=== PATIENT | female | born 1955 | race Caucasian/White ===

== ENCOUNTER → 2017-10-30 10:21 | Outpatient (CLI) | payer BC, OTHER, SELFPAY ==
--- NOTE | 2017-10-30 10:27 | MM_ITS ---
MM Dig screening mamm BI w/CAD CAD Screening ORDERING PHYSICIAN : Maverick Brewster MD PATIENT AGE: 61 years GENDER: Female INDICATION: Routine screening mammogram. No hormones. No new complaints. Family history history. Paternal grandmother with breast cancer COMPARISON: Previous mammograms: 09/30/2016: September 2015: September 2014. 2012 TECHNIQUE: Standard CC and MLO images were obtained. R2 CAD reviewed. FINDINGS: Minimal fibroglandular elements in both breasts most evident towards upper-outer quadrant. Lower density breast with generalized fatty replacement except for the minimal fibroglandular elements scattered throughout. There are some stable axillary & intramammary lymph nodes bilateral. RIGHT BREAST No new areas of significant concern. Minimal focal density at far lateral right breast less evident the today's initial cc view... No significant change since 2016. A small cyst here 9:00 was identified on the October 2016 ultrasound and likely corresponds. But given its stability follow-up would be adequate. Identified here on ultrasound IMPRESSION: ===== No significant interval change. Stable bilateral mammogram. Bilateral follow-up in one year recommended and encouraged BI-RADS Category: 2 Benign Finding(s) RECOMMENDED FOLLOW-UP: 1YR - 1 YEAR FOLLOW-UP (A letter has been sent to the patient regarding results of the study.) In
== END ==
PROVIDERS: Family Provider Family Medicine; PCP Family Medicine; Visit Provider Family Medicine
DX: Z12.31 Encounter for screening mammogram for malignant neoplasm of breast (principal)
CPT/HCPCS: 77067

== ENCOUNTER → 2017-12-21 06:55 | Outpatient (CLI) | payer BC, OTHER, SELFPAY ==
--- NOTE | 2017-12-21 06:59 | NM_ITS ---
CARDIOLITE SPECT MYOCARDIAL PERFUSION SCAN, REST AND STRESS: EXERCISE STRESS [facility] REVIEW QGS EF AND WALL MOTION EVALUATION: QPS - PERFUSION EVALUATION HISTORY: C.P., TACHYCARDIA DOSE: 10.48 mCi technetium 99m mibi intravenously at rest followed by 31.9 mCi technetium 99m mibi following the intravenous ministration of 0.4 mg of Lexiscan. Resting blood pressure is 154/84. Stress blood pressure 167/93. FINDINGS: Ejection fraction is calculated to be 83. Uniform myocardial activity at both stress and rest gated images calculated ejection fraction of 83% with normal wall motion IMPRESSION: No scintigraphic evidence of Lexiscan-induced myocardial ischemia. Normal ejection fraction normal wall motion
--- NOTE | 2017-12-21 06:59 | CT_ITS ---
CT heart w calcium score INDICATION: ITS.REASON: CP/SOA/ABNORMAL ECG ORDERING PHYSICIAN: Tacho Estevez MD PATIENT AGE: 62 years TECHNIQUE: Axial images are obtained without contrast. Sagittal and coronal reformatted images are reviewed as well. All CT scans at the facility use one or more dose reduction, viz: automated exposure control; ma/kV adjustment per patient size (including targeted exams where dose is matched to indication; i.e. head); or iterative reconstruction technique. FINDINGS: Coronary artery calcium score is 6 indicate minimal plaque burden with low cardiovascular disease risk. Incidental note is made of 6 mm nodule in the left midlung zone along the intrahepatic the major fissure IMPRESSION: 1. Minimal plaque burden with low cardiovascular disease risk. 2. 6 mm left midlung nodule. Recommend [address] follow-up
--- NOTE | 2017-12-21 08:48 | HMH.ITSHM ---
FENOFIBRATE EXFORAGE MAXIDE GRALICE CRESTOR CARVEDILOL CELEBREX SAVELLA TRAMADOL ASPIRIN
== END ==
PROVIDERS: Family Provider Family Medicine; PCP Family Medicine; Visit Provider Internal Medicine Cardiovascular Disease
DX: R07.89 Other chest pain (principal); R06.00 Dyspnea, unspecified; R94.31 Abnormal electrocardiogram [ECG] [EKG]
CPT/HCPCS: 75571; 78452; 93017; A9502; J2785

== ENCOUNTER → 2018-02-08 13:27 | Outpatient (CLI) | payer BC, OTHER, SELFPAY ==
--- NOTE | 2018-02-08 13:41 | MR_ITS ---
MR lumbar spine wo con, MR 3-d myelogram/MRCP HISTORY: PT states low back pain X Years. New onset of pain X 2-3 months. RT buttock, leg pain and tingling. ITS.REASON: RADICULAR LOW BACK PAIN ORDERING PHYSICIAN: Maverick Brewster MD PATIENT AGE: 62 years Comparison: MRI 02/12/12, X-RAY 03/25/12one TECHNIQUE: Standard multiplanar multiecho sequences are performed without contrast. 3-D MIP and myelographic images are also rendered and reviewed FINDINGS: There is normal alignment. The spinal cord ends at the T12 level. T10-T11: Degenerative disc disease with bulging disc with facet and ligamentum flavum hypertrophy with narrowing of the canal at 7 mm with bilateral lateral recess narrowing right greater than left. There is severe bilateral foraminal narrowing. T11-T12: Degenerative disc disease T12-L1: Unremarkable. Mild facet hypertrophic change. L1-L2: Severe degenerative disc disease with bulging disc and facet and ligamentum flavum hypertrophy with severe bilateral lateral recess and moderate bilateral foraminal narrowing is transverse canal stenosis of 8 mm. L2-L3: Severe degenerative disc disease with bulging disc and endplate hypertrophic change with facet and ligamentum flavum hypertrophy with severe canal stenosis and severe bilateral lateral recess and moderate bilateral foraminal narrowing. L3-L4: Severe degenerative disc disease. There is 5 mm anterolisthesis of L3 with region of the posterior superior aspect of L4. There is moderate to severe bilateral foraminal narrowing and severe right-sided lateral recess narrowing from facet and ligamentum hypertrophy. A prior left laminotomy at this level. L4-L5: Severe degenerative disc disease with bulging disc with severe right-sided foraminal narrowing. The bulging disc is eccentric toward the right. There is moderate to severe left-sided foraminal narrowing. L5-S1: Mild bulging disc. IMPRESSION: 1. Abnormal MRI of the lumbar spine. There is multilevel degenerative disc disease with facet and ligamentum flavum hypertrophy and bulging disc with resultant canal stenosis along with lateral recess and foraminal narrowing at multiple levels. Please see above for detailed description at each level. 2. Prior left laminotomy at L4-L5
== END ==
PROVIDERS: Family Provider Family Medicine; PCP Family Medicine; Visit Provider Family Medicine
DX: M54.10 Radiculopathy, site unspecified (principal)
CPT/HCPCS: 72148; 76376

== ENCOUNTER → 2018-02-22 14:07 | Outpatient (POV) | payer BC, OTHER, SELFPAY ==
[2018-02-22 14:22] VITALS: BP 191/99; PULSE 95; RESP 18; O2SAT 98
--- NOTE | 2018-02-23 10:04 | HMH.PMCON ---
Assessment and Plan (1) Spondylosis Status: Chronic Category: Medical Code(s): M47.9 - Spondylosis, unspecified (2) Sacroiliitis Status: Chronic Category: Medical Code(s): M46.1 - Sacroiliitis, not elsewhere classified - Assessment and plan all Dx Assessment and Plan for all problems:: We will schedule right SI joint injection for the patient. I believe this would be beneficial given her symptomology. If patient does not get relief from this we will reassess and potentially work on her facet joints given her that if it from her rfa in the past. This note was dictated using voice recognition software and may contain errors or omissions HPI - Data of Consult Consult date: 02/22/18 Requesting Physician: Elvira Vaca APRN Primary Care Provider: Maverick Brewster MD Family Provider: Maverick Brewster MD - Consult Narrative Reason for consult: Back pain right leg pain History of present illness: Ms. Hilton is a 62 year old female resents for consultation in regards to her back pain. Patient had a discectomy by Dr. Almodovar several years ago. After this she did need to have low back pain. She was seen by Dr. Reeves and had an off day of her left side. Patient state this is done well for several years. Patient is now having right-sided pain. Patient has extreme point tenderness over her right SI joint. She is tried and failed chiropractic therapy, physical therapy, massage therapy. She rates her pain a 5 out of 10 today. She states is constant. States standing and walking long periods of time increases her pain while resting a reclining decreases her pain. CC: Elvira Vaca APRN [facility] History I have reviewed the patient's past medical history: Yes Medical History: Reports:: Gastroesophageal Reflux Disease(GERD), Heart Murmur, Hyperlipidemia, Hypertension Other Medical History: Reports: Arthritis Laterality Cases: Bilateral: Total Knee Replacement Other Surgeries: Yes: Appendectomy, Other - *Social History Smoking Status: Never smoker Alcohol Intake: never Alcohol Intake Frequency:: other Occupational Status: retired Housing: house - Psychiatric History Expresses thoughts of harming self/others: None Suicide Plan Description: No Plan *Family Hx:: Unable to obtain Review of Systems - Review of Systems ROS General: no recent weight change, no fever, no sleep disturbances Respiratory: no cough, no shortness of air, no recurring pulmonary infections Cardiovascular/Peripheral Vascular: No chest pain, No palpitations, no edema, no shortness of breath. Gastrointestinal: no new onset incontinence, normal bowel movements reported Genitourinary: no new onset incontinence Musculoskeletal: Back pain, right SI joint pain Psychiatric: normal mood/ affect Neurological: [denies weakness in extremities], [denies balance issues] Meds Home Medications Medication Instructions Recorded Confirmed Type amlodipine 5 mg-valsartan 320 mg 1 tab PO DAILY tab 11/04/17 History tablet calcium carbonate-vitamin D3 600 cap PO 11/04/17 History mg calcium-200 unit capsule celecoxib 200 mg capsule 200 mg PO DAILY cap 11/04/17 History cholecalciferol (vitamin D3) 5,000 5,000 unit PO DAILY cap 11/04/17 History unit capsule coenzyme Q10 100 mg capsule 100 mg PO DAILY cap 11/04/17 History fenofibrate nanocrystallized 145 145 mg PO DAILY tab 11/04/17 History mg tablet gabapentin ER 600 mg 1,200 mg PO QPM 11/04/17 History tablet,extended release 24 hr lidocaine 5 % topical patch 1 patch TOPICAL ONCE PRN 11/04/17 History milnacipran 50 mg tablet 50 mg PO DAILY tab 11/04/17 History multivitamin tablet 1 tab PO QAM 11/04/17 History tramadol ER 300 mg tablet,extended 300 mg PO DAILY tab 11/04/17 History release 24 hr triamterene 37.5 1 tab PO QAM 11/04/17 History mg-hydrochlorothiazide 25 mg tablet rosuvastatin 5 mg tablet 5 mg PO .every other day tab
--- NOTE | 2018-02-23 10:09 | P.CONS_ITS ---
Assessment and Plan (1) Spondylosis Status: Chronic Category: Medical Code(s): M47.9 - Spondylosis, unspecified (2) Sacroiliitis Status: Chronic Category: Medical Code(s): M46.1 - Sacroiliitis, not elsewhere classified - Assessment and plan all Dx Assessment and Plan for all problems:: We will schedule right SI joint injection for the patient. I believe this would be beneficial given her symptomology. If patient does not get relief from this we will reassess and potentially work on her facet joints given her that if it from her rfa in the past. This note was dictated using voice recognition software and may contain errors or omissions HPI - Data of Consult Consult date: 02/22/18 Requesting Physician: Elvira Vaca APRN Primary Care Provider: Maverick Brewster MD Family Provider: Maverick Brewster MD - Consult Narrative Reason for consult: Back pain right leg pain History of present illness: Ms. Hilton is a 62 year old female resents for consultation in regards to her back pain. Patient had a discectomy by Dr. Almodovar several years ago. After this she did need to have low back pain. She was seen by Dr. Reeves and had an off day of her left side. Patient state this is done well for several years. Patient is now having right-sided pain. Patient has extreme point tenderness over her right SI joint. She is tried and failed chiropractic therapy, physical therapy, massage therapy. She rates her pain a 5 out of 10 today. She states is constant. States standing and walking long periods of time increases her pain while resting a reclining decreases her pain. CC: Elvira Vaca APRN [facility] History I have reviewed the patient's past medical history: Yes Medical History: Reports:: Gastroesophageal Reflux Disease(GERD), Heart Murmur, Hyperlipidemia, Hypertension Other Medical History: Reports: Arthritis Laterality Cases: Bilateral: Total Knee Replacement Other Surgeries: Yes: Appendectomy, Other - *Social History Smoking Status: Never smoker Alcohol Intake: never Alcohol Intake Frequency:: other Occupational Status: retired Housing: house - Psychiatric History Expresses thoughts of harming self/others: None Suicide Plan Description: No Plan *Family Hx:: Unable to obtain Review of Systems - Review of Systems ROS General: no recent weight change, no fever, no sleep disturbances Respiratory: no cough, no shortness of air, no recurring pulmonary infections Cardiovascular/Peripheral Vascular: No chest pain, No palpitations, no edema, no shortness of breath. Gastrointestinal: no new onset incontinence, normal bowel movements reported Genitourinary: no new onset incontinence Musculoskeletal: Back pain, right SI joint pain Psychiatric: normal mood/ affect Neurological: [denies weakness in extremities], [denies balance issues] Meds Home Medications Medication Instructions Recorded Confirmed Type amlodipine 5 mg-valsartan 320 mg 1 tab PO DAILY tab 11/04/17 History tablet calcium carbonate-vitamin D3 600 cap PO 11/04/17 History mg calcium-200 unit capsule celecoxib 200 mg capsule 200 mg PO DAILY cap 11/04/17 History cholecalciferol (vitamin D3) 5,000 5,000 unit PO DAILY cap 11/04/17 History unit capsule coenzyme Q10 100 mg capsule 100 mg PO DAILY cap 11/04/17 History fenofibrate nanocrystallized 145 145 mg PO DAILY tab 11/04/17 History mg tablet gabap
== END ==
PROVIDERS: Family Provider Family Medicine; PCP Family Medicine; Visit Provider Clinical Nurse Specialist Family Health
DX: M54.5 Low back pain (principal); M47.9 Spondylosis, unspecified; M46.1 Sacroiliitis, not elsewhere classified
CPT/HCPCS: 99212

== ENCOUNTER → 2018-03-23 09:46 | Outpatient (POV) | payer BC, OTHER, SELFPAY ==
[2018-03-23 10:22] VITALS: BP 137/78; PULSE 75; RESP 18; O2SAT 98; BMI 35.9
--- NOTE | 2018-03-23 12:00 | HMH.PAINSOAP ---
[facility] Pain Management SOAP Note Subjective:: Patient is a pleasant 62-year-old white female who presents today for follow-up after right SI joint injection. Patient had some relief however it was not long lasting. Patient has had rhizotomies in the past with good relief. Patient was seen by Dr. Almodovar since her last visit and he did recommend a lumbar laminectomy at her higher lumbar levels. Patient does not know if she wants to move forward with this. Patient and I did discuss about repeating a medial branch block or facet joint injection. We also briefly talked about neuro stimulation. She rates her pain a 6 out of 10 today. Mostly in her low back ROS General: no recent weight change, no fever, no sleep disturbances Respiratory: no cough, no shortness of air, no recurring pulmonary infections Cardiovascular/Peripheral Vascular: No chest pain, No palpitations, no edema, no shortness of breath. Gastrointestinal: no incontinence, normal bowel movements reported Genitourinary: no incontinence Musculoskeletal: Low back pain Psychiatric: normal mood/ affect Neurological: [denies weakness in extremities], [denies balance issues] Objective:: Physical Exam General: Alert and oriented x3, no acute distress, pleasant and cooperative, [on room air] Lungs: Resps E/U, Symmetrical chest expansion, Eyes: PERRL Musculoskeletal: Flexion and extension of lumbar spine somewhat guarded secondary to pain, deep tendon reflexes normal, strength in upper and lower extremities [5/5], [abnormal gait noted] Neurological: speech clear, strip cutter equal, no gross sensory deficits Assessment:: Sacroiliitis, degenerative disc disease lumbar spine with lumbar radiculopathy and lumbar spondylosis, postlaminectomy syndrome Plan:: I gave the patient information in regards to facet joint injections along with information on neuro stimulation. Patient has been a reviewed this and decide which direction she would like to move forward with. Patient is not on any anticoagulation therapy. Patient has been a call us to schedule an appointment. This note was dictated using voice recognition software and may contain errors or omissions
--- NOTE | 2018-03-23 12:03 | P.CONS_ITS ---
[facility] Pain Management SOAP Note Subjective:: Patient is a pleasant 62-year-old white female who presents today for follow-up after right SI joint injection. Patient had some relief however it was not long lasting. Patient has had rhizotomies in the past with good relief. Patient was seen by Dr. Almodovar since her last visit and he did recommend a lumbar laminectomy at her higher lumbar levels. Patient does not know if she wants to move forward with this. Patient and I did discuss about repeating a medial branch block or facet joint injection. We also briefly talked about neuro stimulation. She rates her pain a 6 out of 10 today. Mostly in her low back ROS General: no recent weight change, no fever, no sleep disturbances Respiratory: no cough, no shortness of air, no recurring pulmonary infections Cardiovascular/Peripheral Vascular: No chest pain, No palpitations, no edema, no shortness of breath. Gastrointestinal: no incontinence, normal bowel movements reported Genitourinary: no incontinence Musculoskeletal: Low back pain Psychiatric: normal mood/ affect Neurological: [denies weakness in extremities], [denies balance issues] Objective:: Physical Exam General: Alert and oriented x3, no acute distress, pleasant and cooperative, [ on room air] Lungs: Resps E/U, Symmetrical chest expansion, Eyes: PERRL Musculoskeletal: Flexion and extension of lumbar spine somewhat guarded secondary to pain, deep tendon reflexes normal, strength in upper and lower extremities [5/5], [abnormal gait noted] Neurological: speech clear, stain wiper equal, no gross sensory deficits Assessment:: Sacroiliitis, degenerative disc disease lumbar spine with lumbar radiculopathy and lumbar spondylosis, postlaminectomy syndrome Plan:: I gave the patient information in regards to facet joint injections along with information on neuro stimulation. Patient has been a reviewed this and decide which direction she would like to move forward with. Patient is not on any anticoagulation therapy. Patient has been a call us to schedule an appointment. This note was dictated using voice recognition software and may contain errors or omissions
== END ==
PROVIDERS: Family Provider Family Medicine; PCP Family Medicine; Visit Provider Clinical Nurse Specialist Family Health
DX: M51.16 Intervertebral disc disorders with radiculopathy, lumbar region (principal); M46.1 Sacroiliitis, not elsewhere classified; M47.896 Other spondylosis, lumbar region; M96.1 Postlaminectomy syndrome, not elsewhere classified
CPT/HCPCS: 99213

== ENCOUNTER → 2018-07-12 14:49 | Outpatient (POV) | payer BC, OTHER, SELFPAY ==
[2018-07-12 14:59] VITALS: BP 152/75; PULSE 89; RESP 18; O2SAT 98; BMI 38.0
--- NOTE | 2018-07-13 13:51 | P.CONS_ITS ---
[facility] Pain Management SOAP Note Subjective:: Is a pleasant 62 old white female who presents today for follow-up. Patient is still having some SI joint pain. She would like to redo her right SI joint injection. Patient would also like to discuss potentially a mild procedure. Patient does have pain when she is standing for long periods of time. Stick patient states that leaning forward does alleviate the symptoms. I do believe she would be a good candidate for a mild procedure. ROS General: no recent weight change, no fever, no sleep disturbances Respiratory: no cough, no shortness of air, no recurring pulmonary infections Cardiovascular/Peripheral Vascular: No chest pain, No palpitations, no edema, no shortness of breath. Gastrointestinal: no incontinence, normal bowel movements reported Genitourinary: no incontinence Musculoskeletal: Back pain, leg pain, SI joint pain Psychiatric: normal mood/ affect Neurological: [denies weakness in extremities], [denies balance issues] Objective:: Physical Exam General: Alert and oriented x3, no acute distress, pleasant and cooperative, [on room air] Lungs: Resps E/U, Symmetrical chest expansion, Eyes: PERRL Musculoskeletal: Flexion and extension of lumbar spine somewhat guarded secondary to pain, deep tendon reflexes normal, strength in upper and lower extremities [5/5], [abnormal gait noted], positive Luis's test on the right side Neurological: speech clear, field marketing representative equal, no gross sensory deficits Assessment:: Degenerative disc disease lumbar spine with spinal stenosis, ligamentum flavum hypertrophy, right SI joint pain, sacroiliitis Plan:: We will schedule her for a right SI joint injection as soon as possible we will also set her up for potential mild case. This note was dictated using voice recognition software and may contain errors or omissions
== END ==
PROVIDERS: PCP Family Medicine; Visit Provider Clinical Nurse Specialist Family Health
DX: M51.36 Other intervertebral disc degeneration, lumbar region (principal); M48.061 Spinal stenosis, lumbar region without neurogenic claudication; M46.1 Sacroiliitis, not elsewhere classified; M46.06 Spinal enthesopathy, lumbar region
CPT/HCPCS: 99213

== ENCOUNTER → 2018-08-23 10:40 | Outpatient (POV) | payer BC, OTHER, SELFPAY ==
[2018-08-23 10:52] VITALS: BP 150/77; PULSE 81; RESP 18; O2SAT 98; BMI 38.0
--- NOTE | 2018-08-23 11:36 | XR_ITS ---
EXAM: XR lumbar spine bending only HISTORY: ITS.REASON: LUMBAR PAIN,MILD PROCEDURE ORDERING PHYSICIAN: Elvira Vaca PATIENT AGE: 62 years COMPARISON: None FINDINGS: Flexion and extension views are obtained of the lumbar spine. There is no abnormal subluxation in flexion or extension. There is multilevel degenerative disc disease T12-L5. Endplate hypertrophic changes are present most prominent at L2-L3. There is 5 mm fixed anterolisthesis of L2. IMPRESSION: Multilevel degenerative disc disease with no abnormal subluxation flexion or extension
--- NOTE | 2018-08-23 12:39 | HMH.PAINSOAP ---
[facility] Pain Management SOAP Note Subjective:: Is a pleasant 62-year-old white female who presents today for discussion in regards to her mild procedure. Patient has difficulty standing for long periods of time. Patient pain symptoms are alleviated with leaning forward. Patient does have noted spinal stenosis throughout her lumbar spine. Patient has been deemed a candidate for surgery however she would like to try a mild procedure prior. Patient has tried and failed epidural injections along with other injections. Patient and I had a long discussion about realistic goals. Patient understands that our goal is to make her more functional. Patient understands that there is no guarantee with any procedure that we can ensure success. Patient and I discussed the risks along with potential benefits. Patient's MRI was reviewed by me and the M ILD rep along with her flexion and extension x-rays. Patient and I discussed how pain is multilayered and that if we can alleviate her stenosis pain that we potentially may uncover additional pains. Patient is aware. She is not on any anticoagulation therapy. Patient is doing home stretching however after she gets her mild procedure she would like to do more formal physical therapy. She is on anti-inflammatories. She is tried multiple medications with no success. She rates her pain today a 7 out of 10. ROS General: no recent weight change, no fever, no sleep disturbances Respiratory: no cough, no shortness of air, no recurring pulmonary infections Cardiovascular/Peripheral Vascular: No chest pain, No palpitations, no edema, no shortness of breath. Gastrointestinal: no incontinence, normal bowel movements reported Genitourinary: no incontinence Musculoskeletal: Back pain, leg pain Psychiatric: normal mood/ affect Neurological: Weakness in bilateral lower extremities with standing for long periods of time, [denies balance issues] Objective:: Physical Exam General: Alert and oriented x3, no acute distress, pleasant and cooperative, [on room air] Lungs: Resps E/U, Symmetrical chest expansion, Eyes: PERRL Musculoskeletal: Flexion and extension of lumbar spine somewhat guarded secondary to pain, deep tendon reflexes normal, strength in upper and lower extremities [5/5], [abnormal gait noted] Neurological: speech clear, rivet thrower equal, no gross sensory deficits Assessment:: Degenerative disc disease lumbar spine, ligamentum flavum hypertrophy, right SI joint pain, sacroiliitis, spinal stenosis with neurogenic claudication Plan:: Patient is worse stenosis is at L1-L2 along with L3-L4 L4-L5. We will set her up for a mild procedure for her lower lumbar spine. I will follow-up with the patient 2 weeks after her procedure. Patient is instructed to call the office if she has any issues prior to her next appointment. She is not on any anticoagulation therapy. This note was dictated using voice recognition software and may contain errors or omissions
--- NOTE | 2018-08-23 12:43 | P.CONS_ITS ---
[facility] Pain Management SOAP Note Subjective:: Is a pleasant 62-year-old white female who presents today for discussion in regards to her mild procedure. Patient has difficulty standing for long periods of time. Patient pain symptoms are alleviated with leaning forward. Patient does have noted spinal stenosis throughout her lumbar spine. Patient has been deemed a candidate for surgery however she would like to try a mild procedure prior. Patient has tried and failed epidural injections along with other injections. Patient and I had a long discussion about realistic goals. Patient understands that our goal is to make her more functional. Patient understands that there is no guarantee with any procedure that we can ensure success. P atient and I discussed the risks along with potential benefits. Patient's MRI was reviewed by me and the M ILD rep along with her flexion and extension x- rays. Patient and I discussed how pain is multilayered and that if we can alleviate her stenosis pain that we potentially may uncover additional pains. Patient is aware. She is not on any anticoagulation therapy. Patient is doing home stretching however after she gets her mild procedure she would like to do more formal physical therapy. She is on anti-inflammatories. She is tried multiple medications with no success. She rates her pain today a 7 out of 10. ROS General: no recent weight change, no fever, no sleep disturbances Respiratory: no cough, no shortness of air, no recurring pulmonary infections Cardiovascular/Peripheral Vascular: No chest pain, No palpitations, no edema, no shortness of breath. Gastrointestinal: no incontinence, normal bowel movements reported Genitourinary: no incontinence Musculoskeletal: Back pain, leg pain Psychiatric: normal mood/ affect Neurological: Weakness in bilateral lower extremities with standing for long periods of time, [denies balance issues] Objective:: Physical Exam General: Alert and oriented x3, no acute distress, pleasant and cooperative, [on room air] Lungs: Resps E/U, Symmetrical chest expansion, Eyes: PERRL Musculoskeletal: Flexion and extension of lumbar spine somewhat guarded secondary to pain, deep tendon reflexes normal, strength in upper and lower extremities [5/5], [abnormal gait noted] Neurological: speech clear, manager of exhibitions and collections equal, no gross sensory deficits Assessment:: Degenerative disc disease lumbar spine, ligamentum flavum hypertrophy, right SI joint pain, sacroiliitis, spinal stenosis with neurogenic claudication Plan:: Patient is worse stenosis is at L1-L2 along with L3-L4 L4-L5. We will set her up for a mild procedure for her lower lumbar spine. I will follow-up with the patient 2 weeks after her procedure. Patient is instructed to call the office if she has any issues prior to her next appointment. She is not on any anticoagulation therapy. This note was dictated using voice recognition software and may contain errors or omissions
== END ==
PROVIDERS: PCP Family Medicine; Visit Provider Clinical Nurse Specialist Family Health
DX: M51.16 Intervertebral disc disorders with radiculopathy, lumbar region; M48.062 Spinal stenosis, lumbar region with neurogenic claudication; M46.00 Spinal enthesopathy, site unspecified; M46.1 Sacroiliitis, not elsewhere classified
CPT/HCPCS: 72120; 99213

== ENCOUNTER → 2018-10-18 09:56 | Outpatient (POV) | payer BC, OTHER, SELFPAY ==
--- NOTE | 2018-10-18 10:25 | XR_ITS ---
XR knee RT 3V HISTORY: ITS.REASON: KNEE PAIN ORDERING PHYSICIAN: Elvira Vaca PATIENT AGE: 62 years COMPARISON: None FINDINGS: There has been a prior medial hemiarthroplasty with good alignment of the prosthesis. Mild osteoarthritic changes are present involving the lateral compartment and patellofemoral joint. No acute fracture or dislocation. IMPRESSION: Status post medial hemiarthroplasty with good alignment with mild osteoarthritic change of the medial compartment and patellofemoral joint
--- NOTE | 2018-10-18 10:25 | XR_ITS ---
XR knee LT 3V HISTORY: ITS.REASON: KNEE PAIN ORDERING PHYSICIAN: Elvira Vaca PATIENT AGE: 62 years COMPARISON: 02/20/2011 FINDINGS: There has been interval total knee arthroplasty placement with good alignment and no evidence of orthopedic complication. No fracture or dislocation. There is some decreased attenuation involving the distal aspect of the femur just proximal to the arthroplasty. This is of questionable clinical significance and may only be postsurgical in nature. There are no other post surgical exams available for review. Correlation with more recent postsurgical films would be helpful. IMPRESSION: 1. Status post totally arthroplasty with good alignment. 2. Slight decreased attenuation along the distal aspect of the femur which is of questionable clinical significance. Correlation with other postoperative films needed. If these are made available then, an addendum may be given
[2018-10-18 10:29] VITALS: BP 109/70; PULSE 83; RESP 18; O2SAT 98; BMI 37.4
--- NOTE | 2018-10-18 12:31 | HMH.PAINSOAP ---
[facility] Pain Management SOAP Note Subjective:: Patient is a pleasant 62-year-old white female who presents today for follow-up after mild procedure. Patient states she is doing much better rating her pain a 1 out of 10. Patient states that all of the pain in her legs has subsided. Patient is able to sleep at night she is also able to stand and walk for longer periods of time. Patient states most of her pain now is in her bilateral knees. She has had knee replacements by Dr. Guevara. She states her left knee is much worse than her right knee. ROS General: no recent weight change, no fever, no sleep disturbances Respiratory: no cough, no shortness of air, no recurring pulmonary infections Cardiovascular/Peripheral Vascular: No chest pain, No palpitations, no edema, no shortness of breath. Gastrointestinal: no incontinence, normal bowel movements reported Genitourinary: no incontinence Musculoskeletal: Bilateral knee pain Psychiatric: normal mood/ affect Neurological: [denies weakness in extremities], [denies balance issues] Objective:: Physical Exam General: Alert and oriented x3, no acute distress, pleasant and cooperative, [on room air] Lungs: Resps E/U, Symmetrical chest expansion, Eyes: PERRL Musculoskeletal: Flexion and extension of lumbar spine somewhat guarded secondary to pain, deep tendon reflexes normal, strength in upper and lower extremities [5/5], [abnormal gait noted] Neurological: speech clear, labor relations teacher equal, no gross sensory deficits Assessment:: Degenerative disc disease lumbar spine with ligamentum flavum hypertrophy and spinal stenosis with neurogenic claudication and bilateral knee pain Plan:: I will get x-rays of the patient's knees and we will send her for consultation in regards to the pain to Dr. Guevara. I will see the patient back in 2 months and reassess her symptoms at that time. She has been instructed to call the office if she has any issues prior to her next appointment. Dr. Patterson has reviewed this note and agrees with this plan of care. This note was dictated using voice recognition software and may contain errors or omissions
== END ==
PROVIDERS: PCP Family Medicine; Visit Provider Clinical Nurse Specialist Family Health
DX: Z09 Encounter for follow-up examination after completed treatment for conditions other than malignant neoplasm (principal); M48.062 Spinal stenosis, lumbar region with neurogenic claudication; M25.561 Pain in right knee; M25.562 Pain in left knee
CPT/HCPCS: 73562; 99213

== ENCOUNTER → 2018-11-02 09:22 | Outpatient (CLI) | payer BC, OTHER, SELFPAY ==
--- NOTE | 2018-11-02 09:26 | MM_ITS ---
MM Dig screening mamm BI w/CAD ORDERING PHYSICIAN : Jaime Orozco MD PATIENT AGE: 62 years GENDER: Female COMPARISON: Previous bilateral digital mammogram October 2017February 2017] 2015 2012 INDICATION: ITS.REASON: Routine Screening Mammogram TECHNIQUE: Standard CC and MLO images were obtained. R2 CAD reviewed. FINDINGS: Mild to moderate residual fibroglandular elements. With no dominant suspicious mass or suspicious calcifications RIGHT BREAST:No no new areas of significant concern. Areas of density and minimal nodularity appears stable when compared to multiple studies. Scattered benign calcifications are again seen developing along the medial breast.. LEFT BREAST: No significant change compared back to previous studies of September 2015 and July 2013 Areas of asymmetric minimal fibroglandular density at the deep lateral left breast are similar to those studies with no new areas of significant concern. Scattered benign calcifications medial breastt IMPRESSION: Stable bilateral mammogram No new areas of significant concern . BI-RADS Category: 2 Benign Finding(s) RECOMMENDED FOLLOW-UP: 1YR 1 YEAR FOLLOW-UP (A letter has been sent to the patient regarding results of the study.)
== END ==
PROVIDERS: PCP Family Medicine; Visit Provider Nurse Practitioner Obstetrics & Gynecology
DX: Z12.31 Encounter for screening mammogram for malignant neoplasm of breast (principal)
CPT/HCPCS: 77067

== ENCOUNTER → 2018-11-22 13:47 | Outpatient (POV) | payer MEDICARE, OTHER, SELFPAY ==
[2018-11-22 14:29] VITALS: BP 160/89; PULSE 94; RESP 18; O2SAT 99; BMI 37.8
--- NOTE | 2018-11-23 08:21 | HMH.PAINSOAP ---
[facility] Pain Management SOAP Note Subjective:: Patient is a very pleasant 62-year-old white female who presents today for follow-up. Patient states she is doing well however since she has started physical therapy she has found that her pain has increased she rates her pain a 4 out of 10 mostly in her low back right hip and leg. She is also having quite a lot of knee pain. Patient and I discussed options including spinal cord stimulation. ROS General: no recent weight change, no fever, no sleep disturbances Respiratory: no cough, no shortness of air, no recurring pulmonary infections Cardiovascular/Peripheral Vascular: No chest pain, No palpitations, no edema, no shortness of breath. Gastrointestinal: no incontinence, normal bowel movements reported Genitourinary: no incontinence Musculoskeletal: Back pain, leg pain, knee pain Psychiatric: normal mood/ affect Neurological: [denies weakness in extremities], [denies balance issues] Objective:: Physical Exam General: Alert and oriented x3, no acute distress, pleasant and cooperative, [on room air] Lungs: Resps E/U, Symmetrical chest expansion, Eyes: PERRL Musculoskeletal: Flexion and extension of lumbar spine somewhat guarded secondary to pain, deep tendon reflexes normal, strength in upper and lower extremities [5/5], [abnormal gait noted] Neurological: speech clear, 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 I will follow-up with the patient 1 week reassess her at that time. She is been instructed to call the office if she has any issues prior to her next appointment. Dr. Patterson has reviewed this note and agrees with this plan of care. This note was dictated using voice recognition software and may contain errors or omissions
== END ==
PROVIDERS: PCP Family Medicine; Visit Provider Clinical Nurse Specialist Family Health
DX: M48.062 Spinal stenosis, lumbar region with neurogenic claudication (principal)
CPT/HCPCS: 99212

== ENCOUNTER → 2018-11-30 10:43 | Outpatient (POV) | payer MEDICARE, OTHER, SELFPAY ==
[2018-11-30 11:09] VITALS: BP 166/69; PULSE 83; RESP 18; O2SAT 98; BMI 37.8
--- NOTE | 2018-11-30 11:09 | HMH.PAINSOAP ---
[facility] Pain Management SOAP Note Subjective:: Patient is a very pleasant 63-year-old white female who presents today for follow-up. She rates her pain a 3 out of 10. Mostly in her right hip. Patient is completing physical therapy. She has extreme point tenderness of her right greater trochanteric bursa. Patient and I discussed bursa injection. ROS General: no recent weight change, no fever, no sleep disturbances Respiratory: no cough, no shortness of air, no recurring pulmonary infections Cardiovascular/Peripheral Vascular: No chest pain, No palpitations, no edema, no shortness of breath. Gastrointestinal: no incontinence, normal bowel movements reported Genitourinary: no incontinence Musculoskeletal: Right hip pain Psychiatric: normal mood/ affect Neurological: [denies weakness in extremities], [denies balance issues] Objective:: Physical Exam General: Alert and oriented x3, no acute distress, pleasant and cooperative, [on room air] Lungs: Resps E/U, Symmetrical chest expansion, Eyes: PERRL Musculoskeletal: Flexion and extension of lumbar spine somewhat guarded secondary to pain, deep tendon reflexes normal, strength in upper and lower extremities [5/5], [abnormal gait noted] extreme point tenderness over right greater trochanteric bursa Neurological: speech clear, water pumping station engineer equal, no gross sensory deficits Assessment:: Degenerative disc disease lumbar spine and spinal stenosis, right greater trochanteric bursitis Plan:: We will schedule her for a right greater trochanteric bursa injection she is continuing her physical therapy. Patient will follow-up at her injection we will reassess her at that time. Dr. Patterson has reviewed this note and agrees with this plan of care. This note was dictated using voice recognition software and may contain errors or omissions
== END ==
PROVIDERS: PCP Family Medicine; Visit Provider Clinical Nurse Specialist Family Health
DX: M51.36 Other intervertebral disc degeneration, lumbar region; M48.061 Spinal stenosis, lumbar region without neurogenic claudication; M70.61 Trochanteric bursitis, right hip
CPT/HCPCS: 99212

== ENCOUNTER 2019-01-17 09:00 | Outpatient (RCR) | payer MEDICARE, OTHER, SELFPAY | END 2019-01-17 09:05 | disposition home or self-care (01) | LOC: PT 09:00 | PROVIDERS: Visit Provider Orthopaedic Surgery | DX: M62.81 Muscle weakness (generalized) (principal) | CPT/HCPCS: 97014; 97110; 97163; 97164; G0283 ==

== ENCOUNTER → 2019-09-21 14:56 | Outpatient (CLI) | payer MEDICARE, OTHER, SELFPAY ==
--- NOTE | 2019-09-21 15:01 | XR_ITS ---
PROCEDURE: XR CHEST 2V CLINICAL HISTORY: HTN, PRE OP COMPARISON: CXR CHEST(2 VIEWS-NOT PORTABLE) from 03/11/2014 CXR CHEST(2 VIEWS-NOT PORTABLE) from 05/14/2015 FINDINGS: The cardiomediastinal silhouette and pulmonary vascularity are within normal limits. The lungs are clear without infiltrates, suspicious nodules, or pleural effusions. No acute bony abnormalities. IMPRESSION: No acute findings. Dictated by: Alberto Carvalho MD 09/21/2019 15:22 Electronically signed by Alberto Carvalho MD in [place] 09/21/2019 15:22
== END ==
PROVIDERS: PCP Family Medicine; Visit Provider Family Medicine
DX: Z01.818 Encounter for other preprocedural examination (principal)
CPT/HCPCS: 71046

== ENCOUNTER 2019-09-29 10:00 | Outpatient (RCR) | payer MEDICARE, OTHER, SELFPAY | END 2019-09-29 10:57 | disposition home or self-care (01) | LOC: PT 10:00 | PROVIDERS: PCP Family Medicine; Visit Provider Orthopaedic Surgery | DX: M76.02 Gluteal tendinitis, left hip (principal); M76.01 Gluteal tendinitis, right hip | CPT/HCPCS: 97110; 97163 ==

== ENCOUNTER → 2019-10-11 14:48 | Outpatient (CLI) | payer MEDICARE, OTHER, SELFPAY ==
--- NOTE | 2019-10-11 14:54 | US_ITS ---
PROCEDURE: US THYROID CLINICAL INDICATION: THYROMEGALY Enlarged thyroid gland COMPARISON: No exams were available for comparison FINDINGS: Right lobe is 5.3 x 2.9 x 2.4 cm. There is heterogeneous echogenicity with some increased vascularity. The left lobe is 4.3 x 2.22 cm also demonstrating heterogeneous echogenicity. A dominant nodule is present at the isthmus on the left measuring 3 x 1.5 cm. Nodule is hypoechoic, solid, fairly well-circumscribed without discrete calcification. IMPRESSION: Enlarged thyroid gland with heterogeneous echogenicity consistent with goiter. Moderately suspicious nodule involving the left aspect of the isthmus, T rads level 4. Recommend ultrasound-guided fine needle aspiration Dictated by: Alberto Carvalho MD 10/11/2019 18:46 Electronically signed by Alberto Carvalho MD in [place] 10/11/2019 18:46
== END ==
PROVIDERS: PCP Family Medicine; Visit Provider Family Medicine
DX: E01.0 Iodine-deficiency related diffuse (endemic) goiter (principal)
CPT/HCPCS: 76536

== ENCOUNTER → 2020-03-26 09:24 | Outpatient (CLI) | payer MEDICARE, OTHER, SELFPAY ==
--- NOTE | 2020-03-26 09:27 | MM_ITS ---
PROCEDURE: MM DIG SCREENING MAMM BI W/CAD Digital Breast Tomosynthesis Included CLINICAL INDICATION: SCREENING There is a history of breast cancer patient's paternal grandmother. COMPARISON: MG [id number] DIG MAMM-DX UNI A/VW-RT W/CAD from 10/10/2016 [facility] MM Dig screening mamm BI w/CAD from 10/30/2017 [facility] MM Dig screening mamm BI w/CAD from 11/02/2018 TECHNIQUE: Standard CC and MLO images and 3D Tomosynthesis was obtained. R2 CAD reviewed. FINDINGS: Scattered fibroglandular densities are seen throughout both breast primarily upper outer quadrants. There are scattered benign-appearing microcalcifications in each breast some of which appear to be typical of secretory disease. There is no suspicious lesion in either breast and no suspicious microcalcifications. There are several small normal appearing nodes in each axilla. IMPRESSION: Moderate breast density with no suspicious lesions seen BI-RAD Category: 2 Benign Finding(s) FOLLOW-UP: 1YR 1 Year Follow-up (A letter has been sent to the patient regarding results of the study.) Dictated by: Dr. Simba Nolen MD 03/27/2020 07:58 Dr. Simba Nolen MD in [place] 03/27/2020 07:58
--- NOTE | 2020-03-26 09:29 | XR_ITS ---
PROCEDURE: XR DEXA AXIAL SKELETON CLINICAL HISTORY: OSTEOPENIA COMPARISON: No exams were available for comparison FINDINGS: The right hip BMD is 1.003 with a t-score of 0.5. The left hip BMD is 1.082 with a t-score of 1.1. The lumbar spine BMD is 1.449 with a t-score of 3.7. IMPRESSION: Normal bone density with low fracture risk. Suggest follow-up exam in 2 years Dictated by: Alberto Carvalho MD 03/26/2020 18:23 Alberto Carvalho MD in [place] 03/27/2020 09:04
== END ==
PROVIDERS: PCP Family Medicine; Visit Provider Family Medicine
DX: Z12.31 Encounter for screening mammogram for malignant neoplasm of breast (principal); M85.89 Other specified disorders of bone density and structure, multiple sites
CPT/HCPCS: 77063; 77067; 77080

== ENCOUNTER → 2021-03-28 12:52 | Outpatient (CLI) | payer MEDICARE, OTHER, SELFPAY ==
--- NOTE | 2021-03-28 12:56 | MM_ITS ---
PROCEDURE: MM DIG SCREENING MAMM BI W/CAD Digital Breast Tomosynthesis Included CLINICAL INDICATION: SCREENING COMPARISON: [facility] MM Dig screening mamm BI w/CAD from 10/30/2017 [facility] MM Dig screening mamm BI w/CAD from 11/02/2018 MG MM DIG SCREENING MAMM BI W/CAD from 03/26/2020 TECHNIQUE: Standard CC and MLO images and 3D Tomosynthesis was obtained. R2 CAD reviewed. FINDINGS: Average fibroglandular tissue. Benign-appearing calcifications with benign-appearing nodules in the axilla consistent with lymph nodes.No suspicious appearing mass, malignant-appearing microcalcification, architectural distortion, or skin thickening.. No significant change. IMPRESSION: Benign findings with no significant change BI-RAD Category: 2 Benign Finding FOLLOW-UP: 1 YR 1 Year Follow-up (A letter has been sent to the patient regarding results of the study.) Dictated by: Alberto Carvalho MD 04/04/2021 08:37 Alberto Carvalho MD in [place] 04/04/2021 08:37
== END ==
PROVIDERS: PCP Family Medicine; Visit Provider Family Medicine
DX: Z12.31 Encounter for screening mammogram for malignant neoplasm of breast (principal)
CPT/HCPCS: 77063; 77067

== ENCOUNTER → 2021-11-18 11:15 | Outpatient (CLI) | payer MEDICARE, OTHER, SELFPAY ==
[2021-11-18 11:39] LABS: Blood Urea Nitrogen 29 mg/dl (7-17); Estimated Glomerular Filt Rate 62 ml/min (>60); GFR (African American) 76 ML/MIN (>60)
--- NOTE | 2021-11-18 11:58 | CT_ITS ---
FINAL REPORT TECHNIQUE: After the administration of oral and intravenous contrast, axial images were obtained through the abdomen and pelvis by computed tomography. The study was performed with techniques to keep radiation dose as low as reasonably achievable, (ALARA). Individual dose reduction techniques using automated exposure control or adjustment of mA and/or kV according to the patient's size were employed. CLINICAL HISTORY: DIVERTICULITIS FINDINGS: Abdomen: There is scarring in the left lung base. There is a small sliding-type hiatal hernia. The liver demonstrates mild fatty infiltration. The gallbladder is present. The spleen, pancreas, adrenals and kidneys appear unremarkable. The aorta is normal in caliber. There is no free fluid or adenopathy. Pelvis: There is a segment of extensive mucosal thickening and pericolonic inflammation involving the proximal in mid sigmoid colon consistent with acute diverticulitis. No abscess is identified. The appendix is not identified. The urinary bladder is unremarkable. There is no free fluid or adenopathy. IMPRESSION: Extensive changes of acute uncomplicated diverticulitis involving the proximal and mid sigmoid colon. Reviewed, Interpreted and Dictated by Bucky Barajas MD Transcribed by Jake Gomez Authenticated by Bucky Barajas MD on 11/18/2021 04:17:20 PM [facility]
== END ==
PROVIDERS: PCP Family Medicine; Visit Provider Family Medicine
DX: K57.92 Diverticulitis of intestine, part unspecified, without perforation or abscess without bleeding (principal)
CPT/HCPCS: 36415; 74177; 82565; 84520; Q9967

== ENCOUNTER → 2021-11-29 09:52 | Outpatient (CLI) | payer MEDICARE, OTHER, SELFPAY ==
--- NOTE | 2021-11-29 09:58 | CA_ITS ---
FINAL REPORT TECHNIQUE: Color Doppler, duplex Doppler and compression sonography of the right lower extremity venous system was performed. CLINICAL HISTORY: PAIN RT KNEE/BACK OF CALF, NKI,HX OF PARTIAL KNEE REPLACEMENT FINDINGS: There is no evidence of deep venous thrombosis from the level of the groin to the calf. The veins are patent and compressible. Note is made of a moderate popliteal cyst measuring 6.5 x 4.6 cm. IMPRESSION: No evidence of deep venous thrombosis right lower extremity. Reviewed, Interpreted and Dictated by Chaim Orozco III, MD Transcribed by Rama Castellon Authenticated by Chaim Orozco III, MD on 11/29/2021 11:21:43 AM [facility]
== END ==
PROVIDERS: PCP Family Medicine; Visit Provider Family Medicine
DX: M79.604 Pain in right leg (principal)
CPT/HCPCS: 93971

== ENCOUNTER → 2022-04-03 16:46 | Outpatient (CLI) | payer MEDICARE, OTHER, SELFPAY ==
--- NOTE | 2022-04-03 16:51 | MM_ITS ---
PROCEDURE INFORMATION: Exam: MG Bilateral Screening 3D Mammography Exam date and time: 04/03/2022 4:44 PM Age: 66 years old Clinical indication: Screening mammogram TECHNIQUE: Imaging protocol: Bilateral Screening tomosynthesis and 2D mammography including computer-aided detection (CAD) when performed. COMPARISON: 1. MG MM DIG SCREENING MAMM BI W/CAD 03/28/2021 12:59 PM 2. MG MM DIG SCREENING MAMM BI W/CAD 03/26/2020 9:47 AM 3. [facility] MM Dig screening mamm BI w/CAD 11/02/2018 9:37 AM 4. [facility] MM Dig screening mamm BI w/CAD 10/30/2017 10:33 AM FINDINGS: MAMMOGRAPHY: Breast composition: There are scattered areas of fibroglandular density. Mass: None. Architectural distortion: No new or suspicious architectural distortion. Calcifications: Stable benign-appearing calcifications are present. No new or suspicious cluster of microcalcifications have developed. Asymmetric density: No new or suspicious asymmetric density is present Skin thickening: None. Axillary adenopathy: None. IMPRESSION: No mammographic evidence of malignancy. Recommend annual screening mammography unless otherwise clinically indicated. ASSESSMENT: BI-RADS category 2: Benign
== END ==
PROVIDERS: PCP Family Medicine; Visit Provider Family Medicine
DX: Z12.31 Encounter for screening mammogram for malignant neoplasm of breast (principal)
CPT/HCPCS: 77063; 77067

== ENCOUNTER → 2022-05-19 12:31 | Outpatient (CLI) | payer MEDICARE, OTHER, SELFPAY ==
--- NOTE | 2022-05-19 12:47 | ECG_ITS ---
APPROVED REPORT Exam: Resting ECG HR:59 bpm ECG Measurements Heart Rate 59 AXES IN 216 P 39 QRSd 105 QRS 68 QT 367 T 68 QTc 367 Conclusion SINUS BRADYCARDIA WITH FIRST DEGREE AV BLOCK LOW QRS VOLTAGE IN PRECORDIAL LEADS [QRS DEFLECTION < 1.0 mV IN CHEST LEADS] POSSIBLE ANTERIOR MYOCARDIAL INFARCTION , PROBABLY OLD [30 ms Q WAVE IN V3/V4, OR R < 0.2 mV IN V4] ABNORMAL ECG UNCONFIRMED REPORT Electronically signed by : Lars Arthur MD 05/19/2022 17:55:52
--- NOTE | 2022-05-19 13:09 | XR_ITS ---
FINAL REPORT CLINICAL HISTORY: NECK PAIN, numbness down left arm FINDINGS: CERVICAL SPINE Five views were obtained. There is no acute fracture. There is mild leftward curvature. There is mild kyphosis centered at C5-6. There is moderate to severe degenerative change. There are disc osteophyte complexes at C5-6 and C6-7. There is mild right C5-6, left C6-7 and C7-T1 neural foraminal narrowing. There is no soft tissue abnormality. IMPRESSION: Degenerative change with no acute bony abnormality. Reviewed, Interpreted and Dictated by Chaim Orozco III, MD Transcribed by Rama Castellon Authenticated and [facility]
== END ==
PROVIDERS: PCP Nurse Practitioner Family; Visit Provider Family Medicine
DX: R55 Syncope and collapse (principal); M54.2 Cervicalgia
CPT/HCPCS: 72050; 93005; 93270

== ENCOUNTER → 2022-05-26 13:00 | Outpatient (CLI) | payer MEDICARE, OTHER, SELFPAY ==
--- NOTE | 2022-05-26 13:02 | MR_ITS ---
FINAL REPORT CLINICAL HISTORY: SYNCOPE. EPISODE X1WK AGO WITH CONFUSION AND HEADACHES SINCE. ABNORMAL EKG. 20ML PROHANCE GIVEN. FINDINGS: Multiplanar MR imaging of the brain was performed without and with contrast. There is no evidence of intracranial hemorrhage or mass. No abnormal extra-axial fluid collection is seen. The ventricular size is within normal limits. There is no evidence of shift of the midline structures. There are 2 foci of restricted diffusion and each cerebellar hemisphere. Largest on the right measures 6 mm and the largest on the left measures 6 mm. These are consistent with small acute infarcts. No abnormal contrast enhancement is seen. Normal major vessel vascular flow voids are noted. There is a mucosal thickening in the left maxillary sinus. 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 Reviewed, Interpreted and Dictated by Chaim Orozco III, MD Transcribed by Jake Gomez Authenticated and [facility]
--- NOTE | 2022-05-26 14:03 | CA_ITS ---
FINAL REPORT TECHNIQUE: Color Doppler, duplex Doppler and nye scale sonography of the bilateral neck arterial vasculature was performed. Velocities were measured in the carotid arteries. Stenosis evaluation based on the validated velocity criteria. CLINICAL HISTORY: .syncope, dizziness, HTN, HLD, ABN EKG FINDINGS: The peak systolic velocity of the right common carotid artery is 64 cm/s. The peak systolic velocity of the right internal carotid artery is 111 cm/s and end diastolic velocity 43 cm/s. The ICA/CCA ratio is 1.7. A mild amount of plaque is present. The right external carotid artery is patent. The right vertebral artery is patent with antegrade flow. The peak systolic velocity of the left common carotid artery is 79 cm/s. The peak systolic velocity of the left internal carotid artery is 114 cm/s and end diastolic velocity 38 cm/s. The ICA/CCA ratio is 1.4. A mild amount of plaque is present. The left external carotid artery is patent. The left vertebral artery is patent with antegrade flow. IMPRESSION: Less than 50% bilateral carotid stenoses. Bilateral patent vertebral arteries with antegrade flow. If indicated, CTA or MRA could further evaluate. Reviewed, Interpreted and Dictated by Chaim Orozco III, MD Transcribed by Rama Castellon Authenticated and [facility]
== END ==
PROVIDERS: PCP Nurse Practitioner Family; Visit Provider Nurse Practitioner Family
DX: R55 Syncope and collapse (principal)
CPT/HCPCS: 70553; 93880; A9576

== ENCOUNTER → 2022-06-03 11:55 | Outpatient (CLI) | payer MEDICARE, OTHER, SELFPAY ==
--- NOTE | 2022-06-03 | CA_ITS ---
APPROVED REPORT Exam: Pharmacologic Technologist: Etta Johnson, Ht: 5 ft 1 in Wt: 229 lbs BSA: 2.00 m2 HR: 63 bpm Rhythm: NSR, rightward axis Medical History Medical History: HTN, Hyperlipidemia Medications: Amlodipine,,,,, Levothyroxine,,,,, Aspirin,,,,, Gabapentin,,,,, Losartan,,,,, Carvedilol,,,,, Crestor,,,,, Vit D3,,,,, Maxzide,,,,, Celecoxib,,,,, Multivitamin,,,,, FeNOfibrate nanocrystallized,,,,, Cardiac Risk Factors: HTN, Hyperlipidemia Stress Test Details Test: LEXISCAN HR Resting HR: 74 bpm Max Heart Rate (APMHR): 152.214411 bpm Max HR Achieved: 95 bpm Target HR (85% APMHR): 129.265394 bpm % of APMHR: 62.50 Recovery HR: 87 bpm BP Resting BP: 148/82 mmHg Max BP: 148/82 mmHg Recovery BP: 132.0/57.0 mmHg ECG Resting ECG: NSR, rightward axis Clinical Exercise duration: 04:01 min Highest Stage Achieved: Stress ECG Conclusion During lexiscan pt experinced SOA and mild chest discomfort. Occasional PVC noted. Inferior T wave inversion with .5-1mm of horizontal and slightly downsloping ST depression. Equivocal EKG changes. Myoview images reported separately. Electronically signed by : Tacho Estevez MD 06/04/2022 06:43:46
--- NOTE | 2022-06-03 11:56 | NM_ITS ---
APPROVED REPORT Exam: Nuclear Stress Test Indication: short of breath..a-fib Patient Location: Outpatient Stress Tech: Etta Johnson NM Tech:Mel RubyGEORGIA RT(R)(N) Ht: 5 ft 0 in Wt: 225 lbs Bra Size: dd HR: 74 bpm BP: 148/82 mmHg BSA: 1.96 m2 TID: 1.02 History: short of breath..a-fib Procedure: Patient received a 0.4 mg of intravenous Lexiscan, resting heart rate 74 bpm, resting blood pressure 148/82 mmHg, with Lexiscan maximum heart rate achived was 95 bpm which is 85 % of the maximum predicted heart rate and blood pressure was 148/82 mmHg. With Lexiscan, patient denied any complaint of chest pain. Electrocardiogram Resting electrocardiogram shows sinus rhythm nonspecific ST-T changes, with Lexiscan there is less than 1.[address] segment depression noted from the baseline EKG. The EKG portion of the Lexiscan is nondiagnostic. Cardiac Stress and Resting SPECT Images: Cardiac Stress and Resting SPECT images were obtained using technetium 99m Myoview 32.7 mCi stress and 10.08 mCi at rest. Gated SPECT for analysis of segmental wall motion and calculation of the ejection fraction also done. Prone images were also obtained. Cardiac stress and rest SPECT images show uniform myocardial activity without segmental perfusion abnormality, computer derived ejection fraction is 33% but does not appear to be accurate. Right ventricle is normal size and contractility. Conclusion: 1. The EKG portion of the Lexiscan is nondiagnostic. 2. No scintigraphic evidence of reversible ischemia seen, computer derived ejection fraction 33% which does not appear to be accurate, right ventricle is normal size and contractility. 3. Likely normal Lexiscan Myoview study, the low ejection fraction noted in this study does not appear to be accurate, an echocardiogram will be better modality to evaluate left ventricular systolic function. Electronically signed by : Tacho Estevez MD 06/04/2022 06:47:07
--- NOTE | 2022-06-03 12:55 | CA_ITS ---
APPROVED REPORT EXAM: Comprehensive 2D, Doppler, and color-flow Echocardiogram Health Care Sanitary Technician: Andreina Mejia CRT Ht: 5 ft 1 in Wt: 229lbs BSA: 2.00 BP: 148/77 mmHg Indications: Abnormal ECG, Chest Pressure, Shortness of Breath, Obesity, Hyperlipidemia, Hypertension/HDD, Thyroidectomy B/S ordered TDS Echo Enhancing Agent Indication: Rule out Shunt Agent(s) / Amount(s) Used: Agitated Saline 15 cc Comments: B/S x 4 appears negative. 2D Dimensions LVOT 1.96 cm (M/F) 1.5-2.5 LA Volume 33.70 mL LA Volume Index 16.90 mL/m2 (M/F) 16-34 M-Mode Dimensions RVDd 2.65 cm (0.9-2.6) LA Diam 3.12 cm (1.9-4.0) LVDd 3.90 cm (3.5-5.7) Ao Diam 3.66 cm (2.0-3.7) LVDs 2.61 cm (3.5-5.7) IVSd 1.43 cm (0.6-1.1) PWd 0.64 cm (0.6-1.1) EF (Teich) 62.40% FS 33.10% EDV (Teich) 65.90 mL TAPSE 2.34 (<1.7) ESV (Teich) 24.80 mL LV Diastology E Decel Time 247.00 (160-240 msec) E/A Ratio 0.66 MED E' 3.70 (< 7 cm/sec) MED A' 10.20 cm/s E'/MED E' Ratio 14.57 (>14) LAT E' 5.90 (<10 cm/sec) LAT A' 9.60 cm/s E/LAT E' Ratio 9.14 (>14) Aortic Valve AO Peak GR. 6.50 mmHg Mitral Valve MV E Max Glenn. 54.00 (40-130 cm/s) MV A Velocity 82.00 (40-130 cm/s) E/A Ratio 0.66 MV Decel. Time 247.00 (160-240 ms) MV PHT 72.00 ms Pulmonary Valve PV Peak Velocity 136.00 (50-150 cm/s) Tricuspid Valve TR P. Velocity 143.00 cm/s Left Ventricle Technically difficult study because of the patient factors and poor acoustic windows. Left atrium is mildly enlarged, left ventricle is normal size mild concentric left ventricular hypertrophy, estimated ejection fraction 55% with no regional wall motion abnormality, grade 1 diastolic dysfunction seen without tissue Doppler evidence of raise left atrial pressure. Right Ventricle Right atrium and right ventricle are normal size and contractility. Atria Intra-atrial septum is intact, there is no flow across the interatrial septum, agitated saline contrast study did not identify intracardiac shunt. Aortic Valve Aortic valve is minimally thickened and fibrosed there is no aortic stenosis or aortic insufficiency. Mitral Valve Mitral valve is grossly normal, there is trace mitral regurgitation. Tricuspid Valve Tricuspid grossly normal, there is trace tricuspid regurgitation, tricuspid regurgitation jet velocity is inadequate for calculation of the right ventricular systolic pressure. Pulmonic Valve Pulmonic valve is poorly visualized. Great Vessels Aortic root is normal size. Inferior vena cava is poorly visualized. Pericardium No significant pericardial effusion. Conclusion 1. Mildly enlarged left atrium, normal left ventricular size, mild concentric left ventricular hypertrophy, estimated ejection fraction 55% with no regional wall motion abnormality, grade 1 diastolic dysfunction seen without tissue Doppler evidence of raise left atrial pressure. 2. Trace mitral and tricuspid regurgitation. 3. No significant pericardial effusion. 4. Agitated saline contrast study did not identify intracardiac shunt. 5. Inferior vena cava is poorly visualized. Electronically signed by : Tacho Estevez MD 06/03/2022 21:13:09
--- NOTE | 2022-06-03 13:29 | HMH.ITSHM ---
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 []HCTZ ROSUVASTATIN MULTIVITAMIN LOSARTAN LEVOTHYROXINE GABAPENTIN FENOFIBRATE COQ10 VITAMIN D3 CELECOXIB CARVEDILOL CALCIUM ASA AMLODIPINE
== END ==
PROVIDERS: PCP Family Medicine; Visit Provider Nurse Practitioner Family
DX: E78.2 Mixed hyperlipidemia (principal); I10 Essential (primary) hypertension; R06.09 Other forms of dyspnea; R07.89 Other chest pain; R94.31 Abnormal electrocardiogram [ECG] [EKG]; Z82.49 Family history of ischemic heart disease and other diseases of the circulatory system; R01.1 Cardiac murmur, unspecified
CPT/HCPCS: 78452; 93017; 93306; A9502; J2785

== ENCOUNTER → 2022-06-04 13:15 | Outpatient (CLI) | payer MEDICARE, OTHER, SELFPAY | PROVIDERS: PCP Family Medicine; Visit Provider Physician Assistant | DX: R06.09 Other forms of dyspnea (principal) | CPT/HCPCS: 93270 ==

== ENCOUNTER → 2022-06-09 15:18 | Outpatient (CLI) | payer MEDICARE, OTHER, SELFPAY ==
[2022-06-09 16:03] LABS: Basophils # 0.1 K/mm3 (0-0.2); Basophils % 1.3 % (0.1-2.0); Eosinophils # 0.4 K/mm3 (0.0-0.4); Eosinophils % 4.7 % (0.1-12.0); Hematocrit 39.6 % (37.0-47.0); Hemoglobin 12.9 g/dL (12.2-16.2); Lymphocytes # 2.3 K/mm3 (0.7-4.5); Lymphocytes % 25.7 % (10-50); Mean Corpuscular HGB Conc 32.4 g/dL (31.8-35.4); Mean Corpuscular Hemoglobin 29.7 pg (27.0-31.2); Mean Corpuscular Volume 91.5 fl (81-99); Mean Platelet Volume 8.4 fl (7.4-10.4); Monocytes # 0.6 K/mm3 (0.1-1.0); Monocytes % 6.2 % (1.7-9.3); Neutrophils # 5.6 K/mm3 (1.8-7.8); Neutrophils % 62.1 % (37.0-80.0); Platelet Count 307 K/mm3 (142-424); Red Blood Count 4.33 M/mm3 (4.20-5.40); Red Cell Distribution Width 13.5 % (11.5-17.5)
== END ==
PROVIDERS: PCP Family Medicine; Visit Provider Family Medicine
DX: Z20.822 Contact with and (suspected) exposure to COVID-19 (principal)
CPT/HCPCS: 36415; 85025; 87275; 87276; C9803; U0003; U0005

== ENCOUNTER → 2022-06-18 11:47 | Outpatient (CLI) | payer MEDICARE, OTHER, SELFPAY ==
[2022-06-18 12:37] LABS: Chol/HDL Ratio 3.4 (1-3.5); Cholesterol 186 mg/dl (140-200); HDL Cholesterol 54 mg/dl (40-60); Triglycerides 267 mg/dl (30-150); VLDL Cholesterol 53 mg/dL (0-40)
[2022-06-18 12:49] LABS: Direct LDL Cholesterol 86.92 mg/dL (100-129)
[2022-06-18 12:51] LABS: Erythrocyte Sedimentation Rate 32 mm/hr (0-30)
[2022-06-18 13:02] LABS: Basophils # 0.1 K/mm3 (0-0.2); Eosinophils # 0.3 K/mm3 (0.0-0.4); Eosinophils % 2.7 % (0.1-12.0); Hematocrit 39.5 % (37.0-47.0); Hemoglobin 12.4 g/dL (12.2-16.2); Lymphocytes # 2.2 K/mm3 (0.7-4.5); Lymphocytes % 23.6 % (10-50); Mean Corpuscular HGB Conc 31.5 g/dL (31.8-35.4); Mean Corpuscular Hemoglobin 29.7 pg (27.0-31.2); Mean Corpuscular Volume 94.2 fl (81-99); Mean Platelet Volume 8.4 fl (7.4-10.4); Monocytes # 0.5 K/mm3 (0.1-1.0); Neutrophils # 6.2 K/mm3 (1.8-7.8); Neutrophils % 67.7 % (37.0-80.0); Platelet Count 325 K/mm3 (142-424); Red Blood Count 4.19 M/mm3 (4.20-5.40); Red Cell Distribution Width 13.8 % (11.5-17.5); White Blood Count 9.2 K/mm3 (4.8-10.8)
[2022-06-18 13:09] LABS: Thyroid Stimulating Hormone 3.33 uIU/mL (0.465-4.68)
[2022-06-18 14:34] LABS: Vitamin B12 879 pg/mL (239-931)
[2022-06-18 19:32] LABS: C-Reactive Protein 4.9 mg/L (0-4)
== END ==
PROVIDERS: PCP Family Medicine; Visit Provider Nurse Practitioner Family
DX: I63.9 Cerebral infarction, unspecified (principal); E78.2 Mixed hyperlipidemia
CPT/HCPCS: 36415; 80061; 82607; 82746; 84443; 85025; 85651; 86140

== ENCOUNTER → 2022-07-10 15:11 | Outpatient (CLI) | payer MEDICARE, OTHER, SELFPAY | PROVIDERS: PCP Family Medicine; Visit Provider Nurse Practitioner Family | DX: E78.2 Mixed hyperlipidemia (principal); G47.8 Other sleep disorders; I10 Essential (primary) hypertension; I63.9 Cerebral infarction, unspecified; R40.0 Somnolence; Z68.41 Body mass index [BMI] 40.0-44.9, adult; G47.30 Sleep apnea, unspecified | CPT/HCPCS: G0399 ==

== ENCOUNTER 2022-07-14 07:25 | Day surgery (SDC) | payer MEDICARE, OTHER, SELFPAY ==
[2022-07-14 07:40] VITALS: BMI 43.4
[2022-07-14 08:06] VITALS: BP 146/80; PULSE 47; RESP 18; TEMP 36.9; O2SAT 94
[2022-07-14 08:11] VITALS: PULSE 74
[2022-07-14 08:30] VITALS: BP 137/88; PULSE 70; RESP 18; O2SAT 94
--- NOTE | 2022-07-14 08:34 | P.PCN_ITS ---
[facility] Loop Recorder Date: 07/14/22 Time: 08:34 Procedure Performed:: Implantation of loop recorder Indication:: Paroxysmal atrial fibrillation Technique:: Patient was brought to the cardiac Rubber Gasket Inspector Trimmer. After informed consent obtained, 1% lidocaine with epinephrine was used to anesthetize the site along the left anterior aspect of the chest near the sternal border. Using the preformed scalpel, an incision was made and using the supplied preloaded apparatus, the loop recorder was placed subcutaneously without difficulty. Following the deployment of the loop recorder interrogation of the device was performed to ensure appropriate voltage was being detected. Once this was verified, Steri- Strips were placed over the incision and the patient was prepped to discharge home. Patient tolerated the procedure well with minimal discomfort. Impression:: Successful implantation of loop recorder Serial Number:: Epunchit M301 Lux-Dx Serial #[id number] Plan:: Routine postop care
== END 2022-07-14 08:45 | disposition home or self-care (01) ==
PROVIDERS: PCP Family Medicine; Visit Provider Internal Medicine
DX: R94.31 Abnormal electrocardiogram [ECG] [EKG] (principal); I10 Essential (primary) hypertension; E78.5 Hyperlipidemia, unspecified; Z79.899 Other long term (current) drug therapy; R07.9 Chest pain, unspecified; R00.0 Tachycardia, unspecified; Z82.49 Family history of ischemic heart disease and other diseases of the circulatory system; I48.0 Paroxysmal atrial fibrillation
CPT/HCPCS: 33285

== ENCOUNTER → 2022-07-30 11:35 | Outpatient (CLI) | payer MEDICARE, OTHER, SELFPAY ==
[2022-07-30 13:24] LABS: Chol/HDL Ratio 3.5 (1-3.5); Cholesterol 173 mg/dl (140-200); HDL Cholesterol 50 mg/dl (40-60); Triglycerides 193 mg/dl (30-150); VLDL Cholesterol 39 mg/dL (0-40)
== END ==
PROVIDERS: PCP Family Medicine; Visit Provider Nurse Practitioner Family
DX: E78.2 Mixed hyperlipidemia (principal)
CPT/HCPCS: 36415; 80061

== ENCOUNTER → 2022-08-14 12:45 | Outpatient (CLI) | payer MEDICARE, OTHER, SELFPAY | PROVIDERS: PCP Family Medicine; Visit Provider Nurse Practitioner Family | DX: I63.9 Cerebral infarction, unspecified (principal) | CPT/HCPCS: 94762 ==

== ENCOUNTER → 2022-08-25 10:41 | Outpatient (CLI) | payer MEDICARE, OTHER, SELFPAY ==
--- NOTE | 2022-08-25 10:42 | MR_ITS ---
FINAL REPORT TECHNIQUE: Imaging of the intracerebral vasculature was obtained without intravenous contrast using [id number] imaging. CLINICAL HISTORY: Bilateral cerebellar CVAs FINDINGS: Flow related signal intensity within the intracerebral vasculature is preserved. There is no evidence of aneurysm, significant stenosis or AVM. IMPRESSION: Unremarkable MR angiogram of the brain without contrast. Reviewed, Interpreted and Dictated by Madeleine Frost MD Transcribed by Angelika Hale Authenticated and [facility]
--- NOTE | 2022-08-25 10:42 | MR_ITS ---
FINAL REPORT TECHNIQUE: Multiple projection images of the neck arterial vasculature were obtained without contrast. The raw data images were reviewed. CLINICAL HISTORY: Bilateral cerebellar CVAs FINDINGS: The right common carotid artery has an unremarkable appearance without evidence of stenosis or occlusion. The right internal carotid artery has an unremarkable appearance without evidence of stenosis or occlusion. The right external carotid artery is patent. The right vertebral artery is patent without evidence of stenosis. The left common carotid artery has an unremarkable appearance without evidence of stenosis or occlusion. The left internal carotid artery is patent without evidence of stenosis or occlusion. The left external carotid artery is patent. The left vertebral artery is patent without evidence of stenosis. IMPRESSION: Unremarkable MR angiogram of the neck without evidence of stenosis or occlusion. Reviewed, Interpreted and Dictated by Madeleine Frost MD Transcribed by Jake Gomez Authenticated and [facility]
== END ==
PROVIDERS: PCP Family Medicine; Visit Provider Nurse Practitioner Family
DX: E78.2 Mixed hyperlipidemia (principal); I63.9 Cerebral infarction, unspecified
CPT/HCPCS: 70544; 70547

== ENCOUNTER → 2022-11-24 11:09 | Outpatient (CLI) | payer MEDICARE, OTHER, SELFPAY ==
--- NOTE | 2022-11-24 11:15 | XR_ITS ---
FINAL REPORT CLINICAL HISTORY: LEFT WRIST PAIN, fall years ago, popping sound when twisting FINDINGS: LEFT WRIST Three views demonstrate no acute fracture or dislocation. There is severe degenerative change of the radial aspect of the wrist with widening of the scapholunate interval, worrisome for scapholunate ligament tear. The soft tissues are unremarkable. IMPRESSION: Severe degenerative changes at the radial aspect of the wrist with widening of the scapholunate interval, worrisome for scapholunate ligament tear. Consider MRI for further evaluation. Reviewed, Interpreted and Dictated by Chaim Orozco III, MD Transcribed by Angelika Hale Authenticated and [facility]
== END ==
PROVIDERS: PCP Family Medicine; Visit Provider Family Medicine
DX: M25.532 Pain in left wrist (principal)
CPT/HCPCS: 73110

== ENCOUNTER → 2022-12-03 16:09 | Outpatient (CLI) | payer MEDICARE, OTHER, SELFPAY ==
--- NOTE | 2022-12-03 16:15 | MR_ITS ---
PROCEDURE INFORMATION: Exam: MR Left Upper Extremity Joint Without Contrast; Wrist Exam date and time: 12/03/2022 4:33 PM Age: 67 years old Clinical indication: Pain; Wrist; Left; Additional info: Left wrist pain on medial and lateral sides x 1 year. No know injury. TECHNIQUE: Imaging protocol: Magnetic resonance imaging of the left upper extremity without contrast. Exam focused on the wrist. COMPARISON: 1. CR XR WRIST LT MIN 3V 11/24/2022 11:21 AM 2. CR WRL3 WRIST-3 VIEWS-LT 05/27/2017 1:59 PM FINDINGS: Limitations: Motion artifact. Bones/joints: Severe osteoarthritis involves the radioscaphoid joint and thumb carpometacarpal joint. There is moderate primary osteoarthritis of the scaphotrapezotrapezoidal joint and lunocapitate joint. Multifocal bone marrow edema involves the distal radius and carpal bones appearing degenerative in nature. Bone marrow edema is most severe involving the scaphoid. There is no acute fracture. There is a mild effusion involving the distal radioulnar joint with minimal intercarpal joint effusions. 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 This morphology has been associated with an increased prevalence of hamatolunate degenerative arthritis. Scapholunate ligament: There is a full-thickness tear of the scapholunate ligament. Widening of the scapholunate interval is consistent with the scapholunate ligament tear. Lunotriquetral ligament: Unremarkable. No tear. Triangular fibrocartilage complex: The triangular fibrocartilage complex has heterogeneous signal but appears grossly intact. Flexor compartment tendons: Unremarkable. No tear. Extensor compartment tendons: Moderate tenosynovitis involves the extensor carpi radialis brevis at the level of the distal carpal row. The extensor carpi ulnaris tendon is partially subluxed out of the ulnar head groove suggesting stripping of the subsheath along the palmar ulnar aspect (series 4/image 20). There is mild tendinosis of the extensor carpi ulnaris tendon. Soft tissues: No suspicious soft tissue mass. IMPRESSION: 1. Scapholunate ligament tear with widening of the scapholunate interval. 2. 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 3. 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 4. Focal moderate extensor carpi radialis brevis tenosynovitis. 5. Extensor carpi ulnaris mild tendinosis with subluxation suggesting stripping of the extensor carpi ulnaris subsheath. 6. Multifocal subchondral cystic change and bone marrow edema appearing degenerative.
== END ==
PROVIDERS: PCP Family Medicine; Visit Provider Family Medicine
DX: M25.532 Pain in left wrist (principal); M25.332 Other instability, left wrist
CPT/HCPCS: 73221

== ENCOUNTER → 2023-04-06 13:24 | Outpatient (CLI) | payer MEDICARE, OTHER, SELFPAY ==
--- NOTE | 2023-04-06 13:27 | MM_ITS ---
PROCEDURE INFORMATION: Exam: MG Bilateral Screening 3D Mammography Exam date and time: 04/06/2023 1:23 PM Age: 67 years old Clinical indication: Screening examination. Family history of breast carcinoma. TECHNIQUE: Imaging protocol: Bilateral Screening tomosynthesis and 2D mammography including computer-aided detection (CAD) when performed. COMPARISON: 1. MG MM DIG SCREENING MAMM BI W/CAD 04/03/2022 4:44 PM 2. MG MM DIG SCREENING MAMM BI W/CAD 03/28/2021 12:59 PM 3. MG MM DIG SCREENING MAMM BI W/CAD 03/26/2020 9:47 AM FINDINGS: MAMMOGRAPHY: Breast composition: There are scattered areas of fibroglandular density. Mass: No suspicious masses. Architectural distortion: No suspicious distortion. Calcifications: No suspicious calcifications. Asymmetric density: None. Skin thickening: None. Axillary adenopathy: None. IMPRESSION: No mammographic evidence of malignancy. Annual screening is recommended unless otherwise clinically indicated. ASSESSMENT: BI-RADS Category 1: Negative
== END ==
PROVIDERS: PCP Family Medicine; Visit Provider Family Medicine
DX: Z12.31 Encounter for screening mammogram for malignant neoplasm of breast (principal)
CPT/HCPCS: 77063; 77067

== ENCOUNTER → 2023-05-27 14:45 | Outpatient (CLI) | payer MEDICARE, OTHER, SELFPAY ==
--- OUTSIDE RECORDS SUMMARY | 2023-05-27 14:49 | XMS_ITS ---
Author Name Unknown Address [address] [place] [address] Phone Organization [facility] Address [address] [place] [address] Phone Care Team Providers Care Instant Potato Processor Name Role Phone Dayana FARRIS, Vinny Kam Unavailable + [phone] VIJI GHOTRA MD Primary Care Provider [phone] SAADIA PORTER Unavailable [phone] Problems Includes: Active, inactive, and resolved Problems All Visits Onset Date Resolved Date Provider Condition S tatus Joint Pain, Localized in the Right Wrist 01/08/2023 Bao Briggs MD Active Plan of Treatment Referrals To Diagnosis Consult with Auctioneer Automobile Note: Dr. Owen Future Appointments Date Time Location [facility] 06/08/2023 8:30AM Surgery Vinny Anne MD Instructions to patient
--- OUTSIDE RECORDS SUMMARY | 2023-05-27 14:49 | XMS_ITS | Clinical Summary ---
Author Name Unknown Address [address] [place] [address] [place] [address] Phone Organization [facility] Address [address] [place] [address] Phone Care Team Providers Care Helicopter Dispatcher Name Role Phone Vinny Anne MD Unavailable + [phone] VIJI GHOTRA MD Primary Care Provider [phone] SAADIA PORTER Unavailable [phone] Reason for Visit and Chief Complaint The Chief Complaint is: joão knee pain Problems Includes: Problems addressed during this encounter and other active Problems All Visits Onset Date Resolved Date Provider Condition S tatus Joint Pain, Localized in the Right Wrist 01/08/2023 Bao Briggs MD Active Plan of Treatment Fall Risk Assessment: This patient has been identified as a fall risk. Balance/gait along with postural blood pressure, vision and home fall hazards have been assessed. Medications have been reviewed, and recommendations made with regard to contributing factors for future falls. Plan of care: Consideration of vitamin D supplementation along with balance and strength training with consideration for formal physical therapy has been discussed with the patient. - Last Documented On 04/28/2023 10:22AM ; [facility] NON-SURGICAL PLAN: WEIGHT LOSS IMPROVE SHOES SURGICAL PLAN: RIGHT TKA REVISION. CONVERSI
--- OUTSIDE RECORDS SUMMARY | 2023-05-27 14:49 | XMS_ITS | Clinical Summary ---
Author Name Unknown Address [address] [place] [address] Phone Organization [facility] Address [address] [place] [address] Phone Care Team Providers Care Lease Buyer Name Role Phone Dayana FARRIS, Vinny Kam Unavailable + [phone] PARADISE FARRIS, VIJI Vazquez Primary Care Provider [phone] SAADIA PORTER Unavailable [phone] Reason for Visit and Chief Complaint [facility] Problems Includes: Problems addressed during this encounter and other active Problems All Visits Onset Date Resolved Date Provider Condition S tatus Joint Pain, Localized in the Right Wrist 01/08/2023 Bao Briggs MD Active Plan of Treatment Future Appointments Date Time Location [facility] 06/08/2023 8:30AM Surgery Vinny Anne MD Assessments Includes: Assessments from this encounter No Assessments Recorded Medical Equipment - Implanted Devices Includes: Current Devices No Medical Equipment Recorded Medications Includes: Medications discussed during this encounter and other current Medications
--- OUTSIDE RECORDS SUMMARY | 2023-05-27 14:49 | XMS_ITS | Clinical Summary ---
Author Name Unknown Address [address] [place] [address] Phone Organization [facility] Address [address] [place] [address] Phone Care Team Providers Care Anthropology Department Chair Name Role Phone Dayana FARRIS, Vinny Kam Unavailable + [phone] VIJI GHOTRA MD Primary Care Provider [phone] SAADIA PORTER Unavailable [phone] Reason for Visit and Chief Complaint The Chief Complaint is: Left wrist pain Problems Includes: Problems addressed during this encounter and other active Problems All Visits Onset Date Resolved Date Provider Condition S tatus Joint Pain, Localized in the Right Wrist 01/08/2023 Bao Briggs MD Active Plan of Treatment Future Appointments Date Time Location [facility] 06/08/2023 8:30AM Surgery Vinny Anne MD Instructions to patient Instructions for patient see pcp for bp and weight loss plan Last Documented On 11:08AM ; [facility]
--- OUTSIDE RECORDS SUMMARY | 2023-05-27 14:49 | XMS_ITS | Clinical Summary ---
Author Name Unknown Address [address] [address] Phone Organization [facility] Address [address] [place] [place] [address] Phone Care Team Providers Care Retail Store Assistant Name Role Phone Vinny Anne MD Unavailable + [phone] VIJI GHOTRA MD Primary Care Provider [phone] SAADIA PORTER Unavailable [phone] Reason for Visit and Chief Complaint The [...] with the patient. - Last Documented On 05/26/2023 11:40AM ; [facility] 1. Patient will continue with daily scar massage and working on strength as previously instruc
--- OUTSIDE RECORDS SUMMARY | 2023-05-27 14:49 | XMS_ITS ---
Care Plan - [facility], [facility] Created on: May 27, 2023 LidaCheyanne : 1955 Sex: Female Author Name Unknown Address [address] [place] [address] [place] [address] Phone Organization [facility] Address [address] [address] Phone Care Team Providers Care Cosmetic Sales Assistant Name Role Phone Vinny Anne MD Unavailable + [phone] VIJI GHOTRA MD Primary Care Provider [phone] SAADIA PORTER Unavailable [phone]
--- OUTSIDE RECORDS SUMMARY | 2023-05-27 14:49 | XMS_ITS | Clinical Summary ---
Author Name Unknown Address [address] [place] [address] Phone Organization [facility] Address [address] [place] [address] Phone Care Team Providers Care C D Still Operator Name Role Phone Dayana FARRIS, Vinny Kam Unavailable + [phone] VIJI GHOTRA MD Primary Care Provider [phone] SAADIA PORTER Unavailable [phone] Reason for Visit and Chief Complaint The Chief Complaint is: Left wrist pain Problems Includes: Problems addressed during this encounter and other active Problems All Visits Onset Date Resolved Date Provider Condition S tatus Joint Pain, Localized in the Right Wrist 01/08/2023 Bao Briggs MD Active Plan of Treatment Future Appointments Date Time Location [facility] 06/08/2023 8:30AM Surgery Vinny Anne MD Instructions to patient Instructions for patient see pcp for bp and weight loss plan Last Documented On 10:40AM ; [facility]
[2023-05-27 15:01] LABS: Adenovirus,PCR Not Detected (NotDetected); Coronavirus 19, PCR Not Detected (NotDetected); Coronavirus 229E Not Detected (NotDetected); Coronavirus NL63 Not Detected (NotDetected); Coronavirus OC43 Not Detected (NotDetected); Coronovirus HKU1,PCR Not Detected (NotDetected); Human Metapneumovirus Not Detected (NotDetected); Influenza A, PCR Not Detected (NotDetected); Influenza AH1, 2009 Not Detected (NotDetected); Influenza AH1, PCR Not Detected (NotDetected); Influenza AH3,PCR Not Detected (NotDetected); Influenza B, PCR Not Detected (NotDetected); Parainfluenza 1, PCR Not Detected (NotDetected); Parainfluenza 2, PCR Not Detected (NotDetected); Parainfluenza 3, PCR Not Detected (NotDetected); Parainfluenza 4, PCR Not Detected (NotDetected); Respiratory Syncytial Virus Not Detected (NotDetected); Rhinovirus/Enterovirus Not Detected (NotDetected)
--- NOTE | 2023-05-27 15:17 | XR_ITS ---
FINAL REPORT CLINICAL HISTORY: COVID SCREENING COMPARISON: None FINDINGS: A single portable view of the chest was obtained. Loop recorder is present. The heart size and pulmonary vascularity are within normal limits. The mediastinum is within normal limits. There is mild right base atelectasis or pneumonia. The bony thorax is intact. IMPRESSION: Mild right base atelectasis or pneumonia. Reviewed, Interpreted and Dictated by Chaim Orozco III, MD Transcribed by Jocy Stevenson Authenticated and [facility]
[2023-05-27 15:39] LABS: Basophils # 0.1 K/mm3 (0-0.2); Basophils % 0.9 % (0.1-2.0); Eosinophils # 0.3 K/mm3 (0.0-0.4); Eosinophils % 3.6 % (0.1-12.0); Hematocrit 38.7 % (37.0-47.0); Hemoglobin 12.8 g/dL (12.2-16.2); Lymphocytes # 2.6 K/mm3 (0.7-4.5); Mean Corpuscular HGB Conc 33.1 g/dL (31.8-35.4); Mean Corpuscular Hemoglobin 30.7 pg (27.0-31.2); Mean Corpuscular Volume 92.8 fl (81-99); Monocytes # 0.7 K/mm3 (0.1-1.0); Monocytes % 7.2 % (1.7-9.3); Neutrophils # 5.3 K/mm3 (1.8-7.8); Neutrophils % 59.2 % (37.0-80.0); Platelet Count 241 K/mm3 (142-424); Red Blood Count 4.17 M/mm3 (4.20-5.40)
== END ==
PROVIDERS: PCP Family Medicine; Visit Provider Family Medicine
DX: Z20.822 Contact with and (suspected) exposure to COVID-19 (principal); R06.09 Other forms of dyspnea; R09.89 Other specified symptoms and signs involving the circulatory and respiratory systems; J98.4 Other disorders of lung
CPT/HCPCS: 36415; 71045; 85025; 87632; 87635

== ENCOUNTER → 2023-05-29 09:42 | Outpatient (CLI) | payer MEDICARE, OTHER, SELFPAY ==
--- NOTE | 2023-05-29 09:49 | XR_ITS ---
FINAL REPORT CLINICAL HISTORY: COUGH pneumonia x 1 week COMPARISON: 05/27/2023 FINDINGS: Two views of the chest were obtained. A pre-[place] device is once again seen overlying the cardiac silhouette. The heart size and pulmonary vascularity are within normal limits. The mediastinum is normal. There is improved aeration in the right lung base since the prior chest x-ray of 05/27/2023. There is no pneumothorax. The bony thorax is intact. IMPRESSION: Improved aeration in the right lung base since the prior exam of 05/27/2023. Reviewed, Interpreted and Dictated by Chaim Orozco III, MD Transcribed by Maria Luisa Stephen Authenticated and [facility]
== END ==
PROVIDERS: PCP Family Medicine; Visit Provider Family Medicine
DX: R05.1 Acute cough (principal)
CPT/HCPCS: 71046

== ENCOUNTER 2023-06-17 05:23 | Emergency (ER) | payer MEDICARE, OTHER, SELFPAY ==
[2023-06-17 05:23] VITALS: BP 137/78; PULSE 107; RESP 16; TEMP 37.1; O2SAT 99; BMI 43.5
--- NOTE | 2023-06-17 05:29 | XR_ITS ---
PROCEDURE INFORMATION: Exam: XR Chest Exam date and time: 06/17/2023 6:10 AM Age: 67 years old Clinical indication: Other: Possible hematemesis; Prior surgery; Surgery date: 6+ months; Surgery type: Loop recorder TECHNIQUE: Imaging protocol: Radiologic exam of the chest. Views: 1 view. COMPARISON: CR XR CHEST 2V 05/29/2023 10:00 AM FINDINGS: Lungs: Lungs clear. Pleural spaces: No pleural thickening. Heart/Mediastinum: Cardiac silhouette prominent but stable. Left chest wall implantable loop recorder device. Vasculature: Aortic tortuosity and aortic arch calcification. Bones/joints: Spine degenerative changes. IMPRESSION: No acute findings.
--- NOTE | 2023-06-17 05:33 | HMH.EDGENADL ---
Discharge Plan Disposition Patient Disposition: Xfer Short-Term Hosp Prescriptions Prescriptions: No Action multivitamin tablet 1 tab PO QAM calcium carbonate-vitamin D3 600 mg calcium- 200 unit capsule 1 cap PO DAILY coenzyme Q10 [Co Q-10] 100 mg capsule 100 mg PO DAILY triamterene-hydrochlorothiazid [Maxzide-25mg] 37.5-25 mg tablet 1 tab PO QAM fenofibrate nanocrystallized 145 mg tablet 145 mg PO DAILY cholecalciferol (vitamin D3) 5,000 unit capsule 5,000 unit PO DAILY gabapentin [Gralise] 600 mg tablet extended release 24 hr 1,200 mg PO QPM rosuvastatin [Crestor] 5 mg tablet 10 mg PO DAILY amlodipine [Norvasc] 5 mg tablet 5 mg PO DAILY losartan 100 mg tablet 100 mg PO DAILY levothyroxine 150 mcg tablet 150 mcg PO DAILY lidocaine [Lidoderm] 5 % adhesive patch,medicated 1 patch topical DAILY PRN (Reason: .) Rx Instructions: leave on most painful area for up to 12 hrs acetaminophen [Tylenol Extra Strength] 500 mg tablet 500 mg PO QID PRN (Reason: .) Citrucel (sucrose) Powder 1 tbsp PO DAILY acetaminophen [Tylenol Arthritis Pain] 650 mg tablet extended release 650 mg PO Q12H duloxetine 30 mg capsule,delayed release(DR/EC) 30 mg PO DAILY Eliquis 5 mg tablet See Rx Instructions .ROUTE .COMPLEX Qty: 60 5RF Dose Instruction: TAKE ONE TABLET BY MOUTH TWICE DAILY Rx Instructions: TAKE ONE TABLET BY MOUTH TWICE DAILY carvedilol 25 mg tablet 25 mg PO BID Rx Instructions: give with food (meal/snack) Referrals Follow up/Referrals: Brennen Wallis MD [Primary Care Provider] - See instructions Clinical Impressions Clinical Impression: Acute GI bleeding, Symptomatic anemia Post-operative haemorrhage Qualifiers: Surgical complication system/body Area: digestive system Procedure type: non-digestive system Qualified Code(s): K91.841 - Postprocedural hemorrhage of a digestive system organ or structure following other procedure Discharge ED Provider: Madi Huizar General Adult HPI <Vinnie Long MD - Last Filed: 06/17/23 07:10> General Chief complaint: Weakness Stated complaint: general unwellness Time Seen by Provider: 06/17/23 05:25 History of Present Illness HPI narrative: 67-year-old female, history of coronary artery disease, history of prior CVAs (usually on Eliquis), recent right total knee replacement on June 08, 9 days prior, currently on warfarin and Lovenox in rehab facility presents with multiple complaints. She developed a headache yesterday that is much worse than normal for her. Last night she developed nausea and vomiting and reports having dark/tarry vomitus and multiple episodes of dark tarry stools, well formed. She reports no history of prior GI bleeding. She reports that she felt very weak, dizzy, clammy. She was unable to get up off of the toilet due to weakness and was brought here. She was reportedly mildly hypotensive at the nursing facility, but was normotensive and mildly tachycardic with EMS in route. She reports no significant abdominal pain at this time. She reports no chest pain. She reports that her headache is still present but very mild and dull. Related Data Home Medications Medication Instructions Recorded Confirmed calcium carbonate 600 mg-vitamin 1 cap PO DAILY Supplement 11/04/17 05/11/23 D3 5 mcg (200 unit) capsule cholecalciferol (vitamin D3) 125 5,000 unit PO DAILY Supplement 11/04/17 05/11/23 mcg (5,000 unit) capsule coenzyme Q10 100 mg capsule (Co 100 mg PO DAILY Supplement 11/04/17 05/11/23 Q-10) fenofibrate nanocrystallized 145 145 mg PO DAILY Cholesterol 11/04/17 05/11/23 mg tablet gabapentin 600 mg tablet,extended 1,200 mg PO QPM NERVE PAIN 11/04/17 05/11/23 release 24 hr (Gralise) multivitamin 1 tab PO QAM Supplement 11/04/17 05/11/23 triamterene 37.5 1 tab PO QAM Hypertension 11/04/17 05/11/23 mg-hydroc
[2023-06-17 05:53] LABS: Basophils # 0.1 K/mm3 (0-0.2); Basophils % 0.7 % (0.1-2.0); Eosinophils # 0.4 K/mm3 (0.0-0.4); Eosinophils % 3.1 % (0.1-12.0); Hematocrit 28.9 % (37.0-47.0); Hemoglobin 9.5 g/dL (12.2-16.2); Lymphocytes % 21.5 % (10-50); Mean Corpuscular HGB Conc 32.8 g/dL (31.8-35.4); Mean Corpuscular Hemoglobin 30.5 pg (27.0-31.2); Mean Corpuscular Volume 92.9 fl (81-99); Mean Platelet Volume 8.4 fl (7.4-10.4); Monocytes # 0.7 K/mm3 (0.1-1.0); Monocytes % 4.8 % (1.7-9.3); Neutrophils # 9.8 K/mm3 (1.8-7.8); Neutrophils % 69.9 % (37.0-80.0); Platelet Count 460 K/mm3 (142-424); Red Blood Count 3.11 M/mm3 (4.20-5.40); Red Cell Distribution Width 14.2 % (11.5-17.5)
--- NOTE | 2023-06-17 05:55 | CT_ITS ---
PROCEDURE INFORMATION: Exam: CT Head Without Contrast Exam date and time: 06/17/2023 7:37 AM Age: 67 years old Clinical indication: Pain; Headache; Additional info: New onset headache, vomiting TECHNIQUE: Imaging protocol: Computed tomography of the head without contrast. Radiation optimization: All CT scans at this facility use at least one of these dose optimization techniques: automated exposure control; mA and/or kV adjustment per patient size (includes targeted exams where dose is matched to clinical indication); or iterative reconstruction. REPORTING DATA: Count of CT and Cardiac NM exams in prior 12 months: This patient has received 0 known CTs and 0 known cardiac nuclear medicine studies in the 12 months prior to the current study. COMPARISON: MR HEAD/BRAIN WO/W CON 05/26/2022 1:13 PM FINDINGS: Brain: There is no evidence of acute parenchymal hemorrhage, extra-axial collection, or acute infarction. There is no mass effect, midline shift, or downward herniation. Cerebral ventricles: No ventriculomegaly. Paranasal sinuses: Visualized sinuses are unremarkable. No fluid levels. Mastoid air cells: Visualized mastoid air cells are well aerated. Bones/joints: Unremarkable. No acute fracture. Soft tissues: Unremarkable. IMPRESSION: No acute intracranial abnormality.
--- NOTE | 2023-06-17 05:59 | CT_ITS ---
PROCEDURE INFORMATION: Exam: CTA Abdomen and Pelvis With Contrast Exam date and time: 06/17/2023 7:40 AM Age: 67 years old Clinical indication: Abdominal pain; Generalized; Additional info: Abd pain, n/v, possible gi bleed TECHNIQUE: Imaging protocol: Computed tomographic angiography of the abdomen and pelvis with contrast. Exam focused on the arteries. 3D rendering (Not supervised by radiologist): MIP and/or 3D reconstructed images were created by the technologist. Radiation optimization: All CT scans at this facility use at least one of these dose optimization techniques: automated exposure control; mA and/or kV adjustment per patient size (includes targeted exams where dose is matched to clinical indication); or iterative reconstruction. Contrast material: ISOVUE 370; Contrast volume: 100 ml; Contrast route: INTRAVENOUS (IV); REPORTING DATA: Count of CT and Cardiac NM exams in prior 12 months: This patient has received 0 known CTs and 0 known cardiac nuclear medicine studies in the 12 months prior to the current study. COMPARISON: CT ABDOMEN PELVIS W CON 11/18/2021 2:18 PM FINDINGS: Aorta: No aortic aneurysm. No aortic dissection. There is mild atherosclerotic disease noted. Celiac trunk and mesenteric arteries: No occlusion or significant stenosis. Renal arteries: No occlusion or significant stenosis. Right iliac arteries: No occlusion or significant stenosis. Left iliac arteries: No occlusion or significant stenosis. Liver: No mass. Gallbladder and bile ducts: Unremarkable. No calcified stones. No ductal dilation. Pancreas: Unremarkable. No mass. No ductal dilation. Spleen: Unremarkable. No splenomegaly. Adrenal glands: Unremarkable. No mass. Kidneys and ureters: Unremarkable. No solid mass. No hydronephrosis. Stomach and bowel: There is no bowel obstruction. There is diverticulosis without evidence of diverticulitis. Appendix: No evidence of appendicitis. Intraperitoneal space: Unremarkable. No free air. No significant fluid collection. Lymph nodes: Unremarkable. No enlarged lymph nodes. Urinary bladder: Unremarkable. No mass. Reproductive: Unremarkable as visualized. Bones/joints: No acute fracture. Soft tissues: Unremarkable. IMPRESSION: 1. No evidence of acute process. 2. Diverticulosis.
[2023-06-17 06:00] LABS: Alanine Aminotransferase 35 U/L (12-78); Albumin/Globulin Ratio 1.5 (1.1-1.8); Alkaline Phosphatase 41 U/L (38-126); Anion Gap 15.6 mEq/L (5-15); Aspartate Amino Transferase 41 U/L (14-36); Bilirubin,Total 0.7 mg/dl (0.2-1.3); Blood Urea Nitrogen 68 mg/dl (7-17); Calcium 8.5 mg/dl (8.4-10.2); Carbon Dioxide 25 mmol/L (22.0-30.0); Chloride 103 mmol/L (98-107); Creatinine Clearance Estimated 35 mL/min (50-200); Estimated Glomerular Filt Rate 49 ml/min (>60); GFR (African American) 60 ML/MIN (>60); Globulin 2.6 g/dL (1.3-3.2); Glucose 112 mg/dl (74-100); Magnesium 1.7 mg/dl (1.6-2.3); Potassium 4.6 mmoL/L (3.5-5.1); Sodium 139 mmol/L (136-145); Total Protein,Serum 6.6 g/dl (6.3-8.2)
[2023-06-17 06:01] LABS: INR 3.81 (0.9-1.1); Prothrombin Time 37.7 seconds (10.1-12.5)
--- NOTE | 2023-06-17 06:02 | ECG_ITS ---
APPROVED REPORT Exam: Resting ECG HR:99 bpm ECG Measurements Heart Rate 99 AXES ID 173 P -10 QRSd 99 QRS 60 QT 325 T 14 QTc 382 Conclusion SINUS RHYTHM NORMAL ECG UNCONFIRMED REPORT Electronically signed by : Lars Arthur MD 06/17/2023 21:12:24
[2023-06-17 06:04] LABS: Activated Partial Thrombo Time 36.1 seconds (22.8-30.6)
[2023-06-17 06:09] LABS: Lipase 100 U/L (23-300)
[2023-06-17 06:34] LABS: Troponin I 0.01 ng/ml (0.00-0.034)
--- NOTE | 2023-06-17 07:15 | PC.NURSE ---
Pt became dizzy upon standing up from toilet. Pt assisted back to bed from restroom with use of wheelchair. Pt made comfortable and call light placed within reach.
[2023-06-17 07:30] VITALS: BP 135/71; PULSE 97; RESP 18; O2SAT 98
[2023-06-17 07:31] LABS: Occult Blood,Stool Positive (Negative)
[2023-06-17 08:00] VITALS: BP 114/55; PULSE 101; RESP 17; O2SAT 95
[2023-06-17 08:30] VITALS: BP 121/67; RESP 21; O2SAT 97
--- NOTE | 2023-06-17 08:52 | PC.NURSE ---
placed call to [facility] for gi, awaiting call back
[2023-06-17 09:00] VITALS: BP 119/66; PULSE 99; RESP 15; O2SAT 97
--- NOTE | 2023-06-17 09:00 | PC.NURSE ---
Dr Huizar speaking with Christa rothman orthopaedic specialty hospitalist at [facility].
--- NOTE | 2023-06-17 09:19 | PC.NURSE ---
Faxed facesheet to [facility]
--- NOTE | 2023-06-17 09:27 | PC.NURSE ---
[facility] called with a room 3A
--- NOTE | 2023-06-17 09:29 | PC.NURSE ---
Called RAD to have them make a disc
[2023-06-17 09:34] LABS: Troponin I 0.03 ng/ml (0.00-0.034)
--- NOTE | 2023-06-17 10:04 | PC.NURSE ---
Report called to ERIC Thorpe at [facility].
[2023-06-17 10:43] VITALS: BP 120/67; PULSE 97; RESP 16; TEMP 36.4; O2SAT 96
== END 2023-06-17 10:45 | disposition short-term general hospital (02) ==
PROVIDERS: Emergency Medicine; Emergency Provider Emergency Medicine; PCP Family Medicine
DX: K92.2 Gastrointestinal hemorrhage, unspecified (principal); D64.9 Anemia, unspecified; R51.9 Headache, unspecified; R11.2 Nausea with vomiting, unspecified; R53.1 Weakness; R42 Dizziness and giddiness; R00.0 Tachycardia, unspecified; I25.10 Atherosclerotic heart disease of native coronary artery without angina pectoris; Z79.01 Long term (current) use of anticoagulants; E78.5 Hyperlipidemia, unspecified; Z86.73 Personal history of transient ischemic attack (TIA), and cerebral infarction without residual deficits
CPT/HCPCS: 36415; 70450; 71045; 74174; 80053; 82272; 83690; 83735; 84484; 85025; 85610; 85730; 86850; 93005; 96365; 96375; 96376; 99285; G0328; J2405; Q9967

== ENCOUNTER 2023-10-05 10:00 | Outpatient (RCR) | payer MEDICARE, OTHER, SELFPAY | END 2023-10-05 11:30 | disposition home or self-care (01) | LOC: PT 10:00 | PROVIDERS: PCP Internal Medicine; Visit Provider Orthopaedic Surgery | DX: M25.561 Pain in right knee (principal); Z96.651 Presence of right artificial knee joint; R53.1 Weakness | CPT/HCPCS: 97014; 97016; 97110; 97163; 97164; 97530; G0283 ==

== ENCOUNTER 2023-11-04 11:00 | Outpatient (RCR) | payer MEDICARE, OTHER, SELFPAY ==
--- NOTE | 2023-10-15 11:32 | HMH.PTOPEV ---
PT Outpatient Evaluation Rehab PT Outpatient Evaluation Start: 10/15/23 10:29 Freq: Status: Active Protocol: Document 10/15/23 11:10 PHORNE (Rec: 10/15/23 11:32 PHORNE [id number]) E-signed By Eddy Giordano, PT Outpatient Therapy Subjective History Subjective History This is the initial PT eval for Cheyanne Hilton, 67 yowf who presents with c/o dizziness/vertigo x ~ 3 yrs intermittently. She reports, It seems to be worst when I get up out of bed in the morning or when I bend over to tie my shoes. Pt is unsure if any specific position causes her dizziness overall. She also has PMH of chronic neck pain, HTN controlled with meds, prior lumbar discectomy , seasonal allergies, and prior cerebellar CVA. New diagnosis of cancer in past 12 No months? Balance Eval Nystagmus Nystagmus Presence Bilateral Nystagmus Description Geotropic,Latency - Immediate Oculomotor Gaze Oculomotor Gaze Nml: Vergence Smooth Pursuit Saccades VOR Cancellation Cover/Uncover Cross Cover Miscellaneous Dx PT Eval Objective Objective Wheelwright-hallpike testing resulted in positive upbeating nystagmus on the right side with immediate onset and ~ 30 sec duration. MANAGER SPECIAL EVENTS performed with assumed R side PSC canalithiasis. Outpatient Therapy Assessment Impairments Problems/Impairmments Impaired Household Care, Impaired Recreational Activities,Impaired Balance, Impaired Self Care/Self Management Prognosis Rehab Potential Good Clinical Impression Consistent with Diagnosis Yes Short Term Goals Number of Weeks 2 Improve Balance Yes: No vertigo with forward bending Residential Goals Number of Weeks 4 Improve Balance Yes: No vertigo with getting out of bed Patient to be Ind w/ HEP Yes Outpatient Therapy Plan of Care Treatment Plan May Include Therapeutic Exercise Including Home Yes Exercise Program Manual Therapy Techniques Yes Neuromuscular Re-education Yes Therapeutic Activities to Return to Yes Previous Functional/Work Level ADL/Self Care Education Yes Eval/Re-Eval Yes Frequency Times per week 1 Duration Number of Weeks 4 Addendums This patient is a candidate for social No or vocational rehab? Patient/Guardian verbally acknowledges Yes understanding of treatment program and consents to further treatment? Patient/Guardian verbally acknowledges Yes understanding of diagnosis, prognosis and goals for treatment? Eval Complexity PT Charges 69750 - High Complexity Shoulder/Elbow Eval Shoulder Objective Measurements Elbow Objective Measurements PHYSICIAN CERTIFICATION: I certify the specified therapy services for Cheyanne S Dawson are required, authorized, and reviewed every 30 days.
== END 2023-11-04 11:05 | disposition home or self-care (01) ==
LOC: PT 11:00
PROVIDERS: Visit Provider Family Medicine
DX: R42 Dizziness and giddiness (principal)
CPT/HCPCS: 95992; 97163

== ENCOUNTER 2024-04-28 12:52 | Outpatient (CLI) | payer MEDICARE, OTHER, SELFPAY ==
--- NOTE | 2024-04-28 12:57 | CA_ITS ---
APPROVED REPORT EXAM: Comprehensive 2D, Doppler, and color-flow Echocardiogram Movement Education Specialist: Aziza Francis RVT Ht: 5 ft 1 in Wt: 231lbs BSA: 2.01 BP: 122/83 mmHg Indications: ABN EKG,HTN,LOOP RECORDER,HX CVA'S,HLD 2D Dimensions IVSd 0.71 cm F: 0.6-1.0 LVEF (Visual) 68.60 % PWd 1.14 cm F: 0.6 - 1.0 LA Volume 50.60 mL LVDd 4.93 cm F: 3.9 - 5.3 LA Volume Index 25.17 mL/m2 (M/F) 16-34 LVDs 3.03 cm F: 2.2 - 3.5 M-Mode Dimensions RVDd 3.02 cm (0.9-2.6) LA Diam 3.30 cm (1.9-4.0) LVDd 4.55 cm (3.5-5.7) IVSd 0.60 cm (0.6-1.1) PWd 0.64 cm (0.6-1.1) EDV (Teich) 94.90 mL TAPSE 2.70 (<1.7) LV Diastology E Decel Time 123 (160-240 msec) E/A Ratio 0.7 Aortic Valve [place] Index 1.17 cm2/m2 AoV Peak Glenn. 146.0 (50-130 cm/s) AO Peak GR. 8.50 mmHg AO Mean GR. 5.00 (<5 mmHg) AO VTI 32.2 (18-25 cm) [place] (VTI) 2.42 (2.5-4.5 cm2) Mitral Valve MV E Max Glenn. 64.0 (40-130 cm/s) MV A Velocity 97.0 (40-130 cm/s) E/A Ratio 0.66 MV PHT 36.0 ms Pulmonary Valve PV Peak Velocity 71.0 (50-150 cm/s) Left Ventricle The left ventricle is normal size. The left ventricular systolic function is normal. The left ventricular ejection fraction is within the normal range. There is increased LV wall thickness. There is normal LV segmental wall motion. The left ventricular diastolic function is normal. LVEF is 55%. Right Ventricle Right ventricle is mildly dilated. The right ventricular systolic function is normal. Atria The left atrium size is normal. The right atrium size is normal. There is no Doppler evidence of interatrial shunt. Aortic Valve The aortic valve is mildly thickened. Trace aortic regurgitation. There is no aortic valvular stenosis. Mitral Valve The mitral valve is normal in structure. No evidence of mitral valve stenosis. Trace mitral regurgitation. Tricuspid Valve The tricuspid valve leaflets are thin and pliable. Trace tricuspid regurgitation. There is insufficient TR jet to estimate RVSP. Pulmonic Valve The pulmonary valve is normal in structure. Trace pulmonic regurgitation. Great Vessels The aortic root is normal in size. The ascending aorta is not well-visualized. IVC is normal in size and collapses >50% with inspiration. Pericardium There is no pericardial effusion. Other Information Study Quality: Fair Conclusion Normal biventricular systolic function. Mild RV dilation. No significant valvular stenosis or regurgitation. Electronically signed by : Codie Garcia MD 05/01/2024 21:26:30
--- NOTE | 2024-04-28 13:34 | MM_ITS ---
PROCEDURE INFORMATION: Exam: MG Bilateral Screening 3D Mammography Exam date and time: 04/28/2024 1:36 PM Age: 68 years old Clinical indication: Screening examination TECHNIQUE: Imaging protocol: Bilateral Screening tomosynthesis and 2D mammography including computer-aided detection (CAD) when performed. COMPARISON: 1. MG MM DIG SCREENING MAMM BI W/CAD 04/06/2023 1:23 PM 2. MG MM DIG SCREENING MAMM BI W/CAD 04/03/2022 4:44 PM FINDINGS: MAMMOGRAPHY: Breast composition: There are scattered areas of fibroglandular density. Mass: None. Architectural distortion: None. Calcifications: No suspicious calcifications. Asymmetric density: None. Skin thickening: None. Axillary adenopathy: None. IMPRESSION: No mammographic evidence of malignancy. Annual screening is recommended unless otherwise clinically indicated. ASSESSMENT: BI-RADS Category 1: Negative.
== END 2024-04-28 23:59 | disposition home or self-care (01) ==
LOC: RT 12:53
PROVIDERS: PCP Family Medicine; Visit Provider Nurse Practitioner
DX: R94.31 Abnormal electrocardiogram [ECG] [EKG]; Z12.31 Encounter for screening mammogram for malignant neoplasm of breast; I51.7 Cardiomegaly
CPT/HCPCS: 77063; 77067; 93306

== ENCOUNTER 2024-06-07 08:44 | Outpatient (CLI) | payer MEDICARE, OTHER, SELFPAY ==
--- NOTE | 2024-06-07 08:44 | US_ITS ---
PROCEDURE INFORMATION: Exam: US Abdomen, Limited; Right Upper Quadrant Exam date and time: 06/07/2024 8:49 AM Age: 68 years old Clinical indication: Abdominal pain; Additional info: Retrosternal pain radiating into the back TECHNIQUE: Imaging protocol: Real time ultrasound of the abdomen with image documentation. Limited exam focused on the right upper quadrant. COMPARISON: CT ANGIO ABDOMEN PELVIS 06/17/2023 7:40 AM FINDINGS: Liver: Normal. No masses. Gallbladder: Gallbladder 10 cm. Gallbladder wall 2.7 mm. No gallstones.. Biliary ducts: Common bile duct 2.6 mm Pancreas: Visualized pancreas is unremarkable. Right kidney: Right kidney 11.1 cm. No hydronephrosis. Right renal cortex 1.18 cm Portal venous: Hepatopetal flow in the portal vein Hepatic veins: Hepatic veins are patent IMPRESSION: Gallbladder 10 cm. Gallbladder wall 2.7 mm. No gallstones..
== END 2024-06-07 23:59 | disposition home or self-care (01) ==
LOC: RAD 08:44
PROVIDERS: PCP Family Medicine; Visit Provider Internal Medicine Gastroenterology
DX: R07.2 Precordial pain (principal); Z87.19 Personal history of other diseases of the digestive system
CPT/HCPCS: 76705

== ENCOUNTER 2024-06-16 12:16 | Outpatient (CLI) | payer MEDICARE, OTHER, SELFPAY ==
[2024-06-16 12:48] LABS: Basophils # 0.1 K/mm3 (0-0.2); Eosinophils # 0.1 K/mm3 (0.0-0.4); Eosinophils % 2.2 % (0.1-12.0); Hemoglobin 12.7 g/dL (12.2-16.2); Lymphocytes # 1.6 K/mm3 (0.7-4.5); Lymphocytes % 24.5 % (10-50); Mean Corpuscular HGB Conc 33.3 g/dL (31.8-35.4); Mean Corpuscular Hemoglobin 29.5 pg (27.0-31.2); Mean Corpuscular Volume 88.4 fl (81-99); Mean Platelet Volume 8.1 fl (7.4-10.4); Monocytes # 0.5 K/mm3 (0.1-1.0); Monocytes % 7.6 % (1.7-9.3); Neutrophils # 4.1 K/mm3 (1.8-7.8); Neutrophils % 64.8 % (37.0-80.0); Platelet Count 245 K/mm3 (142-424); White Blood Count 6.4 K/mm3 (4.8-10.8)
[2024-06-16 13:06] LABS: Iron 69 ug/dL (37-170)
[2024-06-16 13:15] LABS: Total Iron Binding Capacity 486 ug/dL (265-497)
[2024-06-16 13:42] LABS: Ferritin 20.6 ng/ml (11.1-264)
== END 2024-06-16 23:59 | disposition home or self-care (01) ==
LOC: LAB 12:16
PROVIDERS: PCP Family Medicine; Visit Provider Internal Medicine Gastroenterology
DX: K74.69 Other cirrhosis of liver (principal); B19.20 Unspecified viral hepatitis C without hepatic coma; K92.2 Gastrointestinal hemorrhage, unspecified; T39.395A Adverse effect of other nonsteroidal anti-inflammatory drugs [NSAID], initial encounter; Z87.19 Personal history of other diseases of the digestive system; R07.2 Precordial pain; I10 Essential (primary) hypertension; E78.5 Hyperlipidemia, unspecified
CPT/HCPCS: 36415; 82728; 83540; 83550; 85025

== ENCOUNTER 2024-08-25 06:55 | Day surgery (SDC) | payer MEDICARE, OTHER, SELFPAY ==
[2024-08-23 11:12] VITALS: BMI 43.9
[2024-08-25 08:01] VITALS: BP 152/78; PULSE 72; RESP 16; TEMP 36.1; O2SAT 98
--- NOTE | 2024-08-25 08:06 | P.PNANES_ITS ---
[facility] Disclaimer: The information contained in this section may have been updated after the patient was seen, as this information can be updated by other users. Medical History (Updated 08/25/24 @ 08:10 by Ila Kumari RN) Arthritis History of gastroesophageal reflux (GERD) Hypertension Hyperlipidemia History of anemia Thyroid cancer Encounter for pre-operative cardiovascular clearance History of GI bleed Screening for colon cancer EVON (obstructive sleep apnea) Status post placement of implantable loop recorder Multiple cerebral infarctions Abnormal EKG FH: early coronary artery disease Hyperlipidemia Surgical History (Updated 08/25/24 @ 08:10 by Ila Kumari RN) H/O discectomy History of carpal tunnel surgery History of colonoscopy History of right knee joint replacement History of thyroidectomy History of appendectomy History of left knee replacement Family History (Updated 08/25/24 @ 08:10 by Ila Kumari RN) Father Colon cancer Other Heart disease Social History (Updated 08/25/24 @ 08:11 by Ila Kumari RN) Smoking Status: Never smoker second hand exposure: No alcohol intake: never substance use type: denies use current occupational status: retired Travel in the last 8 weeks: None household members: none housing: house current occupational exposures/hazards: No caffeine: Yes [facility] Anesthesia Checklist Patient Identification Patient Identification: Arm Band and Verbal (Name & ) Structural Data Admitted From: Home Planned Operative Procedure/s: Colonoscopy Consent for Planned Operative Procedure(s) Verified: Yes Verified Documents: Surgical Consent and History and Physical NPO Status Verified Time NPO: 00:00 Additional verifications Anesthesia Reactions: No Hx Blood Transfusions: No Blood Transfusion Reaction: No Airway Assessment Mallampati Score:: Class III C-Spine Mobility Assessed: Yes TMJ Mobility Assessed: Yes Dentition: Good Dentition Neurological Assessment Level of Consciousness: Awake Hx Seizures: No Numbness or tingling in extremities: No Anesthesia Plan Anesthesia Risk discussed: Yes Anesthesia Plan: Verified ASA Class: III Anesthesia Type: MAC
[2024-08-25] MEDS: LACTATED RINGERS 1000ML 1,000 ML 25 ML IV (08:12)
--- NOTE | 2024-08-25 08:45 | P.HP_ITS ---
History of Present Illness *Admission Date: 08/25/24 *Reason for visit:: Surveillance colonoscopy-family history of colon cancer *History of present illness: Mrs. Hilton is a 68-year-old female who is here for surveillance colonoscopy secondary to family history. Her father had colon cancer in his mid 70s. The examination is deemed medically necessary for surveillance colonoscopy. The patient has been seen, interviewed and examined prior to the procedure by both myself and the anesthesia provider. [facility] Disclaimer: The information contained in this section may have been updated after the patient was seen, as this information can be updated by other users. Medical History (Updated 08/25/24 @ 08:46 by Morgan Browning II, MD) Arthritis History of gastroesophageal reflux (GERD) Hypertension Hyperlipidemia History of anemia Thyroid cancer Encounter for pre-operative cardiovascular clearance History of GI bleed Screening for colon cancer EVON (obstructive sleep apnea) Status post placement of implantable loop recorder Multiple cerebral infarctions Abnormal EKG FH: early coronary artery disease Hyperlipidemia Surgical History (Updated 08/25/24 @ 08:10 by Ila Kumari RN) H/O discectomy History of carpal tunnel surgery History of colonoscopy History of right knee joint replacement History of thyroidectomy History of appendectomy History of left knee replacement Family History (Updated 08/25/24 @ 08:10 by Ila Kumari RN) Father Colon cancer Other Heart disease Social History (Updated 08/25/24 @ 08:11 by Ila Kumari RN) Smoking Status: Never smoker second hand exposure: No alcohol intake: never substance use type: denies use current occupational status: retired Travel in the last 8 weeks: None household members: none housing: house current occupational exposures/hazards: No caffeine: Yes Have you lived/traveled outside US in past 30 days?: No Contact w/someone who lives/traveled outside US past 30 days?: No Exposure to someone with infectious disease in past 14 days?: No Do you have a fever (greater than 100.4 F or 38 C)?: No Have you tested positive for COVID-19: No Exposed to someone with COVID-19 in past 14 days?: No Do you have a sore throat?: No Do you have a cough?: No Do you have any weakness?: No Do you have any diarrhea?: No Are you experiencing any unusual bleeding?: No Do you have any muscle aches/pain?: No Do you have any abdominal pain?: No Are you experiencing loss of taste or smell?: No Other Medical History Have you received the Flu Vaccine for this season: No Have you received the Pneumonia Vaccine: Yes Review of Systems Review of Systems Review of systems (narrative): Negative *Cardiovascular Comments: Negative *Gastrointestinal Comments: Negative *Genitourinary Comments: Negative *Musculoskeletal Comments: Negative *Neurologic Comments: Negative Meds Home Medications and Allergies Home Medications ?Medication ?Instructions ?Recorded ?Confirmed ?Type calcium 600 mg (as 1 cap PO DAILY Supplement 11/04/17 08/23/24 History carbonate)-vitamin D3 5 mcg (200 unit) capsule cholecalciferol (vitamin D3) 125 5,000 unit PO DAILY Supplement 11/04/17 08/23/24 History mcg (5,000 unit) capsule coenzyme Q10 100 mg capsule (Co 100 mg PO DAILY Supplement 11/04/17 08/23/24 History Q-10) fenofibrate nanocrystallized 145 145 mg PO DAILY Cholesterol 11/04/17 08/23/24 History mg tablet gabapentin 600 mg tablet,extended 1,200 mg PO QPM NERVE PAIN 11/04/17 08/23/24 History release 24 hr (Gralise) multivitamin 1 tab PO QAM Supplement 11/04/17 08/23/24 History triamterene 37.5 1 tab PO QAM Hypertension 11/04/17 08/23/24 History mg-hydrochlorothiazide 25 mg tablet (Maxzide-25mg) amlodipine 5 mg tablet (Norvasc) 5 mg PO DAILY blood pressure 07/08/18 08/23/24 History losartan 100 mg tablet 100 mg PO DAILY blood pressure 07/08/18 08/23/24 History levothyroxine 150 mcg tablet 150 mcg PO DAILY . 05/26/22 08/23/24 History lidocaine 5 % topical patch 1 patch topical DAILY PRN . 05/26/22 08/23/24 History (Lidoderm) carvedilol 25 mg tablet 25 mg PO BID BLOOD PRESSURE 06/03/22 08/23/24 History acetaminophen 650 mg 650 mg PO Q12H 08/28/22 08/16/24 History tablet,extended release (Tylenol Arthritis Pain) apixaban 5 mg tablet (Eliquis) 5 mg PO BID #60 tabs 10/13/23 08/23/24 Rx cetirizine 10 mg tablet (Zyrtec) 10 mg PO DAILY #90 tabs 10/13/23 08/25/24 Rx meclizine 25 mg tablet 25 mg PO BID PRN dizziness #180 10/13/23 08/23/24 Rx tabs sodium,potassium,mag sulfates 17.5 See Rx Instructions PO .COMPLEX 08/15/24 08/16/24 Rx gram-3.13 gram-1.6 gram oral soln #354 mL (Suprep Bowel Prep Kit) enoxaparin 100 mg/mL subcutaneous 100 mg SQ Q12H 3 days #6 mL 08/16/24 08/23/24 Rx syringe (Lovenox) rosuvastatin 40 mg tablet 40 mg PO HS 08/16/24 08/23/24 History New Prescriptions to Start Prescriptions: Allergies Allergy/AdvReac Type Severity Reaction Status Date / Time methimazole Allergy Intermediate Other Verified 08/25/24 07:55 tetanus and diphtheria Allergy Mild Other Verified 08/25/24 07:55 toxoids adhesive tape Allergy Other Verified 08/25/24 07:55 cyclobenzaprine (From Allergy Hives Verified 08/25/24 07:55 Flexeril) Exam Data for Last 24 hours Vital signs and Labs for Last 24 Hours: Temp Pulse Resp BP Pulse Ox O2 Del Method 97.0 F L 72 16 152/78 H 98 Room Air 08/25/24 08:01 08/25/24 08:01 08/25/24 08:01 08/25/24 08:01 08/25/24 08:01 08/25/24 08:01 I & O for Last 24 hours: Intake & Output 08/22/24 08/23/24 08/24/24 08/25/24 23:59 23:59 23:59 23:59 Weight 225 lb *Routine HEENT Exam Head: Present normocephalic Eye: Present EOMI and PERRL ENT: Present mucous membranes moist *Routine Neck Exam Neck: Present supple *Routine Respiratory Exam Respiratory: Present CTA bilaterally *Routine Cardiovascular Exam Cardiovascular: Present RRR *Routine Abdominal Exam Abdominal: Present soft and normoactive bowel sounds; Absent tenderness *Routine Rectal Exam Rectal:: deferred *Routine Genitalia Exam Genitalia:: deferred *Routine Extremities Exam Extremities: Absent cyanosis, clubbing or edema *Routine Skin Exam Skin: Present warm; Absent rash *Routine Neurological Exam Neurological: Present alert and oriented X3 Assessment and Plan *Assessment and plan (1) Family history of colon cancer in father: Status: Acute Category: Medical Code(s): Z80.0 - Family history of malignant neoplasm of digestive organs Plan A/P: 1. Surveillance colonoscopy?family history of colon cancer is the preprocedural diagnosis. The patient will be anesthetized/sedated using MAC sedation. The patient has been seen and examined. Cardiac and lung assessment prior to the examination is stable. Proceed with planned surveillance colonoscopy
[2024-08-25 08:52] VITALS: O2SAT 100
--- NOTE | 2024-08-25 08:56 | P.PCN_ITS ---
[facility] Procedure Note Date: 08/25/24 Time: 09:11 Procedure Note:: Colonoscopy Procedure Report: Colonoscopy with cold snare polypectomy Endoscopist: Morgan Browning II, MD Referring physician: Brennen Wallis MD Date of Procedure: August 25, 2024 Equipment: Olympus 190 variable stiffness pediatric colonoscope Sedation: MAC sedation Indication: Mrs. Hilton is a 68-year-old female who is here for follow-up surveillance colonoscopy secondary to family history. Her father had colon can cer in his mid 70s. Her last colonoscopy was in May 2019 and she had no polyps. The patient has had some intermittent hemorrhoidal bleeding once a week. She was having some bowel control difficulties with fecal seepage and excessive wiping which improved with FiberCon. She reports no abdominal pain or weight loss. Procedure: Prior to the procedure, a history and physical exam was performed, and patient's medications and allergies were reviewed. The risks, benefits and alternatives of the sedation and procedure were discussed with the patient. All questions were answered and informed consent was obtained. The patient was brought to the procedure room. Patient identification and proposed procedure were verified by the physician and the nurse. The patient was placed in a left lateral decubitus position and the scope was passed under direct vision. Throughout the procedure, the patient's blood pressure, pulse, and oxygen saturations were monitored continuously. The colonoscopy was accomplished without difficulty. The patient tolerated the procedure well. Findings: On digital rectal examination there was normal rectal tone. There were no external hemorrhoids. The colonoscope was introduced through the anal canal to the rectum and advanced to the cecum. The ileocecal valve and appendiceal orifice were identified. The scope was advanced a short distance into the ileum which appeared grossly normal. The scope was then withdrawn into the colon. There was a 10 to 11 mm sessile polyp at the junction of the cecum and ascending colon removed via cold snare polypectomy. The remaining cecum, ascending, transverse, descending, sigmoid and rectum were grossly normal. There were no mucosal abnormalities identified. Upon retroflexion within the rectum there were grade 1-2 internal hemorrhoids.The preparation was excellent throughout with [place] Preparation Score of 9. The cecal time was 11 minutes. Impression: 1. 10 to 11 mm cecal polyp 2. Grade 1-2 internal hemorrhoids Plan: I will follow-up the polyp histology and recommend repeat surveillance colonoscopy again in 5 years. I would encourage continuing the bulking FiberCon daily. I will discuss the findings with the patient and family.
[2024-08-25 09:15] VITALS: BP 107/63; PULSE 64; RESP 15; O2SAT 94
[2024-08-25 09:25] VITALS: BP 114/78; PULSE 72; RESP 16; O2SAT 95
[2024-08-25 09:35] VITALS: BP 116/70; PULSE 68; RESP 16; O2SAT 100
[2024-08-25 09:45] VITALS: BP 129/73; PULSE 68; RESP 16; O2SAT 100
== END 2024-08-25 09:45 | disposition home or self-care (01) ==
PROVIDERS: PCP Family Medicine; Visit Provider Internal Medicine Gastroenterology
PROC: (CPT 45385; principal; 2024-08-25 08:30)
DX: D12.0 Benign neoplasm of cecum (principal); K64.8 Other hemorrhoids; Z80.0 Family history of malignant neoplasm of digestive organs
CPT/HCPCS: 45385; J7120

== ENCOUNTER 2024-12-28 15:45 | Outpatient (CLI) | payer MEDICARE, OTHER, SELFPAY ==
--- OUTSIDE RECORDS SUMMARY | 2024-12-28 15:47 | XMS_ITS ---
Author Organization Unknown TREATMENT PLAN [facility] Start Date Provider Encounter for Check-up [id number] [facility]
--- OUTSIDE RECORDS SUMMARY | 2024-12-28 15:47 | XMS_ITS | Continuity of Care Document ---
Author Organization [facility], ENDOCRINOLOGY SB Address [address] [place] [phone] Care Team Providers Care Assistant Teaching Professor Name Role Phone ОЛЕГ GHOTRA Primary Care Provider HEMALATHA THAYER Credentials Specialist QUYEN COLBERT Referring Provider AFIA YOUNG Field Contractor Assessment No assessment recorded. Plan of Treatment Reminders Order Date Submit Date Provider Last Modified By Organization Details Last Modified Time Details Appointments RECHECK 2025 11:00A Rsoa THAYER MD Not available Not available Not available Lab T4, free, serum 2024 025 [facility], [address] [place] [address], [phone], 12/28/2024 12:56:27 TSH, serum or plasma 2024 025 [facility], [address] [place] [address], [phone], 12/28/2024 12:56:28 thyroglob ulin + thyroglob ulin Ab, serum 2024 025 [facility], [address] [place] [address], [phone], 12/28/2024 04:12:55 Referral None recorded. Procedures None recorded. Surgeries None recorded. Imaging None recorded. Medication Orders levothyro xine 137 mcg tablet 2024 025 [facility], [address] [place] [address] [address] [place], [phone], 11/21/2024 13:29:59 Patient TargetsNo targets recorded. Patient InstructionsNo instructions recorded. Reason for Referral None Reported. Results Created Date Observation Date Name Description Value Unit Range Abnormal Flag Note LastModifiedBy Organization Detail LastModifiedTime 11/15/1911/14/2024 US, neck, soft tissu e [place] ton [address] [address] Patien t Name: VEGA tam : [phone] Patien t Orderi ng Provid er: HEMALATHA THAYER EXAM DATE: 2024 EXAM: US ECHO THYROI D OR PAROTI D CLINIC AL INFORM ATION: Thyroi d cancer TECHNI QUE: Multip le sonogr aphic images of the thyroi d gland were obtain ed. COMPAR ELISHA: 024 FINDIN GS: The thyroi d gland is surgic ally absent . No residu al thyroi d bed tissue . Right neck lymph node measur ing 7 x 7 x 3 mm, left neck lymph node measur ing 6 x 8 x 3 mm. IMPRES CLIFFORD: Previo us thyroi dectom y. No residu al tissue Interp reted By: Олег Means MD Electr onical ly Signed By: Олег Means MD on 11/15/19 11:42 AM [facility] [address] [place] [address], [phone], 12/21/2024 04:20:36 Result Notes None recorded. Problems Name Problem SNOMED Code Status Onset Date Resolution Date Notes Provider Name and Address Organization Details Recorded Time Idiopathi c osteoarth ritis 163477318 Active 2014 From Automated Load;Provi rudolph: Vinny Scanlon; Status: Active Not Available [facility] 6 09:59:34 Hyperthyr oidism 97219243 Active 2019 VIJI CALVILLO MD [address] [place] [address], [phone] , [facility] 0 09:09:11 Malignant tumor of thyroid gland 280186522 Active 2019 papillary 3.8 cm right lobe VIJI CALVILLO MD [facility] [place], [phone] , [facility] 0 16:14:01 Diverticu litis 477454060 Active 2021 [facility] 2 11:09:21 Problem Notes None recorded. Procedures Surgical History Date Name Laterality Status Provider Name and Address Organization Details Recorded Time 12/21/19 20 THYROIDECTOMY, TOTAL (SURG) completed Erendira Coppola [facility] 12/22/2019 08:18:02 11/01/19 20 Review of Med Recs/Compl forms completed [facility] [place] [place] 11/01/2019 11:44:28 11/01/19 20 Fine Needle Aspiration; without image guidance completed [facility] [place] [place] 11/01/2019 11:50:00 10/09/19 16 [place] [facility] [place] 11:13:57 06/10/20 15 total [place] [facility] [place] 11:13:11 06/10/20 09 Back [place] [facility] [place]/01/2019 11:12:47 12/09/19 09 partial parotidectomy completed VIJI CALVILLO MD [address] [place] [address], [phone], [facility] 11/01/2019 15:47:47 12/09/19 08 hammer toe operation [place] [facility] [place]/01/2019 11:11:40 11/26/18 92 Appendectomy [place] [facility] 11/01/2019 11:11:54 cataract surgery completed Meena Castillo [facility] 03/20/2023 08:38:27 Imaging Results None recorded. Procedure Notes None recorded. Medical Equipment None Reported. Allergies Allergen ID Allergen Name Allergen Category Reaction Reaction Severity Criticality Documentation Date Start Date Code Code System Note Provider Name and Address Organization Details Recorded Time 580583 adhesive tape environme nt,medica tion Not available Not available Not available 07/03/20162014 57022 UNK Comme nt: Creat ed By: Helio tiwari;Cr eated Date: 2014 1:19: 51 PM; Not Available [facility] 6 13:47:46 991627 cyclobenz aprine hydrochlo ride medicatio n rash Not available Not available 11/01/2019 66316 RxNorm [facility] 0 11:09:31 [id number] methimazo le medicatio n rash severe Not available 02/22/2020 6835 RxNorm Sarah Arriaza [facility] 0 10:56:40 Medications Name Sig Start Date Stop Date Status Note LastModified by Organization Details LastModified Time SSKI 1 gram/mL oral solution 12/28 completed Not Available Not Available Not Available celecoxib 200 mg capsule TAKE ONE CAPSULE BY MOUTH EVERY DAY --TAKE WITH FOOD-- 03/20 completed Not Available Not Available Not Available amoxicill in 500 mg capsule TAKE 4 CAPSULES BY MOUTH ONE HOUR PRIOR TO DENTAL PROCEDUR E active Not Available Not Available No t Available levothyro xine 137 mcg tablet TAKE ONE TABLET BY MOUTH EVERY MORNING active Not Available Not Available No t Available carvedilo l 25 mg tablet TAKE ONE TABLET BY MOUTH TWICE DAILY WITH FOOD active Not Available Not Available No t Available cetirizin e 10 mg tablet TAKE ONE TABLET BY MOUTH EVERY DAY active Not Available Not Available No t Available azithromy leonie 250 mg tablet TAKE 2 TABLETS BY MOUTH ON DAY 1, THEN TAKE 1 TABLET DAILY ON DAYS 2-5 active Not Available Not Available No t Available aspirin 325 mg tablet Daily 03/20 completed Duration : 45 days;Omer quency: daily;Me dication Descript ion: aspirin; Dosage:1 ; Route:or al; refills: 1; Quantity :45 tablet Not Available Not Available Not Available ondansetr on HCl 4 mg tablet TAKE 1 TABLET BY MOUTH EVERY 8 HOURS NEEDED FOR NAUSEA FOR VOMITING 08/16 completed Not Available Not Available Not Available Synthroid 100 mcg tablet Take 1 tablet every day by oral route. 12/28 completed Not Available Not Available Not Available metronida zole 500 mg tablet TAKE ONE TABLET BY MOUTH THREE TIMES DAILY FOR 5 DAYS active Not Available Not Available No t Available amlodipin e 5 mg tablet TAKE ONE TABLET BY MOUTH EVERY DAY active Not Available Not Available No t Available ciproflox acin 500 mg tablet 11/08 completed Not Available Not Available Not Available tramadol 50 mg tablet TAKE 1 TO 2 TABLET(S ) BY MOUTH EVERY 4-6 HOURS active Not Available Not Available No t Available oxycodone -acetamin ophen 5 mg-325 mg tablet TAKE ONE TABLET BY MOUTH EVERY 6 HOURS NEEDED FOR PAIN (DO not exceed 4 tablets PER DAY) MAY CAUSE DROWSINE SS active Not Available Not Available No t Available Lugols 5 % oral solution Take 5 drops 3 times a day by oral route with meals for 14 days. 12/28 completed Not Available Not Available Not Available meclizine 25 mg tablet TAKE ONE TABLET BY MOUTH TWICE DAILY NEEDED FOR dizzines s active Not Available Not Available No t Available pantopraz ole 40 mg tablet,de layed release TAKE ONE TABLET BY MOUTH EVERY DAY active Not Available Not Available No t Available levothyro xine 125 mcg tablet TAKE ONE TABLET BY MOUTH EVERY MORNING ON an EMPTY stomach 11/21 completed Not Available Not Available Not Available nystatin 100,000 unit/gram topical cream 11/08 completed Not Available Not Available Not Available dexametha sone 4 mg tablet Take 1 tablet every day by oral route in the morning for 14 days. 12/28 completed Not Available Not Available Not Available lidocaine 5 % topical patch APPLY 3 PATCHES TOPICALL Y TO THE AFFECTED AREA ONCE DAILY AND LEAVE IN PLACE FOR 12 HOURS, THEN REMOVE AND LEAVE OFF FOR 12 HOURS active Not Available Not Available No t Available levothyro xine 150 mcg tablet TAKE ONE TABLET BY MOUTH EVERY DAY active Not Available Not Available No t Available triamtere ne 37.5 mg-hydroc hlorothia zide 25 mg tablet TAKE 1/2 TABLET BY MOUTH EVERY DAY active Not Available Not Available No t Available mupirocin 2 % topical ointment 11/08 completed Not Available Not Available Not Available cefuroxim e axetil 500 mg tablet TAKE ONE TABLET BY MOUTH TWICE DAILY FOR 5 DAYS -- FINISH ALL MEDICINE -- active Not Available Not Available No t Available levofloxa leonie 750 mg tablet TAKE ONE TABLET BY MOUTH EVERY DAY -- FINISH ALL MEDICINE -- 03/20 completed Not Available Not Available Not Available methimazo le 10 mg tablet Take 1 tablet 3 times a day by oral route with meals for 30 days. 11/30 completed Not Available Not Available Not Available ketoconaz ole 2 % topical cream APPLY TOPICALL Y TO THE AFFECTED AREA(S) EVERY DAY active Not Available Not Available No t Available ondansetr on 4 mg disintegr ating tablet DISSOLVE ONE TABLET BY MOUTH EVERY 8 HOURS NEEDED active Not Available Not Available No t Available cefdinir 300 mg capsule TAKE ONE CAPSULE BY MOUTH TWICE DAILY FOR 7 DAYS -- FINISH ALL MEDICINE -- active Not Available Not Available No t Available losartan 100 mg tablet TAKE ONE TABLET BY MOUTH EVERY DAY active Not Available Not Available No t Available naproxen 500 mg tablet active Not Available Not Available Not Available oxycodone 5 mg tablet TAKE 1 TO 2 TABLET(S ) BY MOUTH EVERY 4-6 HOURS active Not Available Not Available No t Available enoxapari n 100 mg/mL subcutane ous syringe inject 1 syringe subcutan eously EVERY TWELVE HOURS FOR 3 DAYS DIRECTED active Not Available Not Available No t Available rosuvasta tin 5 mg tablet daily active Not Available Not Available Not Available rosuvasta tin 10 mg tablet TAKE ONE TABLET BY MOUTH EVERY DAY active Not Available Not Available No t Available rosuvasta tin 40 mg tablet TAKE ONE TABLET BY MOUTH EVERY DAY active Not Available Not Available No t Available duloxetin e 30 mg capsule,d elayed release TAKE ONE CAPSULE BY MOUTH EVERY DAY 03/20 completed Not Available Not Available Not Available Antifunga l (clotrima zole) 1 % topical cream APPLY TOPICALL Y TO THE AFFECTED AREA(S) TWICE DAILY FOR FOURTEEN DAYS -- FOR EXTERNAL USE ONLY-- active Not Available Not Available No t Available Co Q-10 active Not Available Not Avail able Not Available calcium active Not Available Not Avail able Not Available naproxen Two times a day 11/08 completed Frequenc y: bid;Medi cation Descript ion: naproxen ; Dosage:1 ; Route:or al; refills: 5; Quantity :60 tablet Not Available Not Available Not Available Vitamin D active Not Available Not Adina ilable Not Available Lotensin Daily 11/08 completed Frequenc y: daily;Me dication Descript ion: benazepr il; Dosage:1 ; Route:or al; refills: 5; Quantity :30 tablet Not Available Not Available Not Available allopurin ol Daily 11/08 completed Duration : 30 days;Omer quency: daily;Me dication Descript ion: allopuri nol; Dosage:1 ; Route:or al; refills: 0; Quantity :30 tablet Not Available Not Available Not Available multivita min active Not Available Not Available Not Available Triamtere ne-HCTZ 11/08 completed Medicati on Descript ion: triamter bri-hydr ochlorot hiazide; Route:or al; refills: 0 Not Available Not Available Not Available Cymbalta 02/21 completed Medicati on Descript ion: duloxeti ne hydrochl oride; Route:or al; refills: 0 Not Available Not Available Not Available Lyrica 11/08 completed Medicati on Descript ion: pregabal in; Route:or al; refills: 0 Not Available Not Available Not Available tramadol ER 300 mg tablet,ex tended release 24 hr 12/28 completed Not Available Not Available Not Available fenofibra te nanocryst allized 145 mg tablet TAKE ONE TABLET BY MOUTH EVERY DAY active Not Available Not Available No t Available Vaqta (PF) 50 unit/mL intramusc ular syringe 11/08 completed Not Available Not Available Not Available levocetir izine 5 mg tablet TAKE 1 TABLET BY MOUTH ONCE DAILY IN THE EVENING 03/20 completed Not Available Not Available Not Available Savella 50 mg tablet Take 1 tablet every day by oral route. 08/16 completed Not Available Not Available Not Available Prevnar 13 (PF) 0.5 mL intramusc ular syringe 03/20 completed Not Available Not Available Not Available sodium,po tassium,m ag sulfates 17.5 gram-3.13 gram-1.6 gram oral soln drink full AMOUNT early evening BEFORE AND NEXT morning AT least FOUR TO FIVE hours BEFORE procedur e. FOLLOWIN G by drinking 960mls of water as directed active Not Available Not Available No t Available gabapenti n ER 600 mg tablet,ex tended release 24 hr TAKE TWO TABLETS BY MOUTH ONCE DAILY MAY CAUSE DROWSINE SS active Not Available Not Available No t Available Eliquis 5 mg tablet TAKE ONE TABLET BY MOUTH TWICE DAILY active Not Available Not Available No t Available Eliquis 2.5 mg tablet TAKE ONE TABLET BY MOUTH TWICE DAILY 11/18 completed Not Available Not Available Not Available Shingrix (PF) 50 mcg/0.5 mL intramusc ular suspensio n, kit 11/08 completed Not Available Not Available Not Available Fluzone High-Dose Quad 2020-21 (PF) 240 mcg/0.7 mL IM syringe 11/21 completed Not Available Not Available Not Available Vitals Date Recorded Body weight Body mass index (BMI) Body height Systolic blood pressure Diastolic blood pressure Provider Name and Address Organization Details Last Updated DateTime 11/21/2024 179074.0 2 g 44.8 kg/m2 153.67 cm 124 mm[Hg] 78 mm[Hg] [facility] Social History Question Answer Notes LastModified by Organizat [employer] Details LastModified Time Tobacco Smoking Status Never Smoker [facility] 11/01/2019 11:11:21 How Much Tobacco Do You Chew? None Information not available 11/09/2019 What Was The Date Of Your Most Recent Tobacco Screening? 03/20/2023 [email or web address] Information not available 03/20/2023 How Much Tobacco Do You Smoke? No Information not available 11/09/2019 How Many Years Have You Smoked Tobacco? 0 Information not available 11/09/2019 Sex: Unknown Functional Status Question Answer Note LastModified by Organizat ion Details LastModified Time What is your level of alcohol consumption? None Information not available 11/01/2019 Do you or have you ever used smokeless tobacco? Never used smokeless tobacco Information not available 11/09/2019 Do you or have you ever used e-cigarettes or vape? Never used electronic cigarettes Information not available 11/09/2019 Mental Status None recorded. Family History Relationship Description Onset Age of this Age Resolved Age Notes LastModified by Organization Details LastModified Time Father Family history of malignant neoplasm colon [email or web address] Not available 2019 11:10:16 Father Heart disease [email or web address] Not available 2019 11:10:30 Father Hypertensive disorder [email or web address] Not available 2019 11:10:47 Father Bleeding Not availabl e 11/01/2019 11:11:12 Brother Heart disease [email or web address] Not available 2019 11:10:30 Brother Hypertensive disorder [email or web address] Not available 2019 11:10:47 Sister Hypertensive disorder [email or web address] Not available 2019 11:10:47 Medical History Condition Response Hyperthyroidism Y Anesthesia Complications Y Diabetes N Arthritis Y Cancer N Hypoglycemia N Hypertension Y Gynecological HistoryNo gynecological history recorded. Obstetrics History GPAL:G 0 P 0 0 0 0 Past Encounters Encounter ID Performer Location Encounter Start Date Encounter Closed Date Diagnosis/Indication Diagnosis SNOMED-CT Code Diagnosis ICD10 Code Diagnosis Note [id number] [place] [address] [place] [phone] 11/21/2024 10:33:16 11/21/2024 13:05:45 Postoperative hypothyroidism 48280612 E89.0 Most recent TSH of 4.1 on 11/14/2024 up from 1.45Sympto ms of hypothyroi dism after decreasing her levothyrox ine dose No symptoms of exogenous hyperthyro idism Further increase levothyrox ine dose of 137 ??g every a.m. Patient was instructed on the appropriat e method of levothyrox in administra tion to be taken every a.m. on an empty stomach as new food, drinks or other medication s for at least 30 minutes. PPI and calcium -containin g preparatio ns is preferred to be given at least of her hours before or after levothyrox in therapy. 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 Thyroglobu tre panel showed thyroglobu tre of 0.1 and mildly positive thyroid antibodies of 3Most recent thyroglobu tre panel of less than 0.1 and thyroglobu tre to body trending down to 2 on 11/10/2022 Neck ultrasound done at radiology department on 11/11/2021 showing no evidence of residual thyroid tissue or recurrence and bilateral subcentime ter benign-aman earing lymph nodes.Thyr oid ultrasound on 11/10/2022 showed no residual thyroid tissue, recurrence and stable benign-aman earing bilateral lymph nodes.Thyr oid ultrasound report and images on 11/12/2023 reviewed and discussed with patient which showed no residual thyroid tissue, nodularity or evidence of recurrence and stable benign-aman earing lymphadeno everardo Undetectab ly low thyroglobu tre and negative thyroglobu tre antibodies on 11/11/2022. Thyroglobu tre 230sThyrog lobulin slightly up to 0.1 on 11/14/2024 likely due to increased TSH.Recomm endations: Repeat thyroglobu tre after 6 weeks with TSH and freeContin ue to monitor clinically , by repeat thyroglobu tre panel as well as neck ultrasound before next visit after 1 year. Provided with a hard copy of her recent neck ultrasound as well as thyroid function test/thyro globulin panel 1 year follow-up with earlier appointmen t as appropriat e Patient verbalized understand ing and agreed with the above mentioned plan of care. Health Concerns Section Related Observation LastModified by Organization Detai ls LastModified Time None Recorded Concern Status LastModified by Organization Details LastModified Time None Recorded Payers Encounter Date Sequence Insurance Name Policy Number Policy Tirado Covered Member ID Tirado Member ID Guarantor Name 11/21/2024 1 [employer] (MEDICARE REPLACEMENT /ADVANTAGE - PPO) Vega Hilton [id number] Vega Hitlon 11/21/2024 2 [employer] - FOR LIFE (SECONDARY TO MEDICARE) Vega Hilton [id number] Vega Gulshan Lida Notes Date Note Type Note Provider Name and Address Organization Details Recorded Time 11/21/2024 text/html 68-year-old female patient with a past medical history as detailed in the pulmonary significant for hypertension, hyperlipidemia on therapy seen in the office today for 12 months follow-up visit papillary thyroid cancer/postsurgical hypothyroidism. Last office visit on 11/20/2022Summary of history For detailed history please refer to my initial consultation note and progress notes on her. Family history: Daughter with hypothyroidism Was found and physical exam to have a thyroid nodule. Thyroid ultrasound done at an outside facility [facility]] on 11/07/2019 showed 3 cm thyroid isthmus nodule. Ultrasound-guided FNA reported as suspicious for papillary thyroid cancer. Positive thyroid antibodies Laboratory workup showed markedly elevated free thyroid hormone levels, undetectably low TSH, positive TSI consistent with uncontrolled Graves' hyperthyroidism. Started on methimazole therapy on 11/09/2019. She called our office on 12/01/2019 reported that she has had recurrent skin lesions i.e. hives associated with severe itching Methimazole therapy was discontinued and she was a started on stable iodine in preparation for her thyroid surgery along with dexamethasone therapy. Had total thyroidectomy on 12/20/2019 with pathology consistent with 3.8 cm thyroid isthmus papillary thyroid cancer, 2 mm papillary microcarcinoma in the right thyroid lobe. No evidence of lymphatic or vascular invasion 0/1 lymph node negative for metastatic cancerLast office visit on 11/19/2023Interval history:Since last office visit, her levothyroxine dose was decreased to 137 mcg every a.m. Per patient she had laboratory workup showing abnormal TSH and her PCP Brennen Ellis further decreased her levothyroxine to 125 mcg everyReported worsening fatigue and lack of energy but she denies any dry skin or hair loss or leg crampingShe denies any neck compressive symptoms such as difficulty swallowing, difficulty breathing or choking lying flat.She also denies any denies any palpitations, shaking, excessive sweating, weight loss.Had follow-up TSH, free T4, thyroglobulin and neck ultrasound last week. HEMALATHA THAYER MD [address] [place] [address], [phone], [facility] 11/21/2024 12:27:11 OBGyn Episode No OBEpisode recorded.
--- NOTE | 2024-12-28 15:50 | MR_ITS ---
FINAL REPORT TECHNIQUE: Multiplanar MR without contrast CLINICAL HISTORY: ACUTE LT SIDED LBP W/SCIATICA/SPINAL STENOSIS FINDINGS: Sagittal images show normal vertebral height. There is advanced spondylosis. There is fusion of L3-4. Alignment is normal. Marrow signal pattern is unremarkable. T12-L1: Mild annular disc bulge and mild facet overgrowth. L1-2: Moderate annular disc bulge with moderate facet arthropathy. Moderate central canal stenosis and bilateral neuroforaminal narrowing. L2-3: Moderate to large annular disc bulge and facet arthropathy. Moderate central canal stenosis. Moderate right and mild left neuroforaminal narrowing. L3-4: Bony overgrowth with surgical fusion. Status post left laminectomy. Mild central canal stenosis and moderate neuroforaminal narrowing. L4-5: Moderate annular disc bulge with facet arthropathy. Mild central canal stenosis and moderate bilateral neuroforaminal narrowing. L5-S1: Mild annular disc bulge. Moderate facet arthropathy. Mild central canal stenosis and neuroforaminal narrowing. IMPRESSION: Advanced degenerative changes with multilevel canal stenosis and neuroforaminal narrowing. Reviewed, Interpreted and Dictated by Maverick Smith MD Transcribed by Marietta Giron Authenticated and [facility]
== END 2024-12-28 23:59 | disposition home or self-care (01) ==
LOC: RAD 15:46
PROVIDERS: PCP Family Medicine; Visit Provider Family Medicine
DX: M47.816 Spondylosis without myelopathy or radiculopathy, lumbar region (principal); M99.73 Connective tissue and disc stenosis of intervertebral foramina of lumbar region; M48.07 Spinal stenosis, lumbosacral region; M43.26 Fusion of spine, lumbar region
CPT/HCPCS: 72148

== ENCOUNTER 2025-01-17 09:03 | Outpatient (CLI) | payer MEDICARE, OTHER, SELFPAY ==
--- OUTSIDE RECORDS SUMMARY | 2024-12-19 04:36 | XMS_ITS ---
Author Organization [facility] Address 1210 [facility] 36 [facility] [address] [place] [phone] Care Team Providers Care Assistant Foreman Name Role Phone Wilfredo Brewster Primary Care Provider Brennen Wallis Unavailable [phone] Results Component Value Reference Range Notes MRI : Spine, Lumbosacral, wi thout contrast Reviewed date:12/30/2024 09:46:14 AM Interpretation:Advanced degenerative changes with stenosis and foraminal narrowing Performing Lab: Notes/Report: Advanced degenerative changes with stenosis and foraminal narrowing REASON FOR VISIT Message Encounters Encounter Location Date Provider Diagnosis [facility] [address] [facility] 36 [facility] [address] [place] [phone] 12/19/2024 Brennen Wallis Acute left-sided low back pain with left-sided sciatica M54.42 and Spinal stenosis, lumbosacral region M48.07 Assessments Encounter Date Diagnosis (ICD Code) Assessment Notes Treatment Notes Treatment Clinical Notes Section Notes 12/19/2024 Acute left-sided low back pain with left-sided sciatica (ICD-10 - M54.42) 12/19/2024 Spinal stenosis, lumbosacral region (ICD-10 - M48.07) Plan Of Treatment Next Appt Details Provider Name:Brennen Solares ry, 06/16/2025 09:45:00 AM, [address] [facility], [address], [place], [phone], Progress Notes * ADRIENNE VASQUEZEDOB: 4 (69 yo F)Acc No.[id number]:12/19/2024 Patient: M OBERLY, VEGA :1955 A ge:69 Y S ex:Female Address:[facility] [place] [address], [place] [address] Subjective: * Chief Complaints: * M essage * Medical History: * Surgical History: * Hospitalization/Major Diagno stic Procedure: * Medications: Objective: Assessment: * Assessment: 1. A cute left-sided low back pain with left-sided sciatica - M54.42 (Primary) 2 . S joanna stenosis, lumbosacral region - M48.07 Plan: * Treatment: 2. S joanna stenosis, lumbosacral region I maging: MRI : Spine, Lumbosacral, without contrast * Procedure Codes: * true * Date: Generated for Gareth mccloud/Keyanna/Osielitting on: 0 01/17/2025 09:06 AM EDT
--- OUTSIDE RECORDS SUMMARY | 2024-12-23 05:15 | XMS_ITS ---
Author Organization [facility] Address [address] [place] [phone] Care Team Providers Care Supervisor [employer] Name Role Phone Wilfredo Brewster Primary Care Provider Brennen Wallis [phone] REASON FOR VISIT 6 month check up with fasting labs Encounters Encounter Location Date Provider Diagnosis [facility] [address] [place] [id number] 12/23/2024 Brennen Wallis Plan Of Treatment Next Appt Details Provider Name:Brennen Solares ry, 06/16/2025 09:45:00 AM, [address], [address], [place], [place], [phone], Progress Notes * ADRIENNE VASQUEZEDOB: (69 yo F)Acc No.[id number]:12/23/2024 Progress Notes Patient: VEGA CHISHOLM Provider: King Wallis M.D. :1955 A ge:69 Y S ex:Female Date:12/23/2024 Address:[address] [place] [address] [id number] Pcp:Wilfredo Brewster Subjective: * Chief Complaints: * 1 . 6 month check up with fasting labs. * Medical History: Objective: * Vitals: Assessment: Plan: * Treatment: * Billing Information: * Visit Code: * Procedure Codes: * Electronic signature of Aidee Wallis MD on 01/17/2025 at 09:06 AM EDT Sign off status: Pending * Provider: King Wallis M.D. Date: 0 12/23/2024 Generated for Gareth [email or web address]/Keyanna/Denia on: 0 01/17/2025 09:06 AM EDT
--- OUTSIDE RECORDS SUMMARY | 2024-12-30 06:30 | XMS_ITS ---
Author Organization [facility] Address [address] [facility] [address] [place] [phone] Care Team Providers Care Utilization Review Coordinator Name Role Phone Wilfredo Brewster Primary Care Provider Brennen Wallis Unavailable [phone] Allergies Allergen (clinical drug ingredient) Drug/Non Drug [...] Reason Wants to see Dr. Patterson in [place] Diagnosis 1 Lumbago with sciatic a, left side (M54.42) Diagnosis 2 Spinal stenosis, lum bosacral region (M48.07) Diagnosis 3 Degeneration of inte rvertebral disc of lumbar region with discogenic back pain and lower extremity pain (M51.362) Diagnosis 4 Bulging lumbar disc (M51.369) [facility] Referring Provider First Name Brennen Referring Provider Last Name Bimal Referring Provider Speciality Family Pra ctice Referred Provider Pablo Patterson Referred Provider Specialty Pain Managem ent General Notes Sapna Joy 2024 11:08:39 AM > faxed with office notes to [facility] Management, BenitaSapna 01/03/2025 09:48:42 AM > faxed to Dr. Yesenia Weston Office Referral Priority Routine REASON FOR VISIT med check Medications Medication SIG (Take, Route, Frequency, Duration) Notes Start Date End Date Status Levothyroxine Sodium 137 MCG 1 tablet in the morning on an empty stomach Orally Once a day 06/28/2024 Active Losartan Potassium 100 MG 1 tab(s) orall y once a day for 90 days Active amLODIPine Besylate 5 mg 1 tablet Orally Once a day for 90 days Active Carvedilol 25 mg 1 tablet with food Orally Twice a day for 90 days Active Rosuvastatin Calcium 40 MG 1 tab(s) oral ly once a day for 90 days Active traMADol HCl 50 MG 1 tablet Orally four times a day as needed 12/30/2024 Active dexAMETHasone 4 MG 1 tablet Orally Two times a day for 5 days 12/14/2024 Active Metaxalone 800 mg TAKE ONE TABLET BY M OUT THREE TIMES DAILY NEEDED MAY CAUSE DROWSINESS Active Gralise 600 MG 3 tab(s) orally once a day for 30 days 12/30/2024 Active Eliquis 2.5 MG 1 tablet Orally 2 ti mes a day for 90 days Active Fenofibrate 145 MG 1 tab(s) orally once a day for 90 days Active Triamterene-HCTZ 37.5-25 MG TAKE 1/2 TAB LET BY MOUTH EVERY DAY for 90 Active Problems Problem Type SNOMED Code ICD Code Onset Dates Problem Status W/U Status Risk Notes Problem 093415752 Lumbago with sciatica, left side (M54.42) Active confirmed Problem 83754908 Degeneration of intervertebral disc of lumbar region with discogenic back pain and lower extremity pain (M51.362) Active confirmed Problem 491904561 Lumbar facet arthropathy (M47.816) Active confirmed Problem 792516602 Bulging lumbar d isc (M51.369) Active confirmed Vital Signs Blood pressure systolic 122 mm Hg 12/31/19 25 Blood pressure diastolic 64 mm Hg 025 Heart Rate 66 /min 12/30/2024 Height 61 in 12/30/2024 Weight 230.0 lbs 12/30/2024 BMI 43.45 kg/m2 12/30/2024 Encounters Encounter Location Date Provider Diagnosis [facility] [address] [facility] [address] [place] [id number] 12/30/2024 Brennen Wallis Lumbago with sciatic a, [...] 600 MG 3 tab(s) orally once a day for 30 days 12/09 Referrals Referral Date Details 12/30/2024 12/30/2024, Wants to see Dr. Patterson in [place] Next Appt Details Follow Up: via phone to repo rt progress, Reason: Provider Name:Brennen mc, 06/16/2025 09:45:00 AM, [address], [address], [place], [phone], Progress Notes * CHANDANA VASQUEZOB: 4 (69 yo F)Acc No.[id number]:12/30/2024 Progress Notes Patient: VEGA CHISHOLM Provider: King Wallis M.D. :1955 A ge:69 Y S ex:Female Date:12/30/2024 Address:[address] [place] [address] , [place], [id number] Pcp:Wilfredo Brewster Subjective: * Chief Complaints: * [...] s/p upper GI bleed, 2022 treated at [facility] in [place]. * Surgical History: A ppendectomy 1991, LT Foot Fusion 12/2007, Neck Tumor Removal 01/10/2009, Bilateral Cataract Removal 10/11/2013, 10/25/2013, Rhizotomy and Epidural Steroid, Dr. Newman 03/22/2014, LT TKA- [place] 06/11/2015, RT TKA- [place] 10/13/2015, Thyroidectomy, Papillary Carcinoma, Dr. Bhakta 12/21/2019, colonoscopy (needs repeat in 5 years) 05/2019, Right total knee revision 2022, EGD due to GI bleed Jun 2023. * Family History: F ather: , heart condition, cerebellar atrophy of the brain, colon CA. M other: , arthritis, traumatically. P aternal Grand Father: heart problems. P aternal Grand Mother: breast CA. M aternal Grand Father: [place]. M aternal Grand Mother: [place]. 1 brother(s) , 1 sister(s) - healthy. 2 son(s) , 1 daughter(s) - healthy. . * Social History: C URRENT TOBACCO USE S moking Status: Patient does NOT smoke. C affeine: yes, frequency:tea. Exercise: yes, walk 4 days/week 1-4 miles. Home smoke detector use: yes. Marital Status: Single. New since last visit: none. 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 Past smoking status: no. Occup. exposure: [...] to sit without a lot of pain. Heart: R SR. Lungs: c lear to auscultation. Assessment: * Assessment: [...] ark stools - R19.5 8 . B [place] 40.0-44.9, adult - Z68.41 Plan: * Treatment: 2. S joanna stenosis, lumbosacral region Referral To:[facility] Reason:Wants to see Dr. Patterson in [place] 3. D egeneration of intervertebral disc of lumbar region with discogenic back pain and lower extremity pain Referral To:[facility] Reason:Wants to see Dr. Patterson in [place] 4. B ulging lumbar disc Referral To:[facility] Reason:Wants to see Dr. Patterson in [place] 5. D ark stools L AB: CBC [...] G 2211 Complex e/[place], [address] CAPILLARY BLOOD DRAW, 34223 CBC WITH AUTO DIFF, G8752 MOST RECENT SYSTOLIC BP < 140MM HG, G8754 MOST RECENT DIASTOLIC BP < 90MM HG * Follow Up: v ia phone to report progress * Billing Information: * Visit Code: 49621 Office Visit, Est Pt., Level 4. * Procedure Codes: G2211 Complex e/[place]. [address] CAPILLARY BLOOD DRAW. 34055 CBC WITH AUTO DIFF. G8752 MOST RECENT SYSTOLIC BP < 140MM HG. G8754 MOST RECENT DIASTOLIC BP < 90MM HG. * Electronic signature of Aidee Wallis MD on 01/17/2025 at 09:07 AM EDT Sign off status: Pending * Provider: King Wallis M.D. Date: 0 12/30/2024 Generated for Gareth mccloud/Keyanna/Lupesmitting on: 0 01/17/2025 09:07 AM EDT History and Physical Notes * [...] Anjum Wants to see Dr. Patterson in [place]
--- NOTE | 2025-01-17 09:05 | XR_ITS ---
FINAL REPORT TECHNIQUE: Bone densitometry calculations of the lumbar spine and bilateral hips were obtained. CLINICAL HISTORY: SCREENING COMPARISON: 03/26/2020 FINDINGS: Using L1-4, the bone mineral density of the spine is 1.502 g/cm2, corresponding to T-score of 4.1. Using the left hip, the bone mineral density of the femoral neck is 0.968 g/cm2, corresponding to a T-score of 1.1. Using the right hip, the bone mineral density of the femoral neck is 1.051 g/cm?, corresponding to a T-score of 0.9. NOTE: T-score: Standard deviation compared with peak bone mass of young adult mean. *Following the recommendations of the International Society of Bone densitometry, classification of hip BMD is based on the lower of two T-scores; total hip or femoral neck. IMPRESSION: Normal bone mineral density of the lumbar spine and bilateral hips. Reviewed, Interpreted and Dictated by Bucky Barajas MD Transcribed by aMria Luisa Stephen Authenticated and [facility]
--- OUTSIDE RECORDS SUMMARY | 2025-01-17 09:06 | XMS_ITS | Encounter Summary ---
Author Organization [facility] In iatives Address [address] [place] [address] Care Team Providers Care Solar Installer Pv Name Role Phone Brennen Wallis MD Primary Care Provider [phone] Encounter Details Date Type Department Care Team (Late st Contact Info) Description 10/11/2019 Transcribed Document [facility] Family Medicine [address] [place] [address] ProviderVanna MD [address] [place] [address] [id number] Social History Tobacco Use Types Packs/Day Years Used Date Smoking Tobacco: Never Assessed Comments Unknown Sex and Gender Information Value Date Recorded Sex Assigned at Not on file Legal Sex Female 5:38 PM CDT Gender Identity Not on file Sexual Orientation Not on file documented as of this encounter Miscellaneous Notes * Cerner Conversion Note - Historical ProviderMD - 10/11/2019 2:40 PM ELEMENTARY ELL TEACHER UM Authorization Entered On: 10/11/2019 14:41 EST Performed On: 10/11/2019 14:40 EST by GOPAL WICK RN-Utilization Review Primary Insurance Authorization Authorization and Policy Numbers : Insurance 1 Health Plan: [employer] PPO Policy Number: [id number] Authorization Number: Insurance 2 Health Plan: FOR LIFE Policy Number: [id number] Authorization Number: Insurance Primary Name : [employer] PPO Policy Number: [id number] Authorization Status-Primary : Notification only Authorization Number-Primary : [id number] Authorized Service Begin Date-Primary : 10/18/2019 EDT Authorization Comments-Primary : [employer] Medicare approved for inpt per availity Historical Authorization Comments-Primary : No Authorization Comments Found GOPAL WICK RN-Utilization Review - 10/11/2019 14:40 EST Electronically signed by [facility] Conversion Blind Cleaner Cerner at 11/23/2022 6:42 PM CDT documented in this encounter Plan of Treatment Not on file documented as of this encounter Visit Diagnoses Not on filedocumented in this encounter Additional Health Concerns Infection Onset Date Last Indicated Resolved Time 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
--- OUTSIDE RECORDS SUMMARY | 2025-01-17 09:06 | XMS_ITS | Encounter Summary ---
Author Organization [facility] In iatives Address [address] [place] [address] Care Team Providers Care Dye Reel Operator Name Role Phone Brennen Wallis MD Primary Care Provider [phone] Encounter Details Date Type Department Care Team (Late st Contact Info) Description 10/04/2019 Transcribed Document [facility] Family Medicine [address] [place] [address] ProviderVanna MD [address] [place] [address] Social History Tobacco Use Types Packs/Day Years Used Date Smoking Tobacco: Never Assessed Comments Unknown Sex and Gender Information Value Date Recorded Sex Assigned at Not on file Legal Sex Female 5:38 PM CDT Gender Identity Not on file Sexual Orientation Not on file documented as of this encounter Miscellaneous Notes * Cerner Conversion Note - Historical MD Mildred - 10/04/2019 10:13 AM CONGRESSIONAL REPRESENTATIVE Patient: CHEYANNE VASQUEZ Age: 63 Years Sex: Female : 1955 Chief Complaint Right Knee Pain Primary Care Provider ОЛЕГ GHOTRA [facility] History of Present Illness This patient is a pleasant 63 yo WF who presents with right knee pain. The pain has been going on for years but has gotten progressively worse. She has a h/o Right Uni-Compartmental Knee Arthroplasty performed by Dr Anne in 2016. She states that her pain has returned over the last 2 years. She was seen at Dr Anne's office and evaluated and she was offered a Right Total Knee Revision and agreed to the procedure. Pt denies a h/o DVT/PE. Pt has been difficult to wake from anesthesia as well has had N/V trouble with anesthesia in the past. No respiratory conditions including COPD/EVON/asthma. [1] Review of Systems Constitutional: Neg for fevers or chills. Eyes: Neg for blurry vision or change in vision. ENT: Neg for sore throat, ear pain, or dizziness. Cardiac: Neg for chest pain or dyspnea on exertion. Respiratory: Neg for shortness of breath. Gastrointestinal: Neg for nausea, vomiting, diarrhea, or constipation. Musculoskeletal: Pos for right knee pain. Neurologic: Neg for headaches or seizures. Psychiatric: Neg for anxiety and depression. Integumentary: Neg for rash. Vital Signs HT: 152.4 cm WT: 90.91 kg BMI: 39.1 Oxygen Settings (Last) No qualifying data available. Physical Exam Constitutional: This is a pleasant 63 yo WF, BMI 39.1, in no acute distress. HEENT: Normocephalic, atraumatic. PEERLA. Extraocular muscles intact. Conjunctiva pink without exudate. Oropharynx pink and moist. Neck supple. No JVD. Cardiac: SI, S2. RRR. No M/R/G. Respiratory: Lungs CTA bilaterally. No wheezes, rales, or rhonchi. Abdomen: Soft, nontender, nondistended. Active bowel sounds. No visible masses. Musculoskeletal: Right Knee ROM 0-110. Integumentary: Skin is pink, warm and dry. No rashes. Neurologic: CN II-XII grossly intact. Psychiatric: Judgment and affect appropriate. Assessment/Plan 1. Preoperative Evaluation- Pt underwent preoperative laboratory workup and diagnostic studies. This included a medical evaluation from her PCP who provided her with clearance to proceed with surgery. 2. Right Knee Pain secondary to DJD- Proceed with surgery as scheduled with Dr Anne on 10/18/2019. 3. Hypertension- Continue HCTZ/Triamterene, Exforge, Metoprolol and Doxazosin. 4. GERD- Continue Omeprazole. 5. Hyperlipidemia- Continue Crestor and Fenofibrate. BASED ON THIS INFORMATION, I FEEL THAT THIS PATIENT SHOULD REQUIRE OUTPATIENT HOSPITALIZATION UNLESS DEEMED OTHERWISE APPROPRIATE BY THE ORTHOPEDIC SURGEON GIVEN THE COMPLEXITY OF THE OPERATION. BECAUSE THIS PATIENT IS GOING TO HAVE TROUBLE CONTROLLING HER PAIN GIVEN THE AMOUNT OF NARCOTICS SHE IS ON PRIOR TO SURGERY, I RECOMMEND THAT SHE STAY OVENIGHT. Problem List/Past Medical History Ongoing At risk for sleep apnea DDD (degenerative disc disease), cervical DDD (degenerative disc disease), lumbar Diverticulitis Diverticulosis Fibromyalgia History of depression HTN (hypertension) Hypercholesterolemia Neuropathy Osteoarthritis PONV (postoperative nausea and vomiting) Seasonal allergies Historical History of bronchitis History of migraine Procedure/Surgical History appendectomy, cataract extraction with intraocular lens implant OU, colonoscopy, left great toe hammertoe repair, LTKA, partial excision of parotid gland, right, posterior lumbar discectomy, spontaneous vaginal delivery x 3. Home Medications (19) Active aspirin 81 mg oral delayed release tablet 81 mg = 1 Tab, Oral, BID Calcium 600+D 1 Tab, Oral, Daily Colace 100 mg oral capsule 100 mg = 1 Cap, Oral, BID CoQ10 100 mg, Oral, Daily Crestor 5 mg oral tablet 5 mg = 1 Tab, Oral, Daily doxazosin 1 mg oral tablet 1 mg = 1 Tab, Oral, At Bedtime Exforge 5 mg-320 mg oral tablet 1 Tab, Oral, Daily fenofibrate 145 mg oral tablet 145 mg = 1 Tab, Oral, Daily Gralise 600 mg/24 hours oral tablet, extended release 1,200 mg = 2 Tab, Oral, At Bedtime hydrochlorothiazide-triamterene 25 mg-37.5 mg oral capsule 1 Cap, Oral, Daily Lidoderm 5% topical film 1 Patch, PRN, TransDermal Metoprolol Tartrate 25 mg oral tablet 25 mg = 1 Tab, Oral, BID Mobic 15 mg oral tablet 15 mg = 1 Tab, Oral, Daily morphine 15 mg/12 hr oral tablet, extended release 15 mg = 1 Tab, Oral, [id number] Multivitamins and Minerals 1 Tab, Oral, Daily omeprazole 40 mg oral delayed release capsule 40 mg = 1 Cap, Oral, Daily Savella 50 mg oral tablet 50 mg = 1 Tab, Oral, BID Vitamin D3 1000 intl units oral capsule 1,000 Int Units = 1 Cap, Oral, Daily Vitamin D3 2000 intl units oral capsule 2,000 Int Units = 1 Cap, Oral, Daily Allergies Adhesive Bandage (Rash) Flexeril (Hives) Tape Uncoded Allergy (See Comment) tetanus toxoids (Swelling) Social History Alcohol Alcohol Use History No. Alcohol Use Comment never. Employment/School Retired Home/Environment Lives with Alone. Injuries/Abuse/Neglect in household: No. Feels unsafe at home: No. Nutrition/Health Caffeine intake amount: occasional. Diet restrictions: avoid seeds and nuts. Substance Abuse Drug Use Hx: No. Tobacco Smoking Status Never smoker. Family History Pt mother at 76 from an accidental . Pt father at 76 from Colon Cancer. [1] Diagnostic Results EKG- NSr, 89 CXR- NAD Lab Results WBCs- 8.2 Hbg- 12.5 Hct- 36.6 Plts- 267 Glucose- 104 Na- 137 K- 3.9 BUN- 34 Cr- 1.0 GFR- 59 Albumin- 4.7 Prealbumin- 23.6 Hbg A1C- 5.8 PT- 10.6 INR- 1.0 PTT- 23.6 UA is neg for nitrites and LE CRP- <0.3 Sed Rate- 17 [1] Preoperative H & P; Hannah Ayala PA-C 10/09/2015 09:03 EST Electronically signed by [facility] Conversion Guillotine Operator Cerner at 11/23/2022 6:52 PM CDT documented in this encounter Plan of Treatment Not on file documented as of this encounter Visit Diagnoses Not on filedocumented in this encounter Additional Health Concerns Infection Onset Date Last Indicated Resolved Time 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
--- OUTSIDE RECORDS SUMMARY | 2025-01-17 09:06 | XMS_ITS | Encounter Summary ---
Author Organization [facility] In iatives Address [address] [facility] [address] Care Team Providers Care Automobile Brake Bonder Name Role Phone Brennen Wallis MD Primary Care Provider [phone] Encounter Details Date Type Department Care Team (Late st Contact Info) Description 10/05/2019 Transcribed Document [facility] Family Medicine [address] [place] [address] ProviderVanna MD [address] [place] [address] [phone] Social History Tobacco Use Types Packs/Day Years Used Date Smoking Tobacco: Never Assessed Comments Unknown Sex and Gender Information Value Date Recorded Sex Assigned at Not on file Legal Sex Female 5:38 PM CDT Gender Identity Not on file Sexual Orientation Not on file documented as of this encounter Miscellaneous Notes * Cerner Conversion Note - Historical ProviderMD - 10/05/2019 4:51 AM IMPREGNATOR HELPER Total Joints Assessment Entered On: 10/05/2019 4:51 EST Performed On: 10/05/2019 4:51 EST by Lucy De RN Surgical Services JR. MISAEL Knee Survey 1. How severe is your knee stiffness after first wakening in the morning? : Extreme 2. Twisting/pivoting on your knee : Severe 3. Straightening knee fully : Extreme 4. Going up or down stairs : Extreme 5. Standing upright : Extreme 6. Rising from sitting : Moderate 7. Bending to floor/fruit picker an object : Moderate KOOS JR Raw Score (ref) : 23 Lucy De RN Surgical Services - 10/05/2019 4:51 EST PROMIS Global Health Scale In general, would you say your health is: : Good In general, would you say your quality of life is: : Good In general, how would you rate your physical health? : Fair In general, how would you rate your mental health, including your mood and your ability to think? : Very good In general, how would you rate your satisfaction with your social activities and relationships? : Very good In general, please rate how well you carry out your usual social activities and roles. (This includes activities at home, at work and in your community, and responsibilities as a parent, child, spouse, employee, friend, etc.) : Good To what extent are you able to carry out your everyday physical activities such as walking, climbing stairs, carrying groceries, or moving a chair? : A little How often have you been bothered by emotional problems such as feeling anxious, depressed or irritable? : Rarely How would you rate your fatigue on average? : Moderate How would you rate your pain on average? : 7 Global Physical Health Score (ref) : 9 Global Mental Health Score (ref) : 15 Lucy De RN Surgical Services - 10/05/2019 4:51 EST documented in this encounter Plan of Treatment Not on file documented as of this encounter Visit Diagnoses Not on filedocumented in this encounter Additional Health Concerns Infection Onset Date Last Indicated Resolved Time 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 05/28/2023 documented as of this encounter Care Teams Automobile Brake Bonder Relationship Specialty Start Date End Date Brennen Wallis MD [address] [place] [facility] [address] [place] [phone] PCP - General Family Medicine 05/28/23 documented as of this encounter
--- OUTSIDE RECORDS SUMMARY | 2025-01-17 09:06 | XMS_ITS | Encounter Summary ---
Author Organization [facility] In iatives Address [address] [place] [address] Care Team Providers Care Candle Molder Name Role Phone Brennen Wallis MD Primary Care Provider [phone] Encounter Details Date Type Department Care Team (Late st Contact Info) Description 10/04/[address] [facility] Family Medicine [address] [place] [address] ProviderVanna MD [address] [place], [place] [address]191 Social History Tobacco Use Types Packs/Day Years Used Date Smoking Tobacco: Never Assessed Comments Unknown Sex and Gender Information Value Date Recorded Sex Assigned at Not on file Legal Sex Female 5:38 PM CDT Gender Identity Not on file Sexual Orientation Not on file documented as of this encounter Miscellaneous Notes * Cerner Conversion Note - Historical ProviderMD - 10/04/2019 1:46 PM PROGRAM REP PAT Adult Entered On: 10/04/2019 13:53 EST Performed On: 10/04/2019 13:46 EST by JUAN DAVID BUCKLEY RN Height and Weight, Clinical Dosing Height Source : Stated Height Entry Format : Leon Height, Feet : 5 ft(Converted to: 152 cm, 60 Inch) Height, Inches : 0 Inch(Converted to: 0 ft 0 Inch, 0.00 cm) Clinical Height : 152.4 cm Weight Source : Standing scale Weight Entry Format : Leon Clinical Dosing Weight : 90.91 kg Weight, Pounds : 200 lb Body Surface Area (BSA) : 1.87 m2 Body Mass Index : 39.1 kg/m2 (HI) [place] Body Weight : 45 kg JUAN DAVID BUCKLEY RN - 10/04/2019 13:46 EST Health Histories Smoking Status : Never (less than 100 in lifetime; none in last 30 days) Smokeless Tobacco Status : Never JUAN DAVID BUCKLEY RN - 10/04/2019 13:46 EST Social History (As Of: 10/04/2019 13:53:51 EST) Tobacco: Smoking Status Never smoker. (Last Updated: 06/04/2015 15:40:34 EDT by JOSE GUADALUPE ANGUIANO RN) Never (less than 100 in lifetime) Smoking Status. Never Smokeless Tobacco Status. (Last Updated: 10/04/2019 13:46:15 EST by JUAN DAVID BUCKLEY RN) Alcohol: Alcohol Use History No. Alcohol Use Comment never. (Last Updated: 10/09/2015 15:24:51 EST by CODY CHEEK RN) Alcohol Use History No. (Last Updated: 10/04/2019 13:46:15 EST by JUAN DAVID BUCKLEY RN) Substance Abuse: Drug Use Hx: No. (Last Updated: 06/04/2015 15:06:16 EDT by JOSE GUADALUPE ANGUIANO RN) Drug Use Hx: No. (Last Updated: 10/04/2019 13:46:15 EST by JUAN DAVID BUCKLEY RN) Nutrition/Health: Caffeine intake amount: occasional. Diet restrictions: avoid seeds and nuts. (Last Updated: 06/04/2015 15:06:16 EDT by JOSE GUADALUPE ANGUIANO RN) Home/Environment: Lives with Alone. Injuries/Abuse/Neglect in household: No. Feels unsafe at home: No. (Last Updated: 06/04/2015 15:06:16 EDT by JOSE GUADALUPE ANGUIANO RN) Employment/School: Retired (Last Updated: 06/04/2015 15:06:16 EDT by JOSE GUADALUPE ANGUIANO RN) Infectious Disease History Physical contact outside [place] in the last 30 days : No Infectious Disease History : Chicken pox/Shingles, Influenza, Measles, Mumps Tuberculosis Symptoms : None JUAN DAVID BUCKLEY RN - 10/04/2019 13:46 EST Anesthesia/Transfusion History Family History of Anesthesia Reaction : No prior transfusion(s) Transfusion History : Prior anesthesia reaction Type of Anesthesia Reaction : Excessive nausea/vomiting Family History of Anesthesia Reaction : None JUAN DAVID BUCKLEY RN - 10/04/2019 13:46 EST Functional Assessment Functional ADL Evaluation Index EBN Bathing : Independent (2) Dressing : Independent (2) Toileting : Independent (2) Transferring Bed or Chair : Independent (2) Continence : Independent (2) Feeding : Independent (2) JUAN DAVID BUCKLEY RN - 10/04/2019 13:46 EST ADL Index Score : 12 JUAN DAVID BUCKLEY RN - 10/04/2019 13:46 EST Advance Directive Patient has Advance Directive *Q : Yes, Advance Directive not with the patient Advance Directive Type : Living will Advance Directive Date : 06/04/2015 EDT Copy Advance Directive Verified/on Chart : Yes JUAN DAVID BUCKLEY RN - 10/04/2019 13:46 EST Spiritual/Cultural Needs Spiritual/Cultural Needs Comment : PRE OP PRAYER JUAN DAVID BUCKLEY RN - 10/04/2019 13:46 EST [place] Suicide Severity Rating Scale (C-SSRS) CSSRS Past Month Wish to be : No CSSRS Past Month Suicidal Thoughts : No CSSRS Lifetime Suicide Behavior : No Suicide Severity Rating Score : 0 Suicide Severity Rating : No Additional Care Required at this time JUAN DAVID BUCKLEY RN - 10/04/2019 13:46 EST Psychosocial History Do You Have a History of the Following? : Depression Currently in Unsafe Situation : No JUAN DAVID BUCKLEY RN - 10/04/2019 13:46 EST Teaching/Learning Assessment Barriers To Learning : None evident Individuals Taught : Patient Readiness to Learn : Cooperative Readiness to Learn : Explanation, Printed materials JUAN DAVID BUCKLEY RN - 10/04/2019 13:46 EST Education Topics, Periop Preadmission Perioperative Education Grid Arrival Time/Place : Verbalizes understanding Infection Control : Verbalizes understanding NPO Status/Directions : Verbalizes understanding Preprocedure Preparations : Verbalizes understanding Preprocedure Tests/Labs : Verbalizes understanding Remove Body Piercings : Verbalizes understanding Responsible Adult : Verbalizes understanding Take/Hold Medications Pre-Procedure : Verbalizes understanding JUAN DAVID BUCKLEY RN - 10/04/2019 13:46 EST General Info Preferred Name : Cheyanne Legal Guardian : No Support Person/Patient Director Of Guidance In Public Schools : Yes Support Person/Pt Rep Name : sisterKeli Family/Rep/Phys Notified of Admit : No Emergency Contact #1 : Agustín Stafford Emergency Contact #1 Emergency Contact #1 Relationship : daughter Emergency Contact #2 : scot Hilton Emergency Contact #2 Emergency Contact #2 Relationship : son Primary Language : [place] Preferred Communication Mode : Verbal Communication Barrier : None JUAN DAVID BUCKLEY, RN - 10/04/2019 13:46 EST Kobi Scale Kobi Sensory Perception : No impairment Kobi Moisture : Rarely moist Kobi Activity : Walks frequently Kobi Mobility : No limitation Kobi Nutrition : Excellent Kobi Friction and Shear : No apparent problem Kobi Score : 23 JUAN DAVID BUCKLEY RN - 10/04/2019 13:46 EST Sleep Apnea Risk Assmt Hx of Obstructive Sleep Apnea Diagnosis : No Snore Loudly : No Tired, Fatigued, or Sleepy During Day : No Observed Stopping Breathing During Sleep : No Have/Are Being Treated for Hypertension : Yes BMI Greater Than 35 kg/m2 : Yes Age over 50 Years Old : Yes Neck Circumference Greater Than 40 cm : No Gender Male : No STOP-BANG Sleep Apnea Risk Level Score : 3 JUAN DAVID BUCKLEY RN - 10/04/2019 13:46 EST Electronically signed by [facility] Conversion Chicken Stuffer Cerner at 11/23/2022 6:28 PM CDT documented in this encounter Plan of Treatment Not on file documented as of this encounter Visit Diagnoses Not on filedocumented in this encounter Additional Health Concerns Infection Onset Date Last Indicated Resolved Time 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 05/28/2023 documented as of this encounter Care Teams Candle Molder Relationship Specialty Start Date End Date Brennen Wallis MD [address] [facility] [address] [place] [id number] PCP - General Family Medicine 05/28/23 documented as of this encounter
--- OUTSIDE RECORDS SUMMARY | 2025-01-17 09:06 | XMS_ITS | Referral Summary ---
Author Organization [facility] In iatives Address [address] [place] [address] Care Team Providers Care Outboard Motorboat Operator Name Role Phone Brennen Wallis MD Primary Care Provider [phone] Allergies Active Allergy Reactions Criticality Noted Date Comments Adhesive Tape Other (See Comments) Low 12/18/2019 pulls skin off . Cyclobenzaprine Hives High 12/18/2019 Methimazole Hives,Other (See Comments) High 12/18/2019 Hives followed by sores. Red, blotchy and hot . Tetanus And Diphtheria Toxoids Low 07/09/2022 itching Medications carvediloL (COREG) 25 MG tablet 1 tablet (25 mg total) 2 (two) times daily with breakfast and dinner. 2 Active levothyroxine (SYNTHROID, LEVOTHROID) 150 MCG tablet Take 1 tablet (150 mcg total) by mouth daily. 3 Active losartan (COZAAR) 100 MG tablet Take 1 tablet (100 mg total) by mouth daily. 3 Active gabapentin (Gralise) 600 mg Tb24 Take 2 tablets by mouth daily. 3 Active rosuvastatin (CRESTOR) 40 MG tablet Take 1 tablet (40 mg total) by mouth daily. 3 Active triamterene-hyd roCHLOROthiazid e (MAXZIDE-25) 37.5-25 mg per tablet Take 0.5 tablets by mouth daily. 3 Active amLODIPine (NORVASC) 5 MG tablet Take 1 tablet (5 mg total) by mouth daily. 3 Active fenofibrate (TRICOR) 145 MG tablet Take 1 tablet (145 mg total) by mouth daily. 3 Active apixaban (Eliquis) 5 mg Tab tablet Take 1 tablet (5 mg total) by mouth 2 (two) times daily Start tomorrow 06/21. 0 3 Active Additional Information Patient taking differently: 2.5 mgoral 2 times daily, Start tomorrow 06/21, Reported on 09/10/2023 pantoprazole (PROTONIX) 40 MG tablet Take 1 tablet (40 mg total) by mouth daily. Active acetaminophen (TYLENOL) 650 MG CR tablet Take 1 tablet (650 mg total) by mouth every 8 (eight) hours as needed for Pain. Active multivitamin per tablet Take 1 tablet by mouth daily. Active calcium carbonate 600mg (Caltrate) 600 mg calcium (1,500 mg) Tab Take 600 mg by mouth daily. Active cholecalciferol , vitamin D3, 100 mcg (4,000 unit) Tab Take 1 tablet (4,000 Units total) by mouth daily. Active TURMERIC ORAL Take 500 mg by mouth daily. Active coenzyme Q10 200 mg capsule Take 1 capsule (200 mg total) by mouth daily. Active Active Problems Problem Noted Date Diagnosed Date GI bleed 06/17/2023 Postoperative state 06/09/2023 Morbid obesity with BMI of 40.0-44.9, adult 05/12 Status post placement of implantable loop record er 06/08/2023 PONV (postoperative nausea and vomiting) 023 Painful total knee replacement, right 06/07/2023 Overview (06/07/2023): Hx of partial knee replacement Brain TIA 04/10/2022 Hypertension Thyroid disease Hyperlipidemia Coronary artery disease Social History Tobacco Use Types Packs/Day Years Used Date Smoking Tobacco: Never Passive Smoke Exposure: Never Smokeless Tobacco: Never Tobacco Cessation:Counseling Given: Not Answered Alcohol Use Standard Drinks/Week Comments Never 0 (1 standard drink = 0.6 oz pur e alcohol) PRAPARE - Transportation Answer Date Re corded In the past 12 months, has l ack of transportation kept you from medical appointments or from getting medications? No 06/17/2023 Lack of Transportation (Non-Medical) Not on file 06/17/2023 Housing Stability Vital Sign Answer Devan e Recorded In the last 12 months, was t here a time when you were not able to pay the mortgage or rent on time? No 06/17/2023 In the last 12 months, how many places have you lived? 1 06/17/2023 In the last 12 months, was t here a time when you did not have a steady place to sleep or slept in a long term (including now)? No 06/17/2023 Interpersonal Safety Answer Date Record ed Family or friends hurt you Not on file 08/27 Family or friends insult you Not on file Family or friends threaten you Not on file 0 08/27/2023 Family or friends scream or curse at you Not on file 08/27/2023 Housing Stability Answer Date Recorded Living situation today Not on file Living situation problems Not on file 2023 Food Insecurity Answer Date Recorded Food run out past 12 months Not on file 08/10 Food did not last past 12 months Not on file 08/27/2023 Employment Answer Date Recorded Help finding and keeping a job Not on file 0 08/27/2023 Family and Community Support Answer Devan e Recorded Help with Day to Day Activities Not on file 08/27/2023 Feeling Lonely or Isolated Not on file 08/27 Educational Attainment Answer Date Fredrick rded Speak language other than Israeli at home Not on file 08/27/2023 Want help with school or training Not on file 08/27/2023 Depression Answer Date Recorded PHQ-2 Risk Not on file 08/27/2023 Disabilities Answer Date Recorded Difficulty concentrating Not on file 024 Difficulty doing errands alone Not on file 0 08/27/2023 Substance Use Answer Date Recorded Used prescription meds for non-medical reasons N ot on file 08/27/2023 Used illegal drugs past 12 months Not on file 08/27/2023 Comments No Sex and Gender Information Value Date Recorded Sex Assigned at Not on file Legal Sex Female 5:38 PM CDT Gender Identity Not on file Sexual Orientation Not on file Last Filed Vital Signs Vital Sign Reading Time Taken Comments Blood Pressure 125/69 09/17/2023 1:10 PM EST Pulse 66 09/17/2023 1:10 PM EST Temperature 36.5 C (97.7 F) 09/17/2023 1:00 PM EST Respiratory Rate 18 09/17/2023 1:10 PM EST Oxygen Saturation 97% 09/17/2023 1:10 PM EST Inhaled Oxygen Concentration - - Weight 104.8 kg (231 lb) 09/17/2023 9:48 AM EST Height 152.4 cm (5') 09/17/2023 9:48 AM EST Body Mass Index 45.11 09/17/2023 9:48 AM EST Plan of Treatment Not on file Medical Devices Implanted Type Area Silverware Washer Device Identifier Shelf Expiration Date Model / Serial / Lot Implants IMPLANTS Description:Bilateral knees, loop recorder, cataracts Cement Bone [place] Hv 40/20 600-15-000 - [id number] Implanted:Qty : 1 on 06/08/2023 by Vinny Anne MD at [facility] IMPLANTS Right: Knee DJ SURG:ENCORE MED:[place] 11/05/2024 600-15-00 0 / / [id number] Cement Bone [place] Hv 40/20 600-15-000 - [id number] Implanted:Qty : 1 on 06/08/2023 by Vinny Anne MD at [facility] IMPLANTS Right: Knee DJ SURG:ENCORE MED:[place] 04/02/2024 600-15-00 0 / / [id number] Bearing Tib Ps 75kbo17/[id number] - [id number] Implanted:Qty : 1 on 06/08/2023 by Vinny Anne MD at [facility] TOTAL JOINT CONSTRUCT Right: Knee BIOMET 12/25/2025 [id number] / / [id number] Patella Std 8x31mm [id number] - [id number] Implanted:Qty : 1 on 06/08/2023 by Vinny Anne MD at [facility] TOTAL JOINT CONSTRUCT Right: Knee BIOMET 02/06/2028 [id number] / / [id number] Femoral Vanguard 62.5 Rt [id number] - [id number] Implanted:Qty : 1 on 06/08/2023 by Vinny Anne MD at [facility] TOTAL JOINT CONSTRUCT Right: Knee BIOMET 03/02/2033 [id number] / / [id number] Ty Tib I-Beam Fix Biomet 71mm [id number] - [id number] Implanted:Qty : 1 on 06/08/2023 by Vinny Anne MD at [facility] TOTAL JOINT CONSTRUCT Right: Knee BIOMET 04/18/2033 [id number] / / [id number] Additional Health Concerns Infection Onset Date Last Indicated 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 05/28/[address] [place] [address] All At Home [employer] MEDICARE PPO Advance Directives For more information, please contact: [phone] * Full Code (Latest Code Status on File) Date Activated Date Inactivated Comments 06/17/2023 11:14 AM 06/20/2023 3:30 PM * Full Code Date Activated Date Inactivated Comments 06/08/2023 5:15 PM 06/10/2023 1:45 PM * Full Code Date Activated Date Inactivated Comments 06/08/2023 9:21 AM 06/08/2023 5:15 PM Care Teams Outboard Motorboat Operator Relationship Specialty Start Date End Date Brennen Wallis MD [address] [facility] [address] [place] [address] PCP - General Family Medicine 05/28/23
--- OUTSIDE RECORDS SUMMARY | 2025-01-17 09:06 | XMS_ITS | Encounter Summary ---
Author Organization [facility] In iatives Address [address] [place] [address] Care Team Providers Care English Language Learner Teacher Name Role Phone Brennen Wallis MD Primary Care Provider [phone] Encounter Details Date Type Department Care Team (Late st Contact Info) Description 10/06/2019 Transcribed Document [facility] [place] Family Medicine [address] [place] [address] ProviderVanna MD [address] [place] [id number] Social History Tobacco Use Types Packs/Day Years Used Date Smoking Tobacco: Never Assessed Comments Unknown Sex and Gender Information Value Date Recorded Sex Assigned at Not on file Legal Sex Female 5:38 PM CDT Gender Identity Not on file Sexual Orientation Not on file documented as of this encounter Miscellaneous Notes * Cerner Conversion Note - Historical ProviderMD - 10/06/2019 1:00 PM JAVA DEVELOPMENT TEAM LEAD Orthopedic Nurse Navigator Entered On: 10/10/2019 5:48 EST Performed On: 10/06/2019 13:00 EST by Lucy De Nurse RN Orthopedic Nurse Navigator Assessment Attended Joint Academy : Yes Joint AcademyType : In person Joint Academy Date : 10/06/2019 EST Joint Drywall Finisher Foreman Attended Academy : No Joint Drywall Finisher Foreman Name : no one at home Type of Surgery : Total Knee Revision, Right Does Patient Have a Walker? : No Patient Completed RAPT Score : 7 Joint Navigator Assessment Note : According to the RAPT Score, additional intevention to discharge directly home. Pt indicates no one at home. Pt indicates leg weakness. Pt is wanting rehab and to go to [place] [facility] or [facility]. Pt indicates urgency. Pt states with her last sx, Rama did not fir her correctly and kept rolling down. Pt also takes a medication similar to neurontin called gralise and has concern the hospital carries it. In checking with the pharmacy, it is not carried here. Lucy De Nurse RN - 10/10/2019 5:42 EST Teaching/Learning Assessment Barriers To Learning : None evident Individuals Taught : Patient Readiness to Learn : Cooperative Baseline Knowledge of Topic : Limited Readiness to Learn : Demonstration, Explanation, Printed materials, Teach back method Lucy De Nurse RN - 10/10/2019 5:42 EST Education Topics, Orthopedic Pre-Op Ortho Pre-Op Education Grid Ed-Assistive Devices : Verbalizes understanding Blood Donation : Verbalizes understanding Continuous Passive Motion : Verbalizes understanding DVT Prophylaxis : Verbalizes understanding Family Instructions : Verbalizes understanding Herbs/Supplement Instructions : Verbalizes understanding Hip Precautions : Verbalizes understanding Laboratory Studies : Verbalizes understanding Medication Instructions : Verbalizes understanding NPO : Verbalizes understanding Ed-Occupational Therapy : Verbalizes understanding Pain Management : Verbalizes understanding Physical Prep : Verbalizes understanding Physical Therapy : Verbalizes understanding Plan of Care : Verbalizes understanding Positioning : Verbalizes understanding Post-op Activity/Exercise Regimen : Verbalizes understanding Postoperative Home Needs : Verbalizes understanding Post-operative Monitoring : Verbalizes understanding Post-Op Orthopedic Equipment : Verbalizes understanding Procedure Information : Verbalizes understanding Respiratory Care : Verbalizes understanding Surgical Site : Verbalizes understanding Tubes/Drains/IV's : Verbalizes understanding Turn/Cough/Deep Breathe : Verbalizes understanding Weight Bearing : Verbalizes understanding Ed-Orthopedic Pre-Op, Other : Verbalizes understanding Lucy De Nurse RN - 10/10/2019 5:42 EST Education Topics, Orthopedic Devices Ortho Devices Education Grid Activity Restrictions : Verbalizes understanding Ambulatory Devices : Verbalizes understanding CPM : Verbalizes understanding Elevate Extremity : Verbalizes understanding Hygiene : Verbalizes understanding Ice Application : Verbalizes understanding Immobilizer : Verbalizes understanding Isometric Exercises : Verbalizes understanding Mobility : Verbalizes understanding Pain Management : Verbalizes understanding Positioning : Verbalizes understanding Purpose : Verbalizes understanding Reportable Symptoms : Verbalizes understanding Rest : Verbalizes understanding ROM Exercise : Verbalizes understanding Safety : Verbalizes understanding Self Care : Verbalizes understanding Skin Care : Verbalizes understanding Lucy De, Nurse RN - 10/10/2019 5:42 EST documented in this encounter Plan of Treatment Not on file documented as of this encounter Visit Diagnoses Not on filedocumented in this encounter Additional Health Concerns Infection Onset Date Last Indicated Resolved Time 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 05/28/2023 documented as of this encounter Care Teams English Language Learner Teacher Relationship Specialty Start Date End Date Brennen Wallis MD [address] [place] [facility] [address] [facility] [place] [address] PCP - General Family Medicine 05/28/23 documented as of this encounter
--- OUTSIDE RECORDS SUMMARY | 2025-01-17 09:06 | XMS_ITS | Encounter Summary ---
Author Organization [facility] In iatives Address [address] [place] [address] Care Team Providers Care Telehealth Nurse Name Role Phone Brennen Wallis MD Primary Care Provider [phone] Encounter Details Date Type Department Care Team (Late st Contact Info) Description 10/05/2019 Transcribed Document [facility] [place] Family Medicine [address] [place] [address] ProviderVanna MD [address] [place] [address] [id number] Social History Tobacco Use Types Packs/Day Years Used Date Smoking Tobacco: Never Assessed Comments Unknown Sex and Gender Information Value Date Recorded Sex Assigned at Not on file Legal Sex Female 5:38 PM CDT Gender Identity Not on file Sexual Orientation Not on file documented as of this encounter Miscellaneous Notes * Cerner Conversion Note - Historical ProviderMD - 10/05/2019 4:51 AM BROADCAST PRODUCER Orthopedic Nurse Navigator Entered On: 10/05/2019 4:53 EST Performed On: 10/05/2019 4:51 EST by Lucy De RN Surgical Services Orthopedic Nurse Navigator Assessment Does Patient Have a Walker? : No Patient Completed RAPT Score : 7 Joint Navigator Assessment Note : According to the RAPT Score, additional intervention to discharge directly home. Pt indicates no one at home and leg weakness. Pt wanting rehab. Lucy De RN Surgical Services - 10/05/2019 4:51 EST Electronically signed by Radha, [facility] Conversion Beam House Inspector Cerner at 11/23/2022 6:37 PM CDT documented in this encounter Plan of Treatment Not on file documented as of this encounter Visit Diagnoses Not on filedocumented in this encounter Additional Health Concerns Infection Onset Date Last Indicated Resolved Time 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 05/28/2023 documented as of this encounter Care Teams Telehealth Nurse Relationship Specialty Start Date End Date Brennen Wallis MD [address] [facility] [address] [place] [phone] PCP - General Family Medicine 05/28/23 documented as of this encounter
--- OUTSIDE RECORDS SUMMARY | 2025-01-17 09:07 | XMS_ITS | Encounter Summary ---
Author Organization [facility] In iatives Address [address] [place] [address] Care Team Providers Care Vegetable Harvest Worker Name Role Phone Brennen Wallis MD Primary Care Provider [phone] Encounter Details Date Type Department Care Team (Late st Contact Info) Description 10/13/2019 Transcribed Document [facility] [place] Family Medicine [address] [place] [address] ProviderVanna MD [address] [place] [address] Social History Tobacco Use Types Packs/Day Years Used Date Smoking Tobacco: Never Assessed Comments Unknown Sex and Gender Information Value Date Recorded Sex Assigned at Not on file Legal Sex Female 5:38 PM CDT Gender Identity Not on file Sexual Orientation Not on file documented as of this encounter Miscellaneous Notes * Cerner Conversion Note - Historical ProviderMD - 10/13/2019 3:23 PM APPAREL CUTTER Orthopedic Nurse Navigator Entered On: 10/13/2019 15:25 EST Performed On: 10/13/2019 15:23 EST by Lucy De, photoengraving finisher Services Orthopedic Nurse Navigator Assessment Joint Navigator Assessment Note : Phone conversation with patient. Pt indicates she found a knot in her neck over the weekend. Her doctor indicates that she needed to have a biopsy done beofre her knee sx. Ana at Dr. Anne office called and she indicated that pt's had called her to inform her of the bx. Lucy De, photoengraving finisher Services - 10/13/2019 15:23 EST Electronically signed by [facility], [facility] Conversion Commercial Sewing Instructor Cerner at 11/23/2022 6:43 PM CDT documented in this encounter Plan of Treatment Not on file documented as of this encounter Visit Diagnoses Not on filedocumented in this encounter Additional Health Concerns Infection Onset Date Last Indicated Resolved Time 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 05/28/2023 documented as of this encounter Care Teams Vegetable Harvest Worker Relationship Specialty Start Date End Date Brennen Wallis MD [address] [facility] [address] [place] [address] PCP - General Family Medicine 05/28/23 documented as of this encounter
--- OUTSIDE RECORDS SUMMARY | 2025-01-17 09:07 | XMS_ITS | Patient Health Record ---
Author Organization [facility] Address [address] [facility] [address] [place] [id number] Care Team Providers Care Observer Electrical Prospecting Name Role Phone Wilfredo Brewster Primary Care Provider Brennen Wallis Unavailable [phone] Allergies Allergen (clinical drug ingredient) Drug/Non Drug Allergy documented on EMR Reaction Allergy Type Onset Date Status cyclobenzaprine Cyclobenzaprine HCl Unknown Drug Allergy Active Adhesive Unknown Allergy Active Tetanus Toxoids Unknown Drug Allergy A ctive Results Component Value Reference Range Notes P-Vitamin D 25-Hydroxy Reviewed date:06/27/2024 10:03:01 AM Interpretation:Normal Performing Lab: Notes/Report: Test performed by [facility] [address] [place], [place] [address] [place] [address], [place] [address] Matt Patino MD, Logistics Solution Manager CLIA: [id number] Vitamin D 25-Hydroxy 37.1 30.0-100.0 ng/mL Interpretation of Vitamin D 25 OH: < 20 ng/mL - Deficiency 20 - 29 ng/mL - Insufficiency 30 - 100 ng/mL - Sufficiency > 100 ng/mL - Super-therapeutic- toxicity may occur above this level. Clinical correlation required. P-TSH Reviewed date:06/27/2024 10:03:01 AM Interpretation:Normal Performing Lab: Notes/Report: Test performed by [facility] [address] [place], [place] [address]DNA [facility] [place] [address], [place] [address] Matt Patino MD, Logistics Solution Manager CLIA: [id number] TSH 1.05 0.43-5.25 mU/L P-Lipid Panel Reviewed date:06/27/2024 10:03:00 AM Interpretation:Trig 256 Performing Lab: Notes/Report: Test performed by [facility] [address], [place] [address] Matt Patino MD, Logistics Solution Manager TIBURCIO: [id number] Cholesterol 150 <200 mg/dL Triglycerides 256 <150 [...] Results: 54 Units: mg/dL % Change: -28% MRI : Spine, Lumbosacral, wi thout contrast Reviewed date:12/30/2024 09:46:14 AM Interpretation:Advanced degenerative changes with stenosis and foraminal narrowing Performing Lab: Notes/Report: Advanced degenerative changes with stenosis and foraminal narrowing P-T4 Free (thyroxine) Reviewed date:06/27/2024 10:03:00 AM Interpretation:2.00 Performing Lab: Notes/Report: Test performed by [facility] [address] , [address], [place] [id number] Matt Patino MD, Logistics Solution Manager CLIA: [id number] Thyroxine Free (free T4) 2.00 0.86-1.76 ng/dL P-Comprehensive Metabolic Pa jitendra (CMP) Reviewed date:06/27/2024 10:03:00 AM Interpretation:BUN 27, Glu 105 Performing Lab: Notes/Report: Test performed by [facility] [address] [place] [address] , [address], [place] [address] Matt Patino MD, Logistics Solution Manager CLIA: [id number] Sodium 143 135-145 mmol/L Potassium 5.3 3.5-5.3 [...] 0.4 <0.2-1.2 mg/dL A/G Ratio 2.2 1.1-2.5 P-TSH Reviewed date:09/08/2024 08:52:01 AM Interpretation:Normal Performing Lab: Notes/Report: Test performed by [facility] [address] [place] [address] , [address], [place] [address] Matt Patino MD, Logistics Solution Manager CLIA: [id number] TSH 1.37 0.43-5.25 mU/L CBC Fingerstick (in house) Reviewed date:12/30/2024 01:40:56 [...] - 38 plat 200 100 - 400 Mammogram Reviewed date:05/24/2024 11:45:24 AM Interpretation:Negative Performing Lab: Notes/Report: Negative result Negative P-T4 Free (thyroxine) Reviewed date:09/08/2024 08:52:01 AM Interpretation:1.78 Performing Lab: Notes/Report: Test performed by [facility], [address] , [address], [place] [address] Matt Patino MD, Logistics Solution Manager CLIA: [id number] Thyroxine Free (free T4) 1.78 0.86-1.76 ng/dL CBC Fingerstick (in house) Reviewed date:05/18/2024 10:03:41 [...] - 38 plat 230 100 - 400 Medications Medication SIG (Take, Route, Frequency, Duration) Notes Start Date End Date Status Fenofibrate 145 MG 1 tab(s) orally once a day for 90 days Active traMADol HCl 50 MG 1 tablet Orally four times a day as needed 12/30/2024 Active dexAMETHasone 4 MG 1 tablet Orally Two times a day for 5 days 12/14/2024 Active Levothyroxine Sodium 137 MCG 1 tablet in the morning on an empty stomach Orally Once a day 06/28/2024 Active Triamterene-HCTZ 37.5-25 MG TAKE 1/2 TAB LET BY MOUTH EVERY DAY for 90 Active Losartan Potassium 100 MG 1 tab(s) orall y once a day for 90 days Active amLODIPine Besylate 5 mg 1 tablet Orally Once a day for 90 days Active Metaxalone 800 mg TAKE ONE TABLET BY M OUTH THREE TIMES DAILY NEEDED MAY CAUSE DROWSINESS Active Gralise 600 MG 3 tab(s) orally once a day for 30 days 12/30/2024 Active Eliquis 2.5 MG 1 tablet Orally 2 ti mes a day for 90 days Active Carvedilol 25 mg 1 tablet with food Orally Twice a day for 90 days Active Rosuvastatin Calcium 40 MG 1 tab(s) oral ly once a day for 90 days Active Immunizations Vaccine Route Administration Date Status Comme nts COVID 19 Moderna Unknown 08/15/2020 Administered COVID 19 Moderna Unknown 09/12/2020 Administered COVID 19 Moderna Unknown 05/29/2021 Administered COVID 19 Moderna Unknown 03/05/2022 Administered flucelvax IM Intramuscular 04/19/2015 Administered Fluzone High Dose (65yr and older) Unknown 05/09/2020 Administered Fluzone High Dose (65yr and older) Unknown 04/30/2021 Administered Fluzone Intradermal Quad private(18-64yrs) IM Intramuscular 04/30/2016 Administered Fluzone Quad (6months&older) IM Intramuscular 05/04/2017 Administered Fluzone Quad (6months&older) IM Intramuscular 05/12/2018 Administered Hepatitis A (adult) Unknown 07/21/2018 Administered Hepatitis A (adult) IM Intramuscular 01/25/2019 Administer ed Prevnar (PCV13) Unknown 05/09/2020 Administered Prevnar (PCV20) IM Intramuscular 07/07/2022 Administered Shingrix Unknown 10/26/2018 Administered Shingrix Unknown 10/26/2018 Administered Shingrix IM Intramuscular 01/06/2019 Administered Shingrix Unknown 01/06/2019 Administered xFluzone (6mos and older)-trivalent IM Intramuscular 04/23/2010 Administered xFluzone Intradermal (18-64yrs)-trivalent ID Intradermal 04/21/2013 Administered xFluzone Intradermal (18-64yrs)-trivalent-medic are pts ID Intradermal 04/22/2012 Administered Problems Problem Type SNOMED Code ICD Code Onset Dates Problem Status W/U Status Risk Notes Problem 13795697 Essential (prima ry) hypertension (I10) Active confirmed Problem 04552755 Vitamin D defici ency (E55.9) Active confirmed Problem 833293364 Abnormal mammogr am (R92.8) Active confirmed Problem 432428380 Diverticulitis (K57.92) Active confirmed Problem 347971785 Morbid obesity (E66.01) Active confirmed Problem 247046332 Hypertriglycerid emia (E78.1) Active confirmed Problem 478804153 Lumbar facet arthropathy (M47.816) Active confirmed Problem 495039673 Fibromyalgia (M79.7) Active confirmed Problem 184365817 Mixed hyperlipid emia (E78.2) Active confirmed Problem 700708842 Osteoarthritis o f knee, unspecified (M17.9) Active confirmed Problem 739907362 Primary osteoarthritis, right hand (M19.041) Active confirmed Problem 20170414 Spinal stenosis, lumbosacral region (M48.07) Active confirmed Problem 713591882 Lumbago with sci atica, left side (M54.42) Active confirmed Problem 950388921 Thyroid nodule (E04.1) Active confirm ed Problem 77611810 Other chronic pa in (G89.29) Active confirmed Problem 38428255 Heart murmur (R01.1) Active confirmed Problem 332032265 Gastroesophageal reflux disease without esophagitis (K21.9) Active confirmed Problem 553502560 Renal insufficie ncy (N28.9) Active confirmed Problem 193675440 BMI 40.0-44.9, a dult (Z68.41) Active confirmed Problem 3139056991501 Status post tota l left knee replacement (Z96.652) Active confirmed Problem 74721202 Seasonal allergi c rhinitis due to pollen (J30.1) Active confirmed Problem 196221590 Acute left-sided low back pain with left-sided sciatica (M54.42) Active confirmed Problem 98954180 Post-surgical hypothyroidism (E89.0) Active confirmed Problem 70092377 Primary osteoart hritis of left hand (M19.042) Active confirmed Problem 413363490 Ischemic stroke (I63.9) Active confirmed Problem 90652341 Urgency incontin ence (N39.41) Active confirmed Problem 9637511 Thyromegaly (E01.0) Active confirmed Problem 47963293 PUD (peptic ulce r disease) (K27.9) Active confirmed Problem 4048844727256938 Arthritis of ri ght knee (M17.11) Active confirmed Problem 45402088 Fibrocystic sharon st disease (FCBD), unspecified laterality (N60.19) Active confirmed Problem 563965843 Papillary thyroi d carcinoma (C73) Active confirmed Problem 448676670 Seasonal allergi c rhinitis, unspecified trigger (J30.2) Active confirmed Problem 21092861 Allergic rhiniti s, unspecified seasonality, unspecified trigger (J30.9) Active confirmed Problem 494119281 Neurogenic claudication due to lumbar spinal stenosis (M48.062) Active confirmed Problem 484292338 Status post righ t partial knee replacement (Z96.651) Active confirmed Problem 97793238 Unspecified hear ing loss (H91.90) Active confirmed Problem 01222503 Degeneration of intervertebral disc of lumbar region with discogenic back pain and lower extremity pain (M51.362) Active confirmed Problem 857870156 Bulging lumbar d isc (M51.369) Active confirmed Vital Signs Heart Rate 66 /min 12/30/2024 Blood pressure diastolic 64 mm Hg 12/30/2024 Height 61 in 12/30/2024 Blood pressure systolic 122 mm Hg 12/30/2024 Weight 230.0 lbs 12/30/2024 BMI 43.45 kg/m2 12/30/2024 Encounters Encounter Location Date Provider Diagnosis [facility] [address] [place] [id number] 05/18/2024 Brennen Pullman Generalized abdomina l pain R10.84 and Acute diarrhea R19.7 [facility] [address] [place], [place] [id number] 06/23/2024 Brennen Pullman Essential (primary) hypertension I10 ; Vitamin D deficiency E55.9 ; Post-surgical hypothyroidism E89.0 ; Mixed hyperlipidemia E78.2 ; Hypertriglyceridemia E78.1 and Unspecified hearing loss H91.90 [facility] [address] [place] [id number] 09/07/2024 Brennen Pullman Post-surgical hypothyroidism E89.0 [facility] [address] [place], [place] [id number] 12/14/2024 Brennen Pullman Acute left-sided low back pain with left-sided sciatica M54.42 ; Mixed hyperlipidemia E78.2 ; Essential (primary) hypertension I10 ; Lumbar back pain M54.50 ; Morbid obesity E66.01 and BMI 40.0-44.9, adult Z68.41 [facility] [address] [facility] [address] [place], [place] [id number] 12/30/2024 Brennen Pullman Lumbago with sciatic a, left side M54.42 ; Other chronic pain G89.29 ; Spinal stenosis, lumbosacral region M48.07 ; Degeneration of intervertebral disc of lumbar region with discogenic back pain and lower extremity pain M51.362 ; Bulging lumbar disc M51.369 ; Lumbar facet arthropathy M47.816 ; Dark stools R19.5 and BMI 40.0-44.9, adult Z68.41 [facility] [address] [facility] [address] [place], [place] [id number] 02/29/2024 Brennen Pullman [facility] [address] [facility] [address] [place], [place] [id number] 02/29/2024 Wilfredo Brewster [facility] [address] [facility] [address] [place], [place] [id number] 06/27/2024 Brennen Pullman Post-surgical hypothyroidism E89.0 [facility] [address] [facility] [address] [place], [place] [id number] 09/05/2024 Wilfredo Brewster Mixed hyperlipidemia E78.2 [facility] [address] [place], [place] [id number] 09/06/2024 Brennen Pullman [facility] [address] [place], [place] [id number] 09/08/2024 Brennen Pullman [facility] [address] [facility] [address] [place], [place] [id number] 12/19/2024 Brennen Pullman Acute left-sided low back pain with left-sided sciatica M54.42 and Spinal stenosis, lumbosacral region M48.07 [facility] [address] [place], [place] [id number] 12/27/2024 Brennen Pullman [facility] [address] [place] [id number] 12/27/2024 Wilfredo Brewster [facility] [address] [place], [place] [id number] 12/30/2024 Brennen Pullman [facility] [address] [place], [place] [id number] 01/05/2025 Brennen Pullman Assessments Encounter Date Diagnosis (ICD Code) Assessment Notes Treatment Notes Treatment Clinical Notes Section Notes 05/18/2024 Generalized abdomina l pain (ICD-10 - R10.84) 05/18/2024 Acute diarrhea (ICD- 10 - R19.7) 06/23/2024 Essential (primary) hypertension (ICD-10 - I10) 06/23/2024 Vitamin D deficiency (ICD-10 - E55.9) 06/27/2024 Post-surgical hypothyroidism (ICD-10 - E89.0) 09/05/2024 Mixed hyperlipidemia (ICD-10 - E78.2) 12/14/2024 Mixed hyperlipidemia (ICD-10 - E78.2) 12/14/2024 Acute left-sided low back pain with left-sided sciatica (ICD-10 - M54.42) 12/19/2024 Spinal stenosis, lumbosacral region (ICD-10 - M48.07) 12/19/2024 Acute left-sided low back pain with left-sided sciatica (ICD-10 - M54.42) 12/30/2024 Lumbago with sciatic a, left side (ICD-10 - M54.42) 12/30/2024 Other chronic pain (ICD-10 - G89.29) 12/30/2024 Spinal stenosis, lumbosacral region (ICD-10 - M48.07) 06/23/2024 Post-surgical hypothyroidism (ICD-10 - E89.0) 09/07/2024 Post-surgical hypothyroidism (ICD-10 - E89.0) 12/14/2024 Essential (primary) hypertension (ICD-10 - I10) 12/14/2024 Lumbar back pain (IC D-10 - M54.50) 06/23/2024 Mixed hyperlipidemia (ICD-10 - E78.2) 12/30/2024 Degeneration of intervertebral disc of lumbar region with discogenic back pain and lower extremity pain (ICD-10 - M51.362) 12/30/2024 Bulging lumbar disc (ICD-10 - M51.369) 12/14/2024 Morbid obesity (ICD- 10 - E66.01) 06/23/2024 Hypertriglyceridemia (ICD-10 - E78.1) 12/30/2024 Lumbar facet arthrop athy (ICD-10 - M47.816) 06/23/2024 Unspecified hearing loss (ICD-10 - H91.90) 12/14/2024 BMI 40.0-44.9, adult (ICD-10 - Z68.41) 12/30/2024 Dark stools (ICD-10 - R19.5) 12/30/2024 BMI 40.0-44.9, adult (ICD-10 - Z68.41) Plan Of Treatment Pending Test Test Name Order Date Bone density 01/06/2025 LC-Vitamin D, 25-Hydroxy 07/23/2021 Next Appt Details Provider Name:Brennen Solares ry, 06/16/2025 09:45:00 AM, [address], [place], [place], [id number], Insurance Providers Payer Name Payer Address Payer Phone Subscriber Number Group Number Insured Name Patient Relationship to Insured Coverage Start Date Coverage End Date [employer] (MEDICARE ) [address] [address] [place] [address] [id number] VEGA VASQUEZ Self - patient is the insured [facility] [address] [place] [phone] [id number] VEGA VASQUEZ Self - patient is the insured Medications Administered Medication Instructions Date of Administration Dosage Notes Depo- Medrol 40 mg/ml 01/13/2007 1 mL Dexamethasone 02/23/2008 Dexamethasone 07/22/2008 1 mL Medical (General) History Medical History History ICD Code Hypertension Fibromyalgia Dyslipidemia Arthritis Spinal Stenosis, Spondylolisthesis, Disc Disease, L2-3, L3-4 Disc Disease C5-6, C6-7, C7-T1. Disc Pro trusion C5-6, Mild at C3-4, C4-5 Diverticulosis Depression Seasonal Allergies CVA, ischemic, 2021 Cardiac loop recorder implanted peptic ulcer disease, s/p up per GI bleed, 2022 treated at [facility] in [place] Surgical History Surgery Date(Month/Year) Appendectomy 1991 LT Foot Fusion 12/2007 Neck Tumor Removal 01/10/2009 Bilateral Cataract Removal 10/11/2013, 0 10/25/2013 Rhizotomy and Epidural Steroid, Dr. Kanu patrick 03/22/2014 LT TKA- [place] 06/11/2015 RT TKA- [place] 10/13/2015 Thyroidectomy, Papillary Carcinoma, Dr. Bhakta 12/21/2019 colonoscopy (needs repeat in 5 years) Right total knee revision 2022 EGD due to GI bleed Jun 2023 Hospitalization History Reason Date(Month/Year)
--- OUTSIDE RECORDS SUMMARY | 2025-01-17 09:07 | XMS_ITS | Clinical Summary ---
Author Organization [facility] Address [address] [facility] [place] [place] [address] Care Team Providers Care Soap Chipper Name Role Phone Brennen Wallis MD Primary Care Provider [phone] Allergies Active Allergy Reactions Criticality Noted Date [...] Hypertension Thyroid disease Hyperlipidemia Coronary artery disease Family History Medical History Relation Name Comments Colon cancer Father Relation Name Status Comments Father Social History Tobacco Use Types Packs/Day Years [...] place to sleep or slept in a long-term (including now)? No 06/17/2023 Interpersonal Safety Answer [...] Date Fredrick rded Speak language other than Wallisian at home Not on file 08/27/2023 Want [...] 09/17/2023 9:48 AM EST Plan of Treatment Health Maintenance Due Date Last Done Comments CT Colonography 1955 Colonoscopy 1953 Colorectal Cancer Screening 1953 DXA SCAN 1953 FOBT/FIT 1953 Fit-DNA (Cologuard) 1953 Sigmoidoscopy 1953 Depression Screening (12+) 1965 Hepatitis C Screening 11/27/1971 DTAP/TDAP/TD VACCINES (1 - Tdap) 1972 Breast Cancer Screening 1993 Respiratory Syncytial Virus (RSV) Adult or (1 - Risk 60-74 years 1-dose series) 2013 Medicare Initial AWV [id number] 11/10/2019 COVID-19 VACCINE (6 - 2023-2 5 season) 2024 09/17/2022, 03/05/2022, 05/29/2021, Additional history exists Falls Risk Screening 08/10/2024 Tobacco Cessation Counseling and Screening (12+) 09/17/2024 09/17/2023 Influenza Vaccine (Season Ended) 2025 05/15/2022, 04/30/2021, 05/09/2020, Additional history exists Shingles Vaccine (Zoster) Completed 01/06/2019, Pneumococcal 50+ years Completed , 05/09/2020, 08/10/2019 Medical Devices Implanted Type Area Renewable Energy Project Manager Device Identifier Shelf Expiration Date Model / Serial / Lot Implants IMPLANTS Description:Bilateral knees, loop recorder, cataracts Cement Bone [place] Hv 40/20 600-15-000 - [id number] Implanted:Qty : 1 on 06/08/2023 by Vinny Anne MD at [facility] IMPLANTS Right: Knee DJ SURG:ENCORE MED:[place] 11/05/2024 600-15-00 0 / / [id number] Cement Bone [place]st Hv 40/20 600-15-000 - [id number] Implanted:Qty : 1 on 06/08/2023 by Vinny Anne MD at [facility] IMPLANTS Right: Knee DJ SURG:[employer]ORE MED:[place] 04/02/2024 600-15-00 0 / / [id number] Bearing Tib Ps 85xbp26/75 [id number] - [id number] Implanted:Qty : 1 on 06/08/2023 by Vinny Anne MD at [facility] TOTAL JOINT CONSTRUCT Right: Knee BIOMET 12/25/2025 [id number] / / [id number] Patella Std 8x31mm [id number] - [id number] Implanted:Qty : 1 on 06/08/2023 by Vinny Anne MD at [facility] TOTAL JOINT CONSTRUCT Right: Knee BIOMET 02/06/2028 [id number] / / [id number] Femoral Vanguard 62.5 Rt 532796 - [id number] Implanted:Qty : 1 on 06/08/2023 by Vinny Anne MD at [facility] TOTAL JOINT CONSTRUCT Right: Knee BIOMET 03/02/2033 [id number] / / [id number] Ty Tib I-Beam Fix Biomet 71mm [id number] - [id number] Implanted:Qty : 1 on 06/08/2023 by Vinny Anne MD at [facility] TOTAL JOINT CONSTRUCT Right: Knee BIOMET 04/18/2033 [id number] / / [id number] Additional Health Concerns Infection Onset Date Last Indicated 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 05/28/[address] [place] [address] FOR LIFE [employer] MEDICARE PPO Advance Directives For more information, please contact: [phone] * Full Code (Latest Code Status on File) Date Activated Date Inactivated Comments 06/17/2023 11:14 AM 06/20/2023 3:30 PM * Full Code Date Activated Date Inactivated Comments 06/08/2023 5:15 PM 06/10/2023 1:45 PM * Full Code Date Activated Date Inactivated Comments 06/08/2023 9:21 AM 06/08/2023 5:15 PM Care Teams Soap Chipper Relationship Specialty Start Date End Date Brennen Wallis MD [address] [facility] [address] [place] [address] PCP - General Family Medicine 05/28/23
--- OUTSIDE RECORDS SUMMARY | 2025-01-17 09:07 | XMS_ITS | Clinical Summary ---
Author Organization [facility] Address [address] [facility] [address] [place] [address] Phone Care Team Providers Care Lead Scientist Name Role Phone Unavailable Unavailable Conditions or Problems No information available. Medications No information available. Medications Administered No information available. Allergies, Adverse Reactions, Alerts No information available. Results No information available. Plan of Care No information available. Procedures No information available. Vital Signs No information available. Immunizations No information available. Advance Directives No information available.
--- OUTSIDE RECORDS SUMMARY | 2025-01-17 09:07 | XMS_ITS | Clinical Summary ---
Author Organization [facility] Address [address] [place] [address] Care Team Providers Care University Relations Director Name Role Phone Dariel Brewster MD Primary Care Provider [phone] Family History Medical History Relation Name Comments Hypothyroidism Daughter Colon cancer Father Conversions - Other Father Cerebell ar atrophy Heart attack Father Relation Name Status Comments Daughter Father Social History Tobacco Use Types Packs/Day Years Used Date Smoking Tobacco: Never Alcohol Use Standard Drinks/Week Comments No 0 (1 standard drink = 0.6 oz pur e alcohol) Comments Unknown Sex and Gender Information Value Date Recorded Sex Assigned at Not on file Legal Sex Female 7:55 PM EDT Gender Identity Not on file Sexual Orientation Not on file Last Filed Vital Signs Vital Sign Reading Time Taken Comments Blood Pressure 130/76 03/19/2018 9:52 AM EDT Pulse - - Temperature - - Respiratory Rate - - Oxygen Saturation - - Inhaled Oxygen Concentration - - Weight 88.9 kg (195 lb 15.8 oz) 03/19/2018 9:52 AM EDT Height 154.9 cm (5' 1 ) 03/19/2018 9:52 AM EDT Body Mass Index 37.03 03/19/2018 9:52 AM EDT Plan of Treatment Health Maintenance Due Date Last Done Comments [facility]-Bone Density Scan 1953 [facility]-Depression Screening 1953 [facility]-Infant/Child/Adol SDOH Screenings 1953 [facility]- SDOH Screenings 11/27/1971 [facility]-Adult SDOH Screenings 11/27/1971 [facility]-DTaP,Tdap,and Td Vaccine s (1 - Tdap) 1972 CT Colonography 1998 Colonoscopy 1998 FIT-DNA 1998 FIT 1998 FOBT 1998 Sigmoidoscopy 1998 [facility]-Colorectal Cancer Screening 1998 [facility]-Pneumococcal Vaccine: 50 + Years (2 of 2 - PPSV23) 05/09/2021 05/09/2020 [id number] Vaccine (3 - season) 2024 09/12/2020, 08/15/2020 [facility]-Influenza Vaccine (Seaso n Ended) 2025 05/09/2020, 05/12/2018, 05/04/2017 [facility]-RSV Vaccine: 60+ Years o r (1 - 1-dose 75+ series) 2028 [facility]-Zoster Vaccines Completed 01/06/2019, 10/26/2018 [facility]-Hepatitis A Vaccines Aged Out 01/25/ 019, 07/21/2018 No longer eligible based on patient's age to complete this topic HPV Vaccines Aged Out No longer eligi ble based on patient's age to complete this topic [facility]-HIB Vaccines Aged Out No longer e ligible based on patient's age to complete this topic [facility]-IPV Vaccines Aged Out No longer e ligible based on patient's age to complete this topic [facility]-Rotavirus Vaccines Aged Out No lo nger eligible based on patient's age to complete this topic Care Teams University Relations Director Relationship Specialty Start Date End Date Dariel Brewster MD [address] [place] [address] PCP - General 12/21/20
== END 2025-01-17 23:59 | disposition home or self-care (01) ==
LOC: RAD 09:03
PROVIDERS: PCP Family Medicine; Visit Provider Family Medicine
DX: Z13.820 Encounter for screening for osteoporosis (principal); Z78.0 Asymptomatic menopausal state
CPT/HCPCS: 77080

== ENCOUNTER 2025-05-03 10:51 | Outpatient (CLI) | payer MEDICARE, OTHER, SELFPAY ==
--- OUTSIDE RECORDS SUMMARY | 2024-09-07 07:00 | XMS_ITS ---
Author Organization [facility] Address [address] [facility] [address] [place] [id number] Care Team Providers Care Bean Dumper Name Role Phone Wilfredo Brewster Primary Care Provider [phone] Brennen Wallis Unavailable [phone] Results Component Value Reference Range Notes P-T4 Free (thyroxine) Reviewed date:09/08/2024 08:52:01 AM Interpretation:1.78 Performing Lab: Notes/Report: Test performed by [facility] [address] [place] [address] , [address], [place] [address] Matt Patino MD, Ferry Captain CLIA: [id number] Thyroxine Free (free T4) 1.78 0.86-1.76 ng/dL P-TSH Reviewed date:09/08/2024 08:52:01 AM Interpretation:Normal Performing Lab: Notes/Report: Test performed by [facility] [address] [place] [address] , [facility] [address], [place] [address] Matt Patino MD, Ferry Captain CLIA: [id number] TSH 1.37 0.43-5.25 mU/L REASON FOR VISIT [...] Not-Taking Encounters Encounter Location Date Provider Diagnosis [facility] [address] [facility] 36 [facility] [address] [place], [place] [phone] 09/07/2024 Brennen Wallis Post-surgical hypothyroidism E89.0 Assessments Encounter Date Diagnosis (ICD Code) Assessment Notes Treatment Notes Treatment Clinical Notes Section Notes 09/07/2024 Post-surgical hypothyroidism (ICD-10 - E89.0) Plan Of Treatment Next Appt Details Provider Name:Brennen Solares , 06/16/2025 09:45:00 AM, [address] [facility] 36 [facility], [address], [place], [place], [phone], Progress Notes * ADRIENNE VASQUEZCOLEOB: 4 (69 yo F)Acc No.[id number]:09/07/2024 Patient: VEGA CHISHOLM Provider: King Wallis M.D. :1955 A ge:68 Y S ex:Female Date:09/07/2024 Address:[address] [place] [address] , [place], [id number] Pcp:Wilfredo Brewster Subjective: * Chief Complaints: * [...] Electronic signature of Aidee Wallis MD on 05/03/2025 at 10:53 AM EDT Sign off status: Pending * Provider: King Wallis M.D. Date: 09/07/2024 Generated for Gareth mccloud/Keyanna/Osielitting on: 0 05/03/2025 10:53 AM EDT
--- OUTSIDE RECORDS SUMMARY | 2024-12-14 06:15 | XMS_ITS ---
Author Organization [facility] [address] [place] [id number] Care Team Providers Care Resource Conservation Specialist Name Role Phone Wilfredo Brewster Primary Care Provider [phone] Brennen Wallis Unavailable [phone] Allergies Allergen (clinical drug ingredient) Drug/Non Drug [...] Status W/U Status Risk Notes Problem Sciatica (12031137) Acute left-sided low back pain with left-sided sciatica (M54.42) Active confirmed Problem Morbid obesity (645005802) Morbid obesity (E66.01) Active confirmed Problem Body mass index 40+ - morbidly obese (997917185) BMI 40.0-44.9, adult (Z68.41) Active confirmed Vital Signs Blood pressure systolic 134 mm Hg 12/15/19 25 Blood pressure diastolic 72 mm Hg 025 Heart Rate 69 /min 12/14/2024 Height 61 in 12/14/2024 Weight 232.4 lbs 12/14/2024 BMI 43.91 kg/m2 12/14/2024 Encounters Encounter Location Date Provider Diagnosis [facility] [address] [facility] [address] [place] [phone] 12/14/2024 Brennen Wallis Acute left-sided low back [...] rt progress, Reason: Provider Name:Brennen Solares ry, 06/16/2025 09:45:00 AM, [address], [address], [place], [phone], Progress Notes * CHANDANA VASQUEZOB: 4 (69 yo F)Acc No.[id number]:12/14/2024 Progress Notes Patient: VEGA CHISHOLM Provider: King Wallis M.D. :1955 A ge:69 Y S ex:Female Date:12/14/2024 Address:[address] [place] [address], [place], [id number] Pcp:Wilfredo Brewster Subjective: * Chief Complaints: * [...] upper GI bleed, [address] [facility] in [place]. * Surgical History: A ppendectomy 1991, LT Foot Fusion 12/2007, Neck Tumor Removal 01/10/2009, Bilateral Cataract Removal 10/11/2013, 10/25/2013, Rhizotomy and Epidural Steroid, Dr. Newman 03/22/2014, LT TKA- [place] 06/11/2015, RT TKA- [place] 10/13/2015, Thyroidectomy, Papillary Carcinoma, Dr. Bhakta 12/21/2019, [...] Mother: breast [place]. M aternal Grand Father: [place]. M aternal Grand Mother: [place]. 1 brother(s) , 1 sister(s) - healthy. 2 son(s) , 1 daughter(s) - healthy. . * Social History: C URRENT TOBACCO USE S moking Status: Patient does NOT smoke. C affeine: yes, frequency:tea. Exercise: yes, walk 4 days/week 1-4 miles. Home smoke detector use: yes. Marital Status: Single. New since last visit: none. 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 Past smoking status: no. Occup. exposure: [...] orbid obesity - E66.01 6 . B [place] 40.0-44.9, adult - Z68.41 Plan: * Treatment: * Procedure Codes: G 2211 Complex e/m visit add on, 3075F SYST BP GE 130 - 139MM HG, 3078F DIAST BP < 80 MM HG * Follow Up: v ia phone to report progress * Images: Billing Information: * Visit Code: 33003 Office Visit, Est Pt., Level 3. * Procedure Codes: G2211 Complex e/m visit add on. 3075F SYST BP GE 130 - 139MM HG. 3078F DIAST BP < 80 MM HG. * Electronic signature of Aidee Wallis MD on 05/03/2025 at 10:54 AM EDT Sign off status: Pending * Provider: King Wallis M.D. Date: 0 12/14/2024 Generated for Gareth mccloud/Keyanna/Denia on: 0 05/03/2025 10:54 AM EDT History and Physical Notes * HPI (History [...]
--- OUTSIDE RECORDS SUMMARY | 2024-12-23 05:15 | XMS_ITS ---
Author Organization [facility] Address [address] [place] [id number] Care Team Providers Care International Student Counselor Name Role Phone Wilfredo Brewster Primary Care Provider Brennen Wallis [phone] REASON FOR VISIT 6 month check up with fasting labs Encounters Encounter Location Date Provider Diagnosis [facility] [address] [place] [id number] 12/23/2024 Brennen Wallis Plan Of Treatment Next Appt Details Provider Name:Brennen Solares ry, 06/16/2025 09:45:00 AM, [address], [address], [place], [place], [id number], Progress Notes * ADRIENNE VASQUEZEDOB: (69 yo F)Acc No.[id number]:12/23/2024 Progress Notes Patient: VEGA CHISHOLM Provider: King Wallis M.D. :1955 A ge:69 Y S ex:Female Date:12/23/2024 Address:[address] [place] [address] [id number] Pcp:Wilfredo Brewster Subjective: * Chief Complaints: [...] 0 12/23/2024 Generated for Gareth [email or web address]/[email or web address]/Denia on: 0 05/03/2025 10:53 AM EDT
--- OUTSIDE RECORDS SUMMARY | 2024-12-30 06:30 | XMS_ITS ---
Author Organization [facility] Address [address] [facility] [address] [place] [phone] Care Team Providers Care Window Shade Ring Coverer Name Role Phone Wilfredo Brewster Primary Care Provider Brennen Wallis Unavailable [phone] Allergies Allergen (clinical drug ingredient) Drug/Non Drug [...] Reason Wants to see Dr. Patterson in [place] Diagnosis 1 Lumbago with sciatic a, left side (M54.42) Diagnosis 2 Spinal stenosis, lum bosacral region (M48.07) Diagnosis 3 Degeneration of inte rvertebral disc of lumbar region with discogenic back pain and lower extremity pain (M51.362) Diagnosis 4 Bulging lumbar disc (M51.369) Ref[facility] Referring Provider First Name Brennen Referring Provider Last Name Bimal Referring Provider Speciality Family Pra ctice Referred Provider Pablo Patterson Referred Provider Specialty Pain Managem ent General Notes Sapna Joy 2024 11:08:39 AM > faxed with office notes to [facility] Pain Management, BeintaJoaquínnn 01/03/2025 09:48:42 AM > faxed to Dr. [...] Metaxalone 800 mg TAKE ONE TABLET BY [facility] THREE TIMES DAILY NEEDED MAY CAUSE DROWSINESS [...] Status W/U Status Risk Notes Problem Sciatica (21023007) Lumbago with sciatica, left side (M54.42) Active confirmed Problem Degeneration of intervertebral disc of lumbar region with discogenic back pain and lower extremity pain (M51.362) Active confirmed Problem Arthropathy of lumbar facet joint (774848691) Lumbar facet arthropathy (M47.816) Active confirmed Problem Bulging lumbar disc (M51.369) Active confirmed Vital Signs Blood pressure systolic 122 mm Hg 12/31/19 25 Blood pressure diastolic 64 mm Hg 025 Heart Rate 66 /min 12/30/2024 Height 61 in 12/30/2024 Weight 230.0 lbs 12/30/2024 BMI 43.45 kg/m2 12/30/2024 Encounters Encounter Location Date Provider Diagnosis [facility] [address] [facility] [address] [place] [id number] 12/30/2024 Brennen Wallis Lumbago with sciatic a, [...] 12/30/2024, Wants to see Dr. Patterson in [place] Pablo Next Appt Details Follow Up: via phone to repo rt progress, Reason: Provider Name:Brennen Levine Beck ry, 06/16/2025 09:45:00 AM, [address], [address], [place], [phone], Progress Notes * CHANDANA VASQUEZOB: 4 (69 yo F)Acc No.[id number]:12/30/2024 Progress Notes Patient: VEGA CHISHOLM Provider: King Wallis M.D. :1955 A ge:69 Y S ex:Female Date:12/30/2024 Address:[address] [place] [address] , [place] [address], [id number] Pcp:Wilfredo Brewster Subjective: * Chief Complaints: * [...] s/p upper GI bleed, 2022 treated at [facility] in [place]. * Surgical History: A ppendectomy 1991, LT Foot Fusion 12/2007, Neck Tumor Removal 01/10/2009, Bilateral Cataract Removal 10/11/2013, 10/25/2013, Rhizotomy and Epidural Steroid, Dr. Newman 03/22/2014, LT TKA- [place] 06/11/2015, RT TKA- [place] 10/13/2015, Thyroidectomy, Papillary Carcinoma, Dr. Bhakta 12/21/2019, colonoscopy (needs repeat in 5 years) 05/2019, Right total knee revision 2022, EGD due to GI bleed Jun 2023. * Family History: F ather: , heart condition, cerebellar atrophy of the brain, colon CA. M other: , arthritis, traumatically. P aternal Grand Father: heart problems. P aternal Grand Mother: breast CA. M aternal Grand Father: [place]. M aternal Grand Mother: [place]. 1 brother(s) , 1 sister(s) - healthy. 2 son(s) , 1 daughter(s) - healthy. . * Social History: C URRENT TOBACCO USE S moking Status: Patient does NOT smoke. C affeine: yes, frequency:tea. Exercise: yes, walk 4 days/week 1-4 miles. Home smoke detector use: yes. Marital Status: Single. New since last visit: none. 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 Past smoking status: no. Occup. exposure: [...] ark stools - R19.5 8 . B ME 40.0-44.9, adult - Z68.41 Plan: * Treatment: 2. S joanna stenosis, lumbosacral region Referral To:[facility] Reason:Wants to see Dr. Patterson in [place] 3. D egeneration of intervertebral disc of lumbar region with discogenic back pain and lower extremity pain Referral To:[facility] Reason:Wants to see Dr. Patterson in [place] 4. B ulging lumbar disc Referral To:[facility] Reason:Wants to see Dr. Patterson in [place] 5. D ark stools L AB: CBC [...] G 2211 Complex e/[place], [address] CAPILLARY BLOOD DRAW, 12115 CBC WITH AUTO DIFF, G8752 MOST RECENT SYSTOLIC BP < 140MM HG, G8754 MOST RECENT DIASTOLIC BP < 90MM HG * Follow Up: v ia phone to report progress * Images: Billing Information: * Visit Code: 08616 Office Visit, Est Pt., Level 4. * Procedure Codes: G2211 Complex e/[place]. [address] CAPILLARY BLOOD DRAW. 56453 CBC WITH AUTO DIFF. G8752 MOST RECENT SYSTOLIC BP < 140MM HG. G8754 MOST RECENT DIASTOLIC BP < 90MM HG. * Electronic signature of Aidee Wallis MD on 05/03/2025 at 10:55 AM EDT Sign off status: Pending * Provider: King Wallis M.D. Date: 0 12/30/2024 Generated for Gareth mccloud/Keyanna/Osielitting on: 0 05/03/2025 10:55 AM EDT History and Physical Notes * [...] Anjum Wants to see Dr. Patterson in [place]
--- NOTE | 2025-05-03 10:53 | MM_ITS ---
PROCEDURE INFORMATION: Exam: MG Bilateral Screening 3D Mammography Exam date and time: 05/03/2025 10:57 AM Age: 69 years old Clinical indication: Screening examination TECHNIQUE: Imaging protocol: Bilateral Screening tomosynthesis and 2D mammography including computer-aided detection (CAD) when performed. COMPARISON: 1. MG MM DIG SCREENING MAMM BI W/CAD 04/28/2024 1:36 PM 2. MG MM DIG SCREENING MAMM BI W/CAD 04/06/2023 1:23 PM FINDINGS: MAMMOGRAPHY: Breast composition: There are scattered areas of fibroglandular density. Mass: Possibly fat containing mass in the right breast upper outer quadrant, measuring 1.2 cm, 11 cm from the nipple. Architectural distortion: None. Calcifications: No suspicious calcifications. Asymmetric density: None. Skin thickening: None. Axillary adenopathy: None. Other findings: Loop recorder partially visualized overlying the left medial chest. IMPRESSION: Patient to be recalled for spot compression views of the right breast in the CC and MLO projections, a full 90 degree lateral view, and right breast ultrasound for further evaluation of a right breast mass. ASSESSMENT: BI-RADS Category 0: Incomplete- Need Additional Imaging Evaluation.
--- OUTSIDE RECORDS SUMMARY | 2025-05-03 10:53 | XMS_ITS | Referral Summary ---
Author Organization [employer] ([place], [place], [place], [place]) Address [address] [place] [address] Care Team Providers Care Ballet Company Artistic Director Name Role Phone Brennen Wallis MD Primary Care Provider + [phone] Allergies Active Allergy Reactions Criticality Noted Date [...] of Transportation (Non-Medical) Not on file 06/17/2023 Food Insecurity Answer Date Recorded Food run [...] Date Fredrick rded Speak language other than Eritrean at home Not on file 08/27/2023 Want help with school or training Not on file 08/27/2023 Substance Use Answer Date Recorded Used [...] on file Medical Devices Implanted Type Area Seat Joiner Chainstitch Device Identifier Shelf Expiration Date Model / Serial / Lot Implants IMPLANTS Description:Bilateral knees, loop recorder, cataracts Cement Bone [place] Hv 40/20 600-15-000 - [id number] Implanted:Qty : 1 on 06/08/2023 by Vinny Anne MD at [facility] IMPLANTS Right: Knee DJ SURG:ENCORE MED:[place] 11/05/2024 600-15-00 0 / / [id number] Cement Bone [place] Hv 40/20 600-15-000 - [id number] Implanted:Qty : 1 on 06/08/2023 by Vinny Anne MD at [facility] IMPLANTS Right: Knee DJ SURG:ENCORE MED:[place] 04/02/2024 600-15-00 0 / / [id number] Bearing Tib Ps 13sld12/75 569225 - [id number] Implanted:Qty : 1 on 06/08/2023 by Vinny Anne MD at [facility] TOTAL JOINT CONSTRUCT Right: Knee BIOMET 12/25/2025 [id number] / / [id number] Patella Std 8x31mm [id number] - [id number] Implanted:Qty : 1 on 06/08/2023 by Vinny Anne MD at [facility] TOTAL JOINT CONSTRUCT Right: Knee BIOMET 02/06/2028 [id number] / / [id number] Femoral Vanguard 62.5 Rt 496205 - [id number] Implanted:Qty : 1 on 06/08/2023 by iVnny Anne MD at [facility] TOTAL JOINT CONSTRUCT Right: Knee BIOMET 03/02/2033 [id number] / / [id number] Ty Tib I-Beam Fix Biomet 71mm [id number] - [id number] Implanted:Qty : 1 on 06/08/2023 by Vinny Anne MD at [facility] TOTAL JOINT CONSTRUCT Right: Knee BIOMET 04/18/2033 [id number] / / [id number] Additional Health Concerns Infection Onset Date Last Indicated 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 05/28/[address] [place] [address] [employer] MEDICARE PPO Advance Directives For more information, please contact: [phone] * Full Code (Latest Code Status on File) Date Activated Date Inactivated Comments 06/17/2023 11:14 AM 06/20/2023 3:30 PM * Full Code Date Activated Date Inactivated Comments 06/08/2023 5:15 PM 06/10/2023 1:45 PM * Full Code Date Activated Date Inactivated Comments 06/08/2023 9:21 AM 06/08/2023 5:15 PM Care Teams Ballet Company Artistic Director Relationship Specialty Start Date End Date Brennen Wallis MD [address] [facility] [address] [place] [address] PCP - General Family Medicine 05/28/23
--- OUTSIDE RECORDS SUMMARY | 2025-05-03 10:53 | XMS_ITS | Encounter Summary ---
Author Organization [employer] ([place], [place], [place], [place]) Address [address] [place] [address] Care Team Providers Care Leather Stitcher Name Role Phone Brennen Wallis MD Primary Care Provider [phone] Encounter Details Date Type Department Care Team (Late st Contact Info) Description 10/05/2019 Transcribed Document [facility] [place] Family Medicine [address] [place] [address] ProviderVanna MD [address] [place] [address] Social History Tobacco Use Types Packs/Day Years Used Date Smoking Tobacco: Never Assessed Comments Unknown Sex and Gender Information Value Date Recorded Sex Assigned at Not on file Legal Sex Female 5:38 PM CDT Gender Identity Not on file Sexual Orientation Not on file documented as of this encounter Miscellaneous Notes * Cerner Conversion Note - Vanna ProviderMD - 10/05/2019 4:51 AM RETAIL MORTGAGE BANKER Orthopedic Nurse Navigator Entered On: 10/05/2019 4:53 [...] documented as of this encounter Care Teams Leather Stitcher Relationship Specialty Start Date End Date Brennen Wallis MD [address] [facility] [address] [place] [address] PCP - General Family Medicine 05/28/23 documented as of this encounter
--- OUTSIDE RECORDS SUMMARY | 2025-05-03 10:54 | XMS_ITS | Encounter Summary ---
Author Organization [employer] ([place], [place], [place], [place]) Address [address] [place] [address] Care Team Providers Care Senior Process Analyst Name Role Phone Brennen Wallis MD Primary Care Provider + [phone] Encounter Details Date Type Department Care Team (Late st Contact Info) Description 10/04/2019 Transcribed Document [facility] [place] Family [place] [facility] [address] ProviderVanna MD [address] [place] [address] Social History Tobacco Use Types Packs/Day Years Used Date Smoking Tobacco: Never Assessed Comments Unknown Sex and Gender Information Value Date Recorded Sex Assigned at Not on file Legal Sex Female 5:38 PM CDT Gender Identity Not on file Sexual Orientation Not on file documented as of this encounter Miscellaneous Notes * Cerner Conversion Note - Historical ProviderMD - 10/04/2019 10:13 AM JAVA WEB APPLICATION DEVELOPER Patient: CHEYANNE VASQUEZ Age: 63 Years Sex: Female : 1955 Chief Complaint Right Knee Pain Primary Care Provider ОЛЕГ GHOTRA [facility] History of Present Illness This patient is [...] release 15 mg = 1 Tab, Oral, [id number] Multivitamins and Minerals 1 Tab, Oral, Daily [...] PA-C 10/09/2015 09:03 EST Electronically signed by [facility], [facility] Conversion Programmer Analyst Health It Cerner at 11/23/2022 6:52 PM CDT documented in this encounter Plan of Treatment Not on file documented as of this encounter Visit Diagnoses Not on filedocumented in this encounter Additional Health Concerns Infection Onset Date Last Indicated Resolved Time 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
--- OUTSIDE RECORDS SUMMARY | 2025-05-03 10:54 | XMS_ITS | Encounter Summary ---
Author Organization [employer] ([place], [place], [place], [place]) Address [address] [place] [address] Care Team Providers Care Greenbelt Name Role Phone Brennen Wallis MD Primary Care Provider + [phone] Encounter Details Date Type Department Care Team (Late st Contact Info) Description 10/04/2019 Transcribed Document [facility] [place] Family Medicine [address] [place] [address] ProviderVanna MD [address] [place], [place] [address] Social History Tobacco Use Types Packs/Day Years Used Date Smoking Tobacco: Never Assessed Comments Unknown Sex and Gender Information Value Date Recorded Sex Assigned at Not on file Legal Sex Female 5:38 PM CDT Gender Identity Not on file Sexual Orientation Not on file documented as of this encounter Miscellaneous Notes * Cerner Conversion Note - Historical ProviderMD - 10/04/2019 1:46 PM CHILD CARE LEADER PAT Adult Entered On: 10/04/2019 13:53 EST Performed On: 10/04/2019 13:46 EST by JUAN DAVID BUCKLEY RN Height and Weight, Clinical Dosing Height Source : Stated Height Entry Format : Thor Height, Feet : 5 ft(Converted to: 152 cm, 60 Inch) Height, Inches : 0 Inch(Converted to: 0 ft 0 Inch, 0.00 cm) Clinical Height : 152.4 cm Weight Source : Standing scale Weight Entry Format : Thor Clinical Dosing Weight : 90.91 kg Weight, Pounds : 200 lb Body Surface Area (BSA) : 1.87 m2 Body Mass Index : 39.1 kg/m2 (HI) [place] Body Weight : 45 kg JUAN DAVID [...] DAVID BUCKLEY RN - 10/04/2019 13:46 EST [place] Suicide Severity Rating Scale (C-SSRS) CSSRS Past [...] Guardian : No Support Person/Patient Director Of Casework Department : Yes Support Person/Pt Rep Name : Keli hoff Family/Rep/Phys Notified of Admit : No Emergency Contact #1 : Agustín Stafford Emergency Contact #1 Emergency Contact #1 Relationship : daughter Emergency Contact #2 : scot Hilton Emergency Contact #2 Emergency Contact #2 Relationship : son Primary Language : Sami Preferred Communication Mode : Verbal Communication Barrier : None JUAN DAVID BUCKLEY RN - 10/04/2019 13:46 EST Kobi Scale [...] - 10/04/2019 13:46 EST Electronically signed by [facility], [facility] Conversion Unmanned Aircraft Systems Roboticist Cerner at 11/23/2022 6:28 PM CDT documented in this encounter Plan of Treatment Not on file documented as of this encounter Visit Diagnoses Not on filedocumented in this encounter Additional Health Concerns Infection Onset Date Last Indicated Resolved Time 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 05/28/2023 documented as of this encounter Care Teams Greenbelt Relationship Specialty Start Date End Date Brennen Wallis MD [address] [facility] [address] [place] [address] PCP - General Family Medicine 05/28/23 documented as of this encounter
--- OUTSIDE RECORDS SUMMARY | 2025-05-03 10:54 | XMS_ITS | Encounter Summary ---
Author Organization [employer] ([place], [place], [place], [place]) Address [address] [place] [address] Care Team Providers Care Stereo Plotter Operator Name Role Phone Brennen Wallis MD Primary Care Provider [phone] Encounter Details Date Type Department Care Team (Late st Contact Info) Description 10/06/2019 Transcribed Document [facility] [place] [address] [place] [address] ProviderVanna MD [address] [place], [place] [address] Social History Tobacco Use Types Packs/Day Years Used Date Smoking Tobacco: Never Assessed Comments Unknown Sex and Gender Information Value Date Recorded Sex Assigned at Not on file Legal Sex Female 5:38 PM CDT Gender Identity Not on file Sexual Orientation Not on file documented as of this encounter Miscellaneous Notes * Cerner Conversion Note - Vanna ProviderMD - 10/06/2019 1:00 PM HEALTH POLICY ANALYST Orthopedic Nurse Navigator Entered On: 10/10/2019 5:48 EST Performed On: 10/06/2019 13:00 EST by Lucy De Nurse brake repairer bus Nurse Navigator Assessment Attended Joint Academy : Yes Joint AcademyType : In person Joint Academy Date : 10/06/2019 EST Joint Construction Management Instructor Attended Academy : No Joint Construction Management Instructor Name : no one at home Type of Surgery : Total Knee Revision, Right Does Patient Have a Walker? : No Patient Completed RAPT Score : 7 Joint Navigator Assessment Note : According to the RAPT Score, additional intevention to discharge directly home. Pt indicates no one at home. Pt indicates leg weakness. Pt is wanting rehab and to go to [place] or [facility]. Pt indicates urgency. Pt states with [...] Skin Care : Verbalizes understanding Lucy De, RN - 10/10/2019 5:42 EST Electronically signed by [facility] Conversion Underwriting Consultant Cerner at 11/23/2022 6:51 PM CDT documented in this encounter Plan of Treatment Not on file documented as of this encounter Visit Diagnoses Not on filedocumented in this encounter Additional Health Concerns Infection Onset Date Last Indicated Resolved Time 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 05/28/2023 documented as of this encounter Care Teams Stereo Plotter Operator Relationship Specialty Start Date End Date Brennen Wallis MD [address] [place] [facility] [address] [place] [address] PCP - General Family Medicine 05/28/23 documented as of this encounter
--- OUTSIDE RECORDS SUMMARY | 2025-05-03 10:54 | XMS_ITS | Clinical Summary ---
Author Organization [facility] Address [address] [facility] [address] [place] [address] Phone Care Team Providers Care Industrial Trainer Name Role Phone Unavailable Unavailable Conditions or Problems No information available. Medications No information available. Medications Administered No information available. Allergies, Adverse Reactions, Alerts No information available. Results No information available. Plan of Care No information available. Procedures No information available. Vital Signs No information available. Immunizations No information available. Advance Directives No information available.
--- OUTSIDE RECORDS SUMMARY | 2025-05-03 10:54 | XMS_ITS | Clinical Summary ---
Author Organization [facility] Address [address] [place] [address] Care Team Providers Care Water And Sewer Systems Superintendent Name Role Phone Douglas Brewster MD Primary Care Provider Allergies Active Allergy Reactions Criticality Noted Date Comments Adhesive Tape Other (See Comments) Low 12/18/2019 pulls skin off . Cyclobenzaprine Hives High 12/18/2019 Methimazole Hives,Other (See Comments) High 12/18/2019 Hives followed by sores. Red, blotchy and hot . Medications traMADol HCl ER 150 MG capsule sustained-relea se 24 hr Take 1 capsule by mouth 2 (Two) Times a Day. Active gabapentin, once-daily, (Gralise) 600 MG tablet tablet Take 1,200 mg by mouth every night at bedtime. Active fenofibrate (TRICOR) 145 MG tablet Take 145 mg by mouth Daily. Active rosuvastatin (CRESTOR) 5 MG tablet Take 5 mg by mouth. Takes every other night. Active carvedilol (COREG) 25 MG tablet Take 25 mg by mouth 2 (Two) Times a Day With Meals. Active triamterene-hyd rochlorothiazid e (MAXZIDE-25) 37.5-25 MG per tablet Take 1 tablet by mouth Daily. Active losartan (COZAAR) 100 MG tablet Take 100 mg by mouth Daily. Active amLODIPine (NORVASC) 5 MG tablet Take 5 mg by mouth Daily. Active milnacipran (SAVELLA) 50 MG tablet tablet Take 50 mg by mouth Every Night. Active aspirin 81 MG EC tablet Take 81 mg by mouth Daily. Active Multiple Vitamins-Minera ls (MULTIVITAMIN ADULTS PO) Take 1 tablet by mouth Daily. Active levothyroxine (Synthroid) 100 MCG tablet Take 1 tablet by mouth Daily for 30 days. 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 Never 12/18/2019 Average Number of Drinks Not on file 020 Frequency of Binge Drinking Not on file 12/08 Abuse Screen Answer Date Recorded Unsafe at Home or Work/School Not on file Feels Threatened by Someone? Not on file 04/2023 Does Anyone Keep You from Co ntacting Others or Doint Things Outside the Home? Not on file 05/18/2023 Physical Sign of Abuse Present Not on file 1 Housing Stability Answer Date Recorded Current Living Arrangements Not on file 04/2023 Potentially Unsafe Housing Conditions Not on edgardo e 05/18/2023 Family and Community Support Answer Devan e Recorded Help with Day-to-Day Activities Not on file 05/18/2023 Lonely or Isolated Not on file 05/18/2023 Employment Answer Date Recorded Do you want help finding or keeping work or a diogo b? Not on file 05/18/2023 Disabilities Answer Date Recorded Concentrating, Remembering, or Making Decisions Difficulty Not on file 05/18/2023 Doing Errands Independently Difficulty Not on fi le 05/18/2023 Education Answer Date Recorded Help with school or training? Not on file Preferred Language Not on file 05/18/2023 Comments No Sex and Gender Information Value Date Recorded Sex Assigned at Not on file Legal Sex Female 12:47 PM EDT Gender Identity Not on file Sexual Orientation Not on file Last Filed Vital Signs Vital Sign Reading Time Taken Comments Blood Pressure 143/75 12/22/2019 8:32 AM EDT Pulse 77 12/22/2019 7:08 AM EDT Temperature 36.4 C (97.5 F) 12/22/2019 7:08 AM EDT Respiratory Rate 18 12/22/2019 7:08 AM EDT Oxygen Saturation 96% 12/22/2019 10:10 AM EDT Inhaled Oxygen Concentration - - Weight 91.2 kg (201 lb 1 oz) 12/21/2019 7:11 PM EDT Height 152.4 cm (5') 12/21/2019 7:11 PM EDT Body Mass Index 39.27 12/21/2019 7:11 PM EDT Plan of Treatment Health Maintenance Due Date Last Done Comments DXA SCAN 1955 TDAP/TD VACCINES (1 - Tdap) 1972 MAMMOGRAM 1993 COLOGUARD 1998 COLON CANCER SCREENING 5 YEA R SIGMOIDOSCOPY 1998 COLONOSCOPY 1998 COL[address]AL CANCER SCREENING 1998 CT COLONOGRAPHY 1998 FECAL OCCULT BLOOD TEST 1998 FIT Testing (1 year) 1998 Pneumococcal Vaccine 50+ (1 of 1 - PCV) 11/27/2003 ANNUAL PHYSICAL 12/11/2019 HEPATITIS C SCREENING 12/11/2019 INFLUENZA VACCINE 03/10/2025 COVID-19 Vaccine ( - 2023- season) 2025 ZOSTER VACCINE Completed 01/06/2019, 10/26/2018 Medical Devices Implanted Type Area Community Liaison Device Identifier Shelf Expiration Date Model / Serial / Lot Implant Implanted:Qty: 1 Implant Description:Total knee arthr oplasty on left knee. Implant Implanted:Qty: 1 Implant Description:Partial arthropl asty on right knee. [place] [address] [place] [address] MEDICARE ADVANTAGE [facility] SUP Advance Directives * CPR (Attempt to Resuscitate) (Latest Code Status on File) Date Activated Date Inactivated Comments 12/21/2019 6:29 PM 12/22/2019 3:13 PM Question Answer Comments Code Status (Patient has no pulse and is not breathing): CPR (Attempt to Resuscitate) Medical Interventions (Patie nt has pulse or is breathing): Full Level Of Support Discussed With: Patient Care Teams Water And Sewer Systems Superintendent Relationship Specialty Start Date End Date Douglas Brewster MD PCP - General 05/24/15
--- OUTSIDE RECORDS SUMMARY | 2025-05-03 10:54 | XMS_ITS | Encounter Summary ---
Author Organization [employer] ([place], [place], [place], [place]) Address [address] [place] [address] Care Team Providers Care Physiotherapy Practice Manager Name Role Phone Brennen Wallis MD Primary Care Provider + [phone] Encounter Details Date Type Department Care Team (Late st Contact Info) Description 10/05/2019 Transcribed Document [facility] [place] [address] [place] [address] ProviderVanna MD [address] [place], [place] [address] Social History Tobacco Use Types Packs/Day Years Used Date Smoking Tobacco: Never Assessed Comments Unknown Sex and Gender Information Value Date Recorded Sex Assigned at Not on file Legal Sex Female 5:38 PM CDT Gender Identity Not on file Sexual Orientation Not on file documented as of this encounter Miscellaneous Notes * Cerner Conversion Note - Historical ProviderMD - 10/05/2019 4:51 AM TUBE FILLER Total Joints Assessment Entered On: 10/05/2019 4:51 [...] from sitting : Moderate 7. Bending to floor/molded goods spot picker an object : Moderate MISAEL JR Raw Score (ref) : 23 Lucy [...] documented as of this encounter Care Teams Physiotherapy Practice Manager Relationship Specialty Start Date End Date Brennen Wallis MD [address] [place] [facility] [address] [place] [address] PCP - General Family Medicine 05/28/23 documented as of this encounter
--- OUTSIDE RECORDS SUMMARY | 2025-05-03 10:54 | XMS_ITS | Encounter Summary ---
Author Organization [employer] ([place], [place], [place], [place]) Address [address] [place] [address] Care Team Providers Care Railroad Car Checker Name Role Phone Brennen Wallis MD Primary Care Provider [phone] Encounter Details Date Type Department Care Team (Late st Contact Info) Description 10/11/2019 Transcribed Document [facility] [place] [address] [place] [address] ProviderVanna MD [address] [place], [place] [address] Social History Tobacco Use Types Packs/Day Years Used Date Smoking Tobacco: Never Assessed Comments Unknown Sex and Gender Information Value Date Recorded Sex Assigned at Not on file Legal Sex Female 5:38 PM CDT Gender Identity Not on file Sexual Orientation Not on file documented as of this encounter Miscellaneous Notes * Cerner Conversion Note - Historical ProviderMD - 10/11/2019 2:40 PM GAUGE MAKER UM Authorization Entered On: 10/11/2019 14:41 EST Performed On: 10/11/2019 14:40 EST by GOPAL WICK RN-Utilization Review Primary Insurance Authorization Authorization and Policy Numbers : Insurance 1 Health Plan: [employer] PPO Policy Number: [id number] Authorization Number: Insurance 2 Health Plan: FOR LIFE Policy Number: [id number] Authorization Number: Insurance Primary Name : [employer]ICE PPO Policy Number: [id number] Authorization Status-Primary : Notification only Authorization Number-Primary : [id number] Authorized Service Begin Date-Primary : 10/18/2019 EDT Authorization Comments-Primary : [employer] Medicare approved for inpt per availity Historical Authorization Comments-Primary : No Authorization Comments Found GOPAL WICK RN-Utilization Review - 10/11/2019 14:40 EST Electronically signed by [facility], [facility] Conversion Floor Representative Cerner at 11/23/2022 6:42 PM CDT documented in this encounter Plan of Treatment Not on file documented as of this encounter Visit Diagnoses Not on filedocumented in this encounter Additional Health Concerns Infection Onset Date Last Indicated Resolved Time 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 05/28/2023 documented as of this encounter Care Teams Railroad Car Checker Relationship Specialty Start Date End Date Brennen Wallis MD [address] [facility] [address] [place] [address] PCP - General Family Medicine 05/28/23 documented as of this encounter
--- OUTSIDE RECORDS SUMMARY | 2025-05-03 10:55 | XMS_ITS | Clinical Summary ---
Author Organization [facility] Address [address] [place] [address] Care Team Providers Care Tire Care Manager Name Role Phone Dariel Brewster MD Primary Care Provider [phone] Family History Medical History Relation Name Comments [...] 50 + Years (2 of 2 - PCV20 or PCV21) 05/09/2021 05/09/2020 [id number] Vaccine (3 - season) 2025 09/12/2020, 08/15/2020 [facility]-Influenza Vaccine (#1) 04/10/202505/09, 05/12/2018, 05/04/2017 [facility]-RSV Vaccine: 60+ Years o [...] age to complete this topic Care Teams Tire Care Manager Relationship Specialty Start Date End Date Dariel Brewster MD [address] [place] [address] PCP - General 12/21/20
--- OUTSIDE RECORDS SUMMARY | 2025-05-03 10:55 | XMS_ITS | Patient Health Record ---
Author Organization [facility] Address [address] [place] [id number] Care Team Providers Care Vp Information Technology Name Role Phone Wilfredo Brewster Primary Care Provider Brennen Wallis Unavailable [phone] Allergies Allergen (clinical drug ingredient) Drug/Non Drug [...] - 38 plat 230 100 - 400 P-T4 Free (thyroxine) Reviewed date:09/08/2024 08:52:01 AM Interpretation:1.78 Performing Lab: Notes/Report: Test performed by [facility] [address] [place] [address] , [place] [address] Matt Patino MD, Mechanical Design Engineer CLIA: [id number] Thyroxine Free (free T4) 1.78 0.86-1.76 ng/dL P-TSH Reviewed date:09/08/2024 08:52:01 AM Interpretation:Normal Performing Lab: Notes/Report: Test performed by [facility] [address] [place] [address] , [place] [address] Matt Patino MD, Mechanical Design Engineer CLIA: [id number] TSH 1.37 0.43-5.25 mU/L CBC Fingerstick (in [...] - 38 plat 200 100 - 400 Bone density Reviewed date:03/10/2025 01:29:08 PM Interpretation:Normal Performing Lab: Notes/Report: Normal P-Vitamin D 25-Hydroxy Reviewed date:06/27/2024 10:03:01 AM Interpretation:Normal Performing Lab: Notes/Report: Test performed by [facility] [address] [place] [address] , [address], [place] [address] Matt Patino MD, Mechanical Design Engineer CLIA: [id number] Vitamin D 25-Hydroxy 37.1 30.0-100.0 ng/mL Interpretation of Vitamin D 25 OH: < 20 ng/mL - Deficiency 20 - 29 ng/mL - Insufficiency 30 - 100 ng/mL - Sufficiency > 100 ng/mL - Super-therapeutic- toxicity may occur above this level. Clinical correlation required. P-TSH Reviewed date:06/27/2024 10:03:01 AM Interpretation:Normal Performing Lab: Notes/Report: Test performed by [facility] [address] [place] [address] , [address], [place] [address] Matt Patino MD, Mechanical Design Engineer CLIA: [id number] TSH 1.05 0.43-5.25 mU/L P-Lipid Panel Reviewed date:06/27/2024 10:03:00 AM Interpretation:Trig 256 Performing Lab: Notes/Report: Test performed by [facility] [address] [place] [address] , [address], [place] [address] Matt Patino MD, Mechanical Design Engineer CLIA: [id number] Cholesterol 150 <200 mg/dL Triglycerides 256 <150 [...] Results: 54 Units: mg/dL % Change: -28% P-T4 Free (thyroxine) Reviewed date:06/27/2024 10:03:00 AM Interpretation:2.00 Performing Lab: Notes/Report: Test performed by [facility] [address] [place] [address] , [address], [place] [address] Matt Patino MD, Mechanical Design Engineer CLIA: [id number] Thyroxine Free (free T4) 2.00 0.86-1.76 ng/dL P-Comprehensive Metabolic Pa jitendra (CMP) Reviewed date:06/27/2024 10:03:00 AM Interpretation:BUN 27, Glu 105 Performing Lab: Notes/Report: Test performed by [facility] [address] [place] [address] , [address], [place] [address] Matt Patino MD, Mechanical Design Engineer CLIA: [id number] Sodium 143 135-145 mmol/L Potassium 5.3 3.5-5.3 [...] 0.4 <0.2-1.2 mg/dL A/G Ratio 2.2 1.1-2.5 MRI : Spine, Lumbosacral, wi thout contrast Reviewed date:12/30/2024 09:46:14 AM Interpretation:Advanced degenerative changes with stenosis and foraminal narrowing Performing Lab: Notes/Report: Advanced degenerative changes with stenosis and foraminal narrowing Medications Medication SIG (Take, Route, Frequency, Duration) Notes Start Date End Date Status Carvedilol 25 mg 1 tablet with food Orally Twice a day; Duration: 90 days Active traMADol HCl 50 MG 1 tablet Orally four times a day as needed 12/30/2024 Active Triamterene-HCTZ 37.5-25 MG 1/2 tablet o rally once a day; Duration: 90 days Active dexAMETHasone 4 MG 1 tablet Orally Two times a day; Duration: 5 days 12/14/2024 Active Levothyroxine Sodium 137 MCG 1 tablet in the morning on an empty stomach Orally Once a day 06/28/2024 Active Metaxalone 800 mg TAKE ONE TABLET BY M OUT THREE TIMES DAILY NEEDED MAY CAUSE DROWSINESS Active Eliquis 2.5 MG 1 tablet Orally 2 ti mes a day; Duration: 90 days Active Rosuvastatin Calcium 40 mg TAKE ONE TABL ET BY MOUTH EVERY DAY; Duration: 90 Active Lidoderm 5 % 3 patch remove after 12 hours Externally Once a day 12/22/2023 Active Losartan Potassium 100 mg TAKE ONE TABLE T BY MOUTH EVERY DAY; Duration: 90 Active amLODIPine Besylate 5 mg 1 tablet Orally Once a day; Duration: 90 days Active Fenofibrate 145 MG 1 tab(s) orally once a day; Duration: 90 days Active Gralise 600 MG 3 tab(s) orally once a day; Duration: 30 days 05/01/2025 Active Immunizations Vaccine Route Administration Date Status [...] Problem Status W/U Status Risk Notes Problem Essential hypertension (78207988) Essential (primary) hypertension (I10) Active confirmed Problem Vitamin D deficiency (55950499) Vitamin D deficiency (E55.9) Active confirmed Problem Abnormal mammogram (244947423) Abnormal mammogram (R92.8) Active confirmed Problem Diverticulitis (36084142) Diverticulitis (K57.92) Active confirmed Problem Morbid obesity (998791400) Morbid obesity (E66.01) Active confirmed Problem Hypertriglyceridemia (256628694) Hypertriglyceridemia (E78.1) Active confirmed Problem Arthropathy of lumba r facet joint (974919887) Lumbar facet arthropathy (M47.816) Active confirmed Problem Fibromyalgia (534898895) Fibromyalgia (M79.7) Active confirmed Problem Mixed hyperlipidemia (845935959) Mixed hyperlipidemia (E78.2) Active confirmed Problem Osteoarthritis of knee (317176528) Osteoarthritis of knee, unspecified (M17.9) Active confirmed Problem Localized, primary osteoarthritis of the hand (238570701) Primary osteoarthritis, right hand (M19.041) Active confirmed Problem Spinal stenosis of lumbar region (97286859) Spinal stenosis, lumbosacral region (M48.07) Active confirmed Problem Sciatica (33555503) Lumbago with sciatica, left side (M54.42) Active confirmed Problem Thyroid nodule (552907884) Thyroid nodule (E04.1) Active confirmed Problem Chronic pain (30288999) Other chronic pain (G89.29) Active confirmed Problem Heart murmur (24405825) Heart murmur (R01.1) Active confirmed Problem Gastroesophageal reflux disease without esophagitis (697339408) Gastroesophageal reflux disease without esophagitis (K21.9) Active confirmed Problem Renal insufficiency (167196517) Renal insufficiency (N28.9) Active confirmed Problem Body mass index 40+ - morbidly obese (240055307) BMI 40.0-44.9, adult (Z68.41) Active confirmed Problem Artificial knee join t present (023453277656) Status post 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) Active confirmed Problem Allergic rhinitis caused by pollen (66300720) Seasonal allergic rhinitis due to pollen (J30.1) Active confirmed Problem Sciatica (20379346) Acute left-s ided low back pain with left-sided sciatica (M54.42) Active confirmed Problem Postoperative hypothyroidism (64229671) Post-surgical hypothyroidism (E89.0) Active confirmed Problem Localized, primary osteoarthritis of the hand (558682499) Primary osteoarthritis of left hand (M19.042) Active confirmed Problem Ischemic stroke (179309296) Ischemic stroke (I63.9) Active confirmed Problem Urge incontinence of urine (57699100) Urgency incontinence (N39.41) Active confirmed Problem Thyromegaly (9959769) Thyromegaly (E01.0) Active confirmed Problem Peptic ulcer disease (45651740) PUD (peptic ulcer disease) (K27.9) Active confirmed Problem Arthritis of right knee (1132251794826555) Arthritis of right knee (M17.11) Active confirmed Problem Fibrocystic breast changes (85460572) Fibrocystic breast disease (FCBD), unspecified laterality (N60.19) Active confirmed Problem Papillary thyroid carcinoma (380970316) Papillary thyroid carcinoma (C73) Active confirmed Problem Seasonal allergic rhinitis (108049699) Seasonal allergic rhinitis, unspecified trigger (J30.2) Active confirmed Problem Allergic rhinitis (39685697) Allergic rhinitis, unspecified seasonality, unspecified trigger (J30.9) Active confirmed Problem Neurogenic claudication (914485719) Neurogenic claudication due to lumbar spinal stenosis (M48.062) Active confirmed Problem Artificial knee join t present (087099641353) Status post right partial knee replacement (Z96.651) Active confirmed Problem Hearing loss (91833270) Unspecified hearing loss (H91.90) Active confirmed Problem Degeneration of intervertebral disc of lumbar region with discogenic back pain and lower extremity pain (M51.362) Active confirmed Problem Bulging lumbar d isc (M51.369) Active confirmed Vital Signs Heart Rate 66 /min 12/30/2024 Blood pressure diastolic 64 mm Hg 12/30/2024 Height 61 in 12/30/2024 Blood pressure systolic 122 mm Hg 12/30/2024 Weight 230.0 lbs 12/30/2024 BMI 43.45 kg/m2 12/30/2024 Encounters Encounter Location Date [facility] [address] [facility] [address] [place] [id number] 05/18/2024 Brennen Merna Generalized abdomina l pain R10.84 and Acute diarrhea R19.7 [facility] [address] [facility] [address] [place] [id number] 06/23/2024 Brennen Merna Essential (primary) hypertension I10 ; Vitamin D deficiency E55.9 ; Post-surgical hypothyroidism E89.0 ; Mixed hyperlipidemia E78.2 ; Hypertriglyceridemia E78.1 and Unspecified hearing loss H91.90 [facility] [address] [facility] [address] [place] [id number] 09/07/2024 Brennen Merna Post-surgical hypothyroidism E89.0 [facility] [address] [facility] [address] [place] [id number] 12/14/2024 Brennen Merna Acute left-sided low back pain with left-sided sciatica M54.42 ; Mixed hyperlipidemia E78.2 ; Essential (primary) hypertension I10 ; Lumbar back pain M54.50 ; Morbid obesity E66.01 and BMI 40.0-44.9, adult Z68.41 [facility] [address] [place] [id number] 12/30/2024 Brennen Merna Lumbago with sciatic a, left side M54.42 ; Other chronic pain G89.29 ; Spinal stenosis, lumbosacral region M48.07 ; Degeneration of intervertebral disc of lumbar region with discogenic back pain and lower extremity pain M51.362 ; Bulging lumbar disc M51.369 ; Lumbar facet arthropathy M47.816 ; Dark stools R19.5 and BMI 40.0-44.9, adult Z68.41 [facility] [address] [facility] [address] [place] [id number] 06/27/2024 Brennen Merna Post-surgical hypothyroidism E89.0 [facility] [address] [place] [id number] 09/05/2024 Wilfredo Brewster Mixed hyperlipidemia E78.2 [facility] [address] [place], [place] [id number] 09/06/2024 Brennen Merna [facility] [address] [place], [place] [id number] 09/08/2024 Brennen Merna [facility] [address] [place], [place] [id number] 12/19/2024 Brennen Merna Acute left-sided low back pain with left-sided sciatica M54.42 and Spinal stenosis, lumbosacral region M48.07 [facility] [address] [place], [place] [id number] 12/27/2024 Brennen Merna [facility] [address] [place], [place] [id number] 12/27/2024 Wilfredo Douglas Brewster [facility] [address] [place], [place] [id number] 12/30/2024 Brennen Merna [facility] [address] [place], [place] [id number] 01/05/2025 Brennen Merna [facility] [address] [place], [place] [id number] 01/31/2025 Brennen Merna Low back pain, unspe cified M54.50 [facility] [address] [place], [place] [id number] 05/01/2025 Brennen Merna Assessments Encounter Date Diagnosis (ICD Code) Assessment [...] 12/30/2024 Other chronic pain (ICD-10 - G89.29) 01/31/2025 Low back pain, unspecified (ICD-10 - M54.50) 12/30/2024 Spinal stenosis, lumbosacral region (ICD-10 - M48.07) 09/07/2024 Post-surgical hypothyroidism (ICD-10 - E89.0) 12/14/2024 Essential (primary) hypertension (ICD-10 - I10) 06/23/2024 Post-surgical hypothyroidism (ICD-10 - E89.0) 06/23/2024 Mixed hyperlipidemia (ICD-10 - E78.2) 12/14/2024 Lumbar back pain (IC D-10 - M54.50) 12/30/2024 Degeneration of intervertebral disc of lumbar region with discogenic back pain and lower extremity pain (ICD-10 - M51.362) 12/30/2024 Bulging lumbar disc (ICD-10 - M51.369) 12/14/2024 Morbid obesity (ICD- 10 - E66.01) 06/23/2024 Hypertriglyceridemia (ICD-10 - E78.1) 06/23/2024 Unspecified hearing loss (ICD-10 - H91.90) 12/30/2024 Lumbar facet arthrop athy (ICD-10 - M47.816) 12/14/2024 BMI 40.0-44.9, adult (ICD-10 - Z68.41) 12/30/2024 Dark stools (ICD-10 - R19.5) 12/30/2024 BMI 40.0-44.9, adult (ICD-10 - Z68.41) Plan Of Treatment Pending Test Test Name Order Date Mammogram 04/18/2025 LC-Vitamin D, 25-Hydroxy 07/23/2021 Next Appt Details Provider Name:Brennen Solares ry, 06/16/2025 09:45:00 AM, [address], [place], [place], [id number], Insurance Providers Payer Name Payer Address Payer Phone Subscriber Number Group Number Insured Name Patient Relationship to Insured Coverage Start Date Coverage End Date [employer] (MEDICARE ) [address] [address] [place] [address] [id number] VEGA VASQUEZ Self - patient is the insured [facility] [address] [place] [address] [phone] [id number] VEGA VASQUEZ Self - patient is the [...] CVA, ischemic, 2021 Cardiac loop recorder implanted 2 peptic ulcer disease, s/p up per GI bleed, 2022 treated at [facility] in [place] Surgical History Surgery Date(Month/Year) Appendectomy 1992 LT Foot Fusion 12/2007 Neck Tumor Removal 01/10/2009 Bilateral Cataract Removal 10/11/2013, 0 10/25/2013 Rhizotomy and Epidural Steroid, Dr. Kanu patrick 03/22/2014 LT [place]- [place] 06/11/2015 RT [place] 10/13/2015 Thyroidectomy, Papillary Carcinoma, Dr. Bhakta 12/21/2019 colonoscopy (needs repeat in 5 years) Right total knee revision 2022 EGD due to GI bleed Jun 2023 Hospitalization History Reason Date(Month/Year)
--- OUTSIDE RECORDS SUMMARY | 2025-05-03 10:55 | XMS_ITS | Encounter Summary ---
Author Organization [employer] ([place], [place], [place], [place]) Address [address] [place] [address] Care Team Providers Care Lithographer Apprentice Name Role Phone Brennen Wallis MD Primary Care Provider + [phone] Encounter Details Date Type Department Care Team (Late st Contact Info) Description 10/13/2019 Transcribed Document [facility] [place] [facility] [address] [place] [address] ProviderVanna MD [address] [place], [place] [address] Social History Tobacco Use Types Packs/Day Years Used Date Smoking Tobacco: Never Assessed Comments Unknown Sex and Gender Information Value Date Recorded Sex Assigned at Not on file Legal Sex Female 5:38 PM CDT Gender Identity Not on file Sexual Orientation Not on file documented as of this encounter Miscellaneous Notes * [employer]ner Conversion Note - Historical ProviderMD - 10/13/2019 3:23 PM ANIMAL HOSPITAL CLERK Orthopedic Nurse Navigator Entered On: 10/13/2019 15:25 EST Performed On: 10/13/2019 15:23 EST by Lucy De RN Surgical Services Orthopedic Nurse Navigator Assessment Joint Navigator Assessment Note : Phone conversation with patient. Pt indicates she found a knot in her neck over the weekend. Her doctor indicates that she needed to have a biopsy done beofre her knee sx. Ana at Dr. Anne office called and she indicated that pt's had called her to inform her of the bx. 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
--- OUTSIDE RECORDS SUMMARY | 2025-05-03 10:55 | XMS_ITS | Clinical Summary ---
Author Organization [employer] ([place], [place], [place], [place]) Address [address] [place] [address] Care Team Providers Care Metal Sander Name Role Phone Brennen Wallis MD Primary Care Provider + [phone] Allergies Active Allergy Reactions Criticality Noted Date [...] Date Fredrick rded Speak language other than Chinese at home Not on file 08/27/2023 Want [...] series) 2013 Medicare Initial AWV [id number] 11/10/2019 Falls Risk Screening 08/10/2024 Tobacco Cessation Counseling and Screening (12+) 09/17/2024 09/17/2023 COVID-19 VACCINE (6 - 2024-2 6 season) 2025 09/17/2022, 03/05/2022, 05/29/2021, Additional history exists Influenza Vaccine (#1) 2025 2, 04/30/2021, 05/09/2020, Additional history exists Shingles Vaccine (Zoster) Completed 01/06/2019, Pneumococcal 50+ years Completed 2, 05/09/2020, 08/10/2019 Medical Devices Implanted Type Area Wheat Buyer Device Identifier Shelf Expiration Date Model / Serial / Lot Implants IMPLANTS Description:Bilateral knees, loop recorder, cataracts Cement Bone Minetto Hv 40/20 600-15-000 - [id number] Implanted:Qty : 1 on 06/08/2023 by Vinny Anne MD at [facility] IMPLANTS Right: Knee DJ SURG:ENCORE MED:LOLISTANOOGA 11/05/2024 600-15-00 0 / / [id number] Cement Bone Minetto Hv 40/20 600-15-000 - [id number] Implanted:Qty : 1 on 06/08/2023 by Vinny Anne MD at [facility] IMPLANTS Right: Knee DJ SURG:ENCORE MED:CHATTANOOGA 04/02/2024 600-15-00 0 / / [id number] Bearing Tib Ps 28eke72/75 121180 - [id number] Implanted:Qty : 1 on 06/08/2023 by Vinny Anne MD at [facility] TOTAL JOINT CONSTRUCT Right: Knee BIOMET 12/25/2025 [id number] / / [id number] Patella Std 8x31mm 628409 - [id number] Implanted:Qty : 1 on 06/08/2023 by Vinny Anne MD at [facility] TOTAL JOINT CONSTRUCT Right: Knee BIOMET 02/06/2028 [id number] / / [id number] Femoral Vanguard 62.5 Rt 483516 - [id number] Implanted:Qty : 1 on 06/08/2023 by Vinny Anne MD at [facility] TOTAL JOINT CONSTRUCT Right: Knee BIOMET 03/02/2033 [id number] / / [id number] Ty Tib I-Beam Fix Biomet 71mm 625041 - [id number] Implanted:Qty : 1 on 06/08/2023 by Vinny Anne MD at [facility] TOTAL JOINT CONSTRUCT Right: Knee BIOMET 04/18/2033 [id number] / / [id number] Additional Health Concerns Infection Onset Date Last Indicated 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 05/28/[address] [place] [address] [employer] MEDICARE PPO Advance Directives For more information, please contact: [phone] * Full Code (Latest Code Status on File) Date Activated Date Inactivated Comments 06/17/2023 11:14 AM 06/20/2023 3:30 PM * Full Code Date Activated Date Inactivated Comments 06/08/2023 5:15 PM 06/10/2023 1:45 PM * Full Code Date Activated Date Inactivated Comments 06/08/2023 9:21 AM 06/08/2023 5:15 PM Care Teams Metal Sander Relationship Specialty Start Date End Date Brennen Wallis MD [address] [facility] [address] [place] [id number] PCP - General Family Medicine 05/28/23
== END 2025-05-03 23:59 | disposition home or self-care (01) ==
LOC: RAD 10:52
PROVIDERS: PCP Family Medicine; Visit Provider Family Medicine
DX: Z12.31 Encounter for screening mammogram for malignant neoplasm of breast (principal); R92.323 Mammographic fibroglandular density, bilateral breasts; R92.8 Other abnormal and inconclusive findings on diagnostic imaging of breast; Z95.818 Presence of other cardiac implants and grafts
CPT/HCPCS: 77063; 77067

== ENCOUNTER 2025-05-26 12:42 | Outpatient (CLI) | payer MEDICARE, OTHER, SELFPAY ==
--- NOTE | 2025-05-26 12:45 | US_ITS ---
PROCEDURE INFORMATION: Exam: US Right Breast, Complete MG Right Diagnostic Breast Tomosynthesis Exam date and time: 05/26/2025 1:19 PM Age: 69 years old Clinical indication: Patient recalled on the basis of a screening mammogram for further evaluation of a right breast finding on mammography. TECHNIQUE: Imaging protocol: Complete ultrasound of all four quadrants of the right breast and the retroareolar regions, including ultrasound of the axilla when performed. Right Diagnostic tomosynthesis and 2D mammography including computer-aided detection (CAD) when performed. Unilateral or bilateral exam. COMPARISON: MG MM DIG SCREENING MAMM BI W/CAD 05/03/2025 10:57 AM FINDINGS: MAMMOGRAPHY: Breast composition: There are scattered areas of fibroglandular density. Breast mammogram findings: On the spot compression and true lateral views, there is no persistent mass or suspicious asymmetry. No suspicious calcifications. ULTRASOUND: Breast ultrasound findings: Ultrasound of the right breast is performed. There is no suspicious mass, shadowing, or distortion. A few benign-appearing lymph nodes are noted in the right breast upper outer quadrant which may correlate to the finding originally seen on the mammogram. No lymphadenopathy. IMPRESSION: 1. No suspicious persistent finding in the right breast. Benign lymph nodes on ultrasound. 2. Annual bilateral mammographic screening is recommended unless otherwise clinically indicated. ASSESSMENT: BI-RADS Category 2: Benign.
--- OUTSIDE RECORDS SUMMARY | 2025-05-26 12:45 | XMS_ITS | Data Portability ---
Author Organization [facility] Adam c, [facility] [place] [facility] Address [address] [place] [address] Care Team Providers Care Security Team Lead Name Role Phone ОЛЕГ GHOTRA Primary Care Provider [phone] HEMALATHA THAYER Audio Specialist QUYEN UREÑA Referring Provider AFIA YOUNG Atomizer Assembler Assessment No assessment recorded. Plan of Treatment Reminders Order Date Submit Date Provider Last Modified By Organization Details Last Modified Time Details Appointments RECHECK 2025 11:00A M HEMALATHA THAYER MD Not available Not available Not available Lab T4, free, serum 2024 025 [facility], [address] [place] [address], [phone], 12/28/2024 12:56:27 TSH, serum or plasma 2024 025 [facility], [address] [place] [address], [address], 12/28/2024 12:56:28 thyrogl obulin + thyrogl obulin Ab, serum 2024 025 [facility], [address] [place] [address], [address], 12/29/2024 15:55:16 TSH, serum or plasma 2023 025 [facility], [address] [place] [address], [address], 11/14/2024 11:32:18 T4, free, serum 2023 025 [facility], [address] [place] [address], [address], 11/14/2024 11:32:20 thyrogl obulin + thyrogl obulin Ab, serum 2023 025 [facility], [address] [place] [address], [address], 11/15/2024 15:14:53 ccp (cyclic citrull inated peptide ) iga+igg , serum 2022 023 [facility], [address] [place] [address], [address], 03/21/2023 16:18:08 rf (rheuma toid factor) , serum 2022 023 [facility], [address] [place] [address], [address], 03/20/2023 10:21:03 ESR (erythr ocyte sedimen tation rate), blood 2022 023 [facility], [address] [place] [address], [address], 03/20/2023 11:50:30 C reactiv e protein , QN, serum or plasma 2022 023 [facility], [address] [place] [address], [phone], 03/20/2023 10:20:59 uric acid, serum or plasma 2022 023 [facility], [address] [place] [address], [address], 03/20/2023 10:21:00 TSH, serum or plasma 2022 024 [facility], [address] [place] [address], [address], 11/12/2023 12:26:01 T4, free, serum 2022 024 [facility], [address] [place] [address], [address], 11/12/2023 12:26:02 thyrogl obulin + thyrogl obulin Ab, serum 2022 024 [facility], [address] [place] [address], [address], 11/13/2023 14:58:26 TSH, serum or plasma 2021 023 [facility], [address] [place] [address], [address], 11/10/2022 11:41:56 T4, free, serum 2021 023 [facility], [address] [place] [address], [address], 11/10/2022 11:41:58 thyrogl obulin + thyrogl obulin Ab, serum 2021 023 [facility], [address] [place] [address], [address], 11/11/2022 13:21:56 Referral None recorde d. Procedures None recorde d. Surgeries None recorde d. Imaging US, neck, soft tissue - To be done before next visit after 1 year in November 2024. 2023 024 [facility], [address] [place] [address], [address], 11/14/2024 11:47:40 US, neck, soft tissue - TBD before next visit after 1 year [id number] [facility], [address] [place] [address], [address], 02/18/2023 07:04:45 US, neck, soft tissue - TBD before next visit after 1 year 2021 022 [facility], [address] [place], [address], 11/27/2021 17:30:35 Medication Orders levothy roxine 137 mcg tablet 2024 025 [facility], [address] [place] [address] [place], [phone], 11/21/2024 13:29:59 levothy roxine 150 mcg tablet 2023 024 [facility], [address] [place] [address] [place], [phone], 06/16/2024 12:03:44 levothy roxine 150 mcg tablet 2022 023 [facility], [address] [place] [address] [place], [id number], 09/11/2023 16:06:27 levothy roxine 150 mcg tablet 2021 022 [id number], [address] [address] [place], [phone], 11/21/2021 11:30:31 Patient TargetsNo targets recorded. Patient InstructionsNo instructions recorded. Reason for Referral None Reported. Results Created Date Observation Date Name Description Value Unit Range Abnormal Flag Note LastModifiedBy Organization Detail LastModifiedTime 11/12/1911/11/2021 TSH TSH 0.560 uIU/m L 0.270- 4.200 normal Not Available [facility] [address] [place], [address], 11/11/2021 11:13:24 11/12/19 22 11/11/2021 T4,FR EE T4,free 1.96 NG/dL 0.93-1 .70 high Not Available [facility] [address] [facility], [place], [address], 11/11/2021 11:13:25 11/12/19 22 11/12/2021 THYRO GLOBU TOPHER PANEL thyroglobuli n 0.1 NG/mL low Refer ence Range : Intac t Thyro id 2.8-4 0.9 Athyr otic <0.1 Note: Abnor mal gladys ing is based on the refer ence inter sunitha for patie nts with intac t thyro id. This test was perfo rmed using the m2fx an Coult er chemi lumin escen t metho d. Value s obtai justin from diffe rent assay metho ds canno t be used inter shaffer eably . Thyro globu topher level s, regar dless of value , shoul d not be inter prete d as absol nisqually evide nce of the prese nce or absen ce of disea se. This speci men was found to conta in anti- thyro globu topher antib odies . The prese nce of these autoa ntibo dies may cause false ly low thyro globu topher value s. In Tg-an tibod y posit ruba patie nts the thyro globu topher by flex m mass spect romet ry (test code 29202 - Thyro globu topher, LC/MS /MS; or panel test code 56540 - Thyro id Cance r (Thyr oglob ulin) Monit oring ) test is recom gerardo d becau se it has no inter feren ce from autoa ntibo dies. For addit ional infor harinder sung e refer to http: //otis bloomque stdia gnost ics.c om/fa q/FAQ (This link is being provi ded for infor roney mccollum/ educa itzel l purpo ses only. ) TEST PERFO RMED AT: [facility]E [facility] [address] [place] [address] ODALIS Conrad MD Not Available [facility] [address] [place] [address], [address], 11/12/2021 16:35:37 11/12/19 22 11/12/2021 THYRO GLOBU TOPHER PANEL thyroglobuli n abs 3 IU/mL < or = 1 high Not Available [facility] [address] [place] [address], [address], 11/12/2021 16:35:37 11/11/19 23 11/10/2022 TSH TSH 1.060 uIU/m L 0.270- 4.200 normal Not Available [facility] [address] [place] [address], [address], 11/10/2022 11:41:56 11/11/19 23 11/10/2022 T4,FR EE T4,free 1.98 NG/dL 0.93-1 .70 high Not Available [facility] [address] [place] [address], [address], 11/10/2022 11:41:58 11/11/19 23 11/11/2022 THYRO GLOBU TOPHER PANEL thyroglobuli n <0.1 NG/mL low Refer ence Range : Intac t Thyro id 2.8-4 0.9 Athyr otic <0.1 Note: Abnor mal gladys ing is based on the refer ence inter sunitha for patie nts with intac t thyro id. This test was perfo rmed using the Beckm an Coult er chemi lumin escen t metho d. Value s obtai justin from diffe rent assay metho ds canno t be used inter shaffer eably . Thyro globu topher level s, regar dless of value , shoul d not be inter prete d as absol nisqually evide nce of the prese nce or absen ce of disea se. This speci men was found to conta in anti- thyro globu topher antib odies . The prese nce of these autoa ntibo dies may cause false ly low thyro globu topher value s. In Tg-an tibod y posit ruba patie nts the thyro globu topher by flex m mass spect romet ry (test code 15105 - Thyro globu topher, LC/MS /MS; or panel test code 65068 - Thyro id Cance r (Thyr oglob ulin) Monit oring ) test is recom gerardo d becau se it has no inter feren ce from autoa ntibo dies. For addit ional infor roney n, harinder e refer to http: //[facility] catadrián n.que stdia gnost ics.c om/fa q/FAQ (This link is being provi ded for infor roney nal/ educa itzel l purpo ses only. ) TEST PERFO RMED AT: [facility] [place] [address] [place] [address] ANTHO SONJA V INEZ S Not Available [facility] [address] [place] [address], [address], 11/11/2022 13:21:56 11/11/19 23 11/11/2022 THYRO GLOBU TOPHER PANEL thyroglobuli n abs 2 IU/mL < or = 1 high Not Available [facility] [address] [place] [address], [address], 11/11/2022 13:21:56 03/20/20 23 03/20/2023 C REACT RUBA PROTE IN C reactive protein 0.34 mg/dL 0.00-0 .49 normal Not Available [facility] [address] [place], [address], 03/20/2023 10:20:58 03/20/20 23 03/20/2023 URIC ACID uric acid 5.2 mg/dL 2.4-5. 7 normal Refer ence range s are based on [facility] norms and do not neces heidi ho late with treat ment targe ts. In patie nts with an estab lishe d diagn osis of gout under going Urate Lower ing Thera py (ULT) , the 2011 [facility] ge of Rheum atolo gy Guid paola s for Manag ement of Gout recom mend a targe t uric acid level of < 6 mg/dL in all patie nts, or lower in certa in circu mstan mag. Arthr itis Care and Resea [facility] Vol 64 No 10, 2011 [facility] ge of Rheum atolo gy ----- ----- ----- ----- ----- ----- ----- ----- ----- ----- ----- ---- Not Available [facility] [address] [place] [address], [address], 03/20/2023 10:21:00 03/20/20 23 03/20/2023 RF SCREE N, QUANT . rf screen, quant. <10.0 [IU]/ mL 0.0-13 .9 normal Not Available [facility] [address] [place] [address], [address], 03/20/2023 10:21:03 03/20/20 23 03/20/2023 ESR, AUTOM ATED ESR, automated 10 mm 0-29 normal Not Available [facility] [address] [place] [address], [address], 03/20/2023 11:50:30 03/20/20 23 03/21/2023 ANTI- CCP anti-ccp <16 units normal Refer ence Range Negat ruba: <20 Weak Posit ruba: 20-39 Moder ate Posit ruba: 40-59 Stron g Posit ruba: >59 Not Available [facility] [address] [place] [address], [address], 03/21/2023 16:18:08 11/12/19 24 11/12/2023 TSH TSH 1.450 u[IU] /mL 0.270- 4.200 normal Not Available [facility] [address] [place] [address], [address], 11/12/2023 12:26:01 11/12/19 24 11/12/2023 T4,FR EE T4,free 1.85 NG/dL 0.93-1 .70 high Not Available [facility] [address] [place] [address], [address], 11/12/2023 12:26:02 11/12/19 24 11/13/2023 THYRO GLOBU TOPHER PANEL thyroglobuli n <0.1 NG/mL low Refer ence Range : Intac t Thyro id 2.8-4 0.9 Athyr otic <0.1 Note: Abnor mal gladys ing is based on the refer ence inter sunitha for patie nts with intac t thyro id. This test was perfo rmed using the m2fx an [place] [employer] er chemi lumin escen t metho d. Value s obtai justin from diffe rent assay metho ds canno t be used inter shaffer eably . Thyro globu topher level s, regar dless of value , shoul d not be inter prete d as absol nisqually evide nce of the prese nce or absen ce of disea se. For addit ional infor harinder sung e refer to http: //[facility] luz mohamud.que stdia gnost ics.c om/fa q/FAQ (This link is being provi ded for infor roney mccollum/ anthony vega purpo ses only. ) Not Available [facility] [address] [place] [address], [address], 11/13/2023 14:58:26 11/12/19 24 11/13/2023 THYRO GLOBU TOPHER PANEL thyroglobuli n abs 1 IU/mL < or = 1 normal Not Available [facility] [address] [place], [address], 11/13/2023 14:58:26 11/15/19 25 11/14/2024 TSH TSH 4.100 u[IU] /mL 0.270- 4.200 normal Not Available [facility] [address] [place], [address], 11/14/2024 11:32:18 11/15/19 25 11/14/2024 T4,FR EE T4,free 1.53 NG/dL 0.93-1 .70 normal Not Available [facility] [address] [place] [address], [address], 11/14/2024 11:32:20 11/15/19 25 11/15/2024 THYRO GLOBU TOPHER PANEL thyroglobuli n 0.1 NG/mL low Refer ence Range : Intac t Thyro id 2.8-4 0.9 Athyr otic <0.1 Note: Abnor mal gladys ing is based on the refer ence inter sunitha for patie nts with intac t thyro id. This test was perfo rmed using the Rezorat er chemi lumin escen t metho d. Value s obtai justin from diffe rent assay metho ds canno t be used inter shafefr eably . Thyro globu topher level s, regar dless of value , shoul d not be inter prete d as absol nisqually evide nce of the prese nce or absen ce of disea se. For addit ional infor harinder sung e refer to http: //[facility] luz mohamud.abraham stdia gnost ics.c om/fa q/FAQ (This link is being provi ded for infor roney mccollum/ educa itzel l purpo ses only. ) Not Available [facility] [address] [place] [address], [address], 11/15/2024 15:14:53 11/15/19 25 11/15/2024 THYRO GLOBU TOPHER PANEL thyroglobuli n abs 1 IU/mL < or = 1 normal Not Available [facility] [address] [place] [address], [address], 11/15/2024 15:14:53 11/12/19 22 11/11/2021 US, neck, soft tissu e [facility] [address] [place] [address] [place] [address] Patien t Name: VEGA Gulshan Farias t : [phone] Patien t Orderi ng Provid er: JENNIFERDARIEN Silverio FLACA EXAM DATE: 2021 EXAM: US ECHO THYROI D OR PAROTI D CLINIC AL INFORM ATION: Thyroi d cancer . Thyroi dectom y. Follow -up. TECHNI QUE: Multip le sonogr aphic images of the thyroi d gland were obtain ed. COMPAR ELISHA: 021. FINDIN GS AND IMPRES CLIFFORD: The whole thyroi d gland is surgic ally absent . No eviden ce of regrow th of thyroi d tissue , residu al thyroi d tissue or nodule s is seen. Bilate ral cervic al lymph nodes are seen. The domina nt lymph node on the right measur es 8 x 8 x 4 mm. The domina nt lymph node on the left measur es 7 x 7 x 4 mm. They have a benign appear ance. They are stable as compar ed to the previo us examin ation. Interp reted By: Amarilys Hermosillo MD Electr onical ly Signed By: Amarilys Hermosillo MD on 11/12/19 11:16 AM [facility] [address] [place] [address], [place], [address], 11/12/2021 13:41:43 11/11/19 23 11/10/2022 US, neck, soft tissu e [facility] [address] [place] [address] Jarrett tam Name: VEGA tam : [phone] Jarrett tam Orderi ng Provid er: HEMALATHA Jean Claude FLACA EXAM DATE: 2022 EXAM: US ECHO THYROI D OR PAROTI D CLINIC AL INFORM ATION: Thyroi d cancer . Thyroi dectom y. Follow -up. TECHNI QUE: Multip le sonogr aphic images of the thyroi d gland were obtain ed. COMPAR ELISHA: 11/12/19 22 FINDIN GS AND IMPRES CLIFFORD: The whole thyroi d gland is surgic ally absent . No eviden ce of regrow th of thyroi d tissue , residu al thyroi d tissue or nodule s is seen. Bilate ral stable benign cervic al lymph nodes are seen. The domina nt lymph node on the right measur es 8 x 8 x 4 mm. The domina nt lymph node on the left measur es 10 x 8 x 4 mm. Interp reted By: Amarilys Hermosillo MD Electr onical ly Signed By: Amarilys Hermosillo MD on 11/11/19 1:23 PM [facility] [address], [address], 11/10/2022 17:18:10 11/12/19 24 11/12/2023 US, neck, soft tissu e [facility] [place] [facility] [address] [place] [address] [place] [address] Patien t Name: VEGA tam : [phone] Jarrett t Orderi ng [facility] er: HEMALATHA THAYER EXAM DATE: 2023 EXAM: US ECHO THYROI D OR PAROTI D CLINIC AL INFORM ATION: Thyroi d cancer TECHNI QUE: Multip le sonogr aphic images of the thyroi d gland were obtain ed. COMPAR ELISHA: None. FINDIN GS: Previo us thyroi dectom y. No residu al tissue is seen in the thyroi d bed. Right- sided node measur ing 7 x 7 x 4 mm. Left-s ided node measur ing 9 x 11 x 3 mm. Benign appear ance IMPRES CLIFFORD: Previo us thyroi dectom y; no residu al tissue noted Interp reted By: Олег Means MD Electr onical ly Signed By: Олег Means MD on 11/12/19 24 12:12 PM [facility] [address], [address], 11/19/2023 10:58:00 11/15/19 25 11/14/2024 US, neck, soft tissu e [facility] [address] [place] [address] [place] [address] Patien t Name: VEGA tam : [phone] Jarrett tam Orderi ng Provid er: HEMALATHA THAYER EXAM [...] Means MD on 11/15/19 11:42 AM [facility] [address] [place] [address], [address], 05/19/2025 12:04:31 Result Notes None recorded. 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 Procedures Surgical History Date Name Laterality Status Provider Name and Address Organization Details Recorded Time 12/21/19 20 THYROIDECTOMY, TOTAL (SURG) completed Erendira Coppola [facility] 12/22/2019 08:18:02 11/01/19 20 Review of Med Recs/Compl forms [facility]2019 11:44:28 11/01/19 20 Fine Needle Aspiration; without image guidance completed [facility] 11/01/2019 11:50:00 10/09/19 16 procedure on knee [facility] 11/01/2019 11:13:57 06/10/20 15 total [facility] 11:13:11 06/10/20 09 Back Surgery [facility] 11/01/2019 11:12:47 12/09/19 09 partial parotidectomy completed VIJI CALVILLO MD [address] [place] [address], [phone] 11/01/2019 15:47:47 12/09/19 08 hammer toe operation [facility] 11/01/2019 11:11:40 11/26/18 92 Appendectomy [facility] 11/01/2019 11:11:54 cataract surgery completed Meena Castillo [facility] 03/20/2023 08:38:27 Imaging Results None recorded. Procedure Notes None recorded. Medical Equipment None Reported. Allergies Allergen ID Allergen Name Allergen Category Reaction Reaction Severity Criticality Documentation Date Start Date Code Code System Note Provider Name and Address Organization Details Recorded Time 888159 adhesive tape environme nt,medica tion Not available Not available Not available 07/03/20162014 Comme nt: Creat ed By: Shereen Landry ca;Cr eated Date: 2014 1:19: 51 PM; Not Available [facility] 6 13:47:46 845454 cyclobenz aprine hydrochlo ride medicatio n rash Not available Not available 11/01/2019 59112 RxNorm [facility] 0 11:09:31 407140 methimazo le medicatio n rash severe Not available 02/22/2020 6835 RxNorm Sarah Mcgovernr [facility] 0 10:56:40 Medications Name Sig Start [...] t Available levothyro xine 137 mcg tablet Take 1 tablet every day by oral route in the morning for 90 days. 2024 active Not Available Not Available Not Available carvedilo l 25 mg tablet TAKE [...] Not Available tramadol 50 mg tablet TAKE ONE TABLET BY MOUTH FOUR TIMES DAILY NEEDED active Not Available Not Available No [...] Not Available dexametha sone 4 mg tablet TAKE ONE TABLET BY MOUTH TWICE DAILY FOR 5 DAYS -- FINISH ALL MEDICINE -- --TAKE WITH FOOD-- active Not Available Not Available No t Available lidocaine 5 % topical patch APPLY [...] Not Available Not Available No t Available metaxalon e 800 mg tablet TAKE ONE TABLET BY MOUTH THREE TIMES DAILY NEEDED MAY CAUSE DROWSINE SS active Not Available [...] mg tablet,ex tended release 24 hr TAKE THREE TABLETS BY MOUTH EVERY DAY active Not Available [...] Available Not Available Vitals Date Recorded Body height Body mass index (BMI) Body weight Heart rate Systolic And Diastolic Provider Name and Address Organization Details Last Updated DateTime 11/19/2023 153.67 cm 44.8 kg/m2 624821.0 2 g 72 /min 122/78 mm[Hg] [facility] 11/19/2023 10:55:19 Date Recorded Body height Body mass index (BMI) Body weight Heart rate Systolic And Diastolic Provider Name and Address Organization Details Last Updated DateTime 11/20/2022 153.67 cm 44.9 kg/m2 481802.6 1 g 66 /min 165/85 mm[Hg] [facility] 11/20/2022 10:45:51 Date Recorded Body height Body mass index (BMI) Body weight Heart rate Systolic And Diastolic Provider Name and Address Organization Details Last Updated DateTime 11/21/2021 153.67 cm 45.6 kg/m2 453879.1 1 g 80 /min 158/96 mm[Hg] Milena Qiusalvador [facility] 11/21/2021 11:03:45 Date Recorded Body weight Body mass index (BMI) Body height Systolic And Diastolic Provider Name and Address Organization Details Last Updated DateTime 11/21/2024 398792.02 g 44.8 kg/m2 153.67 cm 124/78 mm[Hg] [facility] 11/21/2024 10:57:42 Date Recorded Body height Body mass index (BMI) Body weight Respiratory rate Heart rate Oxygen saturation Oxygen saturation in Arterial blood by Pulse oximetry Systolic And Diastolic Provider Name and Address Organization Details Last Updated DateTime 3 153.67 cm 44.5 kg/m2 632675. 64 g 16 /min 72 /min 99 % 99 % 122/80 mm[Hg] Meena Castillo [facility] 3 08:40:06 Social History Question Answer Notes LastModified by Organizat ion Details LastModified Time Tobacco Smoking Status Never Smoker Gardenia peralta [facility] 11/01/2019 11:11:21 How Much Tobacco Do You Chew? None Information not available 11/09/2019 What Was The Date Of Your Most Recent Tobacco Screening? 03/20/2023 [email or web address] Information not available 03/20/2023 How Much Tobacco [...] available 2019 11:10:47 Medical History Condition Response Diabetes N Arthritis Y Hyperthyroidism Y Anesthesia Complications Y Cancer N Hypoglycemia N Hypertension Y Gynecological HistoryNo gynecological history recorded. Obstetrics History GPAL:G 0 P 0 0 0 0 Past Encounters Encounter ID Performer Location Encounter Start Date Encounter Closed Date Diagnosis/Indication Diagnosis SNOMED-CT Code Diagnosis ICD10 Code Diagnosis IMO Codes Diagnosis Note [id number] VIJI CALVILLO MD [place] [facility] [address] [place] [address] 11/01/2019 10:21:47 11/01/2019 13:01:03 Thyroid nodule 939084424 E04.1 midline and left-sympt omatic Hyperthyroidism 01926032 E05.90 possible w e will recheck low TSH m ay have hot nodule [id number] HEMALATHA THAYER MD [facility] [address] [place] [address] 11/09/2019 09:08:44 11/09/2019 09:59:43 Thyroid nodule [id number] E04.1 New office visit evaluation thyroid nodule in the context of overt hyperthyro idism. Thyroid ultrasound report from outside facility on 10/11/2019 showed 3 x 1.5 cm hypoechoic solid nodule in the thyroid isthmus. Quick bedside ultrasound in our endocrine office showed enlarged thyroid with heterogene ous parenchyma and a 3 cm ill-define d thyroid isthmus massa described above. Fine-needl e aspiration from the above-ment ioned left thyroid nodule on 10/12/2019 is suspicious for papillary thyroid cancer. I discussed ultrasound -guided fine-needl e aspiration results with Dr. Joy from pathology who stated that FNA showed features suspicious for papillary thyroid cancer. She also has positive TPO and antithyrog lobulin antibodies . Hyperthyroidism [id number] E05.90 In the office today she reported classic thyrotoxic symptoms. Thyroid function tests on 11/01/2019 showed undetectab ly low TSH in the context of elevated total T4 and total T3 consistent with overt hyperthyro idism. Differenti al diagnosis is between toxic nodule/janette noma, Graves' hyperthyro idism. Less likely thyroiditi s Scheduled to see Dr. Calvillo on 11/10/2019. She is a candidate for surgery, however given her overt hyperthyro idism I recommend to attain euthyroid status before thyroidect leonard. Recommenda tions: 1. Recheck TSH, free T4 and free T3 today 2. Thyroid-st imulating immunoglob ulin 3. Thyroid uptake and scan schedule today 4. Start methimazol e therapy after obtaining baseline complete blood count and liver function test today and reviewing her thyroid uptake and scan. 5. Thyroidect leonard, to be scheduled after attaining euthyroid status. Patient verbalized understand ing and agreed with the above mentioned plan of care. I would like to thank Dr. Calvillo for the opportunit y to participat e in the care of this patient. [id number] VIJI CALVILLO MD [facility] [address] [place] [address] 11/10/2019 13:17:20 11/10/2019 14:40:11 Malignant neoplasm of thyroid gland [id number] C73 -right Hyperthyroidism [id number] E05.90 currently, on beta alva and endocrine as also placed her on methimazol e for the next month. 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 Positive TSI consistent with Graves' hyperthyro idism Started on methimazol e 10 mg 3 times a day Methimazol e induced skin rashes/hiv es Juanitounat toni, I explained to patient that given her severe skin reaction, we cannot restart methimazol e therapy and it's likely that she would have a cross-reac tivity with PTU [50%] Thyroid lab work today showed improved thyroid hormone levels but is still undetectab ly low TSH and elevated free thyroid hormone levels [ free T4 of 2.52 and free T3 of 12.57] Normal CBC and essentiall y normal complete blood counts Thyroid nodule [id number] E04.1 Thyroid ultrasound report from outside facility on 10/11/2019 showed 3 x 1.5 cm hypoechoic solid nodule in the thyroid isthmus. Quick bedside ultrasound in our endocrine office showed enlarged thyroid with heterogene ous parenchyma and a 3 cm ill-define d thyroid isthmus massa described above. Fine-needl e aspiration from the above-ment ioned left thyroid nodule on 10/12/2019 is suspicious for papillary thyroid cancer [ Douglass category 5 as per my conversati on with pathology] Qualifies criteria for surgery upon achieving near or euthyroid status. In view of the above, I recommende d to start stable iodine in the form of Lugol's solution 5 drops 3 times a day for 14 days to decrease thyroid hormone release and dexamethas one 4 mg once daily to help with her skin reaction and decrease peripheral conversati on of T4-T3. Explained to her that I do not recommend surgery unless her thyroid levels are normal or near-gilma l. Recheck T3 and T4 on 12/08/2019 before her appointmen t with ENT surgery. Pruritic rash [id number] L 28.2 On physical exam she has pruritic lesions over abdominal wall, buttocks, joint surfaces consistent with hives due to methimazol e therapy. Methimazol e therapy discontinu ed See above Patient verbalized understand ing and agreed with the above mentioned plan of care. [id number] MD [facility] [address] [place] [address] 12/08/2019 12:08:27 12/09/2019 08:55:01 Papillary thyroid carcinoma [id number] C73 likely Malignant neoplasm of thyroid gland [id number] C73 -right Hyperthyroidism [id number] E05.90 currently, on beta alva and Lugols/Dec adron [id number] HEMALATHA THAYER MD [facility] [address] [place] [address] 12/13/2019 11:33:47 12/13/2019 12:08:45 Hyperthyroidism [id number] E05.90 Follow-up visit Graves' hyperthyro idism Thyroid function tests on 11/01/2019 showed undetectab ly low TSH in the context of elevated total T4 and total T3 consistent with overt hyperthyro idism. Positive TSI consistent with Graves' hyperthyro idism Started on methimazol e 10 mg 3 times a day Methimazol e induced skin rashes/hiv es In view of the above she was a started on SSKI 3 drops every 6 hours along with dexamethas one 4 mg daily Significan t improvemen t in her thyrotoxic symptoms Thyroid function test on 12/02/2019 showed undetectab ly low TSH and elevated free thyroid hormone levels [ free T4 of 2.52 and free T3 of 12.57] Thyroid function test today showed normalizat ion of free T4 at 1.64 and low free T3 of 1.92 and undetectab ly low TSH [takes longer time to normalize] Provided patient with a copy of her most recent laboratory workup. In view of the above I recommende d to decrease SSKI to 3 drops 3 times daily until her day of surgery and dexamethas one 2 mg daily [ until she finishes up her current supplies] From an endocrine standpoint there is no contraindi cation to proceed with her upcoming thyroid surgery after obtaining necessary medical and cardiac clearance. Thyroid nodule [id number] E04.1 Thyroid ultrasound report from outside facility on 10/11/2019 showed 3 x 1.5 cm hypoechoic solid nodule in the thyroid isthmus. Quick bedside ultrasound in our endocrine office showed enlarged thyroid with heterogene ous parenchyma and a 3 cm ill-define d thyroid isthmus massa described above. Fine-needl e aspiration from the above-ment ioned left thyroid nodule on 10/12/2019 is suspicious for papillary thyroid cancer [ Douglass category 5 as per my conversati on with pathology] Qualifies criteria for surgery upon achieving near or euthyroid status. Follow-up after surgery to discuss test results and management plan. Patient verbalized understand ing and agreed with the above mentioned plan of care. [id number] ANIRUDH CEE MD [facility] [address] [place] [address] 12/23/2019 07:52:12 12/23/2019 08:32:03 Papillary thyroid carcinoma [id number] C73 likely Malignant neoplasm of thyroid gland [id number] C73 -right [id number] VIJI CALVILLO MD [facility] [address] [place] [address] 12/29/2019 10:04:44 12/29/2019 10:52:30 Papillary thyroid carcinoma [id number] C73 - s/p total thyroidect leonard 12/21/2019 - Pathology 12/21/2019: Minimally invasive papillary thyroid carcinoma. First tumor size 3.8cm greatest dimension. Tumor arises in the isthmus. Separate 2mm papillary thyroid carcinoma arising in the right lobe. Malignant neoplasm of thyroid gland [id number] C73 -right Hoarse 06882936 R49.0 right vocal cord paresis s sheldon of persistent bleeding Hyperthyroidism 12847126 E05.90 status post thyroidect leonard [id number] HEMALATHA THAYER MD [facility] [address] [place] [address] 12/29/2019 11:16:20 12/29/2019 12:37:16 Papillary thyroid carcinoma [id number] C73 Multifocal papillary thyroid cancer status post total thyroidect leonard on 12/20/2019 3.8 thyroid isthmus papillary thyroid cancer, classic variant 2 mm focus of papillary microcarci noma in the right thyroid lobe 0/1 lymph node negative for cancer No evidence of lymphatic or vascular invasion Pathology: pT2,pN0,pM x Stage 1 KASIA:Low risk MACIS: 6.42 We had a discussion in the office today about thyroid cancer treatment post thyroidect leonard and evaluation for radioactiv e iodine ablation. Recommenda tions: 6 week thyroglobu topher panel 6 week follow-up neck ultrasound Further management to be determined as appropriat e [radioacti ve iodine ablation versus continued monitoring without radioactiv e iodine ablation] Postoperat ruba hypothyroidism 16536144 E89.0 Further increase her levothyrox ine dose from her current dose of 100 g to 150 g every a.m. Recheck TSH and free T4 before next visit after 6 weeks. Patient verbalized understand ing and agreed with the above mentioned plan of care. [id number] VIJI CALVILLO MD [facility] [address] [place] [address] 02/02/2020 10:53:44 02/02/2020 11:48:02 Malignant neoplasm of thyroid gland [id number] C73 -right Papillary thyroid carcinoma [id number] C73 - s/p total thyroidect leonard 12/21/2019 - Pathology 12/21/2019: Minimally invasive papillary thyroid carcinoma. First tumor size 3.8cm greatest dimension. Tumor arises in the isthmus. Separate 2mm papillary thyroid carcinoma arising in the right lobe. Hyperthyroidism 87752934 E05.90 status post thyroidect leonard Dysphagia 34550068 R13.1 0 -liquids Hoarse 15935042 R49.0 right vocal cord paresis improving Hypocalcemia 2373408 E83 .51 now improving [id number] HEMALATHA THAYER MD [facility] [address] [place] [address] 02/22/2020 09:20:03 02/22/2020 13:08:18 Postoperative hypothyroidism 84149814 E89.0 Most recent TSH of 0.023 Continue current levothyrox ine dose of 150 g every a.m. Further adjustment as appropriat e Patient verbalized understand ing and agreed with the above mentioned plan of care. Papillary thyroid carcinoma [id number] C73 Multifocal papillary thyroid cancer status post total thyroidect leonard on 12/20/2019 3.8 thyroid isthmus papillary thyroid cancer, classic variant 2 mm focus of papillary microcarci noma in the right thyroid lobe 0/1 lymph node negative for cancer No evidence of lymphatic or vascular invasion Pathology: pT2,pN0,pM x Stage 1 KASIA:Low risk MACIS: 6.42 Baseline thyroglobu topher of 6.5 in the context of markedly positive thyroglobu topher antibodies with a titer of 10 on 12/29/2019 Follow-up ultrasound of the neck today images reviewed pending final report showing no evidence of residual cancer, thyroid nodularity and benign-aman earing lymphadeno everardo. Recommenda tions: Thyroglobu topher panel done today with results are still pending Further management to be determined as appropriat e [radioacti ve iodine ablation versus continued monitoring without radioactiv e iodine ablation] [id number] HEMALATHA THAYER MD [facility] [address] [place] [address] 05/23/2020 09:52:08 05/23/2020 11:12:10 Papillary thyroid carcinoma [id number] C73 Multifocal papillary thyroid cancer status post total thyroidect leonard on 12/20/2019 3.8 thyroid isthmus papillary thyroid cancer, classic variant 2 mm focus of papillary microcarci noma in the right thyroid lobe 0/1 lymph node negative for cancer No evidence of lymphatic or vascular invasion Pathology: pT2,pN0,pM x Stage 1 KASIA:Low risk MACIS: 6.42 Baseline thyroglobu topher of 6.5 in the context of markedly positive thyroglobu topher antibodies with a titer of 10 on 12/29/2019 Ultrasound of the neck in February 2020 showed no evidence of residual thyroid tissue and bilateral benign-aman earing lymph nodes. Follow-up neck ultrasound today images reviewed pending final report showed no evidence of residual thyroid tissue and stable bilateral appearing lymphadeno everardo. Recommenda tions: Thyroglobu topher panel done today with results are still pending Further management to be determined as appropriat e [radioacti ve iodine ablation versus continued monitoring without radioactiv e iodine ablation] Postoperat ruba hypothyroidism [id number] E89.0 Most recent TSH of 0.07 on on 02/22/2020 TSH done today with results are still pending Clinically reported hair loss and vertigo. Continue current levothyrox ine dose of 150 g every a.m. Further adjustment as appropriat e Patient verbalized understand ing and agreed with the above mentioned plan of care. [id number] VIJI CALVILLO MD [facility] [address] [address] [place] [address] 08/16/2020 10:30:33 08/16/2020 11:33:13 Malignant neoplasm of thyroid gland [id number] C73 -right Papillary thyroid carcinoma [id number] C73 - s/p total thyroidect leonard 12/21/2019 - Pathology 12/21/2019: Minimally invasive papillary thyroid carcinoma. First tumor size 3.8cm greatest dimension. Tumor arises in the isthmus. Separate 2mm papillary thyroid carcinoma arising in the right lobe. Hyperthyroidism 19185964 E05.90 status post thyroidect leonard Hoarse 26573495 R49.0 right vocal cord paresis improving Hypocalcemia 7793140 E83 .51 now improving Dizziness [id number] R42 [id number] HEMALATHA THAYER MD [facility] [address] [place] [address] 11/21/2020 09:29:47 11/21/2020 14:04:18 Postoperative hypothyroidism 93104688 E89.0 Most recent TSH of 1.12 and elevated free T4 of 1. 85 today on 11/21/2020 On the basis of the above I had a long discussion with patient and explained to her that weight gain is not related to her thyroid hormone levels which aren't currently on the high side. Continue current levothyrox ine dose of 150 g every a.m. Prescripti on renewed 90 days 3 refills. Papillary thyroid carcinoma [id number] C73 Multifocal papillary thyroid cancer status post total thyroidect leonard on 12/20/2019 3.8 thyroid isthmus papillary thyroid cancer, classic variant 2 mm focus of papillary microcarci noma in the right thyroid lobe 0/1 lymph node negative for cancer No evidence of lymphatic or vascular invasion Pathology: pT2,pN0,pM x Stage 1 KASIA:Low risk MACIS: 6.42 Baseline thyroglobu topher of 6.5 in the context of markedly positive thyroglobu topher antibodies with a titer of 10 on 12/29/2019 Thyroglobu topher of 0.1 and thyroid antibodies titer 5 on 05/23/2020 Ultrasound of the neck in February 2020 showed no evidence of residual thyroid tissue and bilateral benign-aman earing lymph nodes. Thyroglobu topher panel pending Neck ultrasound done today [ preliminar mirta upon reviewing imaging there is no evidence of residual thyroid tissue, recurrence and there are benign and beginning lymph nodes bilaterall y]. Patient currently lives about 1 [place] from [place] and I explained to her that it is not possible to have her lab work and ultrasound results and her follow-up visit on the same date and if she would like to have her test results available, she can either, 1 week before her visit or we have to wait until I reviewed the results by radiology and get thyroid room antibody test results available. Patient verbalized understand ing and agreed with the above mentioned plan of care. [id number] HEMALATHA THAYER MD [facility] [address] [place] [address] 11/21/2021 10:58:01 11/21/2021 13:56:58 Papillary thyroid carcinoma [id number] C73 Multifocal papillary thyroid cancer status post total thyroidect leonard on 12/20/2019 3.8 thyroid isthmus papillary thyroid cancer, classic variant 2 mm focus of papillary microcarci noma in the right thyroid lobe 0/1 lymph node negative for cancer No evidence of lymphatic or vascular invasion Pathology: pT2,pN0,pM x Stage 1 KASIA:Low risk MACIS: 6.42 Baseline thyroglobu topher of 6.5 in the context of markedly positive thyroglobu topher antibodies with a titer of 10 on 12/29/2019 Thyroglobu topher of 0.1 and thyroid antibodies titer 5 on 05/23/2020 Ultrasound of the neck in February 2020 showed no evidence of residual thyroid tissue and bilateral benign-aman earing lymph nodes. Thyroglobu topher panel showed thyroglobu topher of 0.1 and mildly positive thyroid antibodies of 3 Neck ultrasound done at radiology department on 11/11/2021 showing no evidence of residual thyroid tissue or recurrence and bilateral subcentime ter benign-aman earing lymph nodes. Postoperat ruba hypothyroidism [id number] E89.0 Most recent TSH of 0.56 and elevated free T4 of 1.97 On the basis of the above I had a rediscussi on with patient and explained to her that weight gain is not related to her thyroid hormone levels which aren't currently on the high side. Continue current levothyrox ine dose of 150 g every a.m. Prescripti on renewed 90 days 3 refills. Patient verbalized understand ing and agreed with the above mentioned plan of care. [id number] HEMALATHA THAYER MD [facility] [address] [place] [address] 11/20/2022 10:26:02 11/20/2022 13:05:29 Postoperative hypothyroidism 71058299 E89.0 Most recent TSH of 1.06No symptoms of exogenous hyperthyro idism Continue current levothyrox ine dose of 150 g every a.m. Prescripti on renewed 90 days 3 refills.Octavio kelsey verbalized understand ing and agreed with the above mentioned plan of care. Papillary thyroid carcinoma [id number] C73 Multifocal papillary thyroid cancer status post total thyroidect leonard on 12/20/2019 3.8 thyroid isthmus papillary thyroid cancer, classic variant 2 mm focus of papillary microcarci noma in the right thyroid lobe 0/1 lymph node negative for cancer No evidence of lymphatic or vascular invasion Pathology: pT2,pN0,pM x Stage 1 KASIA:Low risk MACIS: 6.42 Baseline thyroglobu topher of 6.5 in the context of markedly positive thyroglobu topher antibodies with a titer of 10 on 12/29/2019 Thyroglobu topher of 0.1 and thyroid antibodies titer 5 on 05/23/2020 Ultrasound of the neck in February 2020 showed no evidence of residual thyroid tissue and bilateral benign-aman earing lymph nodes. Thyroglobu topher panel showed thyroglobu topher of 0.1 and mildly positive thyroid antibodies of 3Most recent thyroglobu topher panel of less than 0.1 and thyroglobu topher to body trending down to 2 on 11/10/2022 Neck ultrasound done at radiology department on 11/11/2021 showing no evidence of residual thyroid tissue or recurrence and bilateral subcentime ter benign-aman earing lymph nodes.Thyr oid ultrasound on 11/10/2022 showed no residual thyroid tissue, recurrence and stable benign-aman earing bilateral lymph nodes. Continue to monitor clinically , by repeat thyroglobu topher panel as well as neck ultrasound before next visit after 1 year. Provided with a hard copy of her recent neck ultrasound as well as thyroid function test/thyro globulin panel [id number] AFIA YOUNG MD [facility] [address] [place] [address] 03/20/2023 08:26:48 03/21/2023 04:24:25 Pain of multiple joints [id number] M25.50 67-year-ol d female with a long history of joint pains. Dates back to several decades. Progressiv e worsening. S/p bilateral knee replacemen ts.Has had back surgery.Cu rrently symptomati c in the hands especially at the base of her thumbs.Cli nical examinatio n favors generalize d osteoarthr itis with severe involvemen t of bilateral hands, clinically suggestive of ana inflammato ry osteoarthr itis and less likely rheumatoid .I personally reviewed some of the films that she brought with her with evidence of severe degenerati ve changes at the carpometac arpal joints beside interphala ngeal joints. Most of these changes are suggestive of osteoarthr itis. 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 She is anticipati ng revision surgery right knee in May 2023. I have discussed my impression and findings with the patient. She has tried various anti-infla mmatory medication s in the past some of which were associated with kidney failure. I suggested her to obtain baseline arthritis profile including rheumatoid studies, inflammato ry markers beside serum uric acid level. For now I would suggest her to maintain the Tylenol Extra Strength 2 tablets twice a day. I will contact her after review of labs for further discussion s. In terms of surgical interventi ons, she has severe deformity of the radiocarpa l as well as first carpometac arpal joints involving the left hand and wrist. I think [facility] arthroplas ty would be the right option. Of course the final decision will be as per . [id number] HEMALATHA THAYER MD [facility] [address] [place] [address] 11/19/2023 10:33:36 11/19/2023 13:21:25 Postoperative hypothyroidism 04862743 E89.0 Most recent TSH of 1.45No symptoms of hypothyroi dNo symptoms of exogenous hyperthyro idism Continue current levothyrox ine dose of 150 g every a.m. Patient was instructed on the appropriat e method of levothyrox in administra tion to be taken every a.m. on an empty stomach as new food, drinks or other medication s for at least 30 minutes. PPI and calcium -containin g preparatio ns is preferred to be given at least of her hours before or after levothyrox in therapy.1 year follow-up with labs and follow-up neck ultrasound before visitPresc ription renewed 90 days 3 refills.Octavio kelsey verbalized understand ing and agreed with the above mentioned plan of care. Papillary thyroid carcinoma [id number] C73 Multifocal papillary thyroid cancer status post total thyroidect leonard on 12/20/2019 3.8 thyroid isthmus papillary thyroid cancer, classic variant 2 mm focus of papillary microcarci noma in the right thyroid lobe 0/1 lymph node negative for cancer No evidence of lymphatic or vascular invasion Pathology: pT2,pN0,pM x Stage 1 KASIA:Low risk MACIS: 6.42 Baseline thyroglobu topher of 6.5 in the context of markedly positive thyroglobu topher antibodies with a titer of 10 on 12/29/2019 Thyroglobu topher of 0.1 and thyroid antibodies titer 5 on 05/23/2020 Ultrasound of the neck in February 2020 showed no evidence of residual thyroid tissue and bilateral benign-aman earing lymph nodes. Thyroglobu topher panel showed thyroglobu topher of 0.1 and mildly positive thyroid antibodies of 3Most recent thyroglobu topher panel of less than 0.1 and thyroglobu topher to body trending down to 2 on [...] earing lymphadeno everardo Undetectab ly low thyroglobu topher and negative thyroglobu topher antibodies on 11/11/2022. Thyroglobu topher 230s Continue to monitor clinically , by repeat thyroglobu topher panel as well as neck ultrasound before next visit after 1 year. Provided with a hard copy of her recent neck ultrasound as well as thyroid function test/thyro globulin panel [id number] HEMALATHA THAYER MD [facility] [address] [place] [address] 11/21/2024 10:33:16 11/21/2024 13:05:45 Postoperative hypothyroidism 55027709 E89.0 Most recent TSH of 4.1 on 11/14/2024 up from 1.45Sympto ms of hypothyroi dism after decreasing her levothyrox ine dose No symptoms of exogenous hyperthyro idism Further increase levothyrox ine dose of 137 g every a.m. Patient was instructed on the [...] up after 4-6 weeks Papillary thyroid carcinoma [id number] C73 Multifocal papillary thyroid cancer status post total thyroidect leonard on 12/20/2019 3.8 thyroid isthmus papillary thyroid cancer, classic variant 2 mm focus of papillary microcarci noma in the right thyroid lobe 0/1 lymph node negative for cancer No evidence of lymphatic or vascular invasion Pathology: pT2,pN0,pM x Stage 1 KASIA:Low risk MACIS: 6.42 Baseline thyroglobu topher of 6.5 in the context of markedly positive thyroglobu topher antibodies with a titer of 10 on 12/29/2019 Thyroglobu topher of 0.1 and thyroid antibodies titer 5 on 05/23/2020 Ultrasound of the neck in February 2020 showed no evidence of residual thyroid tissue and bilateral benign-aman earing lymph nodes. Thyroglobu topher panel showed thyroglobu topher of 0.1 and mildly positive thyroid antibodies of 3Most recent thyroglobu topher panel of less than 0.1 and thyroglobu topher to body trending down to 2 on [...] earing lymphadeno everardo Undetectab ly low thyroglobu topher and negative thyroglobu topher antibodies on 11/11/2022. Thyroglobu topher 230sThyrog lobulin slightly up to 0.1 on 11/14/2024 likely due to increased TSH.Recomm endations: Repeat thyroglobu topher after 6 weeks with TSH and freeContin ue to monitor clinically , by repeat thyroglobu topher panel as well as neck ultrasound before [...] by Organization Details LastModified Time None Recorded Advance Directives Directive None Recorded Payers Insurance Date Sequence Insurance Name Policy Number Policy Tirado Covered Member ID Tirado Member ID Guarantor Name 12/30/2024 2 [employer] LIFE ( - MEDICARE SUPPLEMENT) Vega Hilton [id number] Vega Hilton 12/30/2024 1 [employer] (MEDICARE REPLACEMENT /ADVANTAGE - PPO) Vega Hilton [id number] Vega Hilton Notes Date Note Type Note Provider Name and Address Organization Details Recorded Time 11/21/2021 text/html 64-year-old female patient with a past medical history as detailed in the pulmonary significant for hypertension, hyperlipidemia on therapy seen in the office today for 6 months follow-up visit papillary thyroid cancer/postsurgical hypothyroidism. Summary of history For detailed history please refer to my initial consultation note and progress notes on her. Family history: Daughter with hypothyroidism Was found and physical exam to have a thyroid nodule. Thyroid ultrasound done at an outside facility [[facility]] on 11/07/2019 showed 3 cm [...] invasion 0/1 lymph node negative for metastatic cancer Interval history: Currently takes LT4 150 g every a.m. Complaining of weight gain and cold intolerance In the office today she denies any palpitations, shaking, excessive sweating, weight loss. Denies any fatigue, dry skin. Had follow-up labs and ultrasound HEMALATHA THAYER MD [address] [place] [address], [phone], [facility] 11/21/2021 12:11:53 11/20/2022 text/html 66-year-old female patient with a past medical history as detailed in the pulmonary significant for hypertension, hyperlipidemia on therapy seen in the office today for 12 months follow-up visit papillary thyroid cancer/postsurgical hypothyroidism. Summary of history For detailed history please refer to my initial consultation note and progress notes on her. Family history: Daughter with hypothyroidism Was found and physical exam to have a thyroid nodule. Thyroid ultrasound done at an outside facility [[facility]] on 11/07/2019 showed 3 cm [...] invasion 0/1 lymph node negative for metastatic cancer Interval history: Currently takes LT4 150 g every a.m.She denies any fatigue, weight gain, dry skin or hair lossIn the office today she denies any palpitations, shaking, excessive sweating, weight loss. HEMALATHA THAYER MD [address] [place] [address], [phone], [facility] 11/20/2022 12:56:57 03/20/2023 text/html ROS as noted in the HPI Vega is a 67 year old female here today in our rheumatology department as a new patient. She is accompanied by her sister. 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 Bilateral knee replacements [id number] She is planning another replacement of her R knee, scheduled for June [address] ureña during recent evaluation suggested left carpal tunnel release surgery. For that she has severe degenerative process in the hands. She has had a lumbar discectomy, which eventually failed 2006-2007She has lost approximately 3 inches in height. Hammer toes, both surgery. She has been on celebrex, plaquenil, motrin, tramadol, some of the medications were associated with loss of kidney functions. Currently not on any disease modifying medication.she is only taking tylenol arthritis. AFIA YOUNG MD [address] [place] [address], [phone], [facility] 03/20/2023 13:04:39 11/19/2023 text/html 67-year-old female patient with a past medical history [...] Thyroid ultrasound done at an outside facility [[facility]] on 11/07/2019 showed 3 cm [...] invasion 0/1 lymph node negative for metastatic cancer Interval history: Currently takes LT4 150 g every a.m. appropriately as instructedNo neck compressive symptoms such as difficulty swallowing, difficulty breathing or choking lying flat.She denies any fatigue, weight gain, dry skin or hair loss or leg crampShe also denies any denies any palpitations, shaking, excessive sweating, weight loss. HEMALATHA THAYER MD [address] [place] [address], [phone], [facility] 11/19/2023 13:06:48 11/21/2024 text/html 68-year-old female patient with a [...] Thyroid ultrasound done at an outside facility [[facility]] on 11/07/2019 showed 3 cm [...] workup showing abnormal TSH and her PCP Brenenn Ellis further decreased her levothyroxine to 125 [...] neck ultrasound last week. HEMALATHA THAYER MD [address] [place] [address], [phone], [place] [facility] 11/21/2024 12:27:11 OBGyn Episode No OBEpisode recorded.
== END 2025-05-26 23:59 | disposition home or self-care (01) ==
LOC: RAD 12:43
PROVIDERS: PCP Family Medicine; Visit Provider Family Medicine
DX: R92.2 Inconclusive mammogram (principal); R92.321 Mammographic fibroglandular density, right breast
CPT/HCPCS: 76641; 77061; 77065; G0279

== ENCOUNTER 2025-07-01 09:39 | Emergency (ER) | payer MEDICARE, OTHER, SELFPAY ==
--- OUTSIDE RECORDS SUMMARY | 2024-05-18 04:00 | XMS_ITS ---
Author Organization [facility] Address [address] [place] [id number] Care Team Providers Care Operating Room Specialist Name Role Phone Wilfredo Brewster Primary Care Provider Brennen Wallis Unavailable [phone] Allergies Allergen (clinical drug ingredient) Drug/Non Drug Allergy documented on EMR Reaction Allergy Type Onset Date Status cyclobenzaprine Cyclobenzaprine HCl Unknown Drug Allergy Active Adhesive Unknown Allergy Active Tetanus Toxoids Unknown Drug Allergy A ctive Results Component Value Reference Range Notes CBC Fingerstick (in house) Reviewed date:05/18/2024 10:03:41 AM Interpretation: Performing Lab: Notes/Report: wbc 10.5 3.5 - 10 lym 8.3 15 - 50 mid 2.6 2 - 15 gran 89.1 35 - 80 rbc 4.40 3.5 - 5.5 hgb 12.7 11.5 - 16.5 hct 39.8 35 - 55 mcv 90.4 75 - 100 mch 28.8 25 - 35 mchc 31.9 31 - 38 plat 230 100 - 400 REASON FOR VISIT abdominal pain Medications Medication SIG (Take, Route, Frequency, Duration) Notes Start Date End Date Status Carvedilol 25 mg 1 tablet with food Orally Twice a day; Duration: 90 days Active amLODIPine Besylate 5 mg 1 tablet Orally Once a day; Duration: 90 days Active Rosuvastatin Calcium 40 MG 1 tab(s) oral ly once a day; Duration: 90 days Active Gralise 600 MG 2 tab(s) orally once a day; Duration: 30 day(s) 02/29/2024 Active Triamterene-HCTZ 37.5-25 MG 1/2 TABLET O rally Once a day; Duration: 90 days Active Losartan Potassium 100 MG 1 tab(s) orall y once a day; Duration: 90 days Active Fenofibrate 145 MG 1 tab(s) orally once a day; Duration: 90 days Active Levothyroxine Sodium 150 MCG 1 tab(s) or ally once a day Active Lidoderm 5 % 3 patch remove after 12 hours Externally Once a day 12/22/2023 Active Eliquis 2.5 MG 1 tablet Orally 2 ti mes a day; Duration: 90 days Active Pantoprazole Sodium 40 MG 1 tablet Orall y Once a day; Duration: 30 day(s) Active metroNIDAZOLE 500 MG 1 tablet Orally Thr ee times a day; Duration: 5 day(s) 05/18/2024 Active Vital Signs Blood pressure systolic 124 mm Hg 05/18/20 24 Blood pressure diastolic 72 mm Hg 024 Heart Rate 74 /min 05/18/2024 Height 61 in 05/18/2024 Weight 230.8 lbs 05/18/2024 BMI 43.60 kg/m2 05/18/2024 Encounters Encounter Location Date Provider Diagnosis [facility] [address] [facility] [address] [place] [id number] 05/18/2024 Brennen Wallis Generalized abdomina l pain R10.84 and Acute diarrhea R19.7 Assessments Encounter Date Diagnosis (ICD Code) Assessment Notes Treatment Notes Treatment Clinical Notes Section Notes 05/18/2024 Generalized abdominal pain (ICD-10 - R10.84) 05/18/2024 Acute diarrhea (ICD-10 - R19.7) Plan Of Treatment Medication Medication Name Sig Start Date Stop Date Notes metroNIDAZOLE 500 MG 1 tablet Orally Thr ee times a day; Duration: 5 day(s) 05/18/2024 Next Appt Details Follow Up: via phone to repo rt progress, Reason: Provider Name:Brennen Solares ry, 12/14/2025 09:45:00 AM, [address], [address], [place], [id number], Progress Notes * CHANDANA VASQUEZOB: 4 (69 yo F)Acc No.[id number]:05/18/2024 Progress Notes Patient: VEGA CHISHOLM Provider: King Wallis M.D. :1955 A ge:68 Y S ex:Female Date:05/18/2024 Address:[address] [place] [address] , [place], [phone] Pcp:Wilfredo Brewster Subjective: * Chief Complaints: * 1 . Abdominal pain. * HPI: G astroenterology: 68 year old female presents with c/o Abdominal Pain P t complains of abdominal pain around her belly button that started yesterday afternoon. Associated with diarrhea. Denies : Nausea. D enies : Vomiting. D enies : Blood in Stool. * ROS: C ARDIOLOGY: no D izziness. n o C hest pain. D ERMATOLOGY: no R alejandro. n o H tara. U ROLOGY: no D ifficulty urinating. n o B lood in urine. * Medical History: H ypertension, Fibromyalgia, Dyslipidemia, Arthritis, Spinal Stenosis, Spondylolisthesis, Disc Disease, L2-3, L3-4, Disc Disease C5-6, C6-7, C7-T1. Disc Protrusion C5-6, Mild at C3-4, C4-5 , Diverticulosis, Depression, Seasonal Allergies, CVA, ischemic, 2021, Cardiac loop recorder implanted 2021, peptic ulcer disease, s/p upper GI bleed, [address] [facility] in [place]. * Surgical History: A ppendectomy 1991, LT Foot Fusion 12/2007, Neck Tumor Removal 01/10/2009, Bilateral Cataract Removal 10/11/2013, 10/25/2013, Rhizotomy and Epidural Steroid, Dr. Newman 03/22/2014, LT TKA- [place] 06/11/2015, RT TKA- [place] 10/13/2015, Thyroidectomy, Papillary Carcinoma, Dr. Bhakta 12/21/2019, colonoscopy (needs repeat in 5 years) 05/2019, Right total knee revision 2022, EGD due to GI bleed Jun 2023. * Hospitalization/Major Diagno stic Procedure: D enies Past Hospitalization. * Family History: F ather: , heart condition, cerebellar atrophy of the brain, colon CA. M other: , arthritis, traumatically. P aternal Grand Father: heart problems. P aternal Grand Mother: breast CA. M aternal Grand Father: [place]. M aternal Grand Mother: [place]. 1 brother(s) , 1 sister(s) - healthy. 2 son(s) , 1 daughter(s) - healthy. . * Social History: C URRENT TOBACCO USE S moking Status: Patient does NOT smoke. C affeine: yes, frequency:tea. Exercise: yes, walk 4 days/week 1-4 miles. Home smoke detector use: yes. Marital Status: Single. New since last visit: none. 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 Past smoking status: no. Occup. exposure: none. Recreational drug use: no. Alcohol: no. Sexually active: yes. Travel ouside [place]: no. * Medications: T aking Pantoprazole Sodium 40 MG Tablet Delayed Release 1 tablet Orally Once a day , Taking Levothyroxine Sodium 150 MCG Tablet 1 tab(s) orally once a day , Taking Fenofibrate 145 MG Tablet 1 tab(s) orally once a day , Taking Eliquis 2.5 MG Tablet 1 tablet Orally 2 times a day , Taking Lidoderm 5 % Patch 3 patch remove after 12 hours Externally Once a day , Taking Losartan Potassium 100 MG Tablet 1 tab(s) orally once a day , Taking amLODIPine Besylate 5 mg Tablet 1 tablet Orally Once a day , Taking Carvedilol 25 mg Tablet 1 tablet with food Orally Twice a day , Taking Gralise 600 MG Tablet 2 tab(s) orally once a day , Taking Rosuvastatin Calcium 40 MG Tablet 1 tab(s) orally once a day , Taking Triamterene-HCTZ 37.5-25 MG Tablet 1/2 TABLET Orally Once a day , Medication List reviewed and reconciled with the patient * Allergies: C yclobenzaprine HCl, Tetanus Toxoids, Adhesive. Objective: * Vitals: W t:230.8, Temp:97.9, BP:124/72, HR:74, Nurse:leticia, Ht: 61, BMI:43.60. * Examination: G astroenterology: General Appearance: p leasant, NAD. O ral cavity: n ormal. S clera: a nicteric. H eart sounds: r egular, normal S1 S2. L ungs: c lear, no rales or wheezes. A bdomen: B S present, soft, minimal left sided tenderness to palpation, no guarding or rigidity, no masses felt. Assessment: * Assessment: 1. G eneralized abdominal pain - R10.84 (Primary) 2 . A cute diarrhea - R19.7 Plan: * Treatment: Value Reference Range w bc 10.5 3.5 - 10 * l ym 8.3 15 - 50 * m id 2.6 2 - 15 * g ran 89.1 35 - 80 * r bc 4.40 3.5 - 5.5 * h gb 12.7 11.5 - 16.5 * h ct 39.8 35 - 55 * m cv 90.4 75 - 100 * m ch 28.8 25 - 35 * m chc 31.9 31 - 38 * p lat 230 100 - 400 * Destiny Chou 05/18/2024 9:07:35 AM > , Provider reviewed results while patient in office. 2.?Acute diarrhea? Start metroNIDAZOLE Tablet, 500 MG, 1 tablet, Orally, Three times a day, 5 day(s), 15 Tablet, Refills 0.?? * Procedure Codes: G 2211 Complex e/[place], [address] CAPILLARY BLOOD DRAW, 68089 CBC WITH AUTO DIFF * Follow Up: v ia phone to report progress * Images: Billing Information: * Visit Code: 61328 Office Visit, Est Pt., Level 3. * Procedure Codes: G2211 Complex e/[place]. [address] CAPILLARY BLOOD DRAW. 31714 CBC WITH AUTO DIFF. * Electronic signature of Aidee Wallis MD on 07/01/2025 at 09:56 AM EST Sign off status: Pending * Provider: King Wallis M.D. Date: Generated for Gareth mccloud/Keyanna/eThowardsmitting on: 08/31/2024 09:56 AM EST History and Physical Notes * HPI (History of Present Illness) Category Sub-Category Detail Notes Category Not es Gastroenterology Vomiting Abdominal Pain Pt complains of abdo annemarie pain around her belly button that started yesterday afternoon. Associated with diarrhea Blood in Stool Nausea Examination Category Sub-Category Detail Notes Category Not es Gastroenterology Oral cavity: normal Sclera: anicteric Heart sounds: regular, normal S1 S 2 Lungs: clear, no rales or w heezes Abdomen: BS present, soft, mi nimal left sided tenderness to palpation, no guarding or rigidity, no masses felt General Appearance: pleasant, NAD
--- OUTSIDE RECORDS SUMMARY | 2024-06-23 04:30 | XMS_ITS ---
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 Name Role Phone Wilfredo Brewster Primary Care Provider [phone] Brennen Wallis Unavailable [phone] Allergies Allergen (clinical drug ingredient) Drug/Non Drug Allergy documented on EMR Reaction Allergy Type Onset Date Status cyclobenzaprine Cyclobenzaprine HCl Unknown Drug Allergy Active Adhesive Unknown Allergy Active Tetanus Toxoids Unknown Drug Allergy A ctive Results Component Value Reference Range Notes P-Comprehensive Metabolic Pa jitendra (CMP) Reviewed date:06/27/2024 10:03:00 AM Interpretation:BUN 27, Glu 105 Performing Lab: Notes/Report: Test performed by [facility] [address] [place] [address] , [address], [place] [address] Matt Patino MD, Corporate Driver CLIA: [id number] Sodium 143 135-145 mmol/L Potassium 5.3 3.5-5.3 mmol/L Chloride 104 97-108 mmol/L CO2 25 22-32 mmol/L Glucose 105 65-99 mg/dL BUN 27 8-23 mg/dL Creatinine 0.80 0.50-1.00 mg/dL Calcium 9.6 8.6-10.4 mg/dL eGFR by Creatinine 79 >59 mL/min/1.73m2 Protein 7.0 6.0-8.3 g/dL Albumin 4.8 3.5-5.3 g/dL Alkaline Phosphatase 49 35-121 IU/L ALT (SGPT) 21 <5-47 IU/L AST (SGOT) 22 <5-40 IU/L Bilirubin, Total 0.4 <0.2-1.2 mg/dL A/G Ratio 2.2 1.1-2.5 P-T4 Free (thyroxine) Reviewed date:06/27/2024 10:03:00 AM Interpretation:2.00 Performing Lab: Notes/Report: Test performed by [facility] [address] [place] [address] [place] [address] Matt Patino MD, Corporate Driver CLIA: [id number] Thyroxine Free (free T4) 2.00 0.86-1.76 ng/dL P-Lipid Panel Reviewed date:06/27/2024 10:03:00 AM Interpretation:Trig 256 Performing Lab: Notes/Report: Test performed by [facility] [address] [place] [address] [address], [place] [address] Matt Patino MD, Corporate Driver CLIA: [id number] Cholesterol 150 <200 mg/dL Triglycerides 256 <150 mg/dL HDL Cholesterol 45 >39 mg/dL Cholesterol / HDL Ratio 3.33 0.00-4.44 Ratio Non-HDL Cholesterol 105 <130 mg/dL LDL Cholesterol (Calculation) 54 <130 mg/dL LDL Cholesterol Levels* Less than 100 mg/dL Optimal 100 to 129 mg/dL Near Optimal/ Above Optimal 130 to 159 mg/dL Borderline High 160 to 189 mg/dL High 190 mg/dL and above Very High * Categories as recommended by the 2004 ATPIII guidelines LDL/HDL Ratio 1.2 <3.3 Ratio LDL Cholesterol Patient History Test Date: 09/22/2023 LDL Results: 76 Units: mg/dL % Change: - Test Date: 06/23/2024 LDL Results: 54 Units: mg/dL % Change: -28% P-TSH Reviewed date:06/27/2024 10:03:01 AM Interpretation:Normal Performing Lab: Notes/Report: Test performed by [facility] [address] [place] [address] , [place] [address] Matt Patino MD, Corporate Driver CLIA: [id number] TSH 1.05 0.43-5.25 mU/L P-Vitamin D 25-Hydroxy Reviewed date:06/27/2024 10:03:01 AM Interpretation:Normal Performing Lab: Notes/Report: Test performed by [facility] [address] [place] [address] , [place] [address] Matt Patino MD, Corporate Driver CLIA: [id number] Vitamin D 25-Hydroxy 37.1 30.0-100.0 ng/mL Interpretation of Vitamin D 25 OH: < 20 ng/mL - Deficiency 20 - 29 ng/mL - Insufficiency 30 - 100 ng/mL - Sufficiency > 100 ng/mL - Super-therapeutic- toxicity may occur above this level. Clinical correlation required. Reason For Referral Diagnosis 1 Unspecified hearing loss (H91.90) Referral Organization [facility] Referring Provider First Name Brennen Referring Provider Last Name Bimal Referring Provider [facility] Referred Provider Julia Waters Referred Provider Specialty Audiologists General Notes Sapna Joy 024 10:02:44 AM > faxed referral to Julia Waters Referral Priority Routine REASON FOR VISIT 6 months with fasting labs Medications Medication SIG (Take, Route, Frequency, Duration) Notes Start Date End Date Status Rosuvastatin Calcium 40 MG 1 tab(s) oral ly once a day Active Carvedilol 25 mg 1 tablet with food Orally Twice a day Active amLODIPine Besylate 5 mg 1 tablet Orally Once a day Active Eliquis 2.5 MG 1 tablet Orally 2 times a day; Duration: 90 days Active Lidoderm 5 % 3 patch remove after 12 hours Externally Once a day 12/22/2023 Not-Taking Losartan Potassium 100 MG 1 tab(s) orall y once a day Active Fenofibrate 145 MG 1 tab(s) orally once a day Active Gralise 600 MG 2 tab(s) orally once a day; Duration: 30 day(s) 02/29/2024 Active Levothyroxine Sodium 150 MCG 1 tab(s) orally once a day Active Triamterene-HCTZ 37.5-25 MG 1/2 TABLET Orally Once a day Active Problems Problem Type SNOMED Code ICD Code Onset Dates Problem Status W/U Status Risk Notes Problem Hearing loss ([id number]) Unspecified hearing loss (H91.90) Active confirmed Vital Signs Blood pressure systolic 130 mm Hg 06/23/20 24 Blood pressure diastolic 72 mm Hg 024 Heart Rate 70 /min 06/23/2024 Height 61 in 06/23/2024 Weight 229.4 lbs 06/23/2024 BMI 43.34 kg/m2 06/23/2024 Encounters Encounter Location Date Provider Diagnosis [facility] [address] [id number] 06/23/2024 Brennen Wallis Essential (primary) hypertension I10 ; Vitamin D deficiency E55.9 ; Post-surgical hypothyroidism E89.0 ; Mixed hyperlipidemia E78.2 ; Hypertriglyceridemia E78.1 and Unspecified hearing loss H91.90 Assessments Encounter Date Diagnosis (ICD Code) Assessment Notes Treatment Notes Treatment Clinical Notes Section Notes 06/23/2024 Essential (primary) hypertension (ICD-10 - I10) 06/23/2024 Vitamin D deficiency (ICD-10 - E55.9) 06/23/2024 Post-surgical hypothyroidism (ICD-10 - E89.0) 06/23/2024 Mixed hyperlipidemia (ICD-10 - E78.2) 06/23/2024 Hypertriglyceridemia (ICD-10 - E78.1) 06/23/2024 Unspecified hearing loss (ICD-10 - H91.90) Plan Of Treatment Medication Medication Name Sig Start Date Stop Date Notes Rosuvastatin Calcium 40 MG 1 tab(s) orally once a day Carvedilol 25 mg 1 tablet with food O rally Twice a day amLODIPine Besylate 5 mg 1 tablet Orally Once a day Losartan Potassium 100 MG 1 tab(s) orally once a day Fenofibrate 145 MG 1 tab(s) orally once a day Levothyroxine Sodium 150 MCG 1 tab(s) orally once a day Triamterene-HCTZ 37.5-25 MG 1/2 TABLET Orally Once a day Referrals Referral Date Details 06/23/2024 06/23/2024, Julia guo Next Appt Details Follow Up: 6 Months, Reason: Provider Name:Brennen Solares ry, 12/14/2025 09:45:00 AM, [address] [facility], [address] , [place], [place], [id number], Progress Notes * CHANDANA VASQUEZOB: 4 (69 yo F)Acc No.[id number]:06/23/2024 Progress Notes Patient: VEGA CHISHOLM Provider: King Wallis M.D. :1955 A ge:68 Y S ex:Female Date:06/23/2024 Address:[address] [place], [place] [id number] Pcp:Wilfredo Brewster Subjective: * Chief Complaints: * 1 . 6 months with fasting labs. * HPI: C ardiology: 68 year old female presents with c/o Blood Pressure Elevated?Pt here for 6 mo f/u on hypertension, states she is doing well and does not have any concerns.? c/o Hyperlipidemia P t is fasting today. * ROS: D ERMATOLOGY: no R alejandro. n o H tara. G ASTROENTEROLOGY: no N ausea. n o V omiting. U ROLOGY: no D ifficulty urinating. n o B lood in urine. * Medical History: H ypertension, Fibromyalgia, Dyslipidemia, Arthritis, Spinal Stenosis, Spondylolisthesis, Disc Disease, L2-3, L3-4, Disc Disease C5-6, C6-7, C7-T1. Disc Protrusion C5-6, Mild at C3-4, C4-5 , Diverticulosis, Depression, Seasonal Allergies, CVA, ischemic, 2021, Cardiac loop recorder implanted 2021, peptic ulcer disease, s/p upper GI bleed, 2022 treated at [facility] in [place]. * Surgical History: A ppendectomy 1991, LT Foot Fusion 12/2007, Neck Tumor Removal 01/10/2009, Bilateral Cataract Removal 10/11/2013, 10/25/2013, Rhizotomy and Epidural Steroid, Dr. Newman 03/22/2014, LT TKA- [place] 06/11/2015, RT TKA- [place] 10/13/2015, Thyroidectomy, Papillary Carcinoma, Dr. Bhakta 12/21/2019, [...] Mother: breast [place]. M aternal Grand Father: [place]. M aternal Grand Mother: [place]. 1 brother(s) , 1 sister(s) - healthy. 2 son(s) , 1 daughter(s) - healthy. . * Social History: C URRENT TOBACCO USE S moking Status: Patient does NOT smoke. C affeine: yes, frequency:tea. Exercise: yes, walk 4 days/week 1-4 miles. Home smoke detector use: yes. Marital Status: Single. New since last visit: none. 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 Past smoking status: no. Occup. exposure: none. Recreational drug use: no. Alcohol: no. Sexually active: yes. Travel ouside [place]: no. * Medications: T aking Levothyroxine Sodium 150 MCG Tablet 1 tab(s) orally once a day , Taking Eliquis 2.5 MG Tablet 1 tablet Orally 2 times a day , Taking Losartan Potassium 100 [...] 1/2 TABLET Orally Once a day , Taking Fenofibrate 145 MG Tablet 1 tab(s) orally once a day , Not-Taking Lidoderm 5 % Patch 3 patch remove after 12 hours Externally Once a day , Discontinued Pantoprazole Sodium 40 MG Tablet Delayed Release 1 tablet Orally Once a day , Discontinued metroNIDAZOLE 500 MG Tablet 1 tablet Orally Three times a day , Medication List reviewed and reconciled with the patient * Allergies: C yclobenzaprine HCl, Tetanus Toxoids, Adhesive. Objective: * Vitals: W t:229.4, Temp:97.9, BP:130/72, HR:70, Nurse:leticia, Ht: 61, BMI:43.34. * Examination: G eneral Examination: General Appearance: N AD. H EENT: Sclera and conjunctiva clear, TM's normal. H eart: R SR. L ungs: c lear to auscultation. E xtremities: no leg edema. Assessment: * Assessment: 1. E ssential (primary) hypertension - I10 (Primary) 2 . V itamin D deficiency - E55.9 3 . P ost-surgical hypothyroidism - E89.0 4 . M ixed hyperlipidemia - E78.2 5 . H ypertriglyceridemia - E78.1 6 . U nspecified hearing loss - H91.90 Plan: * Treatment: Value Reference Range A /G Ratio 2.2 1.1-2.5 - * A lbumin 4.8 3.5-5.3 - g/dL * A lkaline Phosphatase 49 35-121 - IU/L * A LT (SGPT) 21 <5-47 - IU/L * A ST (SGOT) 22 <5-40 - IU/L * B ilirubin, Total 0.4 <0.2-1.2 - mg/dL * B UN 27 H 8-23 - mg/dL * C alcium 9.6 8.6-10.4 - mg/dL * C hloride 104 97-108 - mmol/L * C O2 25 22-32 - mmol/L * C reatinine 0.80 0.50-1.00 - mg/dL * G lucose 105 H 65-99 - mg/dL * P otassium 5.3 3.5-5.3 - mmol/L * S odium 143 135-145 - mmol/L * P rotein 7.0 6.0-8.3 - g/dL * e GFR by Creatinine 79 >59 - mL/min/1.73m2 * Naomi Pickett 06/27/2024 10: 02:42 AM >See phone encounter 2.?Vitamin D deficiency?LAB: P-Vitamin D 25-Hydroxy (Collection Date & Time - 06/23/2024 12:22 PM)? Normal* Value Reference Range V itamin D 25-Hydroxy 37.1 30.0-100.0 - ng/mL * Naomi Pickett 06/27/2024 10: 02:42 AM >See phone encounter 3.?Post-surgical hypothyroidism? Continue Levothyroxine Sodium Tablet, 150 MCG, 1 tab(s), orally, once a day.?LAB: P-T4 Free (thyroxine) (Collection Date & Time - 06/23/2024 12:22 PM)? 2.00* Value Reference Range T hyroxine Free (free T4) 2.00 H 0.86-1.76 - ng/d L * Naomi Pickett 06/27/2024 10: 02:42 AM >See phone encounter ?LAB: P-TSH (Collection Date & Time - 06/23/2024 12:22 PM)?Normal* Value Reference Range T SH 1.05 0.43-5.25 - mU/L * Naomi Pickett 06/27/2024 10: 02:42 AM >See phone encounter 4.?Mixed hyperlipidemia? Continue Rosuvastatin Calcium Tablet, 40 MG, 1 tab(s), orally, once a day.?LAB: P-Comprehensive Metabolic Panel (CMP) (Collection Date & Time - 06/23/2024 12:22 PM)?BUN 27, Glu 105* Value Reference Range A /G Ratio 2.2 1.1-2.5 - * A lbumin 4.8 3.5-5.3 - g/dL * A lkaline Phosphatase 49 35-121 - IU/L * A LT (SGPT) 21 <5-47 - IU/L * A ST (SGOT) 22 <5-40 - IU/L * B ilirubin, Total 0.4 <0.2-1.2 - mg/dL * B UN 27 H 8-23 - mg/dL * C alcium 9.6 8.6-10.4 - mg/dL * C hloride 104 97-108 - mmol/L * C O2 25 22-32 - mmol/L * C reatinine 0.80 0.50-1.00 - mg/dL * G lucose 105 H 65-99 - mg/dL * P otassium 5.3 3.5-5.3 - mmol/L * S odium 143 135-145 - mmol/L * P rotein 7.0 6.0-8.3 - g/dL * e GFR by Creatinine 79 >59 - mL/min/1.73m2 * Naomi Pickett 06/27/2024 10: 02:42 AM >See phone encounter ?LAB: P-Lipid Panel (Collection Date & Time - 06/23/2024 12:22 PM)?Trig 256 * Value Reference Range C holesterol / HDL Ratio 3.33 0.00-4.44 - Ratio * C holesterol 150 <200 - mg/dL * H DL Cholesterol 45 >39 - mg/dL * L DL Cholesterol (Calculation) 54 <130 - mg/d L * L DL/HDL Ratio 1.2 <3.3 - Ratio * N on-HDL Cholesterol 105 <130 - mg/dL * T riglycerides 256 H <150 - mg/dL * Naomi Pickett 06/27/2024 10: 02:42 AM >See phone encounter 5.?Hypertriglyceridemia? Continue Fenofibrate Tablet, 145 MG, 1 tab(s), orally, once a day.?? 6.?Unspecified hearing loss? Referral To:Julia Waters??Audiologists ?Reason: * Procedure Codes: G 2211 Complex e/m visit add on * Follow Up: 6 Months * Images: Billing Information: * Visit Code: 08408 Office Visit, Est Pt., Level 4. * Procedure Codes: G2211 Complex e/m visit add on. * Electronic signature of Aidee Wallis MD on 07/01/2025 at 09:56 AM EST Sign off status: Pending * Provider: King Wallis M.D. Date: 08/23/2023 Generated for Gareth mccloud/Keyanna/Denia on: 08/31/2024 09:56 AM EST History and Physical Notes * HPI (History of Present Illness) Category Sub-Category Detail Notes Category Not es Cardiology Blood Pressure Elevated Pt here for 6 mo f/u on hypertension, states she is doing well and does not have any concerns Hyperlipidemia Pt is fasting today Examination Category Sub-Category Detail Notes Category Not es General Examination HEENT: Sclera and c onjunctiva clear, TM's normal Heart: RSR Lungs: clear to auscultatio n Extremities: no leg edema General Appearance: NAD Consultation Request Notes Referral Date Referring Provider Referred Provider Not es 06/23/2024 Brennen Wallis Deanna
--- OUTSIDE RECORDS SUMMARY | 2024-09-07 06:00 | XMS_ITS ---
Author Organization [facility] Address [address] [facility] [address] [place] [id number] Care Team Providers Care Catapult And Arresting Gear Officer Name Role Phone Wilfredo Brewster Primary Care Provider Brennen Wallis Unavailable [phone] Results Component Value Reference Range Notes P-T4 Free (thyroxine) Reviewed date:09/08/2024 08:52:01 AM Interpretation:1.78 Performing Lab: Notes/Report: CLIA: [id number] Matt Patino MD, Trial Management Associate [address] [place] [address] , [place] [address] Test performed by [facility] [employer] Thyroxine Free (free T4) 1.78 0.86-1.76 ng/dL P-TSH Reviewed date:09/08/2024 08:52:01 AM Interpretation:Normal Performing Lab: Notes/Report: Test performed by [facility] [address] [place] [address] , [place] [address] Matt Patino MD, Trial Management Associate CLIA: [id number] TSH 1.37 0.43-5.25 mU/L REASON FOR VISIT blood work check thyroid Medications Medication SIG (Take, Route, Frequency, Duration) Notes Start Date End Date Status Eliquis 2.5 MG 1 tablet Orally 2 times a day; Duration: 90 days Active Losartan Potassium 100 MG 1 tab(s) orall y once a day; Duration: 90 days Active Levothyroxine Sodium 137 MCG 1 tablet in the morning on an empty stomach Orally Once a day 06/28/2024 Active Fenofibrate 145 MG 1 tab(s) orally once a day Active Triamterene-HCTZ 37.5-25 MG 1/2 TABLET Orally Once a day Active Gralise 600 MG 2 tab(s) orally once a day; Duration: 30 day(s) 09/06/2024 Active Rosuvastatin Calcium 40 MG 1 tab(s) oral ly once a day; Duration: 90 days Active Carvedilol 25 mg 1 tablet with food Orally Twice a day; Duration: 90 days Active amLODIPine Besylate 5 mg 1 tablet Orally Once a day; Duration: 90 days Active Lidoderm 5 % 3 patch remove after 12 hours Externally Once a day 12/22/2023 Not-Taking Encounters Encounter Location Date Provider Diagnosis [facility] [address] [facility] 36 [facility] [address] [place], [place] [phone] 09/07/2024 Brennen Wallis Post-surgical hypothyroidism E89.0 Assessments Encounter Date Diagnosis (ICD Code) Assessment Notes Treatment Notes Treatment Clinical Notes Section Notes 09/07/2024 Post-surgical hypothyroidism (ICD-10 - E89.0) Plan Of Treatment Next Appt Details Provider Name:Brennen Solares , 12/14/2025 09:45:00 AM, [address] [facility] 36 [facility], [address], [place], [place], [id number], Progress Notes * ADRIENNE VASQUEZCOLEOB: 4 (69 yo F)Acc No.[id number]:09/07/2024 Patient: VEGA CHISHOLM Provider: King Wallis M.D. :1955 A ge:68 Y S ex:Female Date:09/07/2024 Address:[address] [place] [address] , [place], [id number] Pcp:Wilfredo Brewster Subjective: * Chief Complaints: * 1 . Blood work check thyroid. * Medical History: * Medications: T aking Eliquis 2.5 MG Tablet 1 tablet Orally 2 times a day , Taking Triamterene- HCTZ 37.5-25 MG Tablet 1/2 TABLET Orally Once a day , Taking Fenofibrate 145 MG Tablet 1 tab(s) orally once a day , Taking Levothyroxine Sodium 137 MCG Tablet 1 tablet in the morning on an empty stomach Orally Once a day , Taking Losartan Potassium 100 MG Tablet 1 tab(s) orally once a day , Taking amLODIPine Besylate 5 mg Tablet 1 tablet Orally Once a day , Taking Carvedilol 25 mg Tablet 1 tablet with food Orally Twice a day , Taking Rosuvastatin Calcium 40 MG Tablet 1 tab(s) orally once a day , Taking Gralise 600 MG Tablet 2 tab(s) orally once a day , Not-Taking Lidoderm 5 % Patch 3 patch remove after 12 hours Externally Once a day , Medication List reviewed and reconciled with the patient Objective: * Vitals: Assessment: * Assessment: 1. P ost-surgical hypothyroidism - E89.0 Plan: * Treatment: Value Reference Range T hyroxine Free (free T4) 1.78 H 0.86-1.76 - ng/d L * Samantha Frazier 09/08/2024 8:51: 56 AM >See phone encounter ?LAB: P-TSH (Collection Date & Time - 09/07/2024 10:17 AM)?Normal* Value Reference Range T SH 1.37 0.43-5.25 - mU/L * Samantha Frazier 09/08/2024 8:51: 56 AM >See phone encounter * Images: Billing Information: * Visit Code: * Procedure Codes: * Electronic signature of Aidee Wallis MD on 07/01/2025 at 09:55 AM EST Sign off status: Pending * Provider: King Wallis M.D. Date: 0 09/07/2024 Generated for Gareth mccloud/Keyanna/Denia on: 08/31/2024 09:55 AM EST
--- OUTSIDE RECORDS SUMMARY | 2024-12-14 05:15 | XMS_ITS ---
Author Organization [facility] [address] [place] [phone] Care Team Providers Care Clinical Informatics Manager Name Role Phone Wilfredo Brewster Primary Care Provider Brennen Wallis Unavailable [phone] Allergies Allergen (clinical drug ingredient) Drug/Non Drug Allergy documented on EMR Reaction Allergy Type Onset Date Status cyclobenzaprine Cyclobenzaprine HCl Unknown Drug Allergy Active Adhesive Unknown Allergy Active Tetanus Toxoids Unknown Drug Allergy A ctive REASON FOR VISIT fasting with labs and back problems Medications Medication SIG (Take, Route, Frequency, Duration) Notes Start Date End Date Status Rosuvastatin Calcium 40 MG 1 tab(s) oral ly once a day; Duration: 90 days Active Carvedilol 25 mg 1 tablet with food Orally Twice a day; Duration: 90 days Active amLODIPine Besylate 5 mg 1 tablet Orally Once a day; Duration: 90 days Active traMADol HCl 50 MG 1 tablet Orally four times a day as needed 12/14/2024 Active Metaxalone 800 MG 1 tablet Orally Thre e times a day as needed 12/14/2024 Active Fenofibrate 145 MG 1 tab(s) orally once a day; Duration: 90 days Active Losartan Potassium 100 MG 1 tab(s) orall y once a day; Duration: 90 days Active Eliquis 2.5 MG 1 tablet Orally 2 ti mes a day; Duration: 90 days Active dexAMETHasone 4 MG 1 tablet Orally Two times a day; Duration: 5 days 12/14/2024 Active Gralise 600 MG 2 tab(s) orally once a day; Duration: 30 day(s) 09/06/2024 Active Triamterene-HCTZ 37.5-25 MG TAKE 1/2 TAB LET BY MOUTH EVERY DAY; Duration: 90 Active Levothyroxine Sodium 137 MCG 1 tablet in the morning on an empty stomach Orally Once a day 06/28/2024 Active Problems Problem Type SNOMED Code ICD Code Onset Dates Problem Status W/U Status Risk Notes Problem Sciatica (41812514) Acute left-sided low back pain with left-sided sciatica (M54.42) Active confirmed Problem Morbid obesity (417645030) Morbid obesity (E66.01) Active confirmed Problem Body mass index 40+ - morbidly obese (788753330) BMI 40.0-44.9, adult (Z68.41) Active confirmed Vital Signs Blood pressure systolic 134 mm Hg 12/15/19 25 Blood pressure diastolic 72 mm Hg 025 Heart Rate 69 /min 12/14/2024 Height 61 in 12/14/2024 Weight 232.4 lbs 12/14/2024 BMI 43.91 kg/m2 12/14/2024 Encounters Encounter Location Date Provider Diagnosis [facility] [address] [facility] [address] [place] [phone] 12/14/2024 Brennen Wallis Acute left-sided low back pain with left-sided sciatica M54.42 ; Mixed hyperlipidemia E78.2 ; Essential (primary) hypertension I10 ; Lumbar back pain M54.50 ; Morbid obesity E66.01 and BMI 40.0-44.9, adult Z68.41 Assessments Encounter Date Diagnosis (ICD Code) Assessment Notes Treatment Notes Treatment Clinical Notes Section Notes 12/14/2024 Acute left-sided low back pain with left-sided sciatica (ICD-10 - M54.42) 12/14/2024 Mixed hyperlipidemia (ICD-10 - E78.2) 12/14/2024 Essential (primary) hypertension (ICD-10 - I10) 12/14/2024 Lumbar back pain (ICD-10 - M54.50) 12/14/2024 Morbid obesity (ICD-10 - E66.01) 12/14/2024 BMI 40.0-44.9, adult (ICD-10 - Z68.41) Plan Of Treatment Medication Medication Name Sig Start Date Stop Date Notes traMADol HCl 50 MG 1 tablet Orally four times a day as needed 12/14/2024 Metaxalone 800 MG 1 tablet Orally Thre e times a day as needed 12/14/2024 dexAMETHasone 4 MG 1 tablet Orally Two times a day; Duration: 5 days 12/14/2024 Next Appt Details Follow Up: via phone to repo rt progress, Reason: Provider Name:Brennen Solares ry, 12/14/2025 09:45:00 AM, [address], [place], [phone], Progress Notes * CHANDANA VASQUEZOB: 4 (69 yo F)Acc No.[id number]:12/14/2024 Progress Notes Patient: VEGA CHISHOLM Provider: King Wallis M.D. :1955 A ge:69 Y S ex:Female Date:12/14/2024 Address:[address] [place] [address], [place], [id number] Pcp:Wilfredo Brewster Subjective: * Chief Complaints: * 1 . Fasting with labs and back problems. * HPI: C ardiology: 69 year old female presents with c/o Blood Pressure Elevated?Pt here to f/u on hypertension, states she is doing well and does not have any concerns. c/o Hyperlipidemia P t is fasting today. L ower back: c/o radiation of pain P t complains of lt lower back and hip pain that radiates down her lt leg. Pt states pain started last and was improving until yesterday. Pt states she was vacuuming and pain came back. Pt states it hurts to do anything, sit or stand. * ROS: D ERMATOLOGY: no R alejandro. [...] s/p upper GI bleed, 2022 treated at [facility] in [place]. * Surgical History: A ppendectomy 1991, LT Foot Fusion 12/2007, Neck Tumor Removal 01/10/2009, Bilateral Cataract Removal 10/11/2013, 10/25/2013, Rhizotomy and Epidural Steroid, Dr. Newman 03/22/2014, LT TKA- [place] 06/11/2015, RT TKA- [place] 10/13/2015, Thyroidectomy, Papillary Carcinoma, Dr. Bhakta 12/21/2019, [...] Mother: breast [place]. M aternal Grand Father: [place]. M aternal Grand Mother: [place]. 1 brother(s) , 1 sister(s) - healthy. 2 son(s) , 1 daughter(s) - healthy. . * Social History: C URRENT TOBACCO USE S moking Status: Patient does NOT smoke. C affeine: yes, frequency:tea. Exercise: yes, walk 4 days/week 1-4 miles. Home smoke detector use: yes. Marital Status: Single. New since last visit: none. 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 Past smoking status: no. Occup. exposure: none. Recreational drug use: no. Alcohol: no. Sexually active: yes. Travel ouside [place]: no. * Medications: T aking Eliquis 2.5 MG [...] stomach Orally Once a day , Taking Triamterene-HCTZ 37.5-25 MG Tablet TAKE 1/2 TABLET BY MOUTH EVERY DAY , Taking Fenofibrate 145 MG Tablet 1 tab(s) orally once a day , Discontinued Lidoderm 5 % Patch 3 patch remove after 12 hours Externally Once a day , Medication List reviewed and reconciled with the patient * Allergies: C yclobenzaprine HCl, Tetanus Toxoids, Adhesive. Objective: * Vitals: W t: 232.4, Temp: 97.8, BP: 134/72, HR: 69, Nurse: leticia, Ht: 61, BMI:43.91. * Examination: G eneral Examination: General Appearance: S tanding up in exam room, uncomfortable due to pain. L ower back: Gait: m oves slowly due to pain. Assessment: * Assessment: 1. A cute left-sided low back pain with left-sided sciatica - M54.42 (Primary) 2 . M ixed hyperlipidemia - E78.2 3 . E ssential (primary) hypertension - I10 4 . L umbar back pain - M54.50 5 . M orbid obesity - E66.01 6 . B [place] 40.0-44.9, adult - Z68.41 Plan: * Treatment: * Procedure Codes: G 2211 Complex e/m visit add on, 3075F SYST BP GE 130 - 139MM HG, 3078F DIAST BP < 80 MM HG * Follow Up: v ia phone to report progress * Images: Billing Information: * Visit Code: 82837 Office Visit, Est Pt., Level 3. * Procedure Codes: G2211 Complex e/m visit add on. 3075F SYST BP GE 130 - 139MM HG. 3078F DIAST BP < 80 MM HG. * Electronic signature of Aidee Wallis MD on 07/01/2025 at 09:56 AM EST Sign off status: Pending * Provider: King Wallis M.D. Date: 0 12/14/2024 Generated for Gareth mccloud/Keyanna/Denia on: 1 08/31/2024 09:56 AM EST History and Physical Notes * HPI (History of Present Illness) Category Sub-Category Detail Notes Category Not es Cardiology Blood Pressure Elevated Pt here to f/u on hypertension, states she is doing well and does not have any concerns Hyperlipidemia Pt is fasting today Lower back radiation of pain Pt complains o f lt lower back and hip pain that radiates down her lt leg. Pt states pain started last and was improving until yesterday. Pt states she was vacuuming and pain came back. Pt states it hurts to do anything, sit or stand Examination Category Sub-Category Detail Notes Category Not es General Examination General Appearance: Standing up in exam room, uncomfortable due to pain Lower back Gait: moves slowly due to pain
--- OUTSIDE RECORDS SUMMARY | 2024-12-23 04:15 | XMS_ITS ---
Author Organization [facility] Address [facility] [address] [place] [phone] Care Team Providers Care Area Plant Manager Name Role Phone Wilfredo Brewster Primary Care Provider [phone] Brennen Wallis [phone] REASON FOR VISIT 6 month check up with fasting labs Encounters Encounter Location Date Provider Diagnosis [facility] [address] [place] [phone] 12/23/2024 Brennen Wallis Plan Of Treatment Next Appt Details Provider Name:Brennen Solares ry, 12/14/2025 09:45:00 AM, [address], [address], [place], [phone], Progress Notes * ADRIENNE VASQUEZEDOB: (69 yo F)Acc No.[id number]:12/23/2024 Progress Notes Patient: VEGA CHISHOLM Provider: King Wallis M.D. :1955 A ge:69 Y S ex:Female Date:12/23/2024 Address:[address] [place] [address] [id number] Pcp:Wilfredo Brewster Subjective: * Chief Complaints: * 1 . 6 month check up with fasting labs. * Medical History: Objective: * Vitals: Assessment: Plan: * Treatment: * Images: Billing Information: * Visit Code: * Procedure Codes: * Electronic signature of Aidee Wallis MD on 07/01/2025 at 09:55 AM EST Sign off status: Pending * Provider: King Wallis M.D. Date: 0 12/23/2024 Generated for Gareth mccloud/Keyanna/Denia on: 1 08/31/2024 09:55 AM EST
--- OUTSIDE RECORDS SUMMARY | 2024-12-30 05:30 | XMS_ITS ---
Author Organization [facility] Address [address] [facility] [address] [place] [id number] Care Team Providers Care Featherer Name Role Phone Wilfredo Brewster Primary Care Provider Brennen Wallis Unavailable [phone] Allergies Allergen (clinical drug ingredient) Drug/Non Drug Allergy documented on EMR Reaction Allergy Type Onset Date Status cyclobenzaprine Cyclobenzaprine HCl Unknown Drug Allergy Active Adhesive Unknown Allergy Active Tetanus Toxoids Unknown Drug Allergy A ctive Results Component Value Reference Range Notes CBC Fingerstick (in house) Reviewed date:12/30/2024 01:40:56 PM Interpretation: Performing Lab: Notes/Report: wbc 5.8 3.5 - 10 lym 21.4 15 - 50 mid 4.9 2 - 15 gran 73.7 35 - 80 rbc 4.42 3.5 - 5.5 hgb 12.5 11.5 - 16.5 hct 40.1 35 - 55 mcv 90.9 75 - 100 mch 28.4 25 - 35 mchc 31.2 31 - 38 plat 200 100 - 400 Reason For Referral Reason Wants to see Dr. Patterson in [place] Diagnosis 1 Lumbago with sciatic a, left side (M54.42) Diagnosis 2 Spinal stenosis, lum bosacral region (M48.07) Diagnosis 3 Degeneration of inte rvertebral disc of lumbar region with discogenic back pain and lower extremity pain (M51.362) Diagnosis 4 Bulging lumbar disc (M51.369) [facility] Referring Provider First Name Brennen Referring Provider Last Name Bimal Referring Provider Speciality Family Pra ctice Referred Provider Pablo Patterson Referred Provider Specialty Pain Managem ent General Notes Sapna Joy 2024 11:08:39 AM > faxed with office notes to [facility] Pain [facility], BenitaJoaquínnn 01/03/2025 09:48:42 AM > faxed to Dr. Yesenia Weston Office Referral Priority Routine REASON FOR VISIT med check Medications Medication SIG (Take, Route, Frequency, Duration) Notes Start Date End Date Status Levothyroxine Sodium 137 MCG 1 tablet in the morning on an empty stomach Orally Once a day 06/28/2024 Active Losartan Potassium 100 MG 1 tab(s) orall y once a day; Duration: 90 days Active amLODIPine Besylate 5 mg 1 tablet Orally Once a day; Duration: 90 days Active Carvedilol 25 mg 1 tablet with food Orally Twice a day; Duration: 90 days Active Rosuvastatin Calcium 40 MG 1 tab(s) oral ly once a day; Duration: 90 days Active traMADol HCl 50 MG 1 tablet Orally four times a day as needed 12/30/2024 Active dexAMETHasone 4 MG 1 tablet Orally Two times a day; Duration: 5 days 12/14/2024 Active Metaxalone 800 mg TAKE ONE TABLET BY [facility] THREE TIMES DAILY NEEDED MAY CAUSE DROWSINESS Active Gralise 600 MG 3 tab(s) orally once a day; Duration: 30 days 12/30/2024 Active Eliquis 2.5 MG 1 tablet Orally 2 ti mes a day; Duration: 90 days Active Fenofibrate 145 MG 1 tab(s) orally once a day; Duration: 90 days Active Triamterene-HCTZ 37.5-25 MG TAKE 1/2 TAB LET BY MOUTH EVERY DAY; Duration: 90 Active Problems Problem Type SNOMED Code ICD Code Onset Dates Problem Status W/U Status Risk Notes Problem Sciatica (75709320) Lumbago with sciatica, left side (M54.42) Active confirmed Problem Degeneration of intervertebral disc of lumbar region with discogenic back pain and lower extremity pain (M51.362) Active confirmed Problem Arthropathy of lumbar facet joint (506445638) Lumbar facet arthropathy (M47.816) Active confirmed Problem Bulging lumbar disc (M51.369) Active confirmed Vital Signs Blood pressure systolic 122 mm Hg 12/31/19 25 Blood pressure diastolic 64 mm Hg 025 Heart Rate 66 /min 12/30/2024 Height 61 in 12/30/2024 Weight 230.0 lbs 12/30/2024 BMI 43.45 kg/m2 12/30/2024 Encounters Encounter Location Date Provider Diagnosis [facility] [address] [facility] [address] [place] [id number] 12/30/2024 Brennen Wallis Lumbago with sciatic a, left side M54.42 ; Other chronic pain G89.29 ; Spinal stenosis, lumbosacral region M48.07 ; Degeneration of intervertebral disc of lumbar region with discogenic back pain and lower extremity pain M51.362 ; Bulging lumbar disc M51.369 ; Lumbar facet arthropathy M47.816 ; Dark stools R19.5 and BMI 40.0-44.9, adult Z68.41 Assessments Encounter Date Diagnosis (ICD Code) Assessment Notes Treatment Notes Treatment Clinical Notes Section Notes 12/30/2024 Lumbago with sciatica, left side (ICD-10 - M54.42) 12/30/2024 Other chronic pain (ICD-10 - G89.29) 12/30/2024 Spinal stenosis, lumbosacral region (ICD-10 - M48.07) 12/30/2024 Degeneration of intervertebral disc of lumbar region with discogenic back pain and lower extremity pain (ICD-10 - M51.362) 12/30/2024 Bulging lumbar disc (ICD-10 - M51.369) 12/30/2024 Lumbar facet arthropathy (ICD-10 - M47.816) 12/30/2024 Dark stools (ICD-10 - R19.5) 12/30/2024 BMI 40.0-44.9, adult (ICD-10 - Z68.41) Plan Of Treatment Medication Medication Name Sig Start Date Stop Date Notes traMADol HCl 50 MG 1 tablet Orally four times a day as needed 12/30/2024 Metaxalone 800 mg TAKE ONE TABLET BY M OUTH THREE TIMES DAILY NEEDED MAY CAUSE DROWSINESS Gralise 600 MG 3 tab(s) orally once a day; Duration: 30 days 12/30/2024 Referrals Referral Date Details 12/30/2024 12/30/2024, Wants to see Dr. Patterson in [place] Pablo Next Appt Details Follow Up: via phone to repo rt progress, Reason: Provider Name:Brennen Solares ry, 12/14/2025 09:45:00 AM, [address], [address], [place], [phone], Progress Notes * CHANDANA VASQUEZOB: 4 (69 yo F)Acc No.[id number]:12/30/2024 Progress Notes Patient: VEGA CHISHOLM Provider: King Wallis M.D. :1955 A ge:69 Y S ex:Female Date:12/30/2024 Address:[address] [place] [address] , [address], [id number] Pcp:Wilfredo Brewster Subjective: * Chief Complaints: * 1 . Med check. * HPI: H PI: 69 year old female presents with c/o Patient is here today for?Pt is here today for a medication check. Pt sts she hd an MRI done on Thursday and sts she would like to know if the results are back yet. Pt sts the pain is no better. Pt sts she does need refills as well. * ROS: D ERMATOLOGY: no R alejandro. [...] s/p upper GI bleed, 2022 treated at [facility] in [place]. * Surgical History: A ppendectomy 1991, LT Foot Fusion 12/2007, Neck Tumor Removal 01/10/2009, Bilateral Cataract Removal 10/11/2013, 10/25/2013, Rhizotomy and Epidural Steroid, Dr. Newman 03/22/2014, LT TKA- [place] 06/11/2015, RT TKA- [place] 10/13/2015, Thyroidectomy, Papillary Carcinoma, Dr. Bhakta 12/21/2019, colonoscopy (needs repeat in 5 years) 05/2019, Right total knee revision 2022, EGD due to GI bleed Jun 2023. * Family History: F ather: , heart condition, cerebellar atrophy of the brain, colon CA. M other: , arthritis, traumatically. P aternal Grand Father: heart problems. P aternal Grand Mother: breast [place]. M aternal Grand Father: [place]. M aternal Grand Mother: [place]. 1 brother(s) , 1 sister(s) - healthy. 2 son(s) , 1 daughter(s) - healthy. . * Social History: C URRENT TOBACCO USE S moking Status: Patient does NOT smoke. C affeine: yes, frequency:tea. Exercise: yes, walk 4 days/week 1-4 miles. Home smoke detector use: yes. Marital Status: Single. New since last visit: none. 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 Past smoking status: no. Occup. exposure: none. Recreational drug use: no. Alcohol: no. Sexually active: yes. Travel ouside [place]: no. * Medications: T aking dexAMETHasone 4 MG Tablet 1 tablet Orally Two times a day , Taking traMADol HCl 50 MG Tablet 1 tablet Orally four times a day as needed , Taking Eliquis 2.5 MG Tablet 1 [...] tab(s) orally once a day , Taking Metaxalone 800 mg Tablet TAKE ONE TABLET BY MOUTH THREE TIMES DAILY NEEDED MAY CAUSE DROWSINESS , Medication List reviewed and reconciled with the patient * Allergies: C yclobenzaprine HCl, Tetanus Toxoids, Adhesive. Objective: * Vitals: W t: 230.0, Temp: 98.4, BP: 122/64, HR: 66, Nurse: jl, Ht: 61, BMI:43.45. * Examination: G eneral Examination: General Appearance: N AD, in less pain today, able to sit without a lot of pain. H eart: R SR. L ungs: c lear to auscultation. Assessment: * Assessment: 1. L umbago with sciatica, left side - M54.42 (Primary) 2 . O ther chronic pain - G89.29 3 . S joanna stenosis, lumbosacral region - M48.07 4 . D egeneration of intervertebral disc of lumbar region with discogenic back pain and lower extremity pain - M51.362 5 . B ulging lumbar disc - M51.369 6 .?Lumbar facet arthropathy - M47.816 7 . D ark stools - R19.5 8 . B [place] 40.0-44.9, adult - Z68.41 Plan: * Treatment: 2. S joanna stenosis, lumbosacral region Referral To:[facility] Reason:Wants to see Dr. Patterson in [place] 3. D egeneration of intervertebral disc of lumbar region with discogenic back pain and lower extremity pain Referral To:[facility] Reason:Wants to see Dr. Patterson in [place] 4. B ulging lumbar disc Referral To:[facility] Reason:Wants to see Dr. Patterson in [place] 5. D ark stools L AB: CBC Fingerstick (in house) (Collection Date & Time - 12/30/2024) Value Reference Range w bc 5.8 3.5 - 10 * l ym 21.4 15 - 50 * m id 4.9 2 - 15 * g ran 73.7 35 - 80 * r bc 4.42 3.5 - 5.5 * h gb 12.5 11.5 - 16.5 * h ct 40.1 35 - 55 * m cv 90.9 75 - 100 * m ch 28.4 25 - 35 * m chc 31.2 31 - 38 * p lat 200 100 - 400 * Malka Tai 12/30/2024 11:0 1:38 AM > Provider reviewed results while patient in office. 6.?Others? Refill Gralise Tablet, 600 MG, 3 tab(s), orally, once a day, 30 days, 90 Tablet, Refills 0.? * Procedure Codes: G 2211 Complex e/[place], [address] CAPILLARY BLOOD DRAW, 68608 CBC WITH AUTO DIFF, G8752 MOST RECENT SYSTOLIC BP < 140MM HG, G8754 MOST RECENT DIASTOLIC BP < 90MM HG * Follow Up: v ia phone to report progress * Images: Billing Information: * Visit Code: 02499 Office Visit, Est Pt., Level 4. * Procedure Codes: G2211 Complex e/[place]. [address] CAPILLARY BLOOD DRAW. 06258 CBC WITH AUTO DIFF. G8752 MOST RECENT SYSTOLIC BP < 140MM HG. G8754 MOST RECENT DIASTOLIC BP < 90MM HG. * Electronic signature of Aidee Wallis MD on 07/01/2025 at 09:56 AM EST Sign off status: Pending * Provider: King Wallis M.D. Date: 0 12/30/2024 Generated for Gareth mccloud/Keyanna/Osielitting on: 1 08/31/2024 09:56 AM EST History and Physical Notes * HPI (History of Present Illness) Category Sub-Category Detail Notes Category Not es HPI Patient is here today for Pt is here today for a medication check. Pt sts she hd an MRI done on Thursday and sts she would like to know if the results are back yet. Pt sts the pain is no better. Pt sts she does need refills as well Examination Category Sub-Category Detail Notes Category Not es General Examination Heart: RSR Lungs: clear to auscultatio n General Appearance: NAD, in less pain to day, able to sit without a lot of pain Consultation Request Notes Referral Date Referring Provider Referred Provider Not es 12/30/2024 Brennen Wallis Anjum Wants to see Dr. Patterson in [place]
--- OUTSIDE RECORDS SUMMARY | 2025-05-09 04:20 | XMS_ITS ---
Author Organization [facility] Address [address] [facility] [address] [facility] [address] [place] [id number] Care Team Providers Care Director Of Strategic Alliances Name Role Phone Wilfredo Brewster Primary Care Provider Brennen Wallis [phone] Results Component Value Reference Range Notes Ultrasound : Breast, right Reviewed date:05/31/2025 09:10:48 AM Interpretation:see Mammogram results Performing Lab: Notes/Report: see Mammogram results Mammogram, spot compression, right breast Reviewed date:06/01/2025 03:01:10 PM Interpretation:benign, annual f/u recommended Performing Lab: Notes/Report: benign, annual f/u recommended REASON FOR VISIT abnormal Mammogram Encounters Encounter Location Date Provider Diagnosis [facility] [address] [facility] [address] [place] [id number] 05/09/2025 Brennen Wallis Abnormal mammogram o f right breast R92.8 Assessments Encounter Date Diagnosis (ICD Code) Assessment Notes Treatment Notes Treatment Clinical Notes Section Notes 05/09/2025 Abnormal mammogram of right breast (ICD-10 - R92.8) Plan Of Treatment Next Appt Details Provider Name:Brennen Solares ry, 12/14/2025 09:45:00 AM, [address] [facility], [address], [place], [id number], Progress Notes * CHANDANA VASQUEZOB: (69 yo F)Acc No.[id number]:05/09/2025 Patient: Rosa VEGA DIOR :1955 A ge:69 Y S ex:Female Address:[address] [place] [address] Subjective: * Chief Complaints: * a bnormal Mammogram * Medical History: * Surgical History: * Hospitalization/Major Diagno stic Procedure: * Medications: Objective: * Vitals: * Physical Examination: Assessment: * Assessment: 1. A bnormal mammogram of right breast - R92.8 (Primary) Plan: * Treatment: * Procedure Codes: * true * Date: Generated for Gareth mccloud/Keyanna/Lupesmitting on: 08/31/2024 09:56 AM EST
--- OUTSIDE RECORDS SUMMARY | 2025-06-16 04:45 | XMS_ITS ---
Author Organization [facility] Address [address] [facility] [address] [place] [id number] Care Team Providers Care Pyrotechnist Name Role Phone Wilfredo Brewster Primary Care Provider Brennen Wallis Unavailable [phone] Allergies Allergen (clinical drug ingredient) Drug/Non Drug Allergy documented on EMR Reaction Allergy Type Onset Date Status cyclobenzaprine Cyclobenzaprine HCl Unknown Drug Allergy Active Adhesive Unknown Allergy Active Tetanus Toxoids Unknown Drug Allergy A ctive Results Component Value Reference Range Notes P-Comprehensive Metabolic Pa jitendra (CMP) Reviewed date:06/17/2025 11:18:01 AM Interpretation: Normal Performing Lab: Notes/Report: CLIA: [id number] Matt Patino MD, Remote Mortgage Underwriter [facility] , [address], [place] [address] Test performed by [employer], [employer] Sodium 142 135-145 mmol/L Potassium 4.5 3.5-5.3 mmol/L Chloride 104 97-108 mmol/L CO2 26 20-32 mmol/L Glucose 99 65-99 mg/dL BUN 28 8-23 mg/dL Creatinine 0.86 0.50-1.00 mg/dL Calcium 9.8 8.6-10.4 mg/dL eGFR by Creatinine 72 >59 mL/min/1.73m2 Protein 6.9 6.0-8.3 g/dL Albumin 4.6 3.5-5.3 g/dL Alkaline Phosphatase 46 35-121 IU/L ALT (SGPT) 15 <5-47 IU/L AST (SGOT) 17 <5-40 IU/L Bilirubin, Total 0.3 <0.2-1.2 mg/dL A/G Ratio 2.0 1.1-2.5 P-T4 Free (thyroxine) Reviewed date:06/17/2025 11:18:01 AM Interpretation: Normal Performing Lab: Notes/Report: Test performed by [facility] [address] [place] [address] , [address], [place] [address] Matt Patino MD, Remote Mortgage Underwriter CLIA: [id number] Thyroxine Free (free T4) 1.46 0.86-1.76 ng/dL P-Lipid Panel Reviewed date:06/17/2025 11:18:01 AM Interpretation:Normal, non fasting Performing Lab: Notes/Report: Test performed by [facility] [address] [place], [place] [address] [address], [place] [address] Matt Patino MD, Remote Mortgage Underwriter CLIA: [id number] Lipid Panel Footnote See Below *Based on optimal reference values. Please refer to the DOS for additional information regarding diagnostic lipid reference ranges, patient management based on the recently updated lipid guidelines ([place] [employer]/[place] [employer] Task Force on Clinical Practice Guidelines (2018), and pediatric diagnostic lipid reference values (<18 years old). Total Cholesterol 152 <200 mg/dL Triglycerides 235 <150 mg/dL HDL Cholesterol 46 >50 mg/dL Total Cholesterol / HDL Ratio* 3.30 <3.99 Rati o Non-HDL Cholesterol 106 <130 mg/dL LDL Cholesterol (Calculation) 59 <100 mg/dL LDL / HDL Ratio* 1.28 <1.99 Ratio LDL Cholesterol Patient History Test Date: 09/22/2023 LDL Results: 76 Units: mg/dL % Change: - Test Date: 06/23/2024 LDL Results: 54 Units: mg/dL % Change: -28% Test Date: 06/16/2025 LDL Results: 59 Units: mg/dL % Change: +9% P-TSH Reviewed date:06/17/2025 11:18:01 AM Interpretation: Normal Performing Lab: Notes/Report: Test performed by [facility] [address] [place], [place] [address] [facility] , [address] , [place] [address] Matt Patino MD, Remote Mortgage Underwriter CLIA: [id number] TSH 3.79 0.43-5.25 mU/L P-Microalbumin/Creatinine, R andom Urine Sample Reviewed date:06/17/2025 11:18:01 AM Interpretation: Normal Performing Lab: Notes/Report: Test performed by [facility] [address] [place] [address] , [address], [place] [address] Matt Patino MD, Remote Mortgage Underwriter CLIA: [id number] Albumin/Creatinine Ratio, Urine 16 0-30 ug/mg Microalbumin, Urine, Random 1.0 Creatinine, Urine 61.1 P-Vitamin D 25-Hydroxy Reviewed date:06/17/2025 11:18:01 AM Interpretation: Normal Performing Lab: Notes/Report: Test performed by [facility] [address] [place] [address] , [address], [place] [address] Matt Patino MD, Remote Mortgage Underwriter CLIA: [id number] Vitamin D 25-Hydroxy 33.4 30.0-100.0 ng/mL Interpretation of Vitamin D 25 [place]: < 20 ng/mL - Deficiency 20 - 29 ng/mL - Insufficiency 30 - 100 ng/mL - Sufficiency > 100 ng/mL - Super-therapeutic- toxicity may occur above this level. Clinical correlation required. REASON FOR VISIT 6 months Medications Medication SIG (Take, Route, Frequency, Duration) Notes Start Date End Date Status Rosuvastatin Calcium 40 mg 1 tablet oral ly once a day; Duration: 90 days Active Eliquis 2.5 MG 1 tablet Orally 2 ti mes a day; Duration: 90 days Active Turmeric 500 MG as directed Orally t wice a day Active FiberCon 625 MG 2 tablets as needed Orally Three times a day Active amLODIPine Besylate 5 mg 1 tablet Orally Once a day; Duration: 90 days Active Carvedilol 25 mg 1 tablet with food Orally Twice a day; Duration: 90 days Active Gralise 600 MG 2 tab(s) orally once a day 05/01/2025 Active Losartan Potassium 100 mg TAKE ONE TABLE T BY MOUTH EVERY DAY; Duration: 90 days Active Triamterene-HCTZ 37.5-25 MG 1/2 tablet o rally once a day; Duration: 90 days Active Lidoderm 5 % 3 patch remove after 12 hours Externally Once a day 12/22/2023 Active Levothyroxine Sodium 137 MCG 1 tablet in the morning on an empty stomach Orally Once a day 06/28/2024 Active Metaxalone 800 mg TAKE ONE TABLET BY M OUTH THREE TIMES DAILY NEEDED MAY CAUSE DROWSINESS Active traMADol HCl 50 MG 1 tablet Orally four times a day as needed 12/30/2024 Active Fenofibrate 145 MG 1 tab(s) orally once a day; Duration: 90 days Active Vital Signs Blood pressure systolic 128 mm Hg 06/16/20 25 Blood pressure diastolic 64 mm Hg 025 Heart Rate 64 /min 06/16/2025 Height 61 in 06/16/2025 Weight 230 lbs 06/16/2025 BMI 43.45 kg/m2 06/16/2025 Encounters Encounter Location Date Provider Diagnosis [facility] [address] [facility] [address] [place] [id number] 06/16/2025 Brennen Wallis Essential (primary) hypertension I10 ; Mixed hyperlipidemia E78.2 ; Hypertriglyceridemia E78.1 ; Vitamin D deficiency E55.9 and Post-surgical hypothyroidism E89.0 Assessments Encounter Date Diagnosis (ICD Code) Assessment Notes Treatment Notes Treatment Clinical Notes Section Notes 06/16/2025 Essential (primary) hypertension (ICD-10 - I10) 06/16/2025 Mixed hyperlipidemia (ICD-10 - E78.2) 06/16/2025 Hypertriglyceridemia (ICD-10 - E78.1) 06/16/2025 Vitamin D deficiency (ICD-10 - E55.9) 06/16/2025 Post-surgical hypothyroidism (ICD-10 - E89.0) Plan Of Treatment Medication Medication Name Sig Start Date Stop Date Notes Rosuvastatin Calcium 40 mg 1 tablet oral ly once a day; Duration: 90 days amLODIPine Besylate 5 mg 1 tablet Orally Once a day; Duration: 90 days Carvedilol 25 mg 1 tablet with food O rally Twice a day; Duration: 90 days Gralise 600 MG 2 tab(s) orally once a day 05/01/2025 Losartan Potassium 100 mg TAKE ONE TABLE T BY MOUTH EVERY DAY; Duration: 90 days Triamterene-HCTZ 37.5-25 MG 1/2 tablet o rally once a day; Duration: 90 days Fenofibrate 145 MG 1 tab(s) orally once a day; Duration: 90 days Next Appt Details Follow Up: 6 Months, Reason: Provider Name:Brennen Solares , 12/14/2025 09:45:00 AM, [address] [facility] [address] [facility], [address], [place], [phone], Progress Notes * CHANDANA VASQUEZOB: (69 yo F)Acc No.[id number]:06/16/2025 Progress Notes Patient: VEGA CHIHSOLM Provider: King Wallis M.D. :1955 A ge:69 Y S ex:Female Date:06/16/2025 Address:[address] [place], [place] [address]JOBY URIBE, JOSE ALBERTO SCHER[place], [phone] Pcp:Wilfredo Brewster Subjective: * Chief Complaints: * 1 . 6 months. * HPI: C ardiology: 69 year old female presents with c/o Blood Pressure Elevated?Pt here for 6 month follow up on Hypertension. Pt states she has no concerns at this time. c/o Hyperlipidemia P t is not fasting today. * Medical History: H ypertension, Fibromyalgia, Dyslipidemia, Arthritis, Spinal Stenosis, Spondylolisthesis, Disc Disease, L2-3, L3-4, Disc Disease C5-6, C6-7, C7-T1. Disc Protrusion C5-6, Mild at C3-4, C4-5 , Diverticulosis, Depression, Seasonal Allergies, CVA, ischemic, 2021, Cardiac loop recorder implanted 2021, peptic ulcer disease, s/p upper GI bleed, 2022 treated at [facility] in [place], Low back pain, s/p pain management treatment 2024. * Surgical History: A ppendectomy 1991, LT Foot Fusion 12/2007, Neck Tumor Removal 01/10/2009, Bilateral Cataract Removal 10/11/2013, 10/25/2013, Rhizotomy and Epidural Steroid, Dr. Newman 03/22/2014, LT T[place]- [place] 06/11/2015, RT [place]- [place] 10/13/2015, Thyroidectomy, Papillary Carcinoma, Dr. Bhakta 12/21/2019, [...] Mother: breast [place]. M aternal Grand Father: [place]. M aternal Grand Mother: [place]. 1 brother(s) , 1 sister(s) - healthy. 2 son(s) , 1 daughter(s) - healthy. . * Social History: C URRENT TOBACCO USE: No S moking Status: Patient does NOT smoke. C affeine: yes, frequency:tea. Exercise: yes, walk 4 days/week 1-4 miles. Home smoke detector use: yes. Marital Status: Single. New since last visit: none. 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 Past smoking status: no. Occup. exposure: none. Recreational drug use: no. Alcohol: no. Sexually active: yes. Travel ouside [place]: no. * Medications: T aking FiberCon 625 MG Tablet 2 tablets as needed Orally Three times a day , Taking Turmeric 500 MG Capsule as directed Orally twice a day , Taking Eliquis 2.5 MG Tablet 1 tablet Orally 2 times a day , Taking Levothyroxine Sodium 137 MCG Tablet 1 tablet in the morning on an empty stomach Orally Once a day , Taking traMADol HCl 50 MG Tablet 1 tablet Orally four times a day as needed , Taking Metaxalone 800 mg Tablet TAKE ONE TABLET BY MOUTH THREE TIMES DAILY NEEDED MAY CAUSE DROWSINESS , Taking Losartan Potassium 100 mg Tablet TAKE ONE TABLET BY MOUTH EVERY DAY , Taking Lidoderm 5 % Patch 3 patch remove after 12 hours Externally Once a day , Taking amLODIPine Besylate 5 mg Tablet 1 tablet Orally Once a day , Taking Carvedilol 25 mg Tablet 1 tablet with food Orally Twice a day , Taking Fenofibrate 145 MG Tablet 1 tab(s) orally once a day , Taking Triamterene-HCTZ 37.5-25 MG Tablet 1/2 tablet orally once a day , Taking Gralise 600 MG Tablet 3 tab(s) orally once a day , Taking Rosuvastatin Calcium 40 mg Tablet 1 tablet orally once a day , Discontinued dexAMETHasone 4 MG Tablet 1 tablet Orally Two times a day , Medication List reviewed and reconciled with the patient * Allergies: C yclobenzaprine HCl, Tetanus Toxoids, Adhesive. Objective: * Vitals: W t: 230, Temp: 97.9, BP: 128/64, HR: 64, Nurse: SF, Ht: 61, BMI:43.45. * Examination: G eneral Examination: General Appearance: N AD. H EENT: Sclera and conjunctiva clear, TM's normal. H eart: R SR. L ungs: c lear to auscultation. E xtremities: no leg edema. Assessment: * Assessment: 1. E ssential (primary) hypertension - I10 (Primary) 2 . M ixed hyperlipidemia - E78.2 3 . H ypertriglyceridemia - E78.1 4 . V itamin D deficiency - E55.9 5 . P ost-surgical hypothyroidism - E89.0 Plan: * Treatment: Value Reference Range A /G Ratio 2.0 1.1-2.5 - * A lbumin 4.6 3.5-5.3 - g/dL * A lkaline Phosphatase 46 35-121 - IU/L * A LT (SGPT) 15 <5-47 - IU/L * A ST (SGOT) 17 <5-40 - IU/L * B ilirubin, Total 0.3 <0.2-1.2 - mg/dL * B UN 28 H 8-23 - mg/dL * C alcium 9.8 8.6-10.4 - mg/dL * C hloride 104 97-108 - mmol/L * C O2 26 20-32 - mmol/L * C reatinine 0.86 0.50-1.00 - mg/dL * G lucose 99 65-99 - mg/dL * P otassium 4.5 3.5-5.3 - mmol/L * S odium 142 135-145 - mmol/L * P rotein 6.9 6.0-8.3 - g/dL * e GFR by Creatinine 72 >59 - mL/min/1.73m2 * Brennen Wallis 06/17/2025 11:17:15 AM EST > Spoke to patient. ?LAB: P-Microalbumin/Creatinine, Random Urine Sample (Collection Date & Time - 06/16/2025 09:17 AM)?Normal* Value Reference Range A lbumin/Creatinine Ratio, Urine 16 0-30 - ug /mg * C reatinine, Urine 61.1 - mg/dL * M icroalbumin, Urine, Random 1.0 - mg/dL * Brennen Wallis 06/17/2025 11:17:15 AM EST > Spoke to patient. 2.?Mixed hyperlipidemia? Refill Rosuvastatin Calcium Tablet, 40 mg, 1 tablet, orally, once a day, 90 days, 90, Refills 1. ?LAB: P-Comprehensive Metabolic Panel (CMP) (Collection Date & Time - 06/16/2025 09:17 AM)?Normal* Value Reference Range A /G Ratio 2.0 1.1-2.5 - * A lbumin 4.6 3.5-5.3 - g/dL * A lkaline Phosphatase 46 35-121 - IU/L * A LT (SGPT) 15 <5-47 - IU/L * A ST (SGOT) 17 <5-40 - IU/L * B ilirubin, Total 0.3 <0.2-1.2 - mg/dL * B UN 28 H 8-23 - mg/dL * C alcium 9.8 8.6-10.4 - mg/dL * C hloride 104 97-108 - mmol/L * C O2 26 20-32 - mmol/L * C reatinine 0.86 0.50-1.00 - mg/dL * G lucose 99 65-99 - mg/dL * P otassium 4.5 3.5-5.3 - mmol/L * S odium 142 135-145 - mmol/L * P rotein 6.9 6.0-8.3 - g/dL * e GFR by Creatinine 72 >59 - mL/min/1.73m2 * Brennen Wallis 06/17/2025 11:17:15 AM EST > Spoke to patient. ?LAB: P-Lipid Panel (Collection Date & Time - 06/16/2025 09:17 AM)?Normal, non fasting* Value Reference Range C holesterol / HDL Ratio 3.30 <3.99 - Ratio * C holesterol 152 <200 - mg/dL * H DL Cholesterol 46 L >50 - mg/dL * L DL Cholesterol (Calculation) 59 <100 - mg/d L * L DL/HDL Ratio 1.28 <1.99 - Ratio * N on-HDL Cholesterol 106 <130 - mg/dL * T riglycerides 235 H <150 - mg/dL * L ipid Panel Footnote See Below - * Brennen Wallis 06/17/2025 11:17:15 AM EST > Spoke to patient. 3.?Hypertriglyceridemia? Refill Fenofibrate Tablet, 145 MG, 1 tab(s), orally, once a day, 90 days, 90, Refills 1.??4.?Vitamin D deficiency?LAB: P-Vitamin D 25-Hydroxy (Collection Date & Time - 06/16/2025 09:17 AM)? Normal* Value Reference Range V itamin D 25-Hydroxy 33.4 30.0-100.0 - ng/mL * Brennen Wallis T 06/17/2025 11:17:15 AM EST > Spoke to patient. 5.?Post-surgical hypothyroidism?LAB: P-T4 Free (thyroxine) (Collection Date & Time - 06/16/2025 09:17 AM)? Normal* Value Reference Range T hyroxine Free (free T4) 1.46 0.86-1.76 - ng/d L * Brennen Wallis T 06/17/2025 11:17:15 AM EST > Spoke to patient. ?LAB: P-TSH (Collection Date & Time - 06/16/2025 09:17 AM)?Normal* Value Reference Range T SH 3.79 0.43-5.25 - mU/L * Love Wallisian T 06/17/2025 11:17:15 AM EST > Spoke to patient. 6.?Others? Decrease Gralise Tablet, 600 MG, 2 tab(s), orally, once a day.?? * Procedure Codes: G 2211 Complex e/m visit add on * Follow Up: 6 Months * Images: Billing Information: * Visit Code: 97707 Office Visit, Est Pt., Level 4. * Procedure Codes: G2211 Complex e/m visit add on. * Electronic signature of Aidee Wallis MD on 07/01/2025 at 09:55 AM EST Sign off status: Pending * Provider: King Wallis M.D. Date: 08/16/2024 Generated for Gareth mccloud/Keyanna/eTransmitting on: 08/31/2024 09:55 AM EST History and Physical Notes * HPI (History of Present Illness) Category Sub-Category Detail Notes Category Not es Cardiology Blood Pressure Elevated Pt here for 6 month follow up on Hypertension. Pt states she has no concerns at this time Hyperlipidemia Pt is not fasting to day Examination Category Sub-Category Detail Notes Category Not es General Examination HEENT: Sclera and c onjunctiva clear, TM's normal Heart: RSR Lungs: clear to auscultatio n Extremities: no leg edema General Appearance: NAD
[2025-07-01 09:45] VITALS: BP 136/64; PULSE 76; RESP 20; TEMP 36.7; O2SAT 96; BMI 43.9
--- OUTSIDE RECORDS SUMMARY | 2025-07-01 09:55 | XMS_ITS | Encounter Summary ---
Author Organization [employer] ([place], [place], [place], [place], [place]) Address [address] [place] [address] Care Team Providers Care Bow Rehairer Name Role Phone Brennen Wallis MD Primary Care Provider [phone] Encounter Details Date Type Department Care Team (Late st Contact Info) Description 10/04/2019 Transcribed Document [facility] [place] [facility] [address] [place] [id number] ProviderVanna MD [address] [place] [id number] Social History Tobacco Use Types Packs/Day Years Used Date Smoking Tobacco: Never Assessed Comments Unknown Sex and Gender Information Value Date Recorded Sex Assigned at Not on file Legal Sex Female 5:38 PM CDT Gender Identity Not on file Sexual Orientation Not on file documented as of this encounter Miscellaneous Notes * [employer]ner Conversion Note - Vanna ProviderMD - 10/04/2019 10:13 AM EXPERIMENTAL ROCKETSLED MECHANIC Patient: CHEYANNE VASQUEZ Age: 63 Years Sex: Female : 1955 Chief Complaint Right Knee Pain Primary Care Provider ОЛЕГ GHOTRA [facility] History of Present Illness This patient [...] release 15 mg = 1 Tab, Oral, [id number] Multivitamins and Minerals 1 Tab, Oral, Daily [...] PA-C 10/09/2015 09:03 EST Electronically signed by Interface, [facility] Conversion Hospital Scientist Cerner at 11/23/2022 6:52 PM CDT documented in this encounter Plan of Treatment Not on file documented as of this encounter Visit Diagnoses Not on filedocumented in this encounter Additional Health Concerns Infection Onset Date Last Indicated Resolved Time 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
--- OUTSIDE RECORDS SUMMARY | 2025-07-01 09:55 | XMS_ITS | Encounter Summary ---
Author Organization [employer] ([place], [place], [place], [place], [place]) Address [address] [place] [address] Care Team Providers Care Steam Conditioner Filling Name Role Phone Brennen Wallis MD Primary Care Provider [phone] Encounter Details Date Type Department Care Team (Late st Contact Info) Description 10/05/2019 Transcribed Document [facility] [place] [address] [place] [address] ProviderVanna MD [address] [place] [address] Social History Tobacco Use Types Packs/Day Years Used Date Smoking Tobacco: Never Assessed Comments Unknown Sex and Gender Information Value Date Recorded Sex Assigned at Not on file Legal Sex Female 5:38 PM CDT Gender Identity Not on file Sexual Orientation Not on file documented as of this encounter Miscellaneous Notes * Cerner Conversion Note - Vanna ProviderMD - 10/05/2019 4:51 AM RN STAFFING Orthopedic Nurse Navigator Entered On: 10/05/2019 4:53 [...] 10/05/2019 4:51 EST Electronically signed by Radha, [facility] Conversion Radio Engineer Cerner at 11/23/2022 6:37 PM CDT documented in this encounter Plan of Treatment Not on file documented as of this encounter Visit Diagnoses Not on filedocumented in this encounter Additional Health Concerns Infection Onset Date Last Indicated Resolved Time 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 05/28/2023 documented as of this encounter Care Teams Steam Conditioner Filling Relationship Specialty Start Date End Date Brennen Wallis MD [address] [facility] [address] [place] [phone] PCP - General Family Medicine 05/28/23 documented as of this encounter
--- OUTSIDE RECORDS SUMMARY | 2025-07-01 09:55 | XMS_ITS | Encounter Summary ---
Author Organization [employer] ([place], [place], [place], [place], [place]) Address [address] [place] [address] Care Team Providers Care Disabilities Caregiver Name Role Phone Brennen Wallis MD Primary Care Provider [phone] Encounter Details Date Type Department Care Team (Late st Contact Info) Description 10/04/2019 Transcribed Document [facility] [place] [facility] [place] [address] ProviderVanna MD [address] [place] [address] Social History Tobacco Use Types Packs/Day Years Used Date Smoking Tobacco: Never Assessed Comments Unknown Sex and Gender Information Value Date Recorded Sex Assigned at Not on file Legal Sex Female 5:38 PM CDT Gender Identity Not on file Sexual Orientation Not on file documented as of this encounter Miscellaneous Notes * Cerner Conversion Note - Historical ProviderMD - 10/04/2019 1:46 PM MMI TEACHER PAT Adult Entered On: 10/04/2019 13:53 EST Performed On: 10/04/2019 13:46 EST by JUAN DAVID BUCKLEY RN Height and Weight, Clinical Dosing Height Source : Stated Height Entry Format : Marvell Height, Feet : 5 ft(Converted to: 152 cm, 60 Inch) Height, Inches : 0 Inch(Converted to: 0 ft 0 Inch, 0.00 cm) Clinical Height : 152.4 cm Weight Source : Standing scale Weight Entry Format : Marvell Clinical Dosing Weight : 90.91 kg Weight, Pounds : 200 lb Body Surface Area (BSA) : 1.87 m2 Body Mass Index : 39.1 kg/m2 (HI) Pinnacle Body Weight : 45 kg JUAN DAVID [...] DAVID BUCKLEY RN - 10/04/2019 13:46 EST [place] Suicide Severity Rating Scale (C-SSRS) CSSRS Past [...] Cheyanne Legal Guardian : No Support Person/Patient Concrete Buildings Assembler : Yes Support Person/Pt Rep Name : Keli hoff Family/Rep/Phys Notified of Admit : No Emergency Contact #1 : Agustín Stafford Emergency Contact #1 Emergency Contact #1 Relationship : daughter Emergency Contact #2 : scot Hilton Emergency Contact #2 Emergency Contact #2 Relationship : son Primary Language : Luxembourger Preferred Communication Mode : Verbal Communication Barrier [...] - 10/04/2019 13:46 EST Electronically signed by [facility], [facility] Conversion Waiter/Waitress Economy Class Cerner at 11/23/2022 6:28 PM CDT documented in this encounter Plan of Treatment Not on file documented as of this encounter Visit Diagnoses Not on filedocumented in this encounter Additional Health Concerns Infection Onset Date Last Indicated Resolved Time 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 05/28/2023 documented as of this encounter Care Teams Disabilities Caregiver Relationship Specialty Start Date End Date Brennen Wallis MD [address] [facility] [address] [place] [phone] PCP - General Family Medicine 05/28/23 documented as of this encounter
--- OUTSIDE RECORDS SUMMARY | 2025-07-01 09:55 | XMS_ITS | Encounter Summary ---
Author Organization [employer] ([place], [place], [place], [place], [place]) Address [address] [place] [address] Care Team Providers Care Toxics Program Officer Name Role Phone Brennen Wallis MD Primary Care Provider [phone] Encounter Details Date Type Department Care Team (Late st Contact Info) Description 10/11/2019 Transcribed Document [facility] [place] [address] [place] [address] ProviderVanna MD [address] [place] [address] Social History Tobacco Use Types Packs/Day Years Used Date Smoking Tobacco: Never Assessed Comments Unknown Sex and Gender Information Value Date Recorded Sex Assigned at Not on file Legal Sex Female 5:38 PM CDT Gender Identity Not on file Sexual Orientation Not on file documented as of this encounter Miscellaneous Notes * Cerner Conversion Note - Vanna ProviderMD - 10/11/2019 2:40 PM PARI MUTUEL CLERK UM Authorization Entered On: 10/11/2019 14:41 EST Performed On: 10/11/2019 14:40 EST by GOPAL WICK RN-Utilization Review Primary Insurance Authorization Authorization and Policy Numbers : Insurance 1 Health Plan: [employer] CHO[employer] PPO Policy Number: [id number] Authorization Number: Insurance 2 Health Plan: FOR LIFE Policy Number: [id number] Authorization Number: Insurance Primary Name : [employer] CHOICE PPO Policy Number: [id number] Authorization Status-Primary : Notification only Authorization Number-Primary : [id number] Authorized Service Begin Date-Primary : 10/18/2019 EDT Authorization Comments-Primary : [employer] Medicare approved for inpt per availity Historical Authorization Comments-Primary : No Authorization Comments Found GOPAL WICK, ERIC-Utilization Review - 10/11/2019 14:40 EST Electronically signed by [facility], [facility] Conversion Management Rep Cerner at 11/23/2022 6:42 PM CDT documented in this encounter Plan of Treatment Not on file documented as of this encounter Visit Diagnoses Not on filedocumented in this encounter Additional Health Concerns Infection Onset Date Last Indicated Resolved Time 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
--- OUTSIDE RECORDS SUMMARY | 2025-07-01 09:55 | XMS_ITS | Encounter Summary ---
Author Organization [employer] ([place], [place], [place], [place], [place]) Address [address] [place] [address] Care Team Providers Care Electrical Transmission Engineer Name Role Phone Brennen Wallis MD Primary Care Provider [phone] Encounter Details Date Type Department Care Team (Late st Contact Info) Description 10/06/2019 Transcribed Document [facility] [place] [address] [place] [address] ProviderVanna MD [address] [place] [address] Social History Tobacco Use Types Packs/Day Years Used Date Smoking Tobacco: Never Assessed Comments Unknown Sex and Gender Information Value Date Recorded Sex Assigned at Not on file Legal Sex Female 5:38 PM CDT Gender Identity Not on file Sexual Orientation Not on file documented as of this encounter Miscellaneous Notes * Cerner Conversion Note - Vanna ProviderMD - 10/06/2019 1:00 PM RESIDENTIAL MORTGAGE MANAGER Orthopedic Nurse Navigator Entered On: 10/10/2019 5:48 EST Performed On: 10/06/2019 13:00 EST by Lucy De Nurse lactation specialist Nurse Navigator Assessment Attended Joint Academy : Yes Joint AcademyType : In person Joint Academy Date : 10/06/2019 EST Joint Recycling Center Operator Attended Academy : No Joint Recycling Center Operator Name : no one at home Type of Surgery : Total Knee Revision, Right Does Patient Have a Walker? : No Patient Completed RAPT Score : 7 Joint Navigator Assessment Note : According to the RAPT Score, additional intevention to discharge directly home. Pt indicates no one at home. Pt indicates leg weakness. Pt is wanting rehab and to go to [facility] or [facility]. Pt indicates urgency. 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
--- OUTSIDE RECORDS SUMMARY | 2025-07-01 09:55 | XMS_ITS | Clinical Summary ---
Author Organization [facility] Address [address] [place] [address] Phone Care Team Providers Care Ed Manager Name Role Phone Unavailable Unavailable Conditions or Problems No information available. Medications No information available. Medications Administered No information available. Allergies, Adverse Reactions, Alerts No information available. Results No information available. Plan of Care No information available. Procedures No information available. Vital Signs No information available. Immunizations No information available. Advance Directives No information available.
--- OUTSIDE RECORDS SUMMARY | 2025-07-01 09:55 | XMS_ITS | Clinical Summary ---
Author Organization [facility] Address [address] [place] [address] Care Team Providers Care Blue Leather Sorter Name Role Phone Douglas Brewster MD Primary [...] 01/06/2019, 10/26/2018 Medical Devices Implanted Type Area Usability Engineer Device Identifier Shelf Expiration Date Model / Serial / Lot Implant Implanted:Qty: 1 Implant Description:Total knee arthr oplasty on left knee. Implant Implanted:Qty: 1 Implant Description:Partial arthropl asty on right knee. [place] [address] [place] [address] MEDICARE ADVANTAGE [facility] Advance Directives * CPR (Attempt to Resuscitate) (Latest Code Status on File) Date Activated Date Inactivated Comments 12/21/2019 6:29 PM 12/22/2019 3:13 PM Question Answer Comments Code Status (Patient has no pulse and is not breathing): CPR (Attempt to Resuscitate) Medical Interventions (Patie nt has pulse or is breathing): Full Level Of Support Discussed With: Patient Care Teams Blue Leather Sorter Relationship Specialty Start Date End Date Douglas Brewster MD PCP - General 05/24/15
--- OUTSIDE RECORDS SUMMARY | 2025-07-01 09:55 | XMS_ITS | Referral Summary ---
Author Organization [employer] ([place], [place], [place], [place], [place]) Address [address] [place] [address] Care Team Providers Care Senior Storage Engineer Name Role Phone Brennen Wallis MD Primary Care Provider [phone] Allergies Active Allergy Reactions Criticality Noted Date [...] Date Fredrick rded Speak language other than Greenlandic at home Not on file 08/27/2023 Want [...] on file Medical Devices Implanted Type Area Health Administrator Device Identifier Shelf Expiration Date Model / Serial / Lot Implants IMPLANTS Description:Bilateral knees, loop recorder, cataracts Cement Bone [place] Hv 40/20 600-15-000 - [id number] Implanted:Qty : 1 on 06/08/2023 by Vinny Anne MD at [facility] IMPLANTS Right: Knee DJ SURG:ENCORE MED:[place] 11/05/2024 600-15-00 0 / / [id number] Cement Bone [place] Hv 40/20 600-15-000 - [id number] Implanted:Qty : 1 on 06/08/2023 by Vinny Anne MD at [facility] IMPLANTS Right: Knee DJ SURG:ENCORE MED:[place] 04/02/2024 600-15-00 0 / / [id number] Bearing Tib Ps 84tzj74/75 [id number] - [id number] Implanted:Qty : 1 on 06/08/2023 by Vinny Anne MD at [facility] TOTAL JOINT CONSTRUCT Right: Knee BIOMET 12/25/2025 [id number] / / [id number] Patella Std 8x31mm [id number] - [id number] Implanted:Qty : 1 on 06/08/2023 by Vinny Anne MD at [facility] TOTAL JOINT CONSTRUCT Right: Knee BIOMET 02/06/2028 [id number] / / [id number] Femoral Vanguard 62.5 Rt [id number] - [id number] Implanted:Qty : 1 on 06/08/2023 by Vinny Anne MD at [facility] TOTAL JOINT CONSTRUCT Right: Knee BIOMET 03/02/2033 [id number] / / [id number] Ty Tib I-Beam Fix Biomet 71mm [id number] - [id number] Implanted:Qty : 1 on 06/08/2023 by Vinny Anne MD at [facility] TOTAL JOINT CONSTRUCT Right: Knee BIOMET 04/18/2033 [id number] / / [id number] Additional Health Concerns Infection Onset Date Last Indicated 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 05/28/[address] [place] [address] [employer]NA MEDICARE PPO Advance Directives For more information, please contact: [phone] * Full Code (Latest Code Status on File) Date Activated Date Inactivated Comments 06/17/2023 11:14 AM 06/20/2023 3:30 PM * Full Code Date Activated Date Inactivated Comments 06/08/2023 5:15 PM 06/10/2023 1:45 PM * Full Code Date Activated Date Inactivated Comments 06/08/2023 9:21 AM 06/08/2023 5:15 PM Care Teams Senior Storage Engineer Relationship Specialty Start Date End Date Brennen Wallis MD [address] [facility] [address] [place] [phone] PCP - General Family Medicine 05/28/23
--- OUTSIDE RECORDS SUMMARY | 2025-07-01 09:55 | XMS_ITS | Encounter Summary ---
Author Organization [employer] ([place], [place], [place], [place], [place]) Address [address] [place] [address] Care Team Providers Care Psychiatric Arnp Name Role Phone Brennen Wallis MD Primary Care Provider [phone] Encounter Details Date Type Department Care Team (Late st Contact Info) Description 10/05/2019 Transcribed Document [facility] [place] [address] [place] [address] ProviderVanna MD [address] [place] [address] Social History Tobacco Use Types Packs/Day Years Used Date Smoking Tobacco: Never Assessed Comments Unknown Sex and Gender Information Value Date Recorded Sex Assigned at Not on file Legal Sex Female 5:38 PM CDT Gender Identity Not on file Sexual Orientation Not on file documented as of this encounter Miscellaneous Notes * Cerner Conversion Note - Vanna ProviderMD - 10/05/2019 4:51 AM KITCHEN BATH DESIGNER Total Joints Assessment Entered On: 10/05/2019 4:51 [...] from sitting : Moderate 7. Bending to floor/shrimp picker an object : Moderate KOOS JR [...] documented as of this encounter Care Teams Psychiatric Arnp Relationship Specialty Start Date End Date Brennen Wallis MD [address] [place] [facility] [address] [place] [address] PCP - General Family Medicine 05/28/23 documented as of this encounter
--- OUTSIDE RECORDS SUMMARY | 2025-07-01 09:56 | XMS_ITS | Clinical Summary ---
Author Organization [employer] ([place], [place], [place], [place], [place]) Address [address] [place] [address] Care Team Providers Care Stripper Machine Operator Name Role Phone Brennen Wallis MD Primary Care Provider [phone] Allergies Active Allergy Reactions Criticality Noted Date [...] Date Fredrick rded Speak language other than Micronesian at home Not on file 08/27/2023 Want [...] 05/09/2020, 08/10/2019 Medical Devices Implanted Type Area Mobility Architect Manager Device Identifier Shelf Expiration Date Model / Serial / Lot Implants IMPLANTS Description:Bilateral knees, loop recorder, cataracts Cement Bone [place] Hv 40/20 600-15-000 - [id number] Implanted:Qty : 1 on 06/08/2023 by Vinny Anne MD at [facility] IMPLANTS Right: Knee DJ SURG:ENCORE MED:[place] 11/05/2024 600-15-00 0 / / [id number] Cement Bone [place] Hv 40/20 600-15-000 - [id number] Implanted:Qty : 1 on 06/08/2023 by Vinny Anne MD at [facility] IMPLANTS Right: Knee DJ SURG:ENCORE MED:[place] 04/02/2024 600-15-00 0 / / [id number] Bearing Tib Ps 83qqq30/75 [id number] - [id number] Implanted:Qty : 1 on 06/08/2023 by Vinny Anne MD at [facility] TOTAL JOINT CONSTRUCT Right: Knee BIOMET 12/25/2025 [id number] / / [id number] Patella Std 8x31mm [id number] - [id number] Implanted:Qty : 1 on 06/08/2023 by Vinny Anne MD at [facility] TOTAL JOINT CONSTRUCT Right: Knee BIOMET 02/06/2028 [id number] / / [id number] Femoral Vanguard 62.5 Rt 260933 - [id number] Implanted:Qty : 1 on 06/08/2023 by Vinny Anne MD at [facility] TOTAL JOINT CONSTRUCT Right: Knee BIOMET 03/02/2033 [id number] / / [id number] Ty Tib I-Beam Fix Biomet 71mm [id number] - [id number] Implanted:Qty : 1 on 06/08/2023 by Vinny Anne MD at [facility] TOTAL JOINT CONSTRUCT Right: Knee BIOMET 04/18/2033 [id number] / / [id number] Additional Health Concerns Infection Onset Date Last Indicated 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 05/28/[address] [place] [address] [employer] HU[employer]NA MEDICARE PPO Advance Directives For more information, please contact: [phone] * Full Code (Latest Code Status on File) Date Activated Date Inactivated Comments 06/17/2023 11:14 AM 06/20/2023 3:30 PM * Full Code Date Activated Date Inactivated Comments 06/08/2023 5:15 PM 06/10/2023 1:45 PM * Full Code Date Activated Date Inactivated Comments 06/08/2023 9:21 AM 06/08/2023 5:15 PM Care Teams Stripper Machine Operator Relationship Specialty Start Date End Date Brennen Wallis MD [address] [facility] [address] [place] [id number] PCP - General Family Medicine 05/28/23
--- OUTSIDE RECORDS SUMMARY | 2025-07-01 09:56 | XMS_ITS | Patient Health Record ---
Author Organization [facility] Address [address] [place] [id number] Care Team Providers Care Solidworks Mechanical Designer Name Role Phone Wilfredo Brewster Primary Care Provider Brennen Wallis Unavailable [phone] Allergies Allergen (clinical drug ingredient) Drug/Non Drug Allergy documented on EMR Reaction Allergy Type Onset Date Status cyclobenzaprine Cyclobenzaprine HCl Unknown Drug Allergy Active Adhesive Unknown Allergy Active Tetanus Toxoids Unknown Drug Allergy A ctive Results Component Value Reference Range Notes P-T4 Free (thyroxine) Reviewed date:09/08/2024 08:52:01 AM Interpretation:1.78 Performing Lab: Notes/Report: Test performed by [facility] [address] [place] [address] , [place] [address] Matt Patino MD, Checkering Machine Operator CLIA: [id number] Thyroxine Free (free T4) 1.78 0.86-1.76 ng/dL P-TSH Reviewed date:09/08/2024 08:52:01 AM Interpretation:Normal Performing Lab: Notes/Report: Test performed by [facility] [address] [place] [address] , [address], [place] [id number] Matt Patino MD, Checkering Machine Operator CLIA: [id number] TSH 1.37 0.43-5.25 mU/L P-Comprehensive Metabolic Pa jitendra (CMP) Reviewed date:06/17/2025 11:18:01 AM Interpretation: Normal Performing Lab: Notes/Report: Test performed by [facility] [address] [place] [address] , [address], [place] [address] Matt Patino MD, Checkering Machine Operator CLIA: [id number] Sodium 142 135-145 mmol/L Potassium 4.5 3.5-5.3 [...] Normal Performing Lab: Notes/Report: Test performed by [facility] [address] [place] [address] , [facility] [place] [address] Matt Patino MD, Checkering Machine Operator CLIA: [id number] Thyroxine Free (free T4) 1.46 0.86-1.76 ng/dL P-Lipid Panel Reviewed date:06/17/2025 11:18:01 AM Interpretation:Normal, non fasting Performing Lab: Notes/Report: Test performed by [facility] [address] [place] [address] , [place] [address] Matt Patino MD, Checkering Machine Operator CLIA: [id number] Lipid Panel Footnote See Below *Based on optimal reference values. Please refer to the DOS for additional information regarding diagnostic lipid reference ranges, patient management based on the recently updated lipid guidelines ([place] [employer]/[place] [employer] Task Force on Clinical Practice Guidelines (2018), and pediatric diagnostic lipid reference values (<18 years old). Total Cholesterol 152 <200 mg/dL Triglycerides 235 <150 mg/dL HDL Cholesterol 46 >50 mg/dL Total Cholesterol / HDL Ratio* 3.30 <3.99 Ratio Non-HDL Cholesterol 106 <130 mg/dL LDL Cholesterol (Calculation) 59 <100 mg/dL LDL / HDL Ratio* 1.28 <1.99 Ratio LDL Cholesterol Patient History Test Date: 09/22/2023 LDL Results: 76 Units: mg/dL % Change: - ------- Test Date: 06/23/2024 LDL Results: 54 Units: mg/dL % Change: -28% ------- Test Date: 06/16/2025 LDL Results: 59 Units: mg/dL % Change: +9% P-TSH Reviewed date:06/17/2025 11:18:01 AM Interpretation: Normal Performing Lab: Notes/Report: Test performed by [facility], [place] [address] [facility] , [place] [address] Matt Patino MD, Checkering Machine Operator CLIA: [id number] TSH 3.79 0.43-5.25 mU/L P-Microalbumin/Creatinine, R andom Urine Sample Reviewed date:06/17/2025 11:18:01 AM Interpretation: Normal Performing Lab: Notes/Report: Test performed by [facility] [address] , [address], [place] [address] Matt Patino MD, Checkering Machine Operator CLIA: [id number] Albumin/Creatinine Ratio, Urine 16 0-30 ug/mg Microalbumin, Urine, Random 1.0 Creatinine, Urine 61.1 P-Vitamin D 25-Hydroxy Reviewed date:06/17/2025 11:18:01 AM Interpretation: Normal Performing Lab: Notes/Report: Test performed by [facility] [address] , [address], [place] [id number] Matt Patino MD, Checkering Machine Operator CLIA: [id number] Vitamin D 25-Hydroxy 33.4 30.0-100.0 ng/mL Interpretation of Vitamin D 25 OH: < 20 ng/mL - Deficiency 20 - 29 ng/mL - Insufficiency 30 - 100 ng/mL - Sufficiency > 100 ng/mL - Super-therapeutic- toxicity may occur above this level. Clinical correlation required. Ultrasound : Breast, right Reviewed date:05/31/2025 09:10:48 AM Interpretation:see Mammogram results Performing Lab: Notes/Report: see Mammogram results Mammogram, spot compression, right breast Reviewed date:06/01/2025 03:01:10 PM Interpretation:benign, annual f/u recommended Performing Lab: Notes/Report: benign, annual f/u recommended Mammogram Reviewed date:05/09/2025 09:21:18 AM Interpretation:needs additional imaging Performing Lab: Notes/Report: needs additional imaging result needs additional imaging CBC Fingerstick (in house) Reviewed date:12/30/2024 01:40:56 PM Interpretation: Performing Lab: Notes/Report: wbc 5.8 3.5 - 10 lym 21.4 15 - 50 mid 4.9 2 - 15 gran 73.7 35 - 80 rbc 4.42 3.5 - 5.5 hgb 12.5 11.5 - 16.5 hct 40.1 35 - 55 mcv 90.9 75 - 100 [facility] 28[facility]4 25 - [facility] - 38 plat 200 100 - 400 MRI : Spine, Lumbosacral, wi thout contrast Reviewed date:12/30/2024 09:46:14 AM Interpretation:Advanced degenerative changes with stenosis and foraminal narrowing Performing Lab: Notes/Report: Advanced degenerative changes with stenosis and foraminal narrowing Bone density Reviewed date:03/10/2025 01:29:08 PM Interpretation:Normal Performing Lab: Notes/Report: Normal Medications Medication SIG (Take, Route, Frequency, Duration) Notes Start Date End Date Status Rosuvastatin Calcium 40 mg 1 tablet oral ly once a day; Duration: 90 days Active Lidoderm 5 % 3 patch remove after 12 hours Externally Once a day 12/22/2023 Active amLODIPine Besylate 5 mg 1 tablet Orally Once a day; Duration: 90 days Active Carvedilol 25 mg 1 tablet with food Orally Twice a day; Duration: 90 days Active Levothyroxine Sodium 137 MCG 1 tablet in the morning on an empty stomach Orally Once a day 06/28/2024 Active Gralise 600 MG 2 tab(s) orally once a day 05/01/2025 Active Eliquis 2.5 MG 1 tablet Orally 2 ti mes a day; Duration: 90 days Active Losartan Potassium 100 mg TAKE ONE TABLE T BY MOUTH EVERY DAY; Duration: 90 days Active Metaxalone 800 mg TAKE ONE TABLET BY M OUTH THREE TIMES DAILY NEEDED MAY CAUSE DROWSINESS Active Triamterene-HCTZ 37.5-25 MG 1/2 tablet o rally once a day; Duration: 90 days Active traMADol HCl 50 MG 1 tablet Orally four times a day as needed 12/30/2024 Active FiberCon 625 MG 2 tablets as needed Orally Three times a day Active Fenofibrate 145 MG 1 tab(s) orally once a day; Duration: 90 days Active Turmeric 500 MG as directed Orally t wice a day Active Immunizations Vaccine Route Administration Date Status [...] W/U Status Risk Notes Problem Essential hypertension (29359374) Essential (primary) hypertension (I10) Active confirmed Problem Vitamin D deficiency (81108570) Vitamin D deficiency (E55.9) Active confirmed Problem Abnormal mammogram (836281208) Abnormal mammogram (R92.8) Active confirmed Problem Diverticulitis (72698914) Diverticulitis (K57.92) Active confirmed Problem Morbid obesity (302677314) Morbid obesity (E66.01) Active confirmed Problem Hypertriglyceridemia (697366082) Hypertriglyceridemia (E78.1) Active confirmed Problem Arthropathy of lumba r facet joint (885165205) Lumbar facet arthropathy (M47.816) Active confirmed Problem Fibromyalgia (163692920) Fibromyalgia (M79.7) Active confirmed Problem Mixed hyperlipidemia (049915758) Mixed hyperlipidemia (E78.2) Active confirmed Problem Osteoarthritis of knee (637795254) Osteoarthritis of knee, unspecified (M17.9) Active confirmed Problem Localized, primary osteoarthritis of the hand (578014452) Primary osteoarthritis, right hand (M19.041) Active confirmed Problem Spinal stenosis of lumbar region (52838805) Spinal stenosis, lumbosacral region (M48.07) Active confirmed Problem Sciatica (32112542) Lumbago with sciatica, left side (M54.42) Active confirmed Problem Thyroid nodule (377294774) Thyroid nodule (E04.1) Active confirmed Problem Chronic pain (38253008) Other chronic pain (G89.29) Active confirmed Problem Heart murmur (20394687) Heart murmur (R01.1) Active confirmed Problem Gastroesophageal reflux disease without esophagitis (054247980) Gastroesophageal reflux disease without esophagitis (K21.9) Active confirmed Problem Renal insufficiency (199168066) Renal insufficiency (N28.9) Active confirmed Problem Body mass index 40+ - morbidly obese (284327606) BMI 40.0-44.9, adult (Z68.41) Active confirmed Problem Artificial knee join t present (379540864229) Status post 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) Active confirmed Problem Allergic rhinitis caused by pollen (65096148) Seasonal allergic rhinitis due to pollen (J30.1) Active confirmed Problem Sciatica (16821530) Acute left-s ided low back pain with left-sided sciatica (M54.42) Active confirmed Problem Postoperative hypothyroidism (03895351) Post-surgical hypothyroidism (E89.0) Active confirmed Problem Localized, primary osteoarthritis of the hand (563169586) Primary osteoarthritis of left hand (M19.042) Active confirmed Problem Ischemic stroke (609387351) Ischemic stroke (I63.9) Active confirmed Problem Urge incontinence of urine (10350632) Urgency incontinence (N39.41) Active confirmed Problem Thyromegaly (9856213) Thyromegaly (E01.0) Active confirmed Problem Peptic ulcer disease (03471233) PUD (peptic ulcer disease) (K27.9) Active confirmed Problem Arthritis of right knee (6106153751736887) Arthritis of right knee (M17.11) Active confirmed Problem Fibrocystic breast changes (50726608) Fibrocystic breast disease (FCBD), unspecified laterality (N60.19) Active confirmed Problem Papillary thyroid carcinoma (070081092) Papillary thyroid carcinoma (C73) Active confirmed Problem Seasonal allergic rhinitis (386917459) Seasonal allergic rhinitis, unspecified trigger (J30.2) Active confirmed Problem Allergic rhinitis (60683648) Allergic rhinitis, unspecified seasonality, unspecified trigger (J30.9) Active confirmed Problem Neurogenic claudication (840281106) Neurogenic claudication due to lumbar spinal stenosis (M48.062) Active confirmed Problem Artificial knee join t present (605618306720) Status post right partial knee replacement (Z96.651) Active confirmed Problem Hearing loss (02496352) Unspecified hearing loss (H91.90) Active confirmed Problem Degeneration of intervertebral disc of lumbar region with discogenic back pain and lower extremity pain (M51.362) Active confirmed Problem Bulging lumbar d isc (M51.369) Active confirmed Vital Signs Heart Rate 64 /min 06/16/2025 Blood pressure diastolic 64 mm Hg 06/16/2025 Height 61 in 06/16/2025 Blood pressure systolic 128 mm Hg 06/16/2025 Weight 230 lbs 06/16/2025 BMI 43.45 kg/m2 06/16/2025 Encounters Encounter Location Date Provider Diagnosis [facility] [address] [facility] [address] [place], [place] [id number] 09/07/2024 Brennen Shiloh Post-surgical hypothyroidism E89.0 [facility] [address] [facility] [address], [place] [id number] 12/14/2024 Bernnen Shiloh Acute left-sided low back pain with left-sided sciatica M54.42 ; Mixed hyperlipidemia E78.2 ; Essential (primary) hypertension I10 ; Lumbar back pain M54.50 ; Morbid obesity E66.01 and BMI 40.0-44.9, adult Z68.41 [facility] [address] [facility] [address] [place], [place] [id number] 12/30/2024 Brennen Shiloh Lumbago with sciatic a, left side M54.42 ; Other chronic pain G89.29 ; Spinal stenosis, lumbosacral region M48.07 ; Degeneration of intervertebral disc of lumbar region with discogenic back pain and lower extremity pain M51.362 ; Bulging lumbar disc M51.369 ; Lumbar facet arthropathy M47.816 ; Dark stools R19.5 and BMI 40.0-44.9, adult Z68.41 [facility] [address] [place], [place] [id number] 06/16/2025 Brennen Shiloh Essential (primary) hypertension I10 ; Mixed hyperlipidemia E78.2 ; Hypertriglyceridemia E78.1 ; Vitamin D deficiency E55.9 and Post-surgical hypothyroidism E89.0 [facility] [address] [place], [place] [id number] 09/05/2024 Wilfredo Brewster Mixed hyperlipidemia E78.2 [facility] [address] [place], [place] [id number] 09/06/2024 Brennen Shiloh [facility] [address] [place], [place] [id number] 09/08/2024 Brennen Shiloh [facility] [address] [place], [place] [id number] 12/19/2024 Brennen Shiloh Acute left-sided low back pain with left-sided sciatica M54.42 and Spinal stenosis, lumbosacral region M48.07 [facility] [address] [place], [place] [id number] 12/27/2024 Brennen Shiloh [facility] [address] [place], [place] [id number] 12/27/2024 Wilfredo Brewster [facility] [address] [place], [place] [id number] 12/30/2024 Brennen Shiloh [facility] [address] [place], [place] [id number] 01/05/2025 Brennen Shiloh [facility] [address] [place], [place] [id number] 01/31/2025 Brennen Shiloh Low back pain, unspe cified M54.50 [facility] [address] [place], [place] [id number] 05/01/2025 Brennen Shiloh [facility] [address] [place], [place] [id number] 05/09/2025 Brennen Shiloh Abnormal mammogram o f right breast R92.8 Assessments Encounter Date Diagnosis (ICD Code) Assessment Notes Treatment Notes Treatment Clinical Notes Section Notes 09/05/2024 Mixed hyperlipidemia (ICD-10 - E78.2) 12/14/2024 Mixed hyperlipidemia (ICD-10 - E78.2) 12/14/2024 Acute left-sided low back pain with left-sided sciatica (ICD-10 - M54.42) 12/30/2024 Lumbago with sciatic a, left side (ICD-10 - M54.42) 12/30/2024 Other chronic pain (ICD-10 - G89.29) 01/31/2025 Low back pain, unspecified (ICD-10 - M54.50) 05/09/2025 Abnormal mammogram o f right breast (ICD-10 - R92.8) 06/16/2025 Essential (primary) hypertension (ICD-10 - I10) 06/16/2025 Mixed hyperlipidemia (ICD-10 - E78.2) 12/19/2024 Spinal stenosis, lumbosacral region (ICD-10 - M48.07) 12/19/2024 Acute left-sided low back pain with left-sided sciatica (ICD-10 - M54.42) 09/07/2024 Post-surgical hypothyroidism (ICD-10 - E89.0) 06/16/2025 Hypertriglyceridemia (ICD-10 - E78.1) 12/30/2024 Spinal stenosis, lumbosacral region (ICD-10 - M48.07) 12/14/2024 Essential (primary) hypertension (ICD-10 - I10) 12/14/2024 Lumbar back pain (IC D-10 - M54.50) 12/30/2024 Degeneration of intervertebral disc of lumbar region with discogenic back pain and lower extremity pain (ICD-10 - M51.362) 06/16/2025 Vitamin D deficiency (ICD-10 - E55.9) 06/16/2025 Post-surgical hypothyroidism (ICD-10 - E89.0) 12/30/2024 Bulging lumbar disc (ICD-10 - M51.369) 12/14/2024 Morbid obesity (ICD- 10 - E66.01) 12/30/2024 Lumbar facet arthrop athy (ICD-10 - M47.816) 12/14/2024 BMI 40.0-44.9, adult (ICD-10 - Z68.41) 12/30/2024 Dark stools (ICD-10 - R19.5) 12/30/2024 BMI 40.0-44.9, adult (ICD-10 - Z68.41) Plan Of Treatment Pending Test Test Name Order Date LC-Vitamin D, 25-Hydroxy 07/23/2021 Next Appt Details Provider Name:Brennen mc, 12/14/2025 09:45:00 AM, [address], [place], [place], [id number], Insurance Providers Payer Name Payer Address Payer Phone Subscriber Number Group Number Insured Name Patient Relationship to Insured Coverage Start Date Coverage End Date [employer] (MEDICARE ) [address] [address] [place] [address] [id number] VEGA VASQUEZ Self - patient is the insured [facility] [address] [place] [phone] [id number] VEGA VASQUEZ Self - patient is the [...] up per GI bleed, 2022 treated at [facility] in [place] low back pain, s/p pain management treat ment 2024 Surgical History Surgery Date(Month/Year) Appendectomy 1992 LT Foot Fusion 12/2007 Neck Tumor Removal 01/10/2009 Bilateral Cataract Removal 10/11/2013, 0 10/25/2013 Rhizotomy and Epidural Steroid, Dr. Kanu patrick 03/22/2014 LT [facility]KA- [facility] 06/11/2015 RT [facility]KA- [facility] 10/13/2015 Thyroidectomy, Papillary Carcinoma, Dr. Bhakta 12/21/2019 colonoscopy (needs repeat in 5 years) Right total knee revision 2022 EGD due to GI bleed Jun 2023 Hospitalization History Reason Date(Month/Year)
--- OUTSIDE RECORDS SUMMARY | 2025-07-01 09:56 | XMS_ITS | Encounter Summary ---
Author Organization [facility] ([place], [place], [place], [place], [place]) Address [address] [place] [address] Care Team Providers Care Assistant Associate Professor Name Role Phone Brennen Wallis MD Primary Care Provider [phone] Encounter Details Date Type Department Care Team (Late st Contact Info) Description 10/13/2019 Transcribed Document [facility] Family Medicine [address] [place] [address] ProviderVanna MD [address] [place] [address] Social History Tobacco Use Types Packs/Day Years Used Date Smoking Tobacco: Never Assessed Comments Unknown Sex and Gender Information Value Date Recorded Sex Assigned at Not on file Legal Sex Female 5:38 PM CDT Gender Identity Not on file Sexual Orientation Not on file documented as of this encounter Miscellaneous Notes * [employer]ner Conversion Note - Vanna ProviderMD - 10/13/2019 3:23 PM GLOBAL ACCOUNT DIRECTOR Orthopedic Nurse Navigator Entered On: 10/13/2019 15:25 EST Performed On: 10/13/2019 15:23 EST by Lucy De, it service continuity supervisor Services Orthopedic Nurse Navigator Assessment Joint Navigator Assessment Note : Phone conversation with patient. Pt indicates she found a knot in her neck over the weekend. Her doctor indicates that she needed to have a biopsy done beofre her knee sx. Ana at Dr. Anne office called and she indicated that pt's had called her to inform her of the bx. Lucy De, it service continuity supervisor Services - 10/13/2019 15:23 EST Electronically signed by Radha, 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
--- OUTSIDE RECORDS SUMMARY | 2025-07-01 09:57 | XMS_ITS | Clinical Summary ---
Author Organization [facility] Address [address] [place] [address] Care Team Providers Care Church Administrator Name Role Phone Dariel Brewster MD Primary Care Provider [phone] Family History Medical History Relation Name Comments [...] [facility]-Bone Density Scan 1955 [facility]-Depression Screening 1955 [facility]-/Child/Adol SDOH Screenings 1955 [facility]- SDOH Screenings 11/27/1971 [facility]-Adult SDOH Screenings 11/27/1971 [facility]-DTaP,Tdap,and Td Vaccine s (1 - Tdap) 1972 CT Colonography 1998 Colonoscopy 1998 FIT-DNA 1998 FIT 1998 FOBT 1998 Sigmoidoscopy 1998 [facility]-Colorectal Cancer Screening 1998 [facility]-Pneumococcal Vaccine: 50 + Years (2 of 2 - PCV20 or PCV21) 05/09/2021 05/09/2020 [id number] Vaccine (3 - season) 2025 09/12/2020, 08/15/2020 [...] age to complete this topic Care Teams Church Administrator Relationship Specialty Start Date End Date Dariel Brewster MD [address] [place] [address] PCP - General 12/21/20
--- OUTSIDE RECORDS SUMMARY | 2025-07-01 09:57 | XMS_ITS | Data Portability ---
Author Organization [facility], [place] [facility] Address [address] [place] [address] Care Team Providers Care Line Analyst Name Role Phone ОЛЕГ GHOTRA Primary Care Provider HEMALATHA THAYER Database Specialist QUYEN UREÑA Referring Provider [phone] AFIA YOUNG Patient Monitor Assessment No assessment recorded. Plan of Treatment Reminders Order Date Submit Date Provider Last Modified By Organization Details Last Modified Time Details Appointments RECHECK 2025 11:00A M HEMALATHA THAYER MD Not available Not available Not available Lab T4, free, serum 2024 025 [facility], [address] [place] [address], [address], 12/28/2024 12:56:27 TSH, serum or plasma 2024 025 [facility], [address] [place] [address], [address], 12/28/2024 12:56:28 thyrogl obulin + thyrogl obulin Ab, serum 2024 025 [facility], [address] [place] [address], [address], 12/29/2024 15:55:16 TSH, serum or plasma 2023 025 [facility], [address] [place] [address], [address], 11/14/2024 11:32:18 T4, free, serum 2023 025 [facility], [address] [place] [address], [address], 11/14/2024 11:32:20 thyrogl obulin + thyrogl obulin Ab, serum 2023 025 [facility], [address] [place] [address], [address], 11/15/2024 15:14:53 ccp (cyclic citrull inated peptide ) iga+igg , serum 2022 023 [facility], [address] [place] [address], [address], 03/21/2023 16:18:08 rf (rheuma toid factor) , serum 2022 023 [facility], [address] [place] [address], [address], 03/20/2023 10:21:03 ESR (erythr ocyte sedimen tation rate), blood 2022 023 [facility], [address] [place] [address], [address], 03/20/2023 11:50:30 C reactiv e protein , QN, serum or plasma 2022 023 [facility], [address] [place] [address], [address], 03/20/2023 10:20:59 uric acid, serum or plasma 2022 023 [facility], [address] [place] [address], [address], 03/20/2023 10:21:00 TSH, serum or plasma 2022 024 [facility], [address] [place] [address], [address], 11/12/2023 12:26:01 T4, free, serum 2022 024 [facility], [address] [place] [address], [address], 11/12/2023 12:26:02 thyrogl obulin + thyrogl obulin Ab, serum 2022 024 [facility], [address] [place] [address], [address], 11/13/2023 14:58:26 TSH, serum or plasma 2021 023 [facility], [address] [place] [address], [address], 11/10/2022 11:41:56 T4, free, serum 2021 023 [facility], [address] [place] [address], [address], 11/10/2022 11:41:58 thyrogl obulin + thyrogl obulin Ab, serum 2021 023 [facility], [address] [place] [address], [address], 11/11/2022 13:21:56 Referral None recorde d. Procedures None recorde d. Surgeries None recorde d. Imaging US, neck, soft tissue - To be done before next visit after 1 year in November 2024. 2023 024 [facility], [address] [place] [address], [address], 11/14/2024 11:47:40 US, neck, soft tissue - TBD before next visit after 1 year [email or web address] [facility], [address] [place] [address], [address], 02/18/2023 07:04:45 US, neck, soft tissue - TBD before next visit after [address] [facility], [address] [place], [address], 11/27/2021 17:30:35 Medication Orders levothy roxine 137 mcg tablet 2024 025 [facility], [address] [place] [address] [place], [phone], 11/21/2024 13:29:59 levothy roxine 150 mcg tablet 2023 024 [facility], [address] [place] [address] [place], [id number], 06/16/2024 12:03:44 levothy roxine 150 mcg tablet 2022 023 [facility], [address] [place] [address] [place], [id number], 09/11/2023 16:06:27 levothy roxine 150 mcg tablet 2021 022 [id number], [address] [address] [place], [phone], 11/21/2021 11:30:31 Patient TargetsNo targets recorded. Patient InstructionsNo instructions recorded. Reason for Referral None Reported. Results Created Date Observation Date Name Description Value Unit Range Abnormal Flag Note LastModifiedBy Organization Detail LastModifiedTime 11/12/1911/11/2021 TSH TSH 0.560 uIU/m L 0.270- 4.200 normal Not Available [facility] [address] [place], [address], 11/11/2021 11:13:24 11/12/19 22 11/11/2021 T4,FR EE T4,free 1.96 NG/dL 0.93-1 .70 high Not Available [facility] [address] [facility], [place], [address], 11/11/2021 11:13:25 11/12/19 22 11/12/2021 THYRO GLOBU TOPHER PANEL thyroglobuli n 0.1 NG/mL low Refer ence Range : Intac t Thyro id 2.8-4 0.9 Athyr otic <0.1 Note: Abnor mal gladys ing is based on the refer ence inter sunitha for patie nts with intac t thyro id. This test was perfo rmed using the HCDC an Coult er chemi lumin escen t metho d. Value s obtai justin from diffe rent assay metho ds canno t be used inter shaffer eably . Thyro globu topher level s, regar dless of value , shoul d not be inter prete d as absol teller evide nce of the prese nce or [...] m mass spect romet ry (test code 02050 - Thyro globu topher, LC/MS /MS; or panel test code 98007 - Thyro id Cance r (Thyr oglob [...] AT: [facility] [address] [place] [address] ODALIS Conrad MD Not Available [facility] [address] [place] [address], [address], 11/12/2021 16:35:37 11/12/19 22 11/12/2021 THYRO GLOBU TOPHER PANEL thyroglobuli n abs 3 IU/mL < or = 1 high Not Available [facility] [address] [place] [address], [address], 11/12/2021 16:35:37 11/11/19 23 11/10/2022 TSH TSH 1.060 uIU/m L 0.270- 4.200 normal Not Available [facility] [address] [place] [address], [address], 11/10/2022 11:41:56 11/11/19 23 11/10/2022 T4,FR EE T4,free 1.98 NG/dL 0.93-1 .70 high Not Available [facility] [address] [place] [address], [address], 11/10/2022 11:41:58 11/11/19 23 11/11/2022 THYRO GLOBU [...] not be inter prete d as absol teller evide nce of the prese nce or [...] m mass spect romet ry (test code 17608 - Thyro globu topher, LC/MS /MS; or panel test code 41852 - Thyro id Cance r (Thyr oglob ulin) Monit oring ) test is recom gerardo d becau se it has no inter feren ce from autoa ntibo dies. For addit ional infor roney n, harinder e refer to http: //[facility] catadrián n.que stdia gnost ics.c om/fa q/FAQ (This link is being provi ded for infor roney nal/ educa itzel l purpo ses only. ) TEST PERFO RMED AT: [facility] [place] [address] [facility] [place] [address] ANTHO SONAJ V INEZ S Not Available [facility] [address] [place] [address], [address], 11/11/2022 13:21:56 11/11/19 23 11/11/2022 THYRO GLOBU TOPHER PANEL thyroglobuli n abs 2 IU/mL < or = 1 high Not Available [facility] [address] [place] [address], [address], 11/11/2022 13:21:56 03/20/20 23 03/20/2023 C REACT RUBA PROTE IN C reactive protein 0.34 mg/dL 0.00-0 .49 normal Not Available [facility] [address] [place], [address], 03/20/2023 10:20:58 03/20/20 23 03/20/2023 URIC ACID uric acid 5.2 mg/dL 2.4-5. 7 normal Refer ence range s are based on [facility] norms and do not neces heidi ho [...] mstan mag. [facility] Vol 64 No 10, 2011 Anmol Rodriguez ge of Rheum atolo gy ----- ----- ----- ----- ----- ----- ----- ----- ----- ----- ----- ---- Not Available [facility] [address] [place] [address], [address], 03/20/2023 10:21:00 03/20/20 23 03/20/2023 RF SCREE N, QUANT . rf screen, quant. <10.0 [IU]/ mL 0.0-13 .9 normal Not Available [facility] [address] [place] [address], [address], 03/20/2023 10:21:03 03/20/20 23 03/20/2023 ESR, AUTOM ATED ESR, automated 10 mm 0-29 normal Not Available [facility] [address] [place] [address], [address], 03/20/2023 11:50:30 03/20/20 23 03/21/2023 ANTI- CCP anti-ccp <16 units normal Refer ence Range Negat ruba: <20 Weak Posit ruba: 20-39 Moder ate Posit ruba: 40-59 Stron g Posit ruba: >59 Not Available [facility] [address] [place] [address], [address], 03/21/2023 16:18:08 11/12/19 24 11/12/2023 TSH TSH 1.450 u[IU] /mL 0.270- 4.200 normal Not Available [facility] [address] [place] [address], [address], 11/12/2023 12:26:01 11/12/19 24 11/12/2023 T4,FR EE T4,free 1.85 NG/dL 0.93-1 .70 high Not Available [facility] [address] [place] [address], [address], 11/12/2023 12:26:02 11/12/19 24 11/13/2023 THYRO GLOBU TOPHER PANEL thyroglobuli n <0.1 NG/mL low Refer ence Range : Intac t Thyro id 2.8-4 0.9 Athyr otic <0.1 Note: Abnor mal gladys ing is based on the refer ence inter sunitha for patie nts with intac t thyro id. This test was perfo rmed using the HCDC an COMARCOt er chemi lumin escen t metho d. Value s obtai justin from diffe rent assay metho ds canno t be used inter shaffer eably . Thyro globu topher level s, regar dless of value , shoul d not be inter prete d as absol teller evide nce of the prese nce or absen ce of disea se. For addit ional infor harinder sung e refer to http: //[facility] luz mohamud.que stdia gnost ics.c om/fa q/FAQ (This link is being provi ded for infor roney mccollum/ anthony vega purpo ses only. ) Not Available [facility] [address] [place] [address], [address], 11/13/2023 14:58:26 11/12/19 24 11/13/2023 THYRO GLOBU TOPHER PANEL thyroglobuli n abs 1 IU/mL < or = 1 normal Not Available [facility] [address] [place], [address], 11/13/2023 14:58:26 11/15/19 25 11/14/2024 TSH TSH 4.100 u[IU] /mL 0.270- 4.200 normal Not Available [facility] [address] [place], [address], 11/14/2024 11:32:18 11/15/19 25 11/14/2024 T4,FR EE T4,free 1.53 NG/dL 0.93-1 .70 normal Not Available [facility] [address] [place] [address], [address], 11/14/2024 11:32:20 11/15/19 25 11/15/2024 THYRO GLOBU TOPHER PANEL thyroglobuli n 0.1 NG/mL low Refer ence Range : Intac t Thyro id 2.8-4 0.9 Athyr otic <0.1 Note: Abnor mal gladys ing is based on the refer ence inter sunitha for patie nts with intac t thyro id. This test was perfo rmed using the Proteros biostructurest er chemi lumin escen t metho d. Value s obtai justin from diffe rent assay metho ds canno t be used inter shaffer eably . Thyro globu topher level s, regar dless of value , shoul d not be inter prete d as absol teller evide nce of the prese nce or absen ce of disea se. For addit ional infor harinder sung e refer to http: //[facility] luz mohamud.abraham stdia gnost ics.c om/fa q/FAQ (This link is being provi ded for infor roney mccollum/ educa itzel l purpo ses only. ) Not Available [facility] [address] [place] [address], [address], 11/15/2024 15:14:53 11/15/19 25 11/15/2024 THYRO GLOBU TOPHER PANEL thyroglobuli n abs 1 IU/mL < or = 1 normal Not Available [facility] [address] [place] [address], [address], 11/15/2024 15:14:53 11/12/19 22 11/11/2021 US, neck, soft tissu e [facility] [address] [place] [address] [place] [address] Patien t Name: VEGA Gulshan Farias t [...] Amarilys Hermosillo MD on 11/12/19 11:16 AM [facility] [address] [place] [address], [place], [address], 11/12/2021 13:41:43 11/11/19 23 11/10/2022 US, neck, soft tissu e [facility] [address] [place] [address] Jarrett tam Name: VEGA tam : [phone] [...] Amarilys Hermosillo MD on 11/11/19 1:23 PM [facility] [address], [address], 11/10/2022 17:18:10 11/12/19 24 11/12/2023 US, neck, soft tissu e [facility] [address] [place] [address] [place] [address] Patien t Name: VEGA tam : [phone] Jarrett t Orderi ng [facility] er: HEMALATHA THAYER EXAM DATE: 2023 [...] Means MD on 11/12/19 24 12:12 PM [facility] [address], [address], 11/19/2023 10:58:00 11/15/19 25 11/14/2024 US, neck, soft tissu e [facility] [address] [place] [address] [place] [address] Patien t Name: VEGA tam : [phone] [...] Олег Means MD on 11/15/19 11:42 AM [facility] [address] [place] [address], [address], 06/30/2025 04:10:29 Result Notes None recorded. Problems Name Problem SNOMED Code Status Onset Date Resolution Date Notes Provider Name and Address Organization Details Recorded Time Idiopathi c osteoarth ritis 987173015 Active 2014 From Automated Load;Provi rudolph: Vinny Scanlon; Status: Active Not Available [facility] 6 09:59:34 Hyperthyr oidism 78104250 Active 2019 VIJI CALVILLO MD [facility] [place], [address] , [facility] 0 09:09:11 Malignant neoplasm of thyroid gland 486893313 Active 2019 papillary 3.8 cm right lobe VIJI CALVILLO MD [facility] [place], [address] , [facility] 0 16:14:01 Diverticu litis 153920211 Active 2021 [facility] 11:09:21 Problem Notes None recorded. Procedures Surgical History Date Name Laterality Status Provider Name and Address Organization Details Recorded Time 05/13/20 20 THYROIDECTOMY, TOTAL (SURG) completed Erendira Coppola [facility] 12/22/2019 08:18:02 11/01/19 20 Review of Med Recs/Compl forms [facility] 11/01/2019 11:44:28 11/01/19 20 Fine Needle Aspiration; without image guidance completed [facility] 11/01/2019 11:50:00 10/09/19 16 procedure on knee [facility] 11/01/2019 11:13:57 06/10/20 15 total [facility]/2019 11:13:11 06/10/20 09 Back Surgery [facility] 11/01/2019 11:12:47 12/09/19 09 partial parotidectomy completed VIJI CALVILLO MD [address] [place] [address], [address] 11/01/2019 15:47:47 12/09/19 08 hammer toe operation [facility] 11/01/2019 11:11:40 11/26/18 92 [facility]end[facility] 11/01/2019 11:11:54 cataract surgery completed Meena Castillo [facility] 03/20/2023 08:38:27 Imaging Results None recorded. Procedure Notes None recorded. Medical Equipment None Reported. Allergies Allergen ID Allergen Name Allergen Category Reaction Reaction Severity Criticality Documentation Date Start Date Code Code System Note Provider Name and Address Organization Details Recorded Time 780661 adhesive tape environme nt,medica tion Not available Not available Not available 07/03/20162014 Comme nt: Creat ed By: Shereen Landry ca;Cr eated Date: 2014 1:19: 51 PM; Not Available [facility] 6 13:47:46 916007 cyclobenz aprine hydrochlo ride medicatio n rash Not available Not available 11/01/2019 60282 RxNorm [facility] 0 11:09:31 061837 methimazo le medicatio n rash severe Not available 02/22/2020 6835 RxNorm Sarah Mcgovernr [facility] 0 10:56:40 Medications Name Sig Start Date [...] Updated DateTime 11/19/2023 153.67 cm 44.8 kg/m2 566498.0 2 g 72 /min 122/78 mm[Hg] [facility] 11/19/2023 10:55:19 Date Recorded Body height Body mass index (BMI) Body weight Heart rate Systolic And Diastolic Provider Name and Address Organization Details Last Updated DateTime 11/20/2022 153.67 cm 44.9 kg/m2 720298.6 1 g 66 /min 165/85 mm[Hg] [facility] 11/20/2022 10:45:51 Date Recorded Body height Body mass index (BMI) Body weight Heart rate Systolic And Diastolic Provider Name and Address Organization Details Last Updated DateTime 11/21/2021 153.67 cm 45.6 kg/m2 111583.1 1 g 80 /min 158/96 mm[Hg] Milena Qiusalvador [facility] 11/21/2021 11:03:45 Date Recorded Body weight Body mass index (BMI) Body height Systolic And Diastolic Provider Name and Address Organization Details Last Updated DateTime 11/21/2024 938028.02 g 44.8 kg/m2 153.67 cm 124/78 mm[Hg] [facility] 11/21/2024 10:57:42 Date Recorded Body height Body mass index (BMI) Body weight Respiratory rate Heart rate Oxygen saturation Systolic And Diastolic Provider Name and Address Organization Details Last Updated DateTime 3 153.67 cm 44.5 kg/m2 581843. 64 g 16 /min 72 /min 99 % 122/80 mm[Hg] Meena Castillo [facility] 3 08:40:06 Social History Question Answer Notes LastModified by Organizat ion Details LastModified Time Tobacco Smoking Status Never [facility]oker [facility] 11/01/2019 11:11:21 How Much Tobacco Do You Chew? None Information not available 11/09/2019 What Was The Date Of Your Most Recent Tobacco Screening? 03/20/2023 [email or web address] Information not available 03/20/2023 How Much Tobacco [...] Condition Response Hyperthyroidism Y Anesthesia Complications Y Arthritis Y Cancer N Hypoglycemia N Diabetes N Hypertension Y Gynecological HistoryNo gynecological history recorded. Obstetrics History GPAL:G 0 P 0 0 0 0 Past Encounters Encounter ID Performer Location Encounter Start Date Encounter Closed Date Diagnosis/Indication Diagnosis SNOMED-CT Code Diagnosis ICD10 Code Diagnosis IMO Codes Diagnosis Note [id number] VIJI CALVILLO MD [place] [facility] [address] [place] [address] 11/01/2019 10:21:47 11/01/2019 13:01:03 Thyroid nodule 889639102 E04.1 midline and left-sympt omatic Hyperthyroidism 24964850 E05.90 possible w e will recheck low TSH m ay have hot nodule [id number] HEMALATHA THAYER MD [facility] [address] [address] [place] [address] 11/09/2019 09:08:44 11/09/2019 09:59:43 Thyroid nodule 661236452 E04.1 New office visit evaluation thyroid nodule [...] TPO and antithyrog lobulin antibodies . Hyperthyroidism 25993432 E05.90 In the office today she reported [...] e in the care of this patient. [id number] VIJI CALVILLO MD [place] [facility] [address] [place] [address] 11/10/2019 13:17:20 11/10/2019 14:40:11 Malignant neoplasm of thyroid gland 790677360 C73 -right Hyperthyroidism 99723272 E05.90 currently, on beta alva and endocrine as also placed her on methimazol e for the next month. Dysphagia 41914482 R13.1 0 Papillary thyroid carcinoma 029163393 C73 likely [id number] HEMALATHA THAYER MD [address] [place] [address] 12/02/2019 13:26:41 12/02/2019 15:49:47 Hyperthyroidism 18064089 E05.90 Follow-up visit Graves' hyperthyro idism Thyroid function tests on 11/01/2019 showed undetectab ly low TSH in the context of elevated total T4 and total T3 consistent with overt hyperthyro idism. Positive TSI consistent with Graves' hyperthyro idism Started on methimazol e 10 mg 3 times a day Methimazol e induced skin rashes/hiv es Unfortunat toni, I explained to patient that given [...] y normal complete blood counts Thyroid nodule 911648304 E04.1 Thyroid ultrasound report from outside facility [...] is suspicious for papillary thyroid cancer [ [place] category 5 as per my conversati on [...] appointmen t with ENT surgery. Pruritic rash 18222205 L 28.2 On physical exam she has pruritic lesions over abdominal wall, buttocks, joint surfaces consistent with hives due to methimazol e therapy. Methimazol e therapy discontinu ed See above Patient verbalized understand ing and agreed with the above mentioned plan of care. [id number] VIJI CALVILLO MD [place] [facility] [address] [place] [address] 12/08/2019 12:08:27 12/09/2019 08:55:01 Papillary thyroid carcinoma 333862685 C73 likely Malignant neoplasm of thyroid gland 509052351 C73 -right Hyperthyroidism 83352842 E05.90 currently, on beta alva and Lugols/Dec adron [id number] HEMALATHA THAYER MD [facility] [address] [place] [address] 12/13/2019 11:33:47 12/13/2019 12:08:45 Hyperthyroidism 49519991 E05.90 Follow-up visit Graves' hyperthyro idism Thyroid [...] necessary medical and cardiac clearance. Thyroid nodule 750508725 E04.1 Thyroid ultrasound report from outside facility [...] is suspicious for papillary thyroid cancer [ [place] category 5 as per my conversati on with pathology] Qualifies criteria for surgery upon achieving near or euthyroid status. Follow-up after surgery to discuss test results and management plan. Patient verbalized understand ing and agreed with the above mentioned plan of care. [id number] ANIRUDH CEE MD [place] [facility] [address] [place] [address] 12/23/2019 07:52:12 12/23/2019 08:32:03 Papillary thyroid carcinoma 715377595 C73 likely Malignant neoplasm of thyroid gland 922629049 C73 -right [id number] VIJI CALVILLO MD [place] [facility] [address] [place] [address] 12/29/2019 10:04:44 12/29/2019 10:52:30 Papillary thyroid carcinoma 094510400 C73 - s/p total thyroidect leonard 12/21/2019 - Pathology 12/21/2019: Minimally invasive papillary thyroid carcinoma. First tumor size 3.8cm greatest dimension. Tumor arises in the isthmus. Separate 2mm papillary thyroid carcinoma arising in the right lobe. Malignant neoplasm of thyroid gland 697466571 C73 -right Hoarse 04824439 R49.0 right vocal cord paresis s sheldon of persistent bleeding Hyperthyroidism 15178607 E05.90 status post thyroidect leonard [id number] HEMALATHA THAYER MD [address] [place] [address] 12/29/2019 11:16:20 12/29/2019 12:37:16 Papillary thyroid carcinoma 879046697 C73 Multifocal papillary thyroid cancer status post [...] radioactiv e iodine ablation] Postoperat ruba hypothyroidism 11251801 E89.0 Further increase her levothyrox ine dose from her current dose of 100 g to 150 g every a.m. Recheck TSH and free T4 before next visit after 6 weeks. Patient verbalized understand ing and agreed with the above mentioned plan of care. [id number] VIJI CALVILLO MD [place] [facility] [address] [place] [address] 02/02/2020 10:53:44 02/02/2020 11:48:02 Malignant neoplasm of thyroid gland 304230631 C73 -right Papillary thyroid carcinoma 817424955 C73 - s/p total thyroidect leonard 12/21/2019 - Pathology 12/21/2019: Minimally invasive papillary thyroid carcinoma. First tumor size 3.8cm greatest dimension. Tumor arises in the isthmus. Separate 2mm papillary thyroid carcinoma arising in the right lobe. Hyperthyroidism 35411145 E05.90 status post thyroidect leonard Dysphagia 15346246 R13.1 0 -liquids Hoarse 60786630 R49.0 right vocal cord paresis improving Hypocalcemia 4584098 E83 .51 now improving [id number] HEMALATHA THAYER MD [address] [place] [address] 02/22/2020 09:20:03 02/22/2020 13:08:18 Postoperative hypothyroidism [id number] E89.0 Most recent TSH of 0.023 Continue current levothyrox ine dose of 150 g every a.m. Further adjustment as appropriat e Patient verbalized understand ing and agreed with the above mentioned plan of care. Papillary thyroid carcinoma [id number] C73 Multifocal papillary thyroid cancer status post [...] continued monitoring without radioactiv e iodine ablation] [id number] HEMALATHA THAYER MD END[address]CR[address] [place] [address] 05/23/2020 09:52:08 05/23/2020 11:12:10 Papillary thyroid carcinoma [id number] C73 Multifocal papillary thyroid cancer status post [...] radioactiv e iodine ablation] Postoperat ruba hypothyroidism [id number] E89.0 Most recent TSH of 0.07 on on 02/22/2020 TSH done today with results are still pending Clinically reported hair loss and vertigo. Continue current levothyrox ine dose of 150 g every a.m. Further adjustment as appropriat e Patient verbalized understand ing and agreed with the above mentioned plan of care. [id number] VIJI CALVILLO MD PA E[facility] [address] [place] [address] 08/16/2020 10:30:33 08/16/2020 11:33:13 Malignant neoplasm of thyroid gland [id number] C73 -right Papillary thyroid carcinoma [id number] C73 - s/p total thyroidect leonard 12/21/2019 - Pathology 12/21/2019: Minimally invasive papillary thyroid carcinoma. First tumor size 3.8cm greatest dimension. Tumor arises in the isthmus. Separate 2mm papillary thyroid carcinoma arising in the right lobe. Hyperthyroidism [id number] E05.90 status post thyroidect leonard Hoarse [id number] R49.0 right vocal cord paresis improving Hypocalcemia 6423138 E83 .51 now improving Dizziness [id number] R42 [id number] HEMALATHA THAYER MD [address] [place] [address] 11/21/2020 09:29:47 11/21/2020 14:04:18 Postoperative hypothyroidism [id number] E89.0 Most recent TSH of 1.12 and [...] 90 days 3 refills. Papillary thyroid carcinoma [id number] C73 Multifocal papillary thyroid cancer status post [...] Patient currently lives about 1 hour from [place] and I explained to her that it [...] with the above mentioned plan of care. [id number] HEMALATHA THAYER MD [address] [place] [address] 11/21/2021 10:58:01 11/21/2021 13:56:58 Papillary thyroid carcinoma [id number] C73 Multifocal papillary thyroid cancer status post [...] benign-aman earing lymph nodes. Postoperat ruba hypothyroidism [id number] E89.0 Most recent TSH of 0.56 and [...] with the above mentioned plan of care. [id number] HEMALATHA THAYER MD [address] [place] [address] 11/20/2022 10:26:02 11/20/2022 13:05:29 Postoperative hypothyroidism [id number] E89.0 Most recent TSH of 1.06No symptoms of exogenous hyperthyro idism Continue current levothyrox ine dose of 150 g every a.m. Prescripti on renewed 90 days 3 refills.Octavio kelsey verbalized understand ing and agreed with the above mentioned plan of care. Papillary thyroid carcinoma [id number] C73 Multifocal papillary thyroid cancer status post [...] well as thyroid function test/thyro globulin panel [id number] AF[facility]NG [facility] [address] [place] [address] 03/20/2023 08:26:48 03/21/2023 04:24:25 Pain of multiple joints [id number] M25.50 67-year-ol d female with a long [...] osteoarthr itis.Furth er she has mechanical back pains.Manager Union tarik bilateral knee pains even though she [...] final decision will be as per . [id number] HEMALATHA THAYER MD [address] [place] [address] 11/19/2023 10:33:36 11/19/2023 13:21:25 Postoperative hypothyroidism [id number] E89.0 Most recent TSH of 1.45No symptoms [...] mentioned plan of care. 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 Most recent TSH of 4.1 on [...] up after 4-6 weeks Papillary thyroid carcinoma [id number] C73 Multifocal papillary thyroid cancer status post [...] LIFE ( - MEDICARE SUPPLEMENT) Vega Hilton [id number] Vega Hilton 12/30/2024 1 [employer] (MEDICARE REPLACEMENT /ADVANTAGE - PPO) Vega Hilton [id number] Vega Hilton Notes Date Note Type Note [...] Thyroid ultrasound done at an outside facility [[facility]] on 11/07/2019 showed 3 cm thyroid [...] follow-up labs and ultrasound HEMALATHA THAYER MD [address] [place] [address], [phone], [facility] 11/21/2021 12:11:53 11/20/2022 text/html 66-year-old female patient [...] Thyroid ultrasound done at an outside facility [[facility]] on 11/07/2019 showed 3 cm thyroid [...] excessive sweating, weight loss. HEMALATHA THAYER MD [address] [place] [address], [phone], [facility] 11/20/2022 12:56:57 03/20/2023 text/html ROS as noted in the HPI Vega is a 67 year old female here today in our rheumatology department as a new patient. She is accompanied by her sister. 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 Bilateral knee replacements [phone] She is planning another replacement of her [...] only taking tylenol arthritis. AFIA YOUNG MD [address] [place] [address], [phone], [facility] 03/20/2023 13:04:39 11/19/2023 text/html 67-year-old female patient [...] Thyroid ultrasound done at an outside facility [[facility]] on 11/07/2019 showed 3 cm thyroid [...] excessive sweating, weight loss. HEMALATHA THAYER MD [address] [place] [address], [phone], [facility] 11/19/2023 13:06:48 11/21/2024 text/html 68-year-old female patient [...] Thyroid ultrasound done at an outside facility [[facility]] on 11/07/2019 showed 3 cm thyroid [...] neck ultrasound last week. HEMALATHA THAYER MD [address] [place] [address], [phone], [place] [facility] 11/21/2024 12:27:11 OBGyn Episode No OBEpisode recorded.
--- NOTE | 2025-07-01 10:06 | XR_ITS ---
PROCEDURE INFORMATION: Exam: XR Left Ankle Exam date and time: 07/01/2025 10:53 AM Age: 69 years old Clinical indication: Injury or trauma; Fall; Blunt trauma; Ankle; Left; Additional info: Fall x 2 days, left lateral pain/bruising TECHNIQUE: Imaging protocol: Radiologic exam of the left ankle. Views: 1 or 2 views. Total images: 2 COMPARISON: CR XR ANKLE LT 2V 07/01/2025 10:53 AM FINDINGS: Bones/joints: Calcaneal spurs are present. Plate and screws in place along the distal aspect of the 1st metatarsal. There is a fracture of the proximal screw noted. No evidence of acute fracture or dislocation. Soft tissues: Mild soft tissue swelling. IMPRESSION: 1. Mild soft tissue swelling. 2. Plate and screws in place along the distal aspect of the 1st metatarsal. There is a fracture of the proximal screw noted. 3. No evidence of acute fracture or dislocation.
--- NOTE | 2025-07-01 10:06 | XR_ITS ---
PROCEDURE INFORMATION: Exam: XR Left Tibia and Fibula Exam date and time: 07/01/2025 10:53 AM Age: 69 years old Clinical indication: Injury or trauma; Fall; Blunt trauma; Lower leg; Left; Additional info: Fall x 2 days ago, left lateral pain/bruising TECHNIQUE: Imaging protocol: Radiologic exam of the left tibia and fibula. Views: 2 views. Total images: 2 COMPARISON: CR Ankle L 07/01/2025 10:53 AM FINDINGS: Bones/joints: Status post left knee replacement. No evidence of complications. No evidence of acute fracture or dislocation. Calcaneal spurs are present. Soft tissues: Mild soft tissue swelling. IMPRESSION: 1. No evidence of acute fracture or dislocation. 2. Mild soft tissue swelling. 3. Status post left knee replacement. No evidence of complications.
--- NOTE | 2025-07-01 10:17 | HMH.EDGENADL ---
Discharge Plan Disposition Patient Disposition: Home, Self-Care Prescriptions Prescriptions: No Action multivitamin tablet 1 tab PO QAM calcium carbonate-vitamin D3 600 mg calcium- 200 unit capsule 1 cap PO DAILY coenzyme Q10 [Co Q-10] 100 mg capsule 100 mg PO DAILY triamterene-hydrochlorothiazid [Maxzide-25mg] 37.5-25 mg tablet 1 tab PO QAM fenofibrate nanocrystallized 145 mg tablet 145 mg PO DAILY cholecalciferol (vitamin D3) 5,000 unit capsule 5,000 unit PO DAILY gabapentin [Gralise] 600 mg tablet extended release 24 hr 1,200 mg PO QPM amlodipine [Norvasc] 5 mg tablet 5 mg PO DAILY losartan 100 mg tablet 100 mg PO DAILY levothyroxine 150 mcg tablet 150 mcg PO DAILY lidocaine [Lidoderm] 5 % adhesive patch,medicated 1 patch topical DAILY PRN (Reason: .) Rx Instructions: leave on most painful area for up to 12 hrs acetaminophen [Tylenol Arthritis Pain] 650 mg tablet extended release 650 mg PO Q12H meclizine 25 mg tablet 25 mg PO BID PRN (Reason: dizziness) Qty: 180 0RF rosuvastatin 40 mg tablet 40 mg PO HS Patient Comments: TAKE ONE TABLET BY MOUTH EVERY DAY Eliquis 5 mg tablet See Rx Instructions .ROUTE .COMPLEX Qty: 180 3RF Dose Instruction: TAKE ONE TABLET BY MOUTH TWICE DAILY Rx Instructions: TAKE ONE TABLET BY MOUTH TWICE DAILY carvedilol 25 mg tablet 25 mg PO BID Rx Instructions: give with food (meal/snack) Referrals Follow up/Referrals: Brennen Wallis MD [Primary Care Provider, Medical] - See instructions Activity Restrictions/Add. Instructions Additional Instructions/Restrictions: Your x-rays did not show any evidence of broken bones or dislocation. Likely have a deep bruise that will take some time to heal. One of the screws for your previous knee replacement does appear to be broken. Is unclear if this was related to the fall or if this happened sometime ago. Will encourage you to follow-up with your orthopedist regarding this. You can use compression stockings to help reduce swelling in that leg. If you develop any new or worsening symptoms, such as numbness and tingling in the leg, paleness, increased pain, or if you become concerned for your health for any reason, return to the emergency department for evaluation Clinical Impressions Clinical Impression: Contusion of left calf Print Language Print Language: Azeri Discharge ED Provider: Colin Alford General Adult HPI General Chief complaint: Extremity Injury, Lower Stated complaint: AO 06/29 Fell on left leg, bruising Time Seen by Provider: 07/01/25 10:00 Mode of Arrival: Ambulatory Source of Information: Patient Description of Symptoms (Recalled from ER Triage Doc. by RN): pt fell on and is concerned about the bruising on her left leg. she is able to bare weight on it without issue but has a hx of a knee replacement. History of Present Illness HPI narrative: Cheyanne Hilton is a 69-year-old female with a history of TIA on , left knee replacement, hyperlipidemia who presents to the emergency department for complaints of left leg pain swelling and bruising. Patient states that on , she was putting up [employer] decorations and tripped over her feet and fell. She states that she thinks she hit her left medrano on something when she fell. She did not have any head trauma or loss of consciousness. She has been able to bear weight on that left leg since but has noticed some swelling and bruising to the lateral aspect of her left medrano and states it is somewhat painful. She is concerned she may have broken something. She also reports chronic left ankle swelling and is unsure if the swelling she has in her ankle is related to this or the injury in her leg. She denies any numbness or tingling. Related Data Home Medications ?Medication ?Instructions ?Recorded ?Confirmed calcium 600 mg (as 1 cap PO DAILY Supplement 11/04/17 02/20/25 carbonate)-vitamin D3 5 mcg (200 unit) capsule cholecalciferol (vitamin D3) 125 5,000 unit PO DAILY Supplement 11/04/17 02/20/25 mcg (5,000 unit) capsule coenzyme Q10 100 mg capsule (Co 100 mg PO DAILY Supplement 11/04/17 02/20/25 Q-10) fenofibrate nanocrystallized 145 145 mg PO DAILY Cholesterol 11/04/17 02/20/25 mg tablet gabapentin 600 mg tablet,extended 1,200 mg PO QPM NERVE PAIN 11/04/17 02/20/25 release 24 hr (Gralise) multivitamin 1 tab PO QAM Supplement 11/04/17 02/20/25 triamterene 37.5 1 tab PO QAM Hypertension 11/04/17 02/20/25 mg-hydrochlorothiazide 25 mg tablet (Maxzide-25mg) amlodipine 5 mg tablet (Norvasc) 5 mg PO DAILY blood pressure 07/08/18 02/20/25 losartan 100 mg tablet 100 mg PO DAILY blood pressure 07/08/18 02/20/25 levothyroxine 150 mcg tablet 150 mcg PO DAILY . 05/26/22 02/20/25 lidocaine 5 % topical patch 1 patch topical DAILY PRN . 05/26/22 02/20/25 (Lidoderm) carvedilol 25 mg tablet 25 mg PO BID BLOOD PRESSURE 06/03/22 02/20/25 acetaminophen 650 mg 650 mg PO Q12H 08/28/22 02/20/25 tablet,extended release (Tylenol Arthritis Pain) rosuvastatin 40 mg tablet 40 mg PO HS 08/16/24 02/20/25 Previous Rx's ?Medication ?Instructions ?Recorded meclizine 25 mg tablet 25 mg PO BID PRN dizziness #180 10/13/23 tabs apixaban 5 mg tablet (Eliquis) See Rx Instructions .Route 10/17/24 .COMPLEX #180 tabs Allergies Allergy/AdvReac Type Severity Reaction Status Date / Time methimazole Allergy Intermediate Other Verified 02/20/25 13:15 tetanus and diphtheria Allergy Mild Other Verified 02/20/25 13:15 toxoids adhesive tape Allergy Other Verified 02/20/25 13:15 cyclobenzaprine (From Allergy Hives Verified 02/20/25 13:15 Flexeril) [facility] Disclaimer: The information contained in this section may have been updated after the patient was seen, as this information can be updated by other users. Medical History Arthritis History of gastroesophageal reflux (GERD) Hypertension Hyperlipidemia History of anemia Thyroid cancer Encounter for pre-operative cardiovascular clearance History of GI bleed Screening for colon cancer EVON (obstructive sleep apnea) Status post placement of implantable loop recorder Multiple cerebral infarctions Abnormal EKG FH: early coronary artery disease Hyperlipidemia Surgical History H/O discectomy History of carpal tunnel surgery History of colonoscopy History of right knee joint replacement History of thyroidectomy History of appendectomy History of left knee replacement Family History Father Colon cancer Other Heart disease Social History Smoking Status: Never smoker second hand exposure: No alcohol intake: never substance use type: denies use current occupational status: retired Travel in the last 8 weeks?: None household members: none housing: house current occupational exposures/hazards: No caffeine: Yes Have you lived/traveled outside [place] in past 30 days?: No Contact w/someone who lives/traveled outside US past 30 days?: No Exposure to someone with infectious disease in past 14 days?: No Do you have a fever (greater than 100.4 F or 38 C)?: No Have you tested positive for COVID-19?: No Exposed to someone with COVID-19 in past 14 days?: No Do you have a sore throat?: No Do you have a cough?: No Do you have any weakness?: No Do you have any diarrhea?: No Are you experiencing any unusual bleeding?: No Do you have any muscle aches/pain?: No Do you have any abdominal pain?: No Are you experiencing loss of taste or smell?: No Other Medical History Have you received the Flu Vaccine for this season: No Have you received the Pneumonia Vaccine: Yes ROS Obtained: Yes Systems reviewed as appropriate & no additional complaints except as documented Physical Exam General General appearance: alert and in no apparent distress Head Head exam: atraumatic Eye Eye exam: Present normal appearance ENT ENT exam: Present normal external ear exam Neck Neck exam: Present full ROM Chest Chest inspection: Present symmetric chest wall rise Respiratory Respiratory exam: Present normal lung sounds bilaterally; Absent respiratory distress Cardiovascular Cardiovascular exam: Present regular rate and normal rhythm Abdominal Exam Abdominal exam: Present soft; Absent tenderness or guarding Extremities Exam Extremities exam: Present normal inspection Expanded Lower Extremity Exam Left: Leg image:  1. Bruising, mild swelling 2. Bruising, mild swelling 3. Tenderness, no deformities Comment: Left lower extremity: 2+ DP and PT pulses. 5 out of 5 strength and sensation with ankle dorsiflexion and plantarflexion. Less than twos and capillary refill. She has bruising over the lateral aspect of her left medrano into the calf but compartments are soft. She is not significantly tender in this area. She has some point tenderness in the left proximal tibia. Back Exam Back exam: Present normal inspection Neurological Exam Neurological exam: Present alert and oriented X3 Psychiatric Psychiatric exam: Present normal affect Skin Skin exam: Present warm and dry Medical Decision Making Medical Records Screening: Per USPSTF and CDC recommendations, given the prevalence of disease in our region, it is our hospital?s policy to screen for HIV and viral Hepatitis for all patients aged 18 and over and those with ongoing risk factors. Luis Fernando Inquiry Pt receiving controlled substance: No Vital Signs: 07/01/25 09:45 Temperature 98.1 F Temperature Source Oral Pulse Rate [Right] 76 Respiratory Rate 20 Blood Pressure [Right Arm] 136/64 Blood Pressure Mean [Right Arm] 88 02 Sat by Pulse Oximetry 96 Oxygen Delivery Method Room Air Orders (Tests/Meds): ORDERS Category Date Time Status Ankle XR - Left 2 Views [XR ankle LT 2V] Stat Exams 07/01/25 10:06 Completed Fibula/tibia XR left 2 views [XR tibia fibula LT 2V] Exams 07/01/25 10:06 Completed Stat Medical Decision Narrative: Cheyanne Hilton is a 69-year-old female with a history of TIA on [facility], left knee replacement, hyperlipidemia who presents to the emergency department for complaints of left leg pain swelling and bruising. Patient states that on , she was putting up [employer] decorations and tripped over her feet and fell. She states that she thinks she hit her left medrano on something when she fell. She did not have any head trauma or loss of consciousness. She has been able to bear weight on that left leg since but has noticed some swelling and bruising to the lateral aspect of her left medrano and states it is somewhat painful. She is concerned she may have broken something. She also reports chronic left ankle swelling and is unsure if the swelling she has in her ankle is related to this or the injury in her leg. She denies any numbness or tingling. On arrival, patient is hemodynamically stable, in no acute distress, breathing comfortably on room air with appropriate oxygen saturation. Afebrile. Physical exam, stated above, revealed an overall well-appearing female in no respiratory distress. She is sitting comfortably. She has bruising along the lateral aspect of her left medrano extending into her calf. She has some tenderness over the proximal anterior tibia but no deformities. No significant tenderness over the calf or medrano. Compartments are soft. 2+ DP and PT pulses. 5 out of 5 strength and sensation distal to the injury with ankle dorsiflexion plantarflexion and toe extension and flexion. Differential diagnosis includes, but is not limited to: Fracture, soft tissue injury, low concern for compartment syndrome or peroneal nerve injury given reassuring exam. Patient offered Tylenol for her symptoms, however she states that she took an arthritis strength Tylenol this morning and is okay without getting any medication currently. Will obtain left tib-fib and left ankle x-rays. X-ray imaging was interpreted by me personally. No acute fracture or dislocation. There is some mild soft tissue swelling in the ankle and medrano. There is a fracture of the proximal screw in the first metatarsal but no other acute findings. On reassessment, patient remains in stable condition. I do feel that patient's injury is likely soft tissue in nature and will heal over time. There is no evidence of compartment syndrome. No bony injury on x-ray today. She is weightbearing on that extremity. I feel that she is appropriate discharge at this time. Return precautions were given. All questions were answered. She demonstrated understanding and was in agreement this plan. I did instruct her to follow-up with her orthopedist regarding the fractured screw. She was then discharged from the emergency department in stable condition peer Critical Care Critical Care Time Critical Care Time: No
[2025-07-01 11:46] VITALS: BP 137/71; PULSE 73; RESP 18; TEMP 36.7; O2SAT 98
== END 2025-07-01 11:50 | disposition home or self-care (01) ==
PROVIDERS: Emergency Provider Student in an Organized Health Care Education/Training Program; PCP Family Medicine
DX: S80.12XA Contusion of left lower leg, initial encounter (principal); W01.10XA Fall on same level from slipping, tripping and stumbling with subsequent striking against unspecified object, initial encounter; Z86.73 Personal history of transient ischemic attack (TIA), and cerebral infarction without residual deficits; Z79.01 Long term (current) use of anticoagulants
CPT/HCPCS: 73590; 73600; 99283